=== PATIENT | male | born 1985 | race African-American/Black ===

== ENCOUNTER 2017-12-03 14:16 | Inpatient (IN) | payer SELFPAY ==
[2017-12-03 14:58] LABS: #Eosinphils 0.1 thou/uL (0.0-0.7); #Lymphocytes 1.8 thou/uL (1.20-3.40); #Monocytes 0.7 thou/uL (0.11-0.59); #Neutrophils 14.4 thou/uL (1.40-6.50); %Basophils 0.2 % (0.0-1.0); %Eosinophils 0.3 % (0.0-10.0); %Lymphocytes 10.5 % (21.0-51.0); %Neutrophils 85.1 % (42.0-75.0); Hemoglobin 13.6 g/dL (14.0-18.0); Mean Corpuscular HGB CONC 33.3 g/dL (32.0-36.0); Mean Corpuscular Hemoglobin 28.2 pg (27.0-31.0); Mean Corpuscular Volume 84.7 fl (80.0-94.0); Platelet Count 233 thou/uL (130-400); RBC Distribution Width 14.5 % (11.5-14.5); Red Blood Cell (RBC) Count 4.84 mill/uL (4.70-6.10); White Blood Cell (WBC) Count 16.9 thou/uL (4.8-10.8)
[2017-12-03 15:18] LABS: ALT (SGPT) 24 U/L (8-55); AST (SGOT) 18 U/L (5-34); Albumin 2.7 g/dL (3.5-5.0); Alkaline Phosphatase 86 U/L (40-150); Anion Gap 14 mmol/L (10-20); BUN (Urea Nitrogen) 28 mg/dL (8.9-20.6); Bilirubin, Total 0.6 mg/dL (0.2-1.2); Calc. Creatinine Clearance 0 mL/min (70-130); Carbon Dioxide 27 mmol/L (22-29); Chloride 101 mmol/L (98-107); Estimated GFR-MDRD 33; Globulin 3.6 g/dL (2.4-3.5); Glucose 263 mg/dL (70-105); Potassium 3.3 mmol/L (3.5-5.1); Protein, Total 6.3 g/dL (6.0-8.3); Sodium 139 mmol/L (136-145)
[2017-12-03 18:12] LABS: INR-International Normal Ratio 1.1; PTT 31.2 SEC (22.9-36.1)
--- NOTE | 2017-12-03 18:15 | RAD ---
CHEST ONE VIEW 12/03/17 HISTORY: Chest pain. COMPARISON: Chest one view, 07/18/17. FINDINGS: Lungs without focal air space consolidation, pneumothorax or effusion. The cardiac silhouette and med iastinal contours appear within normal limits. No acute osseous abnormality. IMPRESSION: No acute intrathoracic abnormality. POS: [facility]
[2017-12-03 18:20] LABS: Magnesium 1.7 mg/dL (1.6-2.6)
[2017-12-03] MEDS ORDERED: Nitroglycerin 2% Ointment 1 INCH/1 GM Packet ONE (18:21)
[2017-12-03] MEDS ORDERED: Fentanyl 100 MCG/2 ML VIAL ONE (18:21)
[2017-12-03] MEDS ORDERED: Acetaminophen 500 MG TAB ONE (18:21)
[2017-12-03 18:24] LABS: CKMB 2.8 ng/mL (0-6.6); Troponin I 0.149 ng/mL (< 0.028)
[2017-12-03] MEDS ORDERED: Heparin 25,000 units/D5W 0 ML ONE ×2 (19:24→19:25)
[2017-12-03] MEDS ORDERED: Furosemide 40 MG/4 ML VIAL ONE (19:24)
[2017-12-03] MEDS ORDERED: Heparin 5,000 UNITS/ML VIAL ONE (19:24)
[2017-12-03] MEDS ORDERED: niCARdipine 20MG In NaCl 20 MG/200 ML BAG ONE (19:24)
[2017-12-03 20:11] LABS: CKMB 2.7 ng/mL (0-6.6); Troponin I 0.168 ng/mL (< 0.028)
[2017-12-03] MEDS ORDERED: Amlodipine 5 MG TAB ONE (20:13)
[2017-12-03 20:46] LABS: Bilirubin Negative (Negative); Blood, Urine Moderate (Negative); Clarity CLEAR (Clear); Glucose, Urine (Dipstick) 250 mg/dL (Negative); Leukocyte Negative (Negative); Nitrite Negative (Negative); Protein, Urine (Dipstick) > or equal to 300 mg/dL (Neg-Trace); Specific Gravity, Urine 1.021 (1.002-1.036)
[2017-12-03 20:48] LABS: Bacteria/HPF None Seen HPF (None Seen); Hyaline Casts/LPF 7-10 HYALINE CAST LPF (0-3 Hyaline); Pathc Cast-AUWi Flag 1.49 (0-2.49); Squamous Epithelial 0-3 HPF (0-3); WBC/HPF 0-3 HPF (0-3)
[2017-12-03 21:03] LABS: Amphetamine Not Detected (NotDetected); Barbiturates Screen Not Detected (NotDetected); Benzodiazepine Screen Not Detected (NotDetected); Cocaine Metabolite Screen Not Detected (NotDetected); Medtox Control Line Valid? VALID (VALID); Medtox Reader # READER 1; Methadone Not Detected (NotDetected); Methamphetamine Not Detected (NotDetected); Opiate Screen Not Detected (NotDetected); Oxycodone Screen Not Detected (NotDetected); Phencyclidine (PCP) Not Detected (NotDetected); THC/Cannabinoid Screen Detected (NotDetected); Tricyclic Screen Not Detected (NotDetected)
[2017-12-03 21:39] LABS: Troponin I 0.161 ng/mL (< 0.028)
[2017-12-03 22:38] VITALS: BMI 42.0
[2017-12-03] MEDS: niCARdipine 20MG In NaCl 20 MG/200 ML BAG IVPB SCH (22:55)
[2017-12-03] MEDS ORDERED: Bisacodyl 5 MG TAB PO PRN (23:23)
[2017-12-03] MEDS ORDERED: Ondansetron HCl/PF 4 MG/2 ML Vial IVP PRN (23:23)
[2017-12-03] MEDS ORDERED: Acetaminophen 650 MG Suppository PR PRN (23:23)
[2017-12-03] MEDS ORDERED: Dextrose 50% Abboject 50 ML SYRINGE SLOW IVP PRN (23:25)
[2017-12-03] MEDS ORDERED: Dextrose 5% in Water 1,000 ML IV PRN (23:25)
[2017-12-04] MEDS ORDERED: Potassium Chloride 20 MEQ TAB PO SCH (00:30)
[2017-12-04] MEDS: Acetaminophen 325 MG TAB PO PRN (00:40)
[2017-12-04] MEDS: Nicotine 21 MG PATCH TD SCH ×2 (00:41→23:57)
[2017-12-04] MEDS: niCARdipine 20MG In NaCl 20 MG/200 ML BAG IVPB SCH ×4 (01:14→07:40)
--- NOTE | 2017-12-04 01:15 | HP ---
PRIMARY CARE PHYSICIAN: Mike Leach MD CHIEF COMPLAINT: Shortness of breath. HISTORY OF PRESENT ILLNESS: Mr. Emery is a pleasant 32-year-old gentleman who was seen at [facility] on 12/03/2017. He was hospitalized at this facility in 06/2017 for hyperte nsive crisis. He reports that he was initially taking his medication, but stopped taking medications about a month ago. Since then, he has been having progressively worsening shortness of breath. He also report generalized weakness. He denies any fevers or chills. He also report his headache was s tarted. He describes the headache as global, 5/10 at its worst, accompanied by shortness of breath, nausea, and generalized weakness. He report that his headache is currently improving. REVIEW OF SYSTEMS: The following complete review of systems was negative, unless otherwise mentioned in the HPI or below: Constitutional: Weight loss or gain, ability to conduct usual activities. Sk in: Rash, itching. Eyes: Double vision, pain. ENT/Mouth: Nose bleeding, neck stiffness, pain, te nderness. Cardiovascular: Palpitations, dyspnea on exertion, orthopnea. Respiratory: Shortness of breath, wheezing, cough, hemoptysis, fever or night sweats. Gastrointestinal: Poor appetite, abdom inal pain, heartburn, nausea, vomiting, constipation, or diarrhea. Genitourinary: Urgency, frequenc y, dysuria, nocturia. Musculoskeletal: Pain, swelling. Neurologic/Psychiatric: Anxiety, depressio n. Allergy/Immunologic: Skin rash, bleeding tendency. PAST MEDICAL HISTORY: Significant for hypertension; diabetes mellitus, type 2; chronic kidney diseas e, stage 3; morbid obesity; marijuana abuse. PAST SURGICAL HISTORY: None. FAMILY HISTORY: Father with hypertension and diabetes mellitus. ALLERGIES: None. CURRENT MEDICATIONS: As mentioned earlier, patient has not been taking any medications for the last month. SOCIAL HISTORY: The patient is a current smoker, he also uses marijuana. He drinks alcohol 2 times a month. PHYSICAL EXAMINATION: GENERAL: Mr. Emery is awake and alert, not in acute distress. VITAL SIGNS: Blood pressure is 213/121, pulse is 109, his breathing is at the rate of 27, and satura ting 93% on 1 liter of oxygen. He is morbidly obese, with a BMI of 42. EYES: No scleral icterus, no conjunctival pallor. ENT: Moist mucosal membranes. No oropharyngeal, erythema, or exudates. NECK: Supple, nontender, normal range of movement. Trachea is midline. RESPIRATORY: Accessory muscles of breathing are not active. Chest wall movements are symmetric bila terally. LUNGS: Clear to auscultation without wheeze, rhonchi, or crepitations. ABDOMEN: Soft, nontender, bowel sounds heard. No hepatomegaly, no splenomegaly. CARDIOVASCULAR: S 1 and S2 are heard, tachycardic regular. Peripheral pulses palpable. No carotid bruit, no pericardi al rub. NEUROLOGIC: Cranial nerves II through XII intact. Power is 5/5 in all four extremities. No Deep te ndon reflexes 2+. MUSCULOSKELETAL: Power is 5/5 in all 4 extremities. No focal motor or sensory deficits. Deep tendo n reflexes are 2+. Plantar downgoing bilaterally. LYMPHATIC: No cervical lymphadenopathy. SKIN: No rashes or subcutaneous nodules. PSYCHIATRIC: Normal mood, normal affect, patient is oriented to person, place, and time. LABORATORY AND DIAGNOSTIC DATA: Mr. Emery's labs and investigations were reviewed. I have reviewe d his electrocardiogram, which shows sinus tachycardia, no ST changes to suggest an acute coronary sy ndrome. He has left ventricular hypertrophy and repolarization abnormality. I have also reviewed hi s chest x-ray, which does not show any pulmonary infiltrates. Laboratory [place] [address], of which 85% on neutrophils, normocytic anemia with hemoglobin 13.6, normal platelet count, INR 1.1, normal sodium, decreased potassium of 3 .3, elevated blood urea nitrogen of 28, elevated creatinine of 2.73, last known creatinine 2.05 on , elevated BNP of 3118, indeterminate troponin I of 0.161, normal lipase. Urinalysis positiv e for protein, glucose, blood, and hyaline cast, and urine toxicology screen, positive for cannabinoi ds. ASSESSMENT AND PLAN: Mr. Emery is a pleasant 32-year-old gentleman who was seen at [facility] on 12/03/2017. His problem list includes: 1. Hypertensive urgency: Mr. Emery is presenting with hypertensive urgency secondary to medicatio n noncompliance. He has already been started on Cardene drip, which will be continued, his target bl ood pressure is less than 162 over less than 110 for the next 23 hours. Once the target blood pressu re is reached, it can be transitioned to oral antihypertensive. He will also likely need an outpatie nt sleep study to rule out obstructive sleep apnea syndrome as a cause of hypertension. 2. Hypokalemia: Replace potassium. 3. Diabetes mellitus: Start Accu Cheks, insulin sliding sclae. 4. Tobacco abuse: The patient has been consult regarding tobacco cessation. Start nicotine replace ment therapy. 5. Recreational drug use. The patient has been counseled against recreational drug use. 6. Elevated troponin: The patient denies any chest pain. Troponin elevation is likely secondary to chronic kidney disease. 7. Congestive heart failure: Suspected, given history of shortness of breath as well as elevated BN P. We will him on diuretics. We will check 2D echocardiogram. He had normal diastolic function in 01/2017. Many thanks for allowing me to participate in your patient's care. Please feel free to contact me wi th any questions or concerns. LEVEL OF RISK: High. LEVEL OF COMPLEXITY: High.
[2017-12-04 01:16] LABS: Troponin I 0.153 ng/mL (< 0.028)
[2017-12-04 05:14] LABS: #Eosinphils 0.1 thou/uL (0.0-0.7); #Lymphocytes 2.5 thou/uL (1.20-3.40); #Monocytes 0.8 thou/uL (0.11-0.59); #Neutrophils 11.4 thou/uL (1.40-6.50); %Basophils 0.1 % (0.0-1.0); %Eosinophils 0.9 % (0.0-10.0); %Lymphocytes 16.5 % (21.0-51.0); %Monocytes 5.5 % (0.0-10.0); %Neutrophils 76.9 % (42.0-75.0); Hemoglobin 13.6 g/dL (14.0-18.0); Mean Corpuscular HGB CONC 32.9 g/dL (32.0-36.0); Mean Corpuscular Hemoglobin 27.8 pg (27.0-31.0); Mean Corpuscular Volume 84.6 fl (80.0-94.0); Mean Platelet Volume 8.6 fL (7.4-10.4); Platelet Count 239 thou/uL (130-400); RBC Distribution Width 14.6 % (11.5-14.5); White Blood Cell (WBC) Count 14.8 thou/uL (4.8-10.8)
[2017-12-04 05:26] LABS: Anion Gap 15 mmol/L (10-20); BUN (Urea Nitrogen) 25 mg/dL (8.9-20.6); Calc. Creatinine Clearance 81 mL/min (70-130); Carbon Dioxide 24 mmol/L (22-29); Chloride 102 mmol/L (98-107); Estimated GFR-MDRD 38; Glucose 138 mg/dL (70-105); Sodium 138 mmol/L (136-145)
[2017-12-04 05:33] LABS: Troponin I 0.195 ng/mL (< 0.028)
[2017-12-04] MEDS: Furosemide 20 MG/2 ML VIAL SLOW IVP SCH ×2 (06:24→14:42)
--- NOTE | 2017-12-04 08:44 | PDOC.PN ---
- Subjective Encounter Start Date: 12/04/17 Encounter Start Time: 08:42 Mr. Emery was seen in follow-up of hypertensive Urgency. He says he has a mild headache, but otherwise feels OK. He wants to eat something. He denies chest pain or shortness of breath. - Objective MAR Reviewed: Yes Vital Signs & Weight: Vital Signs (12 hours) Temp Pulse Resp Pulse Ox 12/04/17 00:00 98.6 F 12/03/17 22:00 98.5 F 111 H 22 H 96 Weight Weight 292 lb 5.327 oz Most Recent Monitor Data Heart Rate from ECG 111 NIBP 171/110 NIBP BP-Mean 129 Respiration from ECG 20 SpO2 97 I&O: 12/03/17 12/04/17 12/05/17 06:59 06:59 06:59 Output Total 2049 Balance -2049 Result Diagrams: 12/04/17 03:36 12/04/17 03:36 Additional Labs: Accuchecks 12/04/17 00:40 POC Glucose 138 H Phys Exam - Physical Examination HEENT: PERRLA Respiratory: no wheezing, no rales, no rhonchi, clear to auscultation bilateral Cardiovascular: RRR, no significant murmur, no rub Gastrointestinal: soft, non-tender, positive bowel sounds Musculoskeletal: no edema Neurological: non-focal, moves all 4 limbs No Neurological deficits Dx/Plan (1) [id number] kidney injury Code(s): N17.9 - ACUTE KIDNEY FAILURE, UNSPECIFIED; N18.9 - CHRONIC KIDNEY DISEASE, UNSPECIFIED Status: Acute (2) Hypertensive emergency Code(s): I16.1 - HYPERTENSIVE EMERGENCY Status: Acute Comment: off Cardene drip (3) Hypokalemia Code(s): E87.6 - HYPOKALEMIA Status: Acute (4) Medical non-compliance Code(s): Z91.19 - PATIENT'S NONCOMPLIANCE W OTH MEDICAL TREATMENT AND REGIMEN Status: Chronic (5) DM2 (diabetes mellitus, type 2) Status: Chronic Qualifiers: Diabetes mellitus complication status: with kidney complications Diabetes mellitus complication detail: with chronic kidney disease Diabetes mellitus custodial insulin use: without custodial use Chronic kidney disease stage: stage 3 (moderate) Qualified Code(s): E11.22 - Type 2 diabetes mellitus with diabetic chronic kidney disease; N18.3 - Chronic kidney disease, stage 3 ( moderate) - Plan * HTN- patient's blood pressure is still elevated despite the Cardene drip. He appears to have been on Clonidine at one time- will re-start Clonidine, as well as some of his other oral medications, and hopsefully titrate him off the Cardene drip. * CT- scan finding discussed with Radiologist- possible basal Ganglia CVA, No Hemorrhage- Patient has no Neurological findings- will check an MRI to clarify * DM- patient says he is not on medication for this- will continue SSI * Non-compliance- discussed with patient in detail * Acute on chronic kidney failure- will monitor renal function-this is likely due to the Hypertensive insult. * Hypokalemia- replace Potassium
[2017-12-04] MEDS ORDERED: FLU VACC QS2017-18 36 mo. & older 0.5 ML SYRINGE IM ONE (09:00)
--- NOTE | 2017-12-04 09:01 | CT ---
PRELIMINARY REPORT/[facility]/EMERGENCY AFTER HOURS PROCEDURE: Addendum created by Lai Hurtado MD on 12/04/2017 8:28 AM Central Time ([place] & [place]) THIS REPORT CONTAINS FINDINGS THAT MAY BE CRITICAL TO PATIENT CARE. The findings were verbally commun icated via telephone conference with Dr. Keller at 8:27 AM [facility] on 12/04/2017. The findings were acknowl edged and understood. Initial Report created on 12/04/2017 7:37 AM Central Time ([place] & [place]) EXAM: CT Head Without Intravenous Contrast CLINICAL HISTORY: 32 years male; Signs and symptoms; Other: R/O bleed TECHNIQUE: Axial computed tomography images of the head/brain without intravenous contrast. COMPARISON: No relevant prior studies available. FINDINGS: Brain: Ill-defined low density change in the right basal ganglia lentiform nucleus. Additional faint ovoid low density change noted in the left gabriel radiata. No acute intracranial hemorrhage. No significant white matter disease. Brainstem: Prominent beam hardening artifact anteriorly at the brainstem. Ventricles: Unremarkable. No ventriculomegaly. Bones/joints: Unremarkable. No acute fracture. Soft tissues: Unremarkable. Sinuses: Unremarkable as visualized. No acute sinusitis. Mastoid air cells: Unremarkable as visualized. No mastoid effusion. IMPRESSION: Ill-defined low density change in the right basal ganglia lentiform nucleus. Additional faint ovoid l ow density change noted in the left gabriel radiata. These could represent subacute nonhemorrhagic inf arctions. Confirmatory followup imaging with MRI is recommended. The referring physician critical finding notification system was activated at the time of completion of this report. Thank you for allowing us to participate in the care of your patient. Dictated and Authenticated by: Lai Hurtado MD 12/04/2017 7:37 AM Central Time ([place] & [place]) FINAL REPORT CT HEAD NONCONTRAST: FINDINGS/IMPRESSION: I agree with the preliminary interpretation provided above. Age-indeterminate right basal ganglia infarction extending into the right thalamus and additionally a t the junction of the left centrum semiovale and left coronal radiata. Findings suggest age-indeterm inate ischemia. Recommend clinical correlation. POS: [facility]
[2017-12-04] MEDS: cloNIDine 0.1 MG TAB PO SCH ×3 (09:52→19:56)
[2017-12-04] MEDS: Carvedilol 25 MG TAB PO SCH ×2 (09:53→19:56)
[2017-12-04] MEDS: Heparin 5,000 UNITS/ML VIAL SC SCH ×3 (10:32→19:56)
[2017-12-04] MEDS: niCARdipine HCl 50 MG in Sodium Chloride 0.9% 250 ML 230 ML IVPB SCH ×2 (10:48→14:39)
[2017-12-04] MEDS ORDERED: NIFEdipine XL 60 MG TAB PO SCH (12:00)
--- NOTE | 2017-12-04 14:09 | ULT ---
CAROTID ULTRASOUND WITH LEE SCALE AND DOPPLER DUPLEX COLOR FLOW IMAGING SPECTRAL ANALYSIS PERFORMED: CLINICAL INDICATION: Possible CVA. FINDINGS: There is no significant atherosclerotic calcification of the carotid arteries. PEAK SYSTOLIC VELOCITY (CM/S): Right CCA 134 Left CCA 120 Right ICA 62 Left ICA 63 There is antegrade flow within the visualized bilateral vertebral arteries. IMPRESSION: 1. No hemodynamically significant stenosis of the right internal carotid artery. 2. No hemodynamically significant stenosis of the left internal carotid artery. POS: [facility]
--- NOTE | 2017-12-04 15:53 | EKG ---
Test Reason : EMERGENCY EXAM Blood Pressure : / mmHG Vent. Rate : 107 BPM Atrial Rate : 107 BPM P-R Int : 162 ms QRS Dur : 116 ms QT Int : 378 ms P-R-T Axes : 071 000 156 degrees QTc Int : 504 ms Sinus tachycardia with Premature atrial complexes Possible Left atrial enlargement Left ventricular hypertrophy with QRS widening and repolarization abnormality Abnormal ECG No change from 06/2017 Confirmed by MARIEL VARNER ([id number]), non linear editor VALENCIA DAY ([id number]) on 12/04/2017 3:52:33 PM Referred By: Confirmed By:MARIEL VARNER
--- NOTE | 2017-12-04 15:54 | EKG ---
Test Reason : Blood Pressure : / mmHG Vent. Rate : 107 BPM Atrial Rate : 107 BPM P-R Int : 156 ms QRS Dur : 116 ms QT Int : 376 ms P-R-T Axes : 058 001 158 degrees QTc Int : 501 ms Sinus tachycardia Possible Left atrial enlargement Left ventricular hypertrophy with QRS widening and repolarization abnormality Abnormal ECG #2 No change Confirmed by MARIEL VARNER ([id number]), online content editor VALENCIA DAY ([id number]) on 12/04/2017 3:53:46 PM Referred By: Confirmed By:MARIEL VARNER
[2017-12-04] MEDS: HumaLOG 300 UNITS/3 ML VIAL SC PRN ×2 (17:25→21:11)
[2017-12-04] MEDS ORDERED: Labetalol HCl 100 MG/20 ML VIAL SLOW IVP PRN (17:36)
[2017-12-04] MEDS ORDERED: hydrALAZINE 25 MG TAB PO PRN (17:37)
[2017-12-04] MEDS: NIFEdipine XL 60 MG TAB PO SCH (19:56)
[2017-12-04] MEDS: Simvastatin 5 MG TAB PO SCH (19:56)
[2017-12-05 04:26] LABS: #Eosinphils 0.2 thou/uL (0.0-0.7); #Lymphocytes 2.7 thou/uL (1.20-3.40); #Monocytes 0.9 thou/uL (0.11-0.59); #Neutrophils 8.9 thou/uL (1.40-6.50); %Basophils 0.2 % (0.0-1.0); %Eosinophils 1.5 % (0.0-10.0); %Lymphocytes 21.4 % (21.0-51.0); %Monocytes 6.7 % (0.0-10.0); %Neutrophils 70.2 % (42.0-75.0); Hemoglobin 11.5 g/dL (14.0-18.0); Mean Corpuscular HGB CONC 32.4 g/dL (32.0-36.0); Mean Corpuscular Hemoglobin 27.8 pg (27.0-31.0); Mean Corpuscular Volume 85.7 fl (80.0-94.0); Mean Platelet Volume 7.9 fL (7.4-10.4); Platelet Count 238 thou/uL (130-400); RBC Distribution Width 14.5 % (11.5-14.5); Red Blood Cell (RBC) Count 4.14 mill/uL (4.70-6.10); White Blood Cell (WBC) Count 12.7 thou/uL (4.8-10.8)
[2017-12-05 04:43] LABS: Anion Gap 12 mmol/L (10-20); BUN (Urea Nitrogen) 22 mg/dL (8.9-20.6); Calc. Creatinine Clearance 92 mL/min (70-130); Calcium 8.5 mg/dL (7.8-10.44); Carbon Dioxide 23 mmol/L (22-29); Chloride 102 mmol/L (98-107); Estimated GFR-MDRD 43; Glucose 127 mg/dL (70-105); Potassium 3.3 mmol/L (3.5-5.1); Sodium 134 mmol/L (136-145)
[2017-12-05] MEDS: Furosemide 20 MG/2 ML VIAL SLOW IVP SCH ×2 (06:12→14:37)
[2017-12-05] MEDS: NIFEdipine XL 60 MG TAB PO SCH ×2 (08:05→21:37)
[2017-12-05] MEDS: Carvedilol 25 MG TAB PO SCH ×2 (08:05→21:37)
[2017-12-05] MEDS: Minoxidil 10 MG TAB PO SCH (08:05)
[2017-12-05] MEDS: cloNIDine 0.1 MG TAB PO SCH ×3 (08:05→21:36)
[2017-12-05] MEDS: Heparin 5,000 UNITS/ML VIAL SC SCH ×3 (08:05→21:37)
--- NOTE | 2017-12-05 08:35 | PDOC.PN ---
- Subjective Encounter Start Date: 12/05/17 Encounter Start Time: 08:31 Mr. Emery does not have complaints, other than his vision is a bit blurry. He says that started today. His headache has improved. - Objective MAR Reviewed: Yes Vital Signs & Weight: Vital Signs (12 hours) Temp Pulse Resp Pulse Ox 12/05/17 07:33 98.0 F 88 16 97 12/05/17 07:00 98.0 F 12/05/17 03:00 98.3 F 12/04/17 23:00 98.0 F Weight Weight 289 lb 7.471 oz Most Recent Monitor Data Heart Rate from ECG 78 NIBP 157/104 NIBP BP-Mean 123 Respiration from ECG 23 SpO2 96 I&O: 12/04/17 12/05/17 12/06/17 06:59 06:59 06:59 Intake Total 2903 360 Output Total 2049 1850 700 Balance -2049 1053 -340 Result Diagrams: 12/05/17 04:06 12/05/17 04:06 Additional Labs: Accuchecks 12/05/17 12/04/17 12/04/17 06:12 21:09 17:24 POC Glucose 119 H 166 H 200 H Phys Exam - Physical Examination HEENT: PERRLA Respiratory: no wheezing, no rales, no rhonchi, clear to auscultation bilateral Cardiovascular: RRR, no significant murmur Gastrointestinal: soft, non-tender, positive bowel sounds Musculoskeletal: no edema Neurological: non-focal Dx/Plan (1) [id number] kidney injury Code(s): N17.9 - ACUTE KIDNEY FAILURE, UNSPECIFIED; N18.9 - CHRONIC KIDNEY DISEASE, UNSPECIFIED Status: Acute (2) Hypertensive emergency Code(s): I16.1 - HYPERTENSIVE EMERGENCY Status: Acute Comment: off Cardene drip (3) Hypokalemia Code(s): E87.6 - HYPOKALEMIA Status: Acute (4) Medical non-compliance Code(s): Z91.19 - PATIENT'S NONCOMPLIANCE W OTH MEDICAL TREATMENT AND REGIMEN Status: Chronic (5) DM2 (diabetes mellitus, type 2) Status: Chronic Qualifiers: Diabetes mellitus complication status: with kidney complications Diabetes mellitus complication detail: with chronic kidney disease Diabetes mellitus assisted insulin use: without superintendent marine oil terminal use Chronic kidney disease stage: stage 3 (moderate) Qualified Code(s): E11.22 - Type 2 diabetes mellitus with diabetic chronic kidney disease; N18.3 - Chronic kidney disease, stage 3 ( moderate) - Plan * Hypertensive Urgency- Blood pressure is much better. He is off the Cardene drip. He has been re-started on Clonidine, and Carvediolol, Procardia, and Minoxidil. * DM- blood glucose is stable on diabetic diet- continue SSI * Acute CVA? - Await MRI to clarify * Echo is pending * Acute on chronic kidney disease- renal function has improved * He can move out of the ICU.
[2017-12-05] MEDS: Acetaminophen 325 MG TAB PO PRN (10:55)
--- NOTE | 2017-12-05 12:37 | MRI ---
MRI BRAIN WITHOUT CONTRAST: CLINICAL HISTORY: Abnormal head CT exam with history of possible CVA. FINDINGS: There is a focus of abnormal hyperintense FLAIR and T2 signal of the right thalamus, extending into t he right gabriel radiata, in addition to scattered parenchymal signal abnormalities of each cerebral h emisphere. No evidence of acute territorial infarction or midline shift. The ventricular system is normal in size. No intracranial hemorrhagic susceptibility. Skull base flow voids are patent. Mini mal mucosal thickening is seen within the paranasal sinuses. IMPRESSION: Foci of signal alteration of the bilateral cerebral hemispheres, favoring areas of gliosis, although are nonspecific and are atypical for a patient of this age. Additional etiologies, such as infectiou s/inflammatory foci or demyelinating processes, cannot be excluded on the basis of this exam. Recomm end a neurology consultation for further clinical management. Imaging followup with pre and post con trast brain MRI would also prove useful on a short-term basis. POS: [facility]
[2017-12-05] MEDS: HumaLOG 300 UNITS/3 ML VIAL SC PRN (17:38)
[2017-12-05] MEDS: Simvastatin 5 MG TAB PO SCH (21:37)
[2017-12-06] MEDS: Nicotine 21 MG PATCH TD SCH (00:37)
[2017-12-06] MEDS: Acetaminophen 325 MG TAB PO PRN (02:44)
[2017-12-06] MEDS: Furosemide 20 MG/2 ML VIAL SLOW IVP SCH ×2 (05:29→15:05)
[2017-12-06 05:50] LABS: #Eosinphils 0.1 thou/uL (0.0-0.7); #Monocytes 0.9 thou/uL (0.11-0.59); #Neutrophils 7.7 thou/uL (1.40-6.50); %Basophils 0.1 % (0.0-1.0); %Eosinophils 1.4 % (0.0-10.0); %Lymphocytes 10.4 % (21.0-51.0); %Monocytes 8.8 % (0.0-10.0); %Neutrophils 79.4 % (42.0-75.0); Hemoglobin 11.4 g/dL (14.0-18.0); Mean Corpuscular HGB CONC 32.4 g/dL (32.0-36.0); Mean Corpuscular Hemoglobin 27.9 pg (27.0-31.0); Platelet Count 206 thou/uL (130-400); RBC Distribution Width 14.5 % (11.5-14.5); Red Blood Cell (RBC) Count 4.09 mill/uL (4.70-6.10); White Blood Cell (WBC) Count 9.7 thou/uL (4.8-10.8)
[2017-12-06 06:17] LABS: Anion Gap 12 mmol/L (10-20); BUN (Urea Nitrogen) 23 mg/dL (8.9-20.6); Calc. Creatinine Clearance 92 mL/min (70-130); Calcium 8.6 mg/dL (7.8-10.44); Carbon Dioxide 25 mmol/L (22-29); Chloride 102 mmol/L (98-107); Estimated GFR-MDRD 43; Glucose 130 mg/dL (70-105); Potassium 3.6 mmol/L (3.5-5.1); Sodium 135 mmol/L (136-145)
[2017-12-06] MEDS: Heparin 5,000 UNITS/ML VIAL SC SCH (09:32)
[2017-12-06] MEDS: cloNIDine 0.1 MG TAB PO SCH (09:32)
[2017-12-06] MEDS: Carvedilol 25 MG TAB PO SCH (09:32)
[2017-12-06] MEDS: NIFEdipine XL 60 MG TAB PO SCH (09:32)
[2017-12-06] MEDS: Minoxidil 10 MG TAB PO SCH (09:32)
[2017-12-06] MEDS: HumaLOG 300 UNITS/3 ML VIAL SC PRN (11:25)
[2017-12-06 11:44] VITALS: BP 140/93; TEMP 98.2
--- NOTE | 2017-12-06 11:59 | PDOC.PN ---
- Subjective Encounter Start Date: 12/06/17 Encounter Start Time: 11:56 Mr. Emery says he still notes some blurred vision. He admits this happened before when he was admitted with Hypertensive Urgency, it lasted a few days then got better. His headache is better. - Objective MAR Reviewed: Yes Vital Signs & Weight: Vital Signs (12 hours) Temp Pulse Pulse Pulse Resp BP BP 12/06/17 11:43 98.2 F 84 18 12/06/17 09:19 88 85 172/95 H 133/79 12/06/17 09:15 98.4 F 87 16 12/06/17 04:00 97.9 F 83 20 BP Pulse Ox Pulse Ox Pulse Ox 12/06/17 11:43 140/93 H 97 12/06/17 09:19 96 97 12/06/17 09:15 172/95 H 97 12/06/17 04:00 158/91 H 96 Weight Weight 292 lb Most Recent Monitor Data Heart Rate from ECG 75 NIBP 148/95 NIBP BP-Mean 117 Respiration from ECG 20 SpO2 97 I&O: 12/05/17 12/06/17 12/07/17 06:59 06:59 06:59 Intake Total 2903 1440 Output Total 1850 1400 Balance 1053 40 Result Diagrams: 12/06/17 05:15 12/06/17 05:15 Additional Labs: Accuchecks 12/06/17 12/06/17 12/05/17 11:08 06:17 17:32 POC Glucose 162 H 129 H 196 H 12/05/17 11:56 POC Glucose 152 H Phys Exam - Physical Examination HEENT: PERRLA Respiratory: no wheezing, no rales, no rhonchi, clear to auscultation bilateral Cardiovascular: RRR, no significant murmur Gastrointestinal: soft, non-tender, positive bowel sounds Musculoskeletal: no edema Dx/Plan (1) [id number] kidney injury Code(s): N17.9 - ACUTE KIDNEY FAILURE, UNSPECIFIED; N18.9 - CHRONIC KIDNEY DISEASE, UNSPECIFIED Status: Acute (2) Hypertensive emergency Code(s): I16.1 - HYPERTENSIVE EMERGENCY Status: Acute Comment: off Cardene drip (3) Hypokalemia Code(s): E87.6 - HYPOKALEMIA Status: Acute (4) Medical non-compliance Code(s): Z91.19 - PATIENT'S NONCOMPLIANCE W OTH MEDICAL TREATMENT AND REGIMEN Status: Chronic (5) DM2 (diabetes mellitus, type 2) Status: Chronic Qualifiers: Diabetes mellitus complication status: with kidney complications Diabetes mellitus complication detail: with chronic kidney disease Diabetes mellitus lobsterman insulin use: without lobsterman use Chronic kidney disease stage: stage 3 (moderate) Qualified Code(s): E11.22 - Type 2 diabetes mellitus with diabetic chronic kidney disease; N18.3 - Chronic kidney disease, stage 3 ( moderate) - Plan * Hypertensive Urgency- improved * MRI findings- discussed with the patient- will need Outpatient Neurology evaluation * Echo results noted- discussed with patient as well- lower EF likely from Uncontrolled HTN, and will hopefully improve with proper therapy, and control of his blood pressure- Echo will need to be repeated in 3-4 months * Stable for discharge home..
--- NOTE | 2017-12-06 12:23 | DIS ---
DATE OF ADMISSION: 12/03/2017 DATE OF DISCHARGE: 12/06/2017 PRIMARY CARE PHYSICIAN: Marylou Chand. DISCHARGE DISPOSITION: Home. PRIMARY DISCHARGE DIAGNOSES: 1. Hypertensive urgency. 2. Diabetes mellitus, type 2. 3. Chronic kidney disease stage 3. 4. Morbid obesity, the patient's body mass index is 43.1. 5. Hypertensive Heart Disease with Acute Systolic Heart Failure DISCHARGE MEDICATIONS: Include nifedipine XL 60 mg twice daily, minoxidil 10 mg daily, Zaroxolyn 5 mg daily, lovastatin 20 mg daily, hydralazine 50 mg t.i.d. , clonidine 0.1 mg t.i.d., carvedilol 25 mg twice daily, and aspirin 81 mg daily. PROCEDURES DONE DURING THE ADMISSION: The patient had an echocardiogram and this demonstrated an ejection fraction of 35%-40%. There was severe concentric left ventricular hypertrophy and mild dilatation of the left atrium. The patient also had a CT scan of the brain showing some age indeterminate right basal ganglia and infarct extending into the right thalamus and additionally at the junction of the left centrum semiovale and left gabriel radiata, there could be findings suggestive of an age indeterminate ischemia. The patient had a followup MRI and this showed some focal signal alteration in bilateral cerebral hemispheres that was favoring gliosis, this was nonspecific, but atypical for his age. There was no evidence of any bleed or infarction. He had bilateral carotid Dopplers which were negative. CODE STATUS: FULL CODE. ALLERGIES: No known drug allergies. HOSPITAL COURSE: Mr. Emery is a pleasant 32-year-old gentleman who was admitted with shortness of breath. He was found to have an extremely elevated blood pressure of 213/121. He was admitted to the ICU for hypertensive urgency and started on a Cardene drip. The patient's blood pressure was controlled after he was on a Cardene drip for about 24 hours and we restarted his usual antihypertensive. The patient admits to not taking his medications at least for the last week or longer period and therefore this episode was likely due to medical noncompliance. He is currently working at [employer] and anticipates having health insurance, which will become effective soon. He was instructed on the dangers of noncompliance and the need to follow up on a regular basis at the time of discharge. I also discussed the risk of end-stage renal disease requiring dialysis, stroke with paralysis or even and explained that his vision changes are likely related to the uncontrolled hypertension. He expressed understanding of this. However, I suspect he may still have some difficulty with compliance as he told me he plans to get the medications on Wednesday, today is Wednesday. I again stressed him the need for him to crab picker the medication today. I explained to him the clonidine and carvedilol, very inexpensive and he likely can scrape up enough money to get these and he can likely even borrow some money to get the rest of the medications. 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 Also, he will need to follow up with Neurology in the outpatient setting regarding the changes seen on the MRI and also his ejection fraction was slightly over than on previous admission. Again, this was explained to the patient. I discussed this with Dr. Alanis, who was quality control lab tech with Cardiology and it is likely that this is a result of hypertensive insult on his heart and once he is back on his medications to repeat the echo in 3-4 months, likely to improve his creatinine is also 2.16, which is actually an improvement from admission and for this reason, we did not do any invasive cardiac chest as well. The patient expressed understanding that he will need a repeat echo upon discharge. I wrote out his prescriptions instead of sending him directly to the pharmacy as he has been undecided as to which pharmacy he plans to take them too. Therefore , he should have them on his person and can get these filled. The patient is subsequently being discharged home today on 12/06/2017. MAURY
--- NOTE | 2017-12-12 18:01 | PQF ---
Zion Emery [id number] CLINICAL DOCUMENTATION CLARIFICATION FORM: POST DISCHARGE Addendum to original discharge summary date: ____ Late entry note date: __ DATE: 12/12/17 ATTN: Dr. Keller Please exercise your independent, professional judgment in responding to the clarification form. Clinical indicators are provided on the bottom of this form for your review Please check appropriate box(s): [ X ] Associated Diagnosis: __Hypertensive Heart Disease with systolic heart failure [ ] Other diagnosis [ ] Unable to determine In addition, please specify: Present on Admission (POA): [ X ] Yes [ ] No [ ] Unable to determine CLINICAL INDICATORS - SIGNS / SYMPTOMS/ LABS are present in the medical record: Lab Results: BNP 3118 on admission H&P documents "suspectec CHF" RISK FACTORS: HTN urgency CKD DM Morbid obesity TREATMENT Diuretic 2D echo (This form is maintained as a part of the permanent medical record) 2014 [employer], [employer]. All Rights Reserved BROOK Casey, CCS [email or web address] [phone] MAURY
== END 2017-12-06 15:15 | disposition home or self-care (01) | DRG 304 ==
LOC: ERS 14:16 → CCU 20:19 → 2NO 12-05 12:33
PROVIDERS: ADMIT Internal Medicine; ATTEND Internal Medicine
DX: I16.1 Hypertensive emergency (principal); I50.21 Acute systolic (congestive) heart failure; N17.9 Acute kidney failure, unspecified; E11.22 Type 2 diabetes mellitus with diabetic chronic kidney disease; N18.3 Chronic kidney disease, stage 3 (moderate); Z68.41 Body mass index [BMI] 40.0-44.9, adult; E66.01 Morbid (severe) obesity due to excess calories; I13.0 Hypertensive heart and chronic kidney disease with heart failure and stage 1 through stage 4 chronic kidney disease, or unspecified chronic kidney disease; Z91.14 Patient's other noncompliance with medication regimen; E87.6 Hypokalemia; Z91.19 Patient's noncompliance with other medical treatment and regimen; F17.210 Nicotine dependence, cigarettes, uncomplicated; H53.8 Other visual disturbances
CPT/HCPCS: 36415; 36416; 70450; 70551; 71045; 80048; 80053; 80061; 80306; 81003; 81015; 82553; 83690; 83735; 83880; 84484; 85025; 85610; 85730; 93005; 93306; 93798; 93880; 96365; 96366; 96375; 99406; J1644; J1940; J3010; J7050

== ENCOUNTER 2018-09-28 16:05 | Inpatient (IN) | payer OTHER, SELFPAY ==
[2018-09-28] MEDS ORDERED: Ketorolac Tromethamine 30 MG/ML VIAL ONE (16:39)
[2018-09-28] MEDS ORDERED: Pantoprazole 40 MG VIAL ONE (16:39)
[2018-09-28 16:46] LABS: Hemoglobin 15.7 g/dL (14.0-18.0); Mean Corpuscular HGB CONC 33.1 g/dL (32.0-36.0); Mean Corpuscular Hemoglobin 26.7 pg (27.0-31.0); Mean Corpuscular Volume 80.8 fL (78.0-98.0); Mean Platelet Volume 8.1 fL (7.4-10.4); Platelet Count 401 thou/uL (130-400); RBC Distribution Width 13.8 % (11.5-14.5); Red Blood Cell (RBC) Count 5.87 mill/uL (4.70-6.10); White Blood Cell (WBC) Count 23.2 thou/uL (4.8-10.8)
[2018-09-28 17:08] LABS: Band 1 % (5-11); Lymphocytes 12 % (21-51); MDiff Complete? YES; Monocytes 1 % (0-10); Neutrophil 85 % (42-75); PLT Morphology Comment Appears Increased; RBC Morphology Normal; Reactive Lymphocytes 1 % (0-10)
[2018-09-28 17:09] LABS: ALT (SGPT) 13 U/L (8-55); AST (SGOT) 15 U/L (5-34); Alkaline Phosphatase 101 U/L (40-150); Anion Gap 14 mmol/L (10-20); BUN (Urea Nitrogen) 39 mg/dL (8.9-20.6); Bilirubin, Total 0.3 mg/dL (0.2-1.2); CK (CPK) 118 U/L (30-200); Calc. Creatinine Clearance 0 mL/min (70-130); Calcium 8.7 mg/dL (7.8-10.44); Carbon Dioxide 23 mmol/L (22-29); Chloride 101 mmol/L (98-107); Estimated GFR-MDRD 18; Globulin 3.9 g/dL (2.4-3.5); Glucose 185 mg/dL (70-105); Lipase 43 U/L (8-78); Potassium 3.5 mmol/L (3.5-5.1); Protein, Total 6.9 g/dL (6.0-8.3); Sodium 134 mmol/L (136-145)
[2018-09-28 17:14] LABS: CKMB 3.8 ng/mL (0-6.6); Troponin I 0.084 ng/mL (< 0.028)
--- NOTE | 2018-09-28 17:23 | CT ---
CT ABDOMEN AND PELVIS WITHOUT CONTRAST: Date: 09/28/18 HISTORY: Right upper quadrant abdominal pain, vomiting. FINDINGS: Absence of oral and IV contrast reduces the sensitivity of exam, particularly for solid organs and anthony wel. The lung bases are clear. There is free fluid in the abdomen and pelvis consistent with ascites. No c alcified gallstones are seen. No free air is identified. No calculi seen in the kidneys, ureters, or the urinary bladder. No hydroureteronephrosis noted on either side. No acute osseous abnormalities ar e seen. The appendix appears normal. IMPRESSION: 1. Ascites. 2. No CT evidence of urinary tract calculi or obstruction. POS: [facility]
[2018-09-28 17:57] LABS: Acetaminophen Less than 6.0 mcg/mL (10.0-30.0); Alcohol Less than 10 mg/dL (Less than 10); Salicylate Less than 8.0 mg/dL (15.0-30.0)
[2018-09-28] MEDS ORDERED: Morphine 4 MG/ML VIAL ONE (18:28)
[2018-09-28] MEDS ORDERED: niCARdipine 20MG In NaCl 20 MG/200 ML BAG ONE (18:28)
[2018-09-28] MEDS ORDERED: Aspirin 81 mg Enteric Coated Tablet ONE (18:28)
--- NOTE | 2018-09-28 18:35 | RAD ---
CHEST ONE VIEW: 09/28/18 COMPARISON: 12/03/17 HISTORY: Pain. FINDINGS: Normal cardiac silhouette. Pulmonary vessels and hilum are normal. No masses or consolidation. No pne umothorax or osseous abnormalities. IMPRESSION: No acute cardiopulmonary process. POS: [facility]
[2018-09-28 18:40] LABS: Bilirubin Small (Negative); Blood, Urine Negative (Negative); Clarity CLOUDY (Clear); Glucose, Urine (Dipstick) 500 mg/dL (Negative); Leukocyte Negative (Negative); Nitrite Negative (Negative); Protein, Urine (Dipstick) > or equal to 300 mg/dL (Neg-Trace); Specific Gravity, Urine 1.033 (1.002-1.036); Urobilinogen 0.2 mg/dL (0.2-1.0)
[2018-09-28 18:42] LABS: Bacteria/HPF None Seen HPF (None Seen)
[2018-09-28 18:51] LABS: Pathc Cast-AUWi Flag 8.43 (0-2.49)
[2018-09-28 19:03] LABS: Amphetamine Not Detected (NotDetected); Barbiturates Screen Not Detected (NotDetected); Benzodiazepine Screen Not Detected (NotDetected); Cocaine Metabolite Screen Not Detected (NotDetected); Medtox Control Line Valid? VALID (VALID); Medtox Reader # READER 4; Methadone Not Detected (NotDetected); Methamphetamine Not Detected (NotDetected); Opiate Screen Not Detected (NotDetected); Oxycodone Screen Not Detected (NotDetected); Phencyclidine (PCP) Not Detected (NotDetected); THC/Cannabinoid Screen Detected (NotDetected); Tricyclic Screen Not Detected (NotDetected)
[2018-09-28 19:05] LABS: Crystals/HPF 1+ AMORPH URATES HPF (Negative); RBC/HPF 0-3 HPF (0-3)
[2018-09-28 19:06] LABS: Hyaline Casts/LPF 4-6 HYALINE CAST LPF (0-3 Hyaline); Other Casts/LPF 0-3 COARSE GRAN LPF (0-3 Hyaline); Transitional Epithelial 0-3 HPF (0-3)
[2018-09-28 20:14] LABS: Troponin I 0.104 ng/mL (< 0.028)
[2018-09-28 20:17] LABS: HIV (1/2) Antibody/Antigen Non-Reactive (NonReactive)
[2018-09-28] MEDS ORDERED: niCARdipine HCl 25 MG in Sodium Chloride 0.9% 250 ML 240 ML IVPB SCH (21:45)
[2018-09-28] MEDS ORDERED: Ondansetron ODT 4 MG TAB SL PRN (21:47)
[2018-09-28] MEDS ORDERED: Ondansetron PF 4 MG/2 ML Vial IVP PRN (21:47)
[2018-09-28] MEDS ORDERED: Morphine 4 MG/ML VIAL IV PRN (21:48)
[2018-09-28] MEDS ORDERED: HumaLOG 300 UNITS/3 ML VIAL SC PRN (21:58)
[2018-09-28] MEDS ORDERED: Dextrose 50% Abboject 50 ML SYRINGE SLOW IVP PRN (21:58)
[2018-09-28] MEDS ORDERED: Dextrose 5% in Water 1,000 ML IV PRN (21:58)
[2018-09-28] MEDS ORDERED: Acetaminophen 325 MG TAB PO PRN (21:58)
[2018-09-28] MEDS: cefTRIAXone\\ROCEPHIN 2 GM in Sodium Chloride 0.9% 100 ML IVPB SCH (23:07)
--- NOTE | 2018-09-28 23:17 | ULT ---
GALLBLADDER ULTRASOUND: 09/28/18 COMPARISON: 04/10/14. HISTORY: Right upper quadrant pain. TECHNIQUE: Utilizing a multihertz transducer, sonographic imaging of the right upper quadrant is performed in th e longitudinal and transverse plane. FINDINGS: The pancreas is obscured by bowel gas. There is free fluid adjacent to the liver. Main portal vein is patent. Appropriate directional flow. Right hepatic lobe measures 17.1 cm. Visualized hepatic parenchyma has an increased echogenicity whic h may be due to hepatic steatosis or hepatocellular disease. Subsequent evaluation for hepatic masses and intrahepatic biliary dilatation is limited. No sonographic evidence of cholelithiasis, gallbladd er wall thickening or pericholecystic fluid. Negative Leary's sign. Limited evaluation of the common bile duct. Right kidney has a normal cortical echotexture. No hydronephrosis. Right kidney measures 10.3 x 4.1 x 4.1 cm. IMPRESSION: 1. Perihepatic fluid. 2. No sonographic evidence of cholelithiasis or cholecystitis. 3. Increased echogenicity of the liver which may be due to hepatic steatosis or hepatocellular d isease. Correlate clinically. Additional imaging if warranted. 4. Nonvisualization of the common bile duct. POS: [facility]
[2018-09-28 23:36] LABS: Troponin I 0.097 ng/mL (< 0.028)
[2018-09-28] MEDS: Sodium Chloride 0.9% 1,000 ML IV SCH (23:39)
[2018-09-28] MEDS ORDERED: Nitroglycerin 50 MG/250 ML BOT 250 ML IVPB SCH (23:45)
[2018-09-28] MEDS ORDERED: hydrALAZINE 25 MG TAB PO SCH (23:45)
[2018-09-28] MEDS ORDERED: Carvedilol 25 MG TAB PO SCH (23:45)
[2018-09-28] MEDS ORDERED: cloNIDine 0.1 MG TAB PO SCH (23:45)
[2018-09-29] MEDS: Labetalol HCl 200 MG, Admixture Fee 1 EACH in Sodium Chloride 0.9% 250 ML 160 ML IVPB SCH ×4 (02:21→07:30)
[2018-09-29 04:47] LABS: #Eosinphils 0.1 thou/uL (0.0-0.7); #Monocytes 0.8 thou/uL (0.11-0.59); #Neutrophils 14.4 thou/uL (1.40-6.50); %Basophils 0.2 % (0.0-1.0); %Eosinophils 0.4 % (0.0-10.0); %Lymphocytes 11.7 % (21.0-51.0); %Monocytes 4.5 % (0.0-10.0); %Neutrophils 83.2 % (42.0-75.0); Hemoglobin 12.5 g/dL (14.0-18.0); Mean Corpuscular HGB CONC 30.7 g/dL (32.0-36.0); Mean Corpuscular Volume 81.6 fL (78.0-98.0); Mean Platelet Volume 8.9 fL (7.4-10.4); Platelet Count 300 thou/uL (130-400); RBC Distribution Width 13.9 % (11.5-14.5); Red Blood Cell (RBC) Count 5.01 mill/uL (4.70-6.10); White Blood Cell (WBC) Count 17.3 thou/uL (4.8-10.8)
[2018-09-29 05:22] LABS: Anion Gap 15 mmol/L (10-20); BUN (Urea Nitrogen) 40 mg/dL (8.9-20.6); Calc. Creatinine Clearance 48 mL/min (70-130); Calcium 7.9 mg/dL (7.8-10.44); Carbon Dioxide 20 mmol/L (22-29); Chloride 104 mmol/L (98-107); Estimated GFR-MDRD 18; Glucose 207 mg/dL (70-105); Potassium 3.2 mmol/L (3.5-5.1); Sodium 136 mmol/L (136-145)
--- NOTE | 2018-09-29 05:36 | HP ---
CHIEF COMPLAINT: Abdominal pain. HISTORY OF PRESENT ILLNESS: This is a 33-year-old -[place] male with past medical history of resistant hypertension, type 2 diabetes mellitus being admitted in the hospital with chief complaint of right upper quadrant abdominal pain, which started on 09/25/2018. Per patient, he has been having right upper quadrant abdominal pain, which is crampy in nature, does not radiate to the back. Patient states that he had associated symptoms of vomiting prior to the day of admission. Patient's right upper quadrant abdominal pain is severe, localized and nothing relieves the pain and coughing exacerbates the pain. Patient denies any headaches, fever, chills, weakness, night sweats, vision changes, chest pain, palpitations, orthopnea, shortness of breath, dizziness, headaches, weakness. REVIEW OF SYSTEMS: Positive for vomiting, nausea, abdominal pain, otherwise as documented in the HPI. All other systems were reviewed and are negative. PAST MEDICAL HISTORY: Significant for resistant hypertension, diabetes mellitus type 2. PAST SURGICAL HISTORY: No surgical history. PSYCHIATRIC HISTORY: No previous psychiatric history. SOCIAL HISTORY: Patient uses marijuana, smokes cigarettes occasionally. Patient drinks occasionally. FAMILY HISTORY: Noncontributory to this visit. ALLERGIES: No known drug allergies. CURRENT MEDICATIONS: Patient is on nifedipine 10 mg, carvedilol 25 mg, hydralazine 50 mg, Catapres 0.1 mg t.i.d., metolazone 2.5 mg daily. PHYSICAL EXAMINATION: VITAL SIGNS: Blood pressure is 214/149, pulse of 111, respiratory rate of 18, temperature of 98.5, O2 saturation of 98 on room air. GENERAL: Patient is morbidly obese, lying in bed comfortably, alert, oriented x3, able to speak in full sentences. HEENT: Normocephalic, atraumatic. Pupils are equal, round, and reactive to light. Extraocular movements are intact. No scleral icterus. No conjunctival pallor. Mucous membranes are moist. NECK: No JVD. Full range of motion. Neck is supple. No tracheal deviation. LUNGS: Clear to auscultation bilaterally. No wheezing, no rales, no rhonchi appreciated. CARDIOVASCULAR: Positive S1, S2, regular rate and rhythm. No murmurs, no gallops or rubs appreciated. ABDOMEN: Obese abdomen, soft, nontender, nondistended, positive bowel sounds in all quadrants. EXTREMITIES: Patient has 5/5 upper extremity strength, good pulses bilaterally at the upper extremities. Lower extremity, patient has no edema, 5/5 lower extremity strength. Good pulses bilaterally. NEUROLOGIC: Cranial nerves II through XII grossly intact. No neurologic deficit noted. SKIN: Warm, dry, and intact. PSYCHIATRIC: Alert, oriented x3, normal affect. IMAGIN. EKG shows sinus tachycardia with left ventricular hypertrophy. 2. CT of the abdomen and pelvis showed no acute findings. 3. Ultrasound of the abdomen showed right hepatic lobe measuring 17.1 cm. Visualized hepatic parenchyma has an increased echogenicity, which may be due to hepatic steatosis or hepatocellular disease. Subsequent evaluation of hepatic masses and intrahepatic biliary dilatation is limited. LABORATORY DATA: WBC is 23.2, hemoglobin is 15.7, hematocrit is 47.4, RDW 13.8 , platelet count of 401. Sodium is 134, potassium is 3.5, chloride is 101, carbon dioxide of 23, anion gap of 14, BUN is 39, creatinine is 4.71, glucose 185. Troponin is 0.084, repeat is 0.104. BNP 1733.5. TSH is 4.2981. Lipase is 43. ASSESSMENT AND PLAN: This is a 33-year-old male with past medical history significant for resistant hypertension being admitted for: 1. Right upper quadrant pain with etiology unclear at this time. Ultrasound of the right upper quadrant was ordered, which did not show any acute cholecystitis. At this point, we will continue patient on current management. We will monitor the patient clinically. 2. Hypertensive emergency. Patient was initially started on Cardene in the ED , now we will change the patient to nitro and we will start the patient on his home medications. We will transition the patient to labetalol if patient's blood pressure does not respond to nitro drip. We will continue to monitor the patient very closely since patient's blood pressure has been elevated in the 200 systolic. We will admit the patient to the ICU. 3. Acute on chronic kidney disease, stage 4. Patient's GFR is currently 18. We have consulted Nephrology. We believe the patient's acute kidney injury is likely due to hypertensive nephrosclerosis. At this point, we will follow up with Nephrology's recommendations. We will monitor the patient very closely. 4. Resistant hypertension. Patient has been very uncontrolled on his blood pressure medications, there might be an underlying noncompliance; however, it will be important for patient to be treated for other secondary causes of hypertension. We will follow up on morning labs and we will continue to investigate on patient's chronic resistant hypertension. 5. Hyperlipidemia. We will continue patient on home medications. We will encourage the patient to continue to exercise and we will continue to monitor the patient's progress. 6. Deep venous thrombosis and gastrointestinal prophylaxis. LAURELD
[2018-09-29] MEDS: HumaLOG 300 UNITS/3 ML VIAL SC PRN ×2 (06:30→17:22)
[2018-09-29] MEDS: NIFEdipine XL 60 MG TAB PO SCH ×2 (08:55→20:42)
[2018-09-29] MEDS: hydrALAZINE 25 MG TAB PO SCH ×3 (08:56→20:41)
[2018-09-29] MEDS: cloNIDine 0.1 MG TAB PO SCH ×3 (08:56→20:41)
[2018-09-29] MEDS: Carvedilol 25 MG TAB PO SCH ×2 (08:56→20:42)
[2018-09-29] MEDS: Minoxidil 10 MG TAB PO SCH (08:56)
[2018-09-29] MEDS ORDERED: Aspirin 325 mg Enteric Coated Tablet PO SCH (09:00)
--- NOTE | 2018-09-29 10:54 | CON ---
DATE OF CONSULTATION: 09/29/2018 CONSULTING PHYSICIAN: Rivas Patton DO REASON FOR CONSULTATION: ICU admission for hypertensive emergency. HISTORY OF PRESENT ILLNESS: This is a 33-year-old -[place] male, who came [facility] the [facility] with a vague right upper quadrant abdominal pain, radiating to his back. He was found to mazariegos ve profoundly elevated blood pressure. It did not respond to nicardipine, but eventually got better on labetalol. He was also treated with some nitroglycerin. He takes several blood pressure medications at home. He took some yesterday, but the preceding 2 day s, he had not been able do it, because he fell ill. PAST MEDICAL HISTORY: 1. Obesity. 2. Diabetes mellitus, type 2. 3. Hypertension, on multiple medications. PAST SURGICAL HISTORY: None. SOCIAL HISTORY: Smokes marijuana. Drinks alcohol occasionally. 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 ALLERGIES: None. FAMILY MEDICAL HISTORY: Unremarkable. MEDICATIONS PRIOR TO ADMISSION: Glipizide 5 mg daily, hydralazine 50 mg t.i.d., clonidine 0.1 mg t.i .d., furosemide 40 mg b.i.d., carvedilol 25 mg b.i.d. REVIEW OF SYSTEMS: Otherwise, negative. PHYSICAL EXAMINATION: VITAL SIGNS: Temperature 98.5, pulse 84, blood pressure 158/106, O2 sat 95%. The patient is 5 feet 9, weighs 326 pounds. HEENT EXAM: He has a class 4 Mallampati airway with a piercing. NECK: Increased girth. No JVD, no bruits. LUNGS: Clear without wheeze or rhonchi. CARDIAC: S1 and S2 regular without audible murmur. ABDOMEN: Obese, soft, nontender. EXTREMITIES: No edema. LABORATORY DATA: White blood cell count 17.3, hematocrit 40.9, platelet count 300. Sodium 136, pota ssium 3.2, chloride 104, CO2 of 20, BUN 40, creatinine 4.6, glucose 192. Tox screen positive for mar ijuana. Urinalysis shows glucosuria and proteinuria. HIV is nonreactive. His chest x-ray shows car diomegaly, is a very under penetrated film. No obvious effusions, no obvious pulmonary edema. Abdom inal ultrasound shows hepatic steatosis. Abdominal CT shows ascites. ASSESSMENT: 1. Hypertensive emergency. 2. Acute on chronic renal insufficiency. 3. Probable diastolic cardiac dysfunction. 4. I suspect he probably has severe obstructive sleep apnea. 5. Substance abuse. RECOMMENDATIONS: 1. recovery specialist to oral antihypertensives as tolerated and then hopefully wean off labetalol. 2. He needs an outpatient sleep study. Nephrology consultation. 3. I would also obtain echocardiogram and a Cardiology consultation as the vague abdominal pain may have been an anginal equivalent. I will discuss with the hospitalist.
[2018-09-29] MEDS ORDERED: Labetalol HCl 100 MG/20 ML VIAL SLOW IVP PRN (11:07)
[2018-09-29] MEDS: Sodium Chloride 0.9% 1,000 ML IV SCH (15:03)
[2018-09-29] MEDS ORDERED: Lovastatin 20 MG TAB PO SCH (17:00)
[2018-09-29] MEDS: cefTRIAXone\\ROCEPHIN 2 GM in Sodium Chloride 0.9% 100 ML IVPB SCH (23:59)
[2018-09-30 05:40] LABS: #Eosinphils 0.4 thou/uL (0.0-0.7); #Lymphocytes 2.3 thou/uL (1.20-3.40); #Monocytes 0.8 thou/uL (0.11-0.59); #Neutrophils 8.8 thou/uL (1.40-6.50); %Basophils 0.1 % (0.0-1.0); %Eosinophils 3.4 % (0.0-10.0); %Monocytes 6.4 % (0.0-10.0); %Neutrophils 71.1 % (42.0-75.0); Hemoglobin 10.9 g/dL (14.0-18.0); Mean Corpuscular HGB CONC 31.8 g/dL (32.0-36.0); Mean Corpuscular Hemoglobin 26.1 pg (27.0-31.0); Mean Corpuscular Volume 81.9 fL (78.0-98.0); Platelet Count 268 thou/uL (130-400); RBC Distribution Width 13.8 % (11.5-14.5); White Blood Cell (WBC) Count 12.3 thou/uL (4.8-10.8)
[2018-09-30 05:50] LABS: ALT (SGPT) Less than 7 U/L (8-55); AST (SGOT) 8 U/L (5-34); Albumin 2.7 g/dL (3.5-5.0); Alkaline Phosphatase 78 U/L (40-150); Anion Gap 13 mmol/L (10-20); BUN (Urea Nitrogen) 51 mg/dL (8.9-20.6); Bilirubin, Total Less than 0.2 mg/dL (0.2-1.2); CRP (Inflammatory) 1.43 mg/dL (= or < 0.5); Calc. Creatinine Clearance 45 mL/min (70-130); Carbon Dioxide 21 mmol/L (22-29); Chloride 105 mmol/L (98-107); Estimated GFR-MDRD 17; Globulin 2.7 g/dL (2.4-3.5); Glucose 165 mg/dL (70-105); Magnesium 1.6 mg/dL (1.6-2.6); Potassium 3.2 mmol/L (3.5-5.1); Protein, Total 5.4 g/dL (6.0-8.3); Sodium 136 mmol/L (136-145)
--- NOTE | 2018-09-30 07:40 | CON ---
DATE OF CONSULTATION: 09/29/2018 CONSULTING PHYSICIAN: Dr. Patton. REASON FOR CONSULTATION: Acute kidney injury. REASON FOR ADMISSION: Abdominal pain. HISTORY OF PRESENT ILLNESS: This is a 33-year-old -[place] male with history of hypertension , type 2 diabetes, came to the hospital with abdominal pain and was found to have elevated creatinine . The patient has seen us in the past. No fever or chills. No nausea, vomiting. PAST MEDICAL HISTORY: Possible hypertension, type 2 diabetes. PAST SURGICAL HISTORY: No surgeries. HOME MEDICATIONS: Nifedipine, carvedilol, hydralazine, Catapres, metolazone. ALLERGIES: None. FAMILY HISTORY: Noncontributory. SOCIAL HISTORY: He smokes marijuana. No tobacco use, no alcohol use. REVIEW OF SYSTEMS: The following complete review of systems was negative, unless otherwise mentioned in the HPI or below: Constitutional: Weight loss or gain, ability to conduct usual activities. Sk in: Rash, itching. Eyes: Double vision, pain. ENT/Mouth: Nose bleeding, neck stiffness, pain, te nderness. Cardiovascular: Palpitations, dyspnea on exertion, orthopnea. Respiratory: Shortness of breath, wheezing, cough, hemoptysis, fever or night sweats. Gastrointestinal: Poor appetite, abdom inal pain, heartburn, nausea, vomiting, constipation, or diarrhea. Genitourinary: Urgency, frequenc y, dysuria, nocturia. Musculoskeletal: Pain, swelling. Neurologic/Psychiatric: Anxiety, depressio n. Allergy/Immunologic: Skin rash, bleeding tendency. PHYSICAL EXAMINATION: GENERAL: This is a morbidly obese male in no apparent distress. VITAL SIGNS: Temperature 97.8, pulse 75, respirations 18, blood pressure . HEENT: Atraumatic, normocephalic. Oral mucosa is moist. NECK: Supple, no masses. CARDIOVASCULAR: S1, S2. Rate and rhythm regular. RESPIRATORY: Clear. GASTROINTESTINAL: Abdomen is soft. MUSCULOSKELETAL: 1+ edema. DERMATOLOGIC: No rash. NEUROLOGIC: Alert, awake. PSYCHIATRIC: Normal mood and affect. LABORATORY DATA: Creatinine is 4.62. BUN is 40, potassium is 3.2, hemoglobin is 12.5. ASSESSMENT AND PLAN: 1. Acute kidney injury most likely secondary to volume depletion and hypertensive urgency, rule out obstruction. 2. Edema, controlled. 3. Hypertension, stable. 4. Anemia, mild. 5. Proteinuria, history of diabetic nephropathy. I will follow. Thank you for the consult. Avoid nephrotoxins.
[2018-09-30] MEDS: NIFEdipine XL 60 MG TAB PO SCH (08:49)
[2018-09-30] MEDS: Minoxidil 10 MG TAB PO SCH (08:49)
[2018-09-30] MEDS: Carvedilol 25 MG TAB PO SCH (08:49)
[2018-09-30] MEDS: cloNIDine 0.1 MG TAB PO SCH (08:49)
[2018-09-30] MEDS: hydrALAZINE 25 MG TAB PO SCH (08:50)
[2018-09-30] MEDS ORDERED: Potassium Chloride 20 MEQ TAB PO SCH (09:30)
[2018-09-30] MEDS: HumaLOG 300 UNITS/3 ML VIAL SC PRN (11:15)
[2018-09-30] MEDS ORDERED: glipiZIDE 5 MG TAB PO SCH (11:30)
[2018-09-30 11:56] VITALS: TEMP 97.8
[2018-09-30 13:46] VITALS: BMI 48.5
[2018-09-30 15:22] VITALS: BP 177/77
--- NOTE | 2018-09-30 15:49 | DIS ---
DATE OF ADMISSION: 09/28/2018 DATE OF DISCHARGE: 09/30/2018 DISCHARGE DISPOSITION: Home. FOLLOWUP: 1. Follow up with primary care physician, Dr. Leach next week. 2. Follow up with Pulmonary, Dr. Shelton for sleep study. 3. Follow up with Cardiology, Dr. Alanis in 2 weeks. 4. Follow up with Dr. Tang in 1 week for renal failure. BRIEF HOSPITAL COURSE: Patient is a 33-year-old male with chronic kidney disease, hypertension, and diabetes mellitus type 2, presented to the emergency room with abdominal discomfort. Please refer to the history and physical for further details. The patient was admitted to the Intensive Care Unit with a diagnosis of hypertensive crisis. He was placed on Cardene drip in the emergency room. CT scan of the abdomen and pelvis without contrast ashu wed ascites without any acute findings. Chest x-ray was negative for acute findings. Gallbladder ul trasound was negative for cholelithiasis or cholecystitis. There was perihepatic fluid. Echocardiog xavi showed ejection fraction of 40%-45% with grade 2/3 diastolic dysfunction. He was seen by [facility] [place] as well as Nephrology. His blood pressures have remained stable over the last 24 hours on his home medications. Patient stated that he had nausea over the last 3 days. This is why he was unabl e to tolerate his medications. Patient has been cleared by consultants for discharge. FINAL DIAGNOSES: 1. Hypertensive emergency, requiring Cardene drip. 2. Cannabis abuse. Urine drug screen was positive for cannabinoid. 3. Leukocytosis, unlikely to be infectious. His WBC on admission was 23.2, at discharge is 12.3. B lood and urine cultures have been negative. Primary care physician advised to follow up on the final blood cultures. 4. Hypokalemia, replaced. 5. Elevated troponin secondary to demand ischemia. 6. Morbid obesity with a BMI of 48.5. 7. Acute kidney injury on chronic kidney disease stage 3. 8. Diabetes mellitus type 2. 9. Hyperlipidemia. Plan of care was discussed with the patient in detail. He stated understanding. The patient was extensively counseled on hypertension with the importance of medication compliance. A repeat base met next week is recommended. Primary care physician is advised to follow.
--- NOTE | 2018-09-30 17:52 | PRG ---
DATE OF SERVICE: 09/30/2018 SUBJECTIVE: Patient was seen and examined at bedside and overnight events noted. Patient denies any shortness of breath or chest pain or palpitation. No history of nausea or vomitin g or diarrhea or fever or chills or cramps. OBJECTIVE: GENERAL: This is an obese male, in no apparent distress. VITAL SIGNS: Temperature 97.8, pulse 84, respiratory rate , blood pressure 124/73. HEENT: Atraumatic, normocephalic. Oral mucosa is moist. NECK: Supple. CARDIOVASCULAR: S1 and S2 heard. Rate and rhythm regular. RESPIRATORY: Clear to auscultation. GASTROINTESTINAL: Abdomen is soft. MUSCULOSKELETAL: No tenderness. No edema. DERMATOLOGIC: No skin rash. NEUROLOGIC: Alert and awake and oriented x3. No focal neurologic deficits. Moving all the extremit ies. PSYCHIATRIC: Mood and affect normal. LABORATORY DATA: Potassium 3.2, BUN 51, creatinine is 4.9. ASSESSMENT AND PLAN: 1. Acute kidney injury on chronic kidney stage 4, stable creatinine. Need close follow up as outpat ient. 2. Edema. 3. Hypertension, better. 4. Anemia. 5. Proteinuria. 6. Morbid obesity. The patient was advised to follow up at the clinic in 1-2 weeks.
[2018-10-01] MEDS ORDERED: glipiZIDE 5 MG TAB PO SCH (09:00)
--- NOTE | 2018-10-10 16:58 | EKG ---
Test Reason : HYPERTENSION Blood Pressure : / mmHG Vent. Rate : 109 BPM Atrial Rate : 109 BPM P-R Int : 158 ms QRS Dur : 114 ms QT Int : 380 ms P-R-T Axes : 069 012 147 degrees QTc Int : 511 ms Sinus tachycardia Possible Left atrial enlargement Left ventricular hypertrophy with repolarization abnormality Abnormal ECG Confirmed by CORBY WRAY, KETURAH ([id number]), assistant production editor AYO FULLER ([id number]) on 10/10/2018 4:58:06 PM Referred By: Confirmed By:KETURAH TAVAREZ MD
== END 2018-09-30 14:29 | disposition home or self-care (01) | DRG 305 ==
LOC: ERS 16:05 → CCU 20:00 → 2SE 09-29 16:23
PROVIDERS: ADMIT Internal Medicine; ATTEND Internal Medicine
DX: I16.1 Hypertensive emergency (principal); N17.9 Acute kidney failure, unspecified; Z68.42 Body mass index [BMI] 45.0-49.9, adult; I12.9 Hypertensive chronic kidney disease with stage 1 through stage 4 chronic kidney disease, or unspecified chronic kidney disease; F17.210 Nicotine dependence, cigarettes, uncomplicated; E78.5 Hyperlipidemia, unspecified; E11.22 Type 2 diabetes mellitus with diabetic chronic kidney disease; E66.01 Morbid (severe) obesity due to excess calories; D63.1 Anemia in chronic kidney disease; E87.6 Hypokalemia; N18.3 Chronic kidney disease, stage 3 (moderate)
CPT/HCPCS: 36415; 36416; 71045; 74176; 76705; 80048; 80053; 80306; 80307; 81003; 81015; 82553; 83605; 83690; 83735; 83880; 84443; 84484; 85025; 86140; 87040; 87086; 87389; 93005; 93306; 93798; 94760; 96361; 96365; 96366; 96375; C9113; J0696; J1885; J2270; J7050

== ENCOUNTER 2018-11-21 12:58 | Inpatient (IN) | payer OTHER ==
[2018-11-21] MEDS ORDERED: Aspirin 325 MG TAB ONE (13:17)
[2018-11-21] MEDS ORDERED: Nitroglycerin 2% Ointment 1 INCH/1 GM Packet ONE (13:17)
[2018-11-21] MEDS ORDERED: Nitroglycerin 0.4 MG TAB (25 Tab Bottle) ONE (13:19)
[2018-11-21 13:27] LABS: #Eosinphils 0.2 thou/uL (0.0-0.7); #Lymphocytes 1.3 thou/uL (1.20-3.40); #Monocytes 0.6 thou/uL (0.11-0.59); #Neutrophils 10.7 thou/uL (1.40-6.50); %Basophils 0.1 % (0.0-1.0); %Eosinophils 1.6 % (0.0-10.0); %Lymphocytes 10.5 % (21.0-51.0); %Monocytes 4.4 % (0.0-10.0); %Neutrophils 83.4 % (42.0-75.0); Hemoglobin 9.4 g/dL (14.0-18.0); Mean Corpuscular HGB CONC 32.7 g/dL (32.0-36.0); Mean Corpuscular Hemoglobin 26.9 pg (27.0-31.0); Mean Corpuscular Volume 82.1 fL (78.0-98.0); Mean Platelet Volume 7.9 fL (7.4-10.4); Platelet Count 292 thou/uL (130-400); RBC Distribution Width 14.5 % (11.5-14.5); Red Blood Cell (RBC) Count 3.49 mill/uL (4.70-6.10); White Blood Cell (WBC) Count 12.8 thou/uL (4.8-10.8)
[2018-11-21] MEDS ORDERED: niCARdipine 20MG In NaCl 20 MG/200 ML BAG ONE ×3 (13:49→18:32)
[2018-11-21 13:51] LABS: ALT (SGPT) 10 U/L (8-55); AST (SGOT) 16 U/L (5-34); Albumin 2.9 g/dL (3.5-5.0); Alkaline Phosphatase 99 U/L (40-150); Anion Gap 14 mmol/L (10-20); BUN (Urea Nitrogen) 36 mg/dL (8.9-20.6); Bilirubin, Total 0.3 mg/dL (0.2-1.2); Calc. Creatinine Clearance 0 mL/min (70-130); Carbon Dioxide 21 mmol/L (22-29); Chloride 107 mmol/L (98-107); Estimated GFR-MDRD 21; Globulin 3.7 g/dL (2.4-3.5); Glucose 188 mg/dL (70-105); Potassium 4.4 mmol/L (3.5-5.1); Protein, Total 6.6 g/dL (6.0-8.3); Sodium 138 mmol/L (136-145)
[2018-11-21] MEDS ORDERED: Furosemide 40 MG/4 ML VIAL ONE (13:59)
[2018-11-21 14:09] LABS: CKMB 3.1 ng/mL (0-6.6)
--- NOTE | 2018-11-21 14:34 | RAD ---
PORTABLE CHEST 1 VIEW: Date: 11/21/18 Time: 1332 hours HISTORY: Chest pain. Shortness of breath. FINDINGS/IMPRESSION: Comparison made with exam of 09/28/18. The heart size is borderline. The lungs are expanded with pulmonary vascular congestion. No lobar con solidation, pneumothoraces, or large effusions are seen. POS: [facility]
[2018-11-21] MEDS ORDERED: Acetaminophen 325 MG TAB PO PRN (14:37)
[2018-11-21] MEDS ORDERED: Senokot S 8.6-50 MG TAB PO PRN (14:37)
[2018-11-21] MEDS ORDERED: Zolpidem Tartrate 5 MG TAB PO PRN (14:37)
[2018-11-21] MEDS ORDERED: Ondansetron ODT 4 MG TAB PO PRN (14:37)
[2018-11-21] MEDS ORDERED: Dextrose 5% in Water 1,000 ML IV PRN (14:40)
[2018-11-21] MEDS ORDERED: Dextrose 50% Abboject 50 ML SYRINGE SLOW IVP PRN (14:40)
[2018-11-21] MEDS ORDERED: Insulin Regular 300 UNITS/3 ML VIAL SC PRN (14:40)
[2018-11-21] MEDS ORDERED: niCARdipine HCl 25 MG in Sodium Chloride 0.9% 250 ML 240 ML IVPB SCH (14:45)
[2018-11-21] MEDS ORDERED: niCARdipine 40MG In NaCl 40 MG/200 ML BAG IVPB SCH (14:45)
--- NOTE | 2018-11-21 16:52 | HP ---
CHIEF COMPLAINT: Chest tightness. HISTORY OF PRESENTING ILLNESS: This is an obese, noncompliant 33-year-old with a history of congestive heart failure, hypertension, marijuana abuse, obesity, CKD, and diabetes, comes in with a few days history of chest tightness. The patient is noncompliant and is out of all his antihypertensive medications. The patient on arrival here in the ER, had systolics of 250s. The patient was immediately started treatment with IV Cardene drip. In spite of the IV Cardene drip and nitroglycerin paste, the patient's blood pressure remained above 200. The patient's previous echo showed an ejection fraction of 40% to 45% with mild LVH and grade 2 diastolic dysfunction. PAST MEDICAL HISTORY: Significant for; 1. Congestive heart failure. 2. CKD. 3. Hypertension. 4. Obesity. 5. Noncompliance. 6. Marijuana abuse. 7. Hypertension. PAST SURGICAL HISTORY: Not significant. ALLERGIES: NKDA. REVIEW OF SYSTEMS: CONSTITUTIONAL: The patient denies any fever or chills. HEENT: The patient denies any headache or sore throat, eye pain or vision changes. No complaints of any ear pain or discharge. No swelling of any note. RESPIRATORY/CHEST: No complaints of any shortness of breath. Positive for chest tightness. CARDIOVASCULAR: No complaints of any palpitations. GI: No complaints of any nausea, vomiting, constipation or diarrhea or masses. MUSCULOSKELETAL: No complaints of any pain or swelling of the extremities or joint. NEURO: No complaints of any focal deficits. No motor or sensory deficits. PSYCHIATRIC: Denies any history of complaints of depression or anxiety. PHYSICAL EXAMINATION: VITAL SIGNS: On arrival, the patient's blood pressure systolics were over 250 with normal respiratory rate of 17, O2 saturation 100%, and heart rate 74. CONSTITUTIONAL: Obese patient, in no apparent distress. HEENT: Normocephalic and atraumatic head. Normal external canal and tympanic membrane. Normal eyelids and conjunctiva, round and reactive pupils bilaterally, centrally placed trachea with no nodes, moist oral mucosa and tonsils within normal limits. RESPIRATORY: No acute respiratory distresses noted, good air entry into both lung. No wheezes or rales. CARDIOVASCULAR: Regular rate and rhythm. No gallops and no murmurs. MUSCULOSKELETAL: 1+ pedal edema bilateral lower extremities. GI: Soft, nontender, and nondistended. No masses. No splenomegaly. No guarding. No rebound. NEUROVASCULAR: No motor or sensory deficits noted. The patient is alert and oriented x3. Cranial nerves intact. PSYCH: Normal affect. No signs of depression or anxiety noted. LABORATORY DATA: The patient's creatinine has slowly increased from being normal in December of 2015 at 1.13 to November of 2017 at 2.16 and September 2018, increased to 4.62 and now at the present admission, the patient's creatinine is 4.06. Also admission BNP is 2137. Hemoglobin A1c in January of 2017 showed 7.5. During this admission, troponin is mildly elevated at 0.031. ASSESSMENT AND PLAN: 1. Chest tightness, admit the patient for the serial troponin and control the blood pressures. 2. Hypertensive emergency with systolics in 250s. The patient was started on a Cardene drip. The patient has been off his BP medications and one of the medications I see is clonidine and I suspect the patient has a rebound hypertension as he erratically stops his medications. I do not really see a compelling reason why the patient cannot take medications. Pretty much all his prescriptions are [address] [facility] and he is aware of it, but refuses to acknowledge that he can pay 20 dollars per month for few of his medications. I will restart his home medication, but will stop the clonidine completely and change it to hydralazine. 3. Congestive heart failure, acute on chronic mixed systolic and diastolic. We will continue to diurese the patient and put him on the salt restriction and fluid restriction. 4. Acute kidney injury over chronic kidney disease, it will be difficult to take care of the renal functions if the blood pressures are not well controlled. However, repeatedly counseled the patient with respect to the need to control or take his medications to control his blood pressure to keep his heart and kidney in a better shape. 5. We will also consult the Cardiology and Nephrology. 6. Diabetes. We will start the patient on sliding scale insulin a.c. and bedtime with Accu-Cheks. 7. Repeatedly counseled the patient with respect to medications, diet and exercise and the need for him to lose a significant amount of weight. Job ID: [id number]
[2018-11-21 16:54] LABS: Troponin I 0.029 ng/mL (< 0.028)
[2018-11-21 20:18] LABS: Troponin I 0.036 ng/mL (< 0.028)
[2018-11-21] MEDS: niCARdipine HCl 50 MG in Sodium Chloride 0.9% 250 ML 230 ML IVPB SCH (20:21)
[2018-11-21] MEDS ORDERED: Carvedilol 25 MG TAB PO SCH (23:30)
[2018-11-21] MEDS ORDERED: cloNIDine 0.1 MG TAB PO SCH (23:30)
[2018-11-21] MEDS ORDERED: hydrALAZINE 25 MG TAB PO SCH (23:30)
[2018-11-22 02:01] LABS: #Eosinphils 0.3 thou/uL (0.0-0.7); #Lymphocytes 1.9 thou/uL (1.20-3.40); #Monocytes 0.8 thou/uL (0.11-0.59); #Neutrophils 9.2 thou/uL (1.40-6.50); %Basophils 0.1 % (0.0-1.0); %Eosinophils 2.1 % (0.0-10.0); %Lymphocytes 15.7 % (21.0-51.0); %Monocytes 6.5 % (0.0-10.0); %Neutrophils 75.7 % (42.0-75.0); Hemoglobin 9.3 g/dL (14.0-18.0); Mean Corpuscular HGB CONC 32.5 g/dL (32.0-36.0); Mean Corpuscular Hemoglobin 26.9 pg (27.0-31.0); Mean Corpuscular Volume 82.7 fL (78.0-98.0); Mean Platelet Volume 7.6 fL (7.4-10.4); Platelet Count 284 thou/uL (130-400); RBC Distribution Width 14.5 % (11.5-14.5); Red Blood Cell (RBC) Count 3.47 mill/uL (4.70-6.10); White Blood Cell (WBC) Count 12.1 thou/uL (4.8-10.8)
[2018-11-22 02:25] LABS: Troponin I 0.036 ng/mL (< 0.028)
[2018-11-22 02:36] LABS: Anion Gap 15 mmol/L (10-20); BUN (Urea Nitrogen) 37 mg/dL (8.9-20.6); Calc. Creatinine Clearance 61 mL/min (70-130); Calcium 7.9 mg/dL (7.8-10.44); Carbon Dioxide 19 mmol/L (22-29); Chloride 109 mmol/L (98-107); Estimated GFR-MDRD 22; Glucose 128 mg/dL (70-105); Potassium 3.8 mmol/L (3.5-5.1); Sodium 139 mmol/L (136-145)
[2018-11-22] MEDS ORDERED: Carvedilol 25 MG TAB PO SCH ×6 (08:00→21:00)
[2018-11-22] MEDS: niCARdipine HCl 50 MG in Sodium Chloride 0.9% 250 ML 230 ML IVPB SCH ×2 (08:21→12:30)
[2018-11-22] MEDS: glipiZIDE 5 MG TAB PO SCH (08:26)
[2018-11-22] MEDS: Furosemide 40 MG TAB PO SCH ×2 (08:26→14:22)
[2018-11-22] MEDS: Enoxaparin Sodium 30 MG/0.3 ML SYRINGE SC SCH (08:26)
[2018-11-22] MEDS ORDERED: cloNIDine 0.1 MG TAB PO SCH (09:00)
[2018-11-22] MEDS ORDERED: hydrALAZINE 25 MG TAB PO SCH ×5 (09:00→15:00)
[2018-11-22] MEDS ORDERED: Non-Formulary Item 1 EACH (Hydralazine Hcl [Hydralazine Hcl] 50 MG) PO SCH (09:16)
--- NOTE | 2018-11-22 12:05 | PDOC.PN ---
- Subjective Encounter Start Date: 11/22/18 Encounter Start Time: 12:03 Subjective: on cardene, comfortable, no complaints - Objective Resuscitation Status - Order Detail: 11/21/18 14:37 Resuscitation Status Routine Resuscitation Status: FULL: Full Resuscitation Discussed with: patient BRI Reviewed: Yes Vital Signs & Weight: Vital Signs (12 hours) Temp Pulse BP Pulse Ox 11/22/18 11:00 98.1 F 11/22/18 08:25 84 166/89 H 11/22/18 07:47 97 11/22/18 07:39 98.2 F 11/22/18 04:09 98 11/22/18 04:00 98.0 F Weight Weight 342 lb 6.046 oz Most Recent Monitor Data Heart Rate from ECG 82 NIBP 143/72 NIBP BP-Mean 95 Respiration from ECG 18 SpO2 97 I&O: 11/21/18 11/22/18 11/23/18 06:59 06:59 06:59 Intake Total 1196 420 Output Total 1350 600 Balance -154 -180 Result Diagrams: 11/22/18 01:51 11/22/18 01:51 Additional Labs: Accuchecks 11/22/18 11/21/18 11:41 21:11 POC Glucose 184 H 155 H Phys Exam - Physical Examination HEENT: PERRLA, moist MMs, sclera anicteric, TM's clear, oral pharynx no lesions , 2+ tonsils Respiratory: no wheezing, no rales Cardiovascular: RRR, no significant murmur, no rub, gallop, irregular Gastrointestinal: soft, non-tender, no distention, positive bowel sounds Musculoskeletal: no edema, pulses present Neurological: non-focal, normal sensation, moves all 4 limbs Dx/Plan (1) Hypertensive emergency Code(s): I16.1 - HYPERTENSIVE EMERGENCY Status: Acute Comment: on Cardene drip, non complaint patient, possible rebound too as he stopped Clonidine and other meds. All his meds are $4 prescription, patient knows it, but continues not to take it. (2) Medical non-compliance Code(s): Z91.19 - PATIENT'S NONCOMPLIANCE W OTH MEDICAL TREATMENT AND REGIMEN Status: Chronic Comment: repeatedly counseled to be complaint. $4 prescriptions that can be purchesed at [facility] (3) CKD (chronic kidney disease) stage 3, GFR 30-59 ml/min Status: Chronic Comment: renal on board, possible cardio renal with uncontrolled HTN (4) Acute on chronic diastolic (congestive) heart failure Code(s): I50.33 - ACUTE ON CHRONIC DIASTOLIC (CONGESTIVE) HEART FAILURE Status : Acute Comment: Not on ACEI/ARB/Aldactone due to renal failure (5) Morbid obesity with BMI of 40.0-44.9, adult Code(s): E66.01 - MORBID (SEVERE) OBESITY DUE TO EXCESS CALORIES; Z68.41 - BODY MASS INDEX (BMI) 40.0-44.9, ADULT Status: Chronic Comment: Diet and exercise counseled, patient non compliant - Plan cont current plan of care, DVT proph w/lovenox, DVT proph w/SCDs * .
[2018-11-22] MEDS ORDERED: NIFEdipine XL 30 MG TAB PO SCH (13:00)
--- NOTE | 2018-11-22 13:30 | CON ---
DATE OF CONSULTATION: NEPHROLOGY CONSULT REASON FOR CONSULTATION: Elevated creatinine. HISTORY OF PRESENT ILLNESS: This is a very pleasant 33-year-old gentleman, being seen in the CKD Clinic for the last 4 to 5 years and history of noncompliance, presented to the hospital with chest tightness. The patient was noted to have a creatinine more than 4, prior baseline was in the 2's. He had also significant hypertension. The patient can give no further history. Denies any nausea, vomiting, or chest pain. PAST MEDICAL HISTORY: Significant for congestive heart failure, CKD, noncompliance, obesity, marijuana use, and hypertension. PAST SURGICAL HISTORY: Not significant. ALLERGIES: REVIEWED. MEDICATIONS: Home medication list reviewed. Not taking any blood pressure medicine. REVIEW OF SYSTEMS: A 15-point review of system was performed and negative except for positive noted above. NECK: No swelling or lumps. NOSE: No epistaxis or discharge. EYES: No diplopia or pain. MUSCULOSKELETAL: No joint pain. NEUROPSYCHIATRIC SYSTEMS: No suicidal ideation. No ideation. SKIN: Denies any rash or ulcer. CONSTITUTIONAL: No fever or chills. PHYSICAL EXAMINATION: CONSTITUTIONAL: The patient is awake and alert. VITAL SIGNS: Afebrile, pulse 84, breathing 16, blood pressure 166/89. GENERAL APPEARANCE AND MENTAL STATUS: Fair. HEAD/NECK: Normocephalic. Atraumatic. EYES: EOMI. No deformity. EARS: Clear. No ulcers. NOSE: Intact. No lesions. MOUTH: Clear. No discharge. THROAT: Clear. No exudate. LUNGS: Clear. No crackles. CARDIAC: S1, S2. No rub. ABDOMEN: Benign. Bowel sounds positive. GENITALIA/RECTUM: Collins absent. BACK/EXTREMITIES: Edema 0+. NEUROLOGICAL: Alert and motor intact. LABORATORY DATA: Labs show hemoglobin 9.3. Creatinine 3.8. ASSESSMENT AND PLAN: 1. Stage 4 chronic kidney disease. No indication for dialysis. 2. Hypertension. Add Procardia 30 mg to current regimen and update doses. 3. Anemia, stable. 4. Medication based on GFR, appropriate. 5. No indication for dialysis at this time. Job ID: [id number]
[2018-11-22] MEDS: hydrALAZINE 25 MG TAB PO SCH ×2 (14:22→21:00)
[2018-11-22] MEDS: Carvedilol 25 MG TAB PO SCH ×2 (14:22→21:00)
[2018-11-22] MEDS: Isosorbide Dinitrate 20 MG TAB PO SCH ×2 (14:22→21:03)
--- NOTE | 2018-11-22 22:47 | CON ---
DATE OF CONSULTATION: HISTORY OF PRESENT ILLNESS: Mr. Emery is a 33-year-old male with a history of noncompliance with blood pressure medications. He presented yesterday afternoon with chest tightness and was noted to be markedly hypertensive. Started on a Cardene drip, transferred to critical care unit. He has a known systolic cardiomyopathy. PAST MEDICAL HISTORY: Remarkable for hypertension, chronic kidney disease, obesity, and medical noncompliance. PAST SURGICAL HISTORY: He has had no surgeries. ALLERGIES: HE HAS NO DRUG ALLERGIES. REVIEW OF SYSTEMS: Review of systems otherwise negative. He says he is feeling better. SOCIAL HISTORY: Tobacco user, he uses marijuana. Drinks occasionally. PHYSICAL EXAMINATION: GENERAL: He is on a Cardene drip. Very obese gentleman, in no distress. VITAL SIGNS: Blood pressure is 148/97, heart rate 75, respiratory rate is in the teens, oximetry is in the high 90s. HEAD AND NECK: Exam is unremarkable. LUNGS: Clear. HEART: Regular rhythm. S1 and S2 are normal. ABDOMEN: Soft and nontender. EXTREMITIES: Without clubbing, cyanosis, or edema. LABORATORY DATA: White count 12.1, hemoglobin 9.3, and platelets 284. Sodium 139, potassium 3.8, chloride 109, bicarb 19, BUN 37, creatinine 3.8. Creatinine was 4.06 when he came in, past creatinine in 2018 was 2.16, on December 06. IMPRESSION: 1. Poorly controlled hypertension. 2. Chest tightness secondary to accelerated hypertension secondary to noncompliance. 3. Marijuana use. 4. Mowbf-hm-ajefsvh kidney dysfunction. 5. Diabetes. 6. Obesity. 7. Sleep apnea, suspect. PLAN: Continue supportive care. Once he is off Cardene, he can move out of critical care unit. Job ID: [id number]
[2018-11-23] MEDS ORDERED: Clopidogrel Bisulfate 75 MG TAB ONE (07:55)
[2018-11-23] MEDS: Enoxaparin Sodium 30 MG/0.3 ML SYRINGE SC SCH (08:24)
[2018-11-23] MEDS: Carvedilol 25 MG TAB PO SCH ×3 (08:24→20:27)
[2018-11-23] MEDS: Furosemide 40 MG TAB PO SCH (08:25)
[2018-11-23] MEDS: glipiZIDE 5 MG TAB PO SCH (08:25)
[2018-11-23] MEDS: hydrALAZINE 25 MG TAB PO SCH ×3 (08:25→20:27)
[2018-11-23] MEDS: Isosorbide Dinitrate 20 MG TAB PO SCH ×3 (08:37→20:26)
[2018-11-23] MEDS ORDERED: NIFEdipine XL 30 MG TAB PO SCH (09:00)
[2018-11-23] MEDS: cloNIDine 0.2 MG TAB PO SCH ×3 (09:00→20:26)
[2018-11-23] MEDS ORDERED: hydrALAZINE 20 MG/ML VIAL SLOW IVP PRN (10:21)
[2018-11-23] MEDS ORDERED: Furosemide 100 MG/10 ML VIAL SLOW IVP SCH (10:30)
[2018-11-23 10:47] LABS: Anion Gap 12 mmol/L (10-20); BUN (Urea Nitrogen) 33 mg/dL (8.9-20.6); Calc. Creatinine Clearance 63 mL/min (70-130); Calcium 8.4 mg/dL (7.8-10.44); Carbon Dioxide 23 mmol/L (22-29); Chloride 106 mmol/L (98-107); Estimated GFR-MDRD 23; Glucose 159 mg/dL (70-105); Potassium 3.8 mmol/L (3.5-5.1); Sodium 137 mmol/L (136-145)
--- NOTE | 2018-11-23 11:16 | PRG ---
DATE OF SERVICE: SERVICE: Pulmonary Medicine. INTERVAL HISTORY: The patient is doing really well from respiratory standpoint. He denies having any chest pain or shortness of breath currently. He denies any fevers, chills, nausea, or vomiting. Otherwise, there were no significant overnight events. PHYSICAL EXAMINATION: VITALS: Afebrile. Pulse 78, blood pressure 186/95, respirations 21, saturation 92% on room air. GENERAL: The patient is awake, alert, in no apparent distress. LUNGS: Decent air entry. Dependent crackles are noted. HEART: Normal rate and regular. ABDOMEN: Soft, nontender, and nondistended. Bowel sounds are positive. MUSCULOSKELETAL: No cyanosis or clubbing. There is no pitting in the bilateral arms. There is 2+ pitting in the bilateral lower extremities. NEUROLOGIC: Grossly nonfocal. DIAGNOSTIC DATA: Creatinine 3.80 and downtrending. Basic metabolic profile is otherwise unremarkable. Troponin 0.036. Glucose ranges from 94-188. ASSESSMENT: 1. Hypertensive emergency. 2. Chest pain, resolved. 3. Acute kidney injury on chronic kidney disease, possibly progressing to end-stage renal disease. DISCUSSION AND PLAN: The patient remains volume overloaded. We will diurese him until he returns to euvolemia. We will see if we can get him off the Cardene drip. Once he is off that thing, we can transition him out of the ICU. Pulmonary Critical Care will continue to follow along in this location, but when he arrives on the floor, he will have no further requirement for Pulmonary opinion, and we will sign off. Job ID: [id number]
--- NOTE | 2018-11-23 11:50 | PDOC.PN ---
- Subjective Encounter Start Date: 11/23/18 Encounter Start Time: 12:00 Subjective: No Chest pain. No SOB. Just stopped Cardene drip per nurse. - Objective Resuscitation Status - Order Detail: 11/21/18 14:37 Resuscitation Status Routine Resuscitation Status: FULL: Full Resuscitation Discussed with: patient BRI Reviewed: Yes Vital Signs & Weight: Vital Signs (12 hours) Temp Pulse BP Pulse Ox 11/23/18 08:25 85 185/109 H 11/23/18 08:00 98.3 F 98 11/23/18 04:00 98.6 F 11/23/18 00:00 98.9 F Weight Weight 342 lb 6.046 oz Most Recent Monitor Data Heart Rate from ECG 78 NIBP 186/95 NIBP BP-Mean 125 Respiration from ECG 21 SpO2 92 I&O: 11/22/18 11/23/18 11/24/18 06:59 06:59 06:59 Intake Total 1196 1644 360 Output Total 1350 1810 Balance -154 -166 360 Result Diagrams: 11/22/18 01:51 11/23/18 10:11 Additional Labs: Accuchecks 11/23/18 11/22/18 11/22/18 06:37 21:07 17:25 POC Glucose 94 188 H 126 H 11/22/18 11:41 POC Glucose 184 H Phys Exam - Physical Examination Constitutional: NAD HEENT: moist MMs Respiratory: no wheezing, no rales, no rhonchi Cardiovascular: RRR, no significant murmur Gastrointestinal: soft, positive bowel sounds Musculoskeletal: no edema Neurological: non-focal, moves all 4 limbs Psychiatric: normal affect, A&O x 3 Dx/Plan (1) Hypertensive emergency Code(s): I16.1 - HYPERTENSIVE EMERGENCY Status: Acute Comment: on Cardene drip, non complaint patient, possible rebound too as he stopped Clonidine and other meds. All his meds are $4 prescription, patient knows it, but continues not to take it. (2) Medical non-compliance Code(s): Z91.19 - PATIENT'S NONCOMPLIANCE W OTH MEDICAL TREATMENT AND REGIMEN Status: Chronic Comment: repeatedly counseled to be complaint. $4 prescriptions that can be purchesed at [facility] (3) Acute on chronic diastolic (congestive) heart failure Code(s): I50.33 - ACUTE ON CHRONIC DIASTOLIC (CONGESTIVE) HEART FAILURE Status : Acute Comment: Not on ACEI/ARB/Aldactone due to renal failure (4) Morbid obesity with BMI of 40.0-44.9, adult Code(s): E66.01 - MORBID (SEVERE) OBESITY DUE TO EXCESS CALORIES; Z68.41 - BODY MASS INDEX (BMI) 40.0-44.9, ADULT Status: Chronic Comment: Diet and exercise counseled, patient non compliant (5) Rmyfg-jk-xlhdfjy kidney injury Code(s): N17.9 - ACUTE KIDNEY FAILURE, UNSPECIFIED; N18.9 - CHRONIC KIDNEY DISEASE, UNSPECIFIED Status: Acute Qualifiers: Chronic kidney disease stage: stage 4 (severe) Comment: Creatinine trending down, Dr. Savage following - Plan cont current plan of care, DVT proph w/lovenox If can stay off Cardene drip can go to the floor. * . - Discharge Day Encounter end time: 12:15
[2018-11-23 14:48] VITALS: BMI 49.1
[2018-11-24] MEDS: Furosemide 100 MG/10 ML VIAL SLOW IVP SCH ×2 (05:27→14:07)
[2018-11-24 06:20] LABS: Anion Gap 13 mmol/L (10-20); BUN (Urea Nitrogen) 35 mg/dL (8.9-20.6); Calc. Creatinine Clearance 63 mL/min (70-130); Calcium 8.2 mg/dL (7.8-10.44); Carbon Dioxide 20 mmol/L (22-29); Chloride 107 mmol/L (98-107); Estimated GFR-MDRD 23; Glucose 61 mg/dL (70-105); Potassium 4.2 mmol/L (3.5-5.1); Sodium 136 mmol/L (136-145)
--- NOTE | 2018-11-24 07:11 | PDOC.PN ---
- Subjective Encounter Start Date: 11/24/18 Encounter Start Time: 11:45 Subjective: Patient without CP/SOB. No complaints. - Objective Resuscitation Status - Order Detail: 11/21/18 14:37 Resuscitation Status Routine Resuscitation Status: FULL: Full Resuscitation Discussed with: patient BRI Reviewed: Yes Vital Signs & Weight: Vital Signs (12 hours) Temp Pulse Resp BP Pulse Ox 11/24/18 04:00 98.7 F 78 18 151/94 H 99 11/24/18 00:00 97.9 F 82 19 152/96 H 100 11/23/18 20:00 98.5 F 80 19 190/95 H 100 Weight Weight 352 lb 6.4 oz Most Recent Monitor Data Heart Rate from ECG 80 NIBP 165/107 NIBP BP-Mean 126 Respiration from ECG 19 SpO2 91 I&O: 11/23/18 11/24/18 11/25/18 06:59 06:59 06:59 Intake Total 1644 2373.5 Output Total 1810 2400 Balance -166 -26.5 Result Diagrams: 11/22/18 01:51 11/24/18 05:19 Additional Labs: Accuchecks 11/24/18 11/23/18 11/23/18 05:27 19:50 16:16 POC Glucose 73 85 108 11/23/18 11:39 POC Glucose 136 H Phys Exam - Physical Examination Constitutional: NAD HEENT: moist MMs Respiratory: no wheezing, no rales, no rhonchi Cardiovascular: RRR, no significant murmur Gastrointestinal: soft, non-tender, positive bowel sounds obese Musculoskeletal: no edema Neurological: non-focal, moves all 4 limbs Psychiatric: normal affect, A&O x 3 Dx/Plan (1) Hypertensive emergency Code(s): I16.1 - HYPERTENSIVE EMERGENCY Status: Acute Comment: on Cardene drip, non complaint patient, possible rebound too as he stopped Clonidine and other meds. All his meds are $4 prescription, patient knows it, but continues not to take it. (2) Medical non-compliance Code(s): Z91.19 - PATIENT'S NONCOMPLIANCE W OTH MEDICAL TREATMENT AND REGIMEN Status: Chronic Comment: repeatedly counseled to be complaint. $4 prescriptions that can be purchesed at [facility] (3) Acute on chronic diastolic (congestive) heart failure Code(s): I50.33 - ACUTE ON CHRONIC DIASTOLIC (CONGESTIVE) HEART FAILURE Status : Acute Comment: Not on ACEI/ARB/Aldactone due to renal failure (4) Morbid obesity with BMI of 40.0-44.9, adult Code(s): E66.01 - MORBID (SEVERE) OBESITY DUE TO EXCESS CALORIES; Z68.41 - BODY MASS INDEX (BMI) 40.0-44.9, ADULT Status: Chronic Comment: Diet and exercise counseled, patient non compliant (5) Ojkek-uu-acpmuhx kidney injury Code(s): N17.9 - ACUTE KIDNEY FAILURE, UNSPECIFIED; N18.9 - CHRONIC KIDNEY DISEASE, UNSPECIFIED Status: Acute Qualifiers: Chronic kidney disease stage: stage 4 (severe) Comment: Creatinine trending down, Dr. Savage following - Plan cont current plan of care BP improved. Creatinine stabilized. Still spiking quite high, will -: increase meds today, likely discharge tomorrow. * . - Discharge Day Encounter end time: 12:00
[2018-11-24] MEDS: glipiZIDE 5 MG TAB PO SCH (08:16)
[2018-11-24] MEDS: Enoxaparin Sodium 30 MG/0.3 ML SYRINGE SC SCH (08:16)
[2018-11-24] MEDS: Carvedilol 25 MG TAB PO SCH ×3 (08:17→21:46)
[2018-11-24] MEDS: cloNIDine 0.2 MG TAB PO SCH ×3 (08:17→21:46)
[2018-11-24] MEDS: Isosorbide Dinitrate 20 MG TAB PO SCH ×3 (08:17→21:46)
[2018-11-24] MEDS: hydrALAZINE 25 MG TAB PO SCH ×3 (08:18→21:47)
--- NOTE | 2018-11-25 03:21 | HP ---
HISTORY OF PRESENT ILLNESS: Rupert is a 33-year-old male with a history of noncompliance with blood pressure medications. He is morbidly obese, 5 foot 10 inches, 352 pounds, BMI 50. His comorbidity is hypertension and diabetes. I have been asked to see him for his chronic kidney disease. Dr. Savage states he will need dialysis in the future. GFR 23, creatinine 3.79, BUN 35. Unfortunately, he has antecubital IV route which I removed immediately upon walking in the room. Plan is to obtain ultrasound vein mapping of both arms and ask him to see me as an outpatient to arrange outpatient dialysis access, anticipating need for dialysis in the future. ALLERGIES: NONE. SOCIAL HISTORY: Tobacco, none. Alcohol, none. MEDICATIONS: 1. Hydralazine 50 mg t.i.d. 2. Clonidine 0.1 mg t.i.d. 3. Furosemide 40 mg b.i.d. 4. Carvedilol 25 mg b.i.d. 5. Isordil 20 mg t.i.d. 6. Glipizide 5 mg a.c. daily. PAST MEDICAL HISTORY: Chronic kidney disease, obesity, noncompliance, marijuana abuse, hypertension. PAST SURGICAL HISTORY: Noncontributory. PHYSICAL EXAMINATION: VITAL SIGNS: Height 5 foot 10 inches, weight 352 pounds, 50 BMI. Temperature 99.5 degrees, heart rate 79, blood pressure 188/113. HEAD, EARS, EYES, NOSE, AND THROAT: Unremarkable. LUNGS: Clear to auscultation. CARDIAC: Regular rate and rhythm without murmur or gallop. ABDOMEN: Soft, obese, and nontender. ASSESSMENT AND PLAN: Chronic kidney disease. He will need dialysis in the future. Have recommended avoid blood draws and IVs in his antecubital area and above his wrist. I tried to educate on this, he is not talking, and he spends most of time looking at his phone, ignore me, then looks up and says "mazariegos" and I repeated the question again and repeated instructions again. I recommend he follow up with me as an outpatient to arrange outpatient dialysis access. We will obtain ultrasound vein mapping of both arms in preparation for that. With his obesity is likely, he will need a staged procedure, possible transposition. I would recommend we start dialysis access soon. Job ID: [id number]
[2018-11-25 05:12] LABS: Anion Gap 13 mmol/L (10-20); BUN (Urea Nitrogen) 37 mg/dL (8.9-20.6); Calc. Creatinine Clearance 64 mL/min (70-130); Calcium 8.4 mg/dL (7.8-10.44); Carbon Dioxide 24 mmol/L (22-29); Chloride 106 mmol/L (98-107); Estimated GFR-MDRD 24; Glucose 84 mg/dL (70-105); Potassium 4.1 mmol/L (3.5-5.1); Sodium 139 mmol/L (136-145)
[2018-11-25] MEDS ORDERED: Furosemide 80 MG TAB PO SCH (06:00)
--- NOTE | 2018-11-25 06:14 | PDOC.CTH ---
Cardiology Progress Note - Subjective No current complaints. BP continues to be labile - Objective Vital Signs Temp Pulse Resp BP BP Pulse Ox 11/25/18 03:33 98.9 F 77 18 142/81 H 95 11/24/18 23:24 98.0 F 85 20 165/103 H 95 11/24/18 21:47 79 188/113 H 11/24/18 21:46 188/113 H 11/24/18 20:00 95 11/24/18 19:24 99.5 F 79 16 188/113 H 97 Weight 342 lb 1.6 oz 11/23/18 11/24/18 11/25/18 06:59 06:59 06:59 Intake Total 1644 2373.5 1990 Output Total 1810 2400 3925 Balance -166 -26.5 -1935 - Physical Examination General/Neuro: alert & oriented x3, NAD Neck: carotid US brisk, no JVD present Lungs: CTA, unlabored respirations Heart: PMI normal, RRR Abdomen: NT/ND, soft Extremities: + femoral B - Labs Result Diagrams: 11/22/18 01:51 11/25/18 04:14 Troponin/CKMB CK-MB (CK-2) 3.1 ng/mL (0-6.6) 11/21/18 13:15 Troponin I 0.036 ng/mL (< 0.028) H 11/22/18 01:51 - Assessment/Plan 1. Uncontrolled HTN 2. Non-compliance 3. Anemia 4. CKD Increase in BP likely related to #1 and #2. Planning on dialysis in the near future Recommend HTN be followed by Dr. Savage given RI. Spoke with and he agrees. No further recommendations
[2018-11-25] MEDS: glipiZIDE 5 MG TAB PO SCH (06:30)
--- NOTE | 2018-11-25 07:32 | PDOC.PN ---
- Subjective Encounter Start Date: 11/25/18 Encounter Start Time: 11:00 Subjective: Patient without complaint. No chest pain. No SOB. Had vein mapping done -: this AM. - Objective Resuscitation Status - Order Detail: 11/21/18 14:37 Resuscitation Status Routine Resuscitation Status: FULL: Full Resuscitation Discussed with: bushra GREGORY Reviewed: Yes Vital Signs & Weight: Vital Signs (12 hours) Temp Pulse Resp BP BP Pulse Ox 11/25/18 03:33 98.9 F 77 18 142/81 H 95 11/24/18 23:24 98.0 F 85 20 165/103 H 95 11/24/18 21:47 79 188/113 H 11/24/18 21:46 188/113 H 11/24/18 20:00 95 Weight Weight 342 lb 1.6 oz Most Recent Monitor Data Heart Rate from ECG 80 NIBP 165/107 NIBP BP-Mean 126 Respiration from ECG 19 SpO2 91 I&O: 11/24/18 11/25/18 11/26/18 06:59 06:59 06:59 Intake Total 2373.5 1989 Output Total 2400 3925 Balance -26.5 -1935 Result Diagrams: 11/22/18 01:51 11/25/18 04:14 Additional Labs: Accuchecks 11/25/18 11/24/18 11/24/18 05:49 20:43 16:51 POC Glucose 84 135 H 128 H 11/24/18 10:49 POC Glucose 112 H Phys Exam - Physical Examination Constitutional: NAD HEENT: moist MMs Respiratory: no wheezing, no rales, no rhonchi Cardiovascular: RRR, no significant murmur Gastrointestinal: soft, positive bowel sounds Neurological: non-focal, moves all 4 limbs Psychiatric: normal affect, A&O x 3 Dx/Plan (1) Hypertensive emergency Code(s): I16.1 - HYPERTENSIVE EMERGENCY Status: Acute Comment: on Cardene drip, non complaint patient, possible rebound too as he stopped Clonidine and other meds. All his meds are $4 prescription, patient knows it, but continues not to take it. (2) Medical non-compliance Code(s): Z91.19 - PATIENT'S NONCOMPLIANCE W OTH MEDICAL TREATMENT AND REGIMEN Status: Chronic Comment: repeatedly counseled to be complaint. $4 prescriptions that can be purchesed at [facility] (3) Acute on chronic diastolic (congestive) heart failure Code(s): I50.33 - ACUTE ON CHRONIC DIASTOLIC (CONGESTIVE) HEART FAILURE Status : Acute Comment: Not on ACEI/ARB/Aldactone due to renal failure (4) Morbid obesity with BMI of 40.0-44.9, adult Code(s): E66.01 - MORBID (SEVERE) OBESITY DUE TO EXCESS CALORIES; Z68.41 - BODY MASS INDEX (BMI) 40.0-44.9, ADULT Status: Chronic Comment: Diet and exercise counseled, patient non compliant (5) Fuqbr-ow-qziygne kidney injury Code(s): N17.9 - ACUTE KIDNEY FAILURE, UNSPECIFIED; N18.9 - CHRONIC KIDNEY DISEASE, UNSPECIFIED Status: Acute Qualifiers: Chronic kidney disease stage: stage 4 (severe) Comment: Creatinine trending down, Dr. Savage following, will likely need dialysis access in the near future. Vein mapping today then f/u with Dr. Lakhani and Dr. Savage as outpatient. - Plan cont current plan of care BP still labile, but less than 200s systolic. Creatinine stabilized. -: Will d/c home. Has f/u with Dr. Savage and Dr. Lakhani. Will likely need -: dialysis access in the near future. Stressed to patient the importance -: of taking meds as prescribed and close followup. * . - Discharge Day Encounter end time: 11:30
[2018-11-25] MEDS: hydrALAZINE 25 MG TAB PO SCH ×2 (08:39→14:33)
[2018-11-25] MEDS: cloNIDine 0.2 MG TAB PO SCH ×2 (08:39→14:32)
[2018-11-25] MEDS: Carvedilol 25 MG TAB PO SCH ×2 (08:39→14:33)
[2018-11-25] MEDS: Enoxaparin Sodium 30 MG/0.3 ML SYRINGE SC SCH (08:40)
[2018-11-25] MEDS: Isosorbide Dinitrate 20 MG TAB PO SCH ×2 (08:40→14:33)
[2018-11-25 12:10] VITALS: TEMP 97.9
--- NOTE | 2018-11-25 12:22 | ULT ---
ULTRASOUND VESSEL MAPPING DIALYSIS ACCESS: HISTORY: End stage renal disease. COMPARISON: None. TECHNIQUE: Real-time, perez scale, color, and spectral analysis of the bilateral upper extremity venous system wa s performed. RIGHT SIDE: Brachial artery 0.38 cm Radial artery 0.22 cm Ulnar artery 0.19 cm CEPHALIC: Proximal humerus 0.96 cm Mid humerus 0.54 cm Distal 0.56 cm Elbow 0.42 cm Proximal forearm 0.38 cm Mid 0.33 cm Distal 0.27 cm BASILIC: Proximal humerus 0.46 cm Mid humerus 0.49 cm Distal 0.52 cm Elbow 0.52 cm Proximal forearm 0.12 cm Mid 0.12 cm Distal 0.11 cm LEFT SIDE: Brachial artery 0.38 cm Radial artery 0.20 cm Ulnar artery 0.19 cm CEPHALIC: Proximal humerus thrombosed Mid humerus 0.54 cm Distal 0.58 cm Elbow 0.51 cm Proximal forearm 0.08 cm Mid 0.13 cm Distal 0.10 cm IMPRESSION: Arterial and venous sizes as above with thrombosis of the left cephalic vein. POS: RE
[2018-11-25] MEDS ORDERED: Furosemide 40 MG TAB PO SCH (14:00)
--- NOTE | 2018-11-25 14:23 | PRG ---
DATE OF SERVICE: 11/25/2018 SUBJECTIVE: A 33-year-old gentleman, being seen for kidney disease. The patient denies any nausea, vomiting, or chest pain. OBJECTIVE: CONSTITUTIONAL: The patient is awake and alert. VITAL SIGNS: Afebrile. Pulse 80, breathing 16, blood pressure 195/117. GENERAL APPEARANCE AND MENTAL STATUS: Fair. HEAD/NECK: Normocephalic. Atraumatic. EYES: EOMI. No deformity. EARS: Clear. No ulcers. NOSE: Intact. No lesions. MOUTH: Clear. No discharge. THROAT: Clear. No exudate. LUNGS: Clear. No crackles. CARDIAC: S1, S2. No rub. ABDOMEN: Benign. Bowel sounds positive. GENITALIA/RECTUM: Collins absent. BACK/EXTREMITIES: Edema 0+. NEUROLOGICAL: Alert and motor intact. SKIN: LYMPHATICS: LABORATORY DATA: Show creatinine 3.6. ASSESSMENT AND PLAN: 1. Chronic kidney disease, stage 4, stable. 2. Hypertension. Recommending adding Procardia 30 mg daily. 3. Anemia, stable. 4. Medications based on GFR as appropriate. Job ID: [id number]
[2018-11-25 14:35] VITALS: BP 184/97
--- NOTE | 2018-11-27 01:27 | DIS ---
DATE OF ADMISSION: 11/21/2018 DATE OF DISCHARGE: 11/25/2018 PRIMARY CARE PHYSICIAN: Dr. Leach. REASON FOR ADMISSION: Hypertensive emergency. DIAGNOSES AT DISCHARGE: 1. Hypertensive emergency, improved. 2. Acute on chronic diastolic congestive heart failure. 3. Acute on chronic renal failure stage 4. 4. Morbid obesity. 5. Medical noncompliance. PROCEDURES: Ultrasound vein mapping of the upper extremities. CONSULTATIONS: 1. Nephrology, Dr. Savage. 2. Pulmonology, Dr. Bernal. 3. Cardiology, Dr. Diaz. 4. General Surgery, Dr. Lakhani. PERTINENT LABORATORY DATA: Creatinine 4.06 on admission down to 3.63 at discharge. SUMMARY OF HOSPITAL COURSE: This is a 33-year-old obese man with history of congestive heart failure, hypertension, and chronic kidney disease as well as diabetes mellitus type 2. He has been noncompliant with any hypertensive medications as an outpatient, came in with a few days of chest tightness started on IV Cardene drip, given nitro paste which brought his blood pressure down to around 200 systolic. He was also noted to have a creatinine elevated at more than 4 and BNP of 2000 as well as indeterminant troponin. The patient was admitted to ICU, Cardene drip was continued and oral medications were started, eventually, the Cardene drip was able to be weaned off. The patient was transferred to the floor. Dr. Savage evaluated the patient and is going to follow up with him closely in his clinic for maintenance of blood pressure and prevention of further kidney damage. The patient also saw Dr. Diaz and recommended close followup of his blood pressure with Dr. Savage. Dr. Lakhani was consulted for likely need for dialysis access in the near future. He did vein mapping here follow up in his clinic to place a fistula some time in the near future. On day of discharge, the patient was asymptomatic, no chest pain, no chest tightness. His blood pressures were labile during his hospitalization ranging from 140 systolic up to 190 systolic, but was asymptomatic and he has been discharged home. DISCHARGE MANAGEMENT: Discharged to home. MEDICATIONS: 1. Carvedilol 37.5 mg three times a day, 90 tablets dispensed. 2. Clonidine 0,2 mg three times a day, 90 tablets dispensed. 3. Furosemide 40 mg twice a day, 60 tablets dispensed. 4. Glipizide 5 mg daily, 30 tablets dispensed. 5. Hydralazine 75 mg three times a day, 90 tablets dispensed. 6. Isosorbide dinitrate 20 mg three times a day, 90 tablets dispensed. ACTIVITY: As tolerated. DIET: Fluid restricted, healthy heart, low-sodium diet. FOLLOWUP: Follow up with Dr. Savage as scheduled, also to follow up with Dr. Lakhani in his clinic for planning of fistula placement as well as follow up with cardiac rehab and heart failure clinic. Job ID: [id number]
--- NOTE | 2018-11-29 12:42 | PRG ---
DATE OF SERVICE: 11/24/2018 SUBJECTIVE: A 33-year-old gentleman, being seen for acute kidney injury. The patient denies any nausea or chest pain. OBJECTIVE: CONSTITUTIONAL: The patient is awake and alert. VITAL SIGNS: pulse 90, breathing 16, and blood pressure 188/130. GENERAL APPEARANCE AND MENTAL STATUS: Fair. HEAD/NECK: Normocephalic. Atraumatic. EYES: EOMI. No deformity. EARS: Clear. No ulcers. NOSE: Intact. No lesions. MOUTH: Clear. No discharge. THROAT: Clear. No exudate. LUNGS: Clear. No crackles. CARDIAC: S1, S2. No rub. ABDOMEN: Benign. Bowel sounds positive. GENITALIA/RECTUM: Collins absent. BACK/EXTREMITIES: Edema 0+. NEUROLOGICAL: Alert and motor intact. LABORATORY DATA: Labs reviewed. ASSESSMENT AND PLAN: 1. Stage 4 chronic kidney disease, stable. 2. Hypertension. Titrate home blood pressure medication. 3. Anemia, stable. 4. Medication based on GFR appropriate. Job ID: [id number]
--- NOTE | 2018-11-29 12:43 | PRG ---
DATE OF SERVICE: 11/23/2018 SUBJECTIVE: A 33-year-old gentleman being seen for acute kidney injury. The patient denies nausea, vomiting, or chest pain. OBJECTIVE: CONSTITUTIONAL: The patient is awake and alert. VITAL SIGNS: Afebrile, pulse 75, breathing 16, blood pressure was 158/109. GENERAL APPEARANCE AND MENTAL STATUS: Fair. HEAD/NECK: Normocephalic. Atraumatic. EYES: EOMI. No deformity. EARS: Clear. No ulcers. NOSE: Intact. No lesions. MOUTH: Clear. No discharge. THROAT: Clear. No exudate. LUNGS: Clear. No crackles. CARDIAC: S1, S2. No rub. ABDOMEN: Benign. Bowel sounds positive. GENITALIA/RECTUM: Collins absent. BACK/EXTREMITIES: Edema 0+. NEUROLOGICAL: Alert and motor intact. SKIN: LYMPHATICS: LABORATORY DATA: Reviewed. ASSESSMENT AND RECOMMENDATION: 1. Stage 4 chronic kidney disease, stable. 2. Hypertension, stable. 3. Anemia, stable. The patient will follow up with Dr. Tang. Job ID: [id number]
== END 2018-11-25 14:54 | disposition home or self-care (01) | DRG 304 ==
LOC: ERS 12:58 → CCU 14:20 → 2SE 11-23 17:47
PROVIDERS: ADMIT Family Medicine; ATTEND Family Medicine
DX: I16.1 Hypertensive emergency (principal); I50.43 Acute on chronic combined systolic (congestive) and diastolic (congestive) heart failure; N18.4 Chronic kidney disease, stage 4 (severe); N17.9 Acute kidney failure, unspecified; Z68.41 Body mass index [BMI] 40.0-44.9, adult; E11.22 Type 2 diabetes mellitus with diabetic chronic kidney disease; I13.0 Hypertensive heart and chronic kidney disease with heart failure and stage 1 through stage 4 chronic kidney disease, or unspecified chronic kidney disease; E66.01 Morbid (severe) obesity due to excess calories; F12.10 Cannabis abuse, uncomplicated; Z91.19 Patient's noncompliance with other medical treatment and regimen; D63.1 Anemia in chronic kidney disease
CPT/HCPCS: 36415; 36416; 71045; 80048; 80053; 82553; 83880; 84484; 85025; 93005; 93798; 93970; 96365; 96366; 96375; G0365; J1650; J1815; J1940; J7050; Q0162

== ENCOUNTER 2018-12-26 20:04 | Inpatient (IN) | payer OTHER, SELFPAY ==
[2018-12-26 20:56] LABS: Hemoglobin 13.3 g/dL (14.0-18.0); Mean Corpuscular HGB CONC 32.2 g/dL (32.0-36.0); Mean Corpuscular Hemoglobin 25.5 pg (27.0-31.0); Mean Corpuscular Volume 79.2 fL (78.0-98.0); Mean Platelet Volume 7.9 fL (7.4-10.4); Platelet Count 433 thou/uL (130-400); RBC Distribution Width 14.7 % (11.5-14.5); White Blood Cell (WBC) Count 23.1 thou/uL (4.8-10.8)
[2018-12-26 21:19] LABS: Lymphocytes 4 % (21-51); MDiff Complete? YES; Monocytes 4 % (0-10); Neutrophil 92 % (42-75); Platelet Morphology Comment Appears Increased; RBC Morphology Normal
[2018-12-26 21:22] LABS: ALT (SGPT) 12 U/L (8-55); AST (SGOT) 9 U/L (5-34); Albumin 3.6 g/dL (3.5-5.0); Alkaline Phosphatase 141 U/L (40-150); Anion Gap 20 mmol/L (10-20); BUN (Urea Nitrogen) 56 mg/dL (8.9-20.6); Bilirubin, Total 0.4 mg/dL (0.2-1.2); Calc. Creatinine Clearance 0 mL/min (70-130); Calcium 9.7 mg/dL (7.8-10.44); Carbon Dioxide 19 mmol/L (22-29); Chloride 104 mmol/L (98-107); Estimated GFR-MDRD 12; Globulin 4.3 g/dL (2.4-3.5); Glucose 256 mg/dL (70-105); Lipase 161 U/L (8-78); Potassium 4.2 mmol/L (3.5-5.1); Protein, Total 7.9 g/dL (6.0-8.3); Sodium 139 mmol/L (136-145)
--- NOTE | 2018-12-26 21:52 | RAD ---
FRONTAL VIEW CHEST: INDICATIONS: Cough. Nausea. Vomiting. COMPARISON: 11/21/2018 FINDINGS: There is enlargement of the cardiac silhouette with patchy density at the left lung base. No signifi cant vascular congestion. No pneumothorax. IMPRESSION: 1. Left basilar density. This could relate to edema or pneumonia. 2. Enlarged cardiac silhouette. Correlate clinically. POS: [facility]
[2018-12-26] MEDS ORDERED: Ondansetron PF 4 MG/2 ML Vial ONE (22:12)
[2018-12-26 22:32] LABS: Phosphorus 3.5 mg/dL (2.3-4.7)
[2018-12-26 22:39] LABS: Bilirubin Negative (Negative); Blood, Urine Small (Negative); Clarity CLOUDY (Clear); Glucose, Urine (Dipstick) 500 mg/dL (Negative); Leukocyte Negative (Negative); Nitrite Negative (Negative); Protein, Urine (Dipstick) > or equal to 300 mg/dL (Neg-Trace); Specific Gravity, Urine 1.031 (1.002-1.036); Urobilinogen 0.2 mg/dL (0.2-1.0)
[2018-12-26 22:41] LABS: Bacteria/HPF None Seen HPF (None Seen); Pathc Cast-AUWi Flag 7.55 (0-2.49); Squamous Epithelial 21-50 HPF (0-3); WBC/HPF 21-50 HPF (0-3)
[2018-12-26 22:44] LABS: Base Excess-Venous -1.8 mmol/L (0 (+/- 2.5)); Bicarbonate (HCO3v) 19.2 mmol/L (22.0-29.0); CO2 Tension (PvCO2) 23.5 mmHg (41.0-51.0); Calcium, Ionized 1.17 mmol/L (1.12-1.32); Hemoglobin - Calc 13.7 g/dL (12.0-18.0); O2 Tension (PvO2) 38.9 mmHg (35.0-45.0); Potassium 4.1 mmol/L (3.4-4.7); pH (Venous) 7.521 (7.35-7.45)
[2018-12-26 22:49] LABS: Renal Epithelial 0-3 HPF (0-3)
[2018-12-26] MEDS ORDERED: hydrALAZINE 20 MG/ML VIAL ONE (22:50)
[2018-12-26] MEDS ORDERED: Bisacodyl 5 MG TAB PO PRN (23:03)
[2018-12-26] MEDS ORDERED: niCARdipine HCl 25 MG in Sodium Chloride 0.9% 250 ML 240 ML IVPB PRN (23:03)
[2018-12-26] MEDS ORDERED: CCU Electrolyte Replacement 1 EACH IVPB ONE (23:03)
[2018-12-26] MEDS ORDERED: Acetaminophen 650 MG/20.3 ML UDCUP PO PRN (23:03)
[2018-12-26] MEDS ORDERED: Milk Of Magnesia 30 ML UDCUP PO PRN (23:03)
[2018-12-26] MEDS ORDERED: niCARdipine 20MG In NaCl 20 MG/200 ML BAG ONE (23:13)
[2018-12-26] MEDS ORDERED: Vancomycin HCl 1.5 GM in Premix Bag 1 BAG IVPB SCH (23:15)
[2018-12-26] MEDS ORDERED: cloNIDine 0.1 MG TAB PO SCH (23:15)
[2018-12-26] MEDS ORDERED: CCU ELECTROLYTE REPLACEMENT PROTOCOL FS PRN (23:33)
[2018-12-26] MEDS ORDERED: Potassium Chloride 20 MEQ TAB PO PRN (23:33)
[2018-12-26] MEDS ORDERED: Magnesium 2 GM/NS 0.9% 100 ML 2 GM in Premix Bag 1 BAG IVPB PRN (23:33)
[2018-12-26] MEDS ORDERED: Magnesium Oxide 400 MG TAB PO PRN ×2 (23:33)
[2018-12-26] MEDS ORDERED: Potassium Phosphate 12 MMOL in Sodium Chloride 0.9% 250 ML 250 ML IV PRN (23:33)
[2018-12-26] MEDS ORDERED: Potassium Chloride 40 MEQ in Premix Bag 1 BAG IVPB PRN (23:33)
[2018-12-26] MEDS ORDERED: Potassium Phosphate 15 MMOL in Sodium Chloride 0.9% 250 ML 250 ML IV PRN (23:33)
[2018-12-26] MEDS ORDERED: Potassium Chloride 40 MEQ in Sodium Chloride 0.9% 250 ML 250 ML IVPB PRN (23:33)
[2018-12-26] MEDS ORDERED: Potassium Phosphate 9 MMOL in Sodium Chloride 0.9% 100 ML IVPB PRN (23:33)
[2018-12-26] MEDS ORDERED: Vancomycin HCl 1.5 GM in Sodium Chloride 0.9% 250 ML 300 ML IVPB ONE (23:45)
[2018-12-27] MEDS: Lactated Ringer's 1,000 ML IV SCH ×3 (00:57→15:11)
[2018-12-27] MEDS: niCARdipine HCl 50 MG in Sodium Chloride 0.9% 250 ML 230 ML IVPB PRN ×6 (01:39→18:22)
[2018-12-27 02:10] LABS: Lactic Acid 0.8 mmol/L (0.5-2.2)
[2018-12-27] MEDS ORDERED: cloNIDine 0.1 MG TAB PO SCH (03:00)
[2018-12-27] MEDS ORDERED: Nitroglycerin 0.4 MG TAB (25 Tab Bottle) SL SCH (03:00)
[2018-12-27] MEDS ORDERED: cefTRIAXone\\ROCEPHIN 1 GM in Sodium Chloride 0.9% 100 ML IVPB SCH (04:15)
[2018-12-27] MEDS: HumaLOG 300 UNITS/3 ML VIAL SC PRN ×4 (04:44→20:50)
[2018-12-27 05:02] LABS: Hemoglobin 11.3 g/dL (14.0-18.0); Hypochromia SLIGHT = 6-15 cells (100X) (0-5/hpf); Lymphocytes 6 % (21-51); MDiff Complete? YES; Mean Corpuscular HGB CONC 32.8 g/dL (32.0-36.0); Mean Corpuscular Hemoglobin 26.2 pg (27.0-31.0); Mean Platelet Volume 8.2 fL (7.4-10.4); Monocytes 2 % (0-10); Neutrophil 92 % (42-75); Platelet Count 372 thou/uL (130-400); Platelet Morphology Comment Appears Adequate; RBC Distribution Width 14.9 % (11.5-14.5); Red Blood Cell (RBC) Count 4.31 mill/uL (4.70-6.10); White Blood Cell (WBC) Count 23.3 thou/uL (4.8-10.8)
--- NOTE | 2018-12-27 05:09 | HP ---
CHIEF COMPLAINT: Nausea and vomiting. HISTORY OF PRESENT ILLNESS: The patient is a 33-year-old male with a history of diabetes and hypertension, who comes into the hospital with complaints of nausea and vomiting, unable to keep anything down for the past 3 days. The patient stated that his last meal was his home cooked meal. He lives alone, started to have significant amount of nausea and vomiting, and was unable to keep anything down for the past 3 days. He has not been able to take any of his medications either. The patient stated that he did have a little bit of diarrhea, however, not significant enough. The patient stated that he feels that he has been urinating his normal amount. The patient stated that he has been at times having some shivering spells, however, no fever. He stated that he was getting over a cold that had been going on for about a week. PAST MEDICAL HISTORY: History of diabetes, type 2; hypertension; and obesity. FAMILY HISTORY: Father has hypertension and diabetes. Mother had hypertension and diabetes. SOCIAL HISTORY: He is a former smoker. Does not smoke anymore. Denied any alcohol use. Sometimes uses recreational marijuana for anxiety. The patient is currently a full code and lives alone. ALLERGIES: NO KNOWN DRUG ALLERGIES. MEDICATIONS: As of the following. He takes, 1. Clonidine 0.1 daily. 2. Hydralazine 100 mg t.i.d. 3. Carvedilol 25 mg b.i.d. 4. Lasix 40 mg t.i.d. 5. Glipizide 5 mg daily. REVIEW OF SYSTEMS: All negative except for the ones mentioned above in the HPI. PHYSICAL EXAMINATION: VITAL SIGNS: Temperature of 98.8, heart rate of 116 to 120, and blood pressure was 202/110. He is 98% on room air and respirations are 18. GENERAL: He is awake, alert, and oriented x3. Does not appear in any distress. HEENT: Significant dry mucous membranes. Pupil are equal and reactive to light. CV: S1 and S2 present. He has sinus tachycardia. LUNGS: Clear to auscultation. No rhonchi or wheezes noted. ABDOMEN: Soft and nontender. Bowel sounds are present x2. EXTREMITIES: No edema. Pedal pulses are present x2. NEUROVASCULAR: No focal deficits noted. SKIN: No cuts or lesions noted. LABORATORY RESULTS: As of the following; WBCs of 23.1, hemoglobin of 13.3, hematocrit of 41.2, and platelets of 433. Chemistry; sodium of 139, potassium of 4.2, BUN of 56, and creatinine of 6.41. The patient's sugar was 256. Lactic acid was mildly elevated at 2.3. The patient had a chest x-ray, which indicated left basilar density that could be related to edema or pneumonia. The patient also had a renal ultrasound, results are pending. ASSESSMENT AND PLAN: The patient is a very pleasant 33-year-old male, who presented to the hospital with nausea and vomiting, and was found to be hypertensive. 1. Hypertensive emergency. The patient's blood pressure is still in the systolic 200s and diastolic over 100. The patient stated that normally his blood pressure lives around 170/100 diastolic. The patient feels that the medications do not really help with his blood pressure. The patient had been started on a Cardene drip. Also, his home medications will be restarted. I kind of held off on the hydralazine given his tachycardia. We will continue to monitor this patient in the ICU. 2. Acute kidney injury. The patient's baseline creatinine is around 3 to 4, today it was 6.41. This could be most likely secondary to prerenal. Renal ultrasounds were done to rule out any obstruction. I have also ordered a CT abdomen and pelvis. The patient has been urinating, however, small amounts. We will bladder scan this patient. Nephrology has been consulted. 3. Leukocytosis. The patient does not have any bandemia. The patient denied any fevers, however, was just recently getting over an upper respiratory infection. Chest x-ray, there is a possible infiltrate on the left basilar density, on Levaquin and the patient has received one dose of vancomycin. 4. Diabetes. We will check a.c. and bedtime blood sugars, put him on sliding scale insulin. 5. Dehydration. The patient received 2 L of normal saline. Also started his Ringer Lactate at 125 mL/hour. 6. Deep venous thrombosis prophylaxis. We will put the patient on subcu heparin. Job ID: [id number]
[2018-12-27 05:13] LABS: Anion Gap 20 mmol/L (10-20); BUN (Urea Nitrogen) 55 mg/dL (8.9-20.6); Calc. Creatinine Clearance 35 mL/min (70-130); Calcium 8.5 mg/dL (7.8-10.44); Carbon Dioxide 15 mmol/L (22-29); Chloride 109 mmol/L (98-107); Estimated GFR-MDRD 13; Glucose 269 mg/dL (70-105); Potassium 4.2 mmol/L (3.5-5.1); Sodium 140 mmol/L (136-145)
--- NOTE | 2018-12-27 07:58 | ULT ---
RENAL ULTRASOUND: CLINICALLY INDICATIONS: Nausea, vomiting, and acute renal failure. COMPARISON: Reference made to prior renal ultrasound from 07/20/2017. FINDINGS: The right kidney measures between 10 and 11 cm, as demonstrated, and the left kidney between 9 and 10 cm. There is increased parenchymal echogenicity of each kidney. No overt hydronephrosis or discret e renal lesion. There is mild distention of the urinary bladder. Right ureteral jet is not elicited . Left ureteral jet is visualized. IMPRESSION: 1. Small echogenic kidneys, which can be seen in the setting of medical renal disease. Recommend cl inical correlation in this regard. 2. No overt hydronephrosis or discrete renal lesion. POS: [facility]
[2018-12-27] MEDS: Carvedilol 25 MG TAB PO SCH ×2 (08:07→20:54)
[2018-12-27] MEDS: Famotidine/PF 20 mg/2ml Vial SLOW IVP SCH (08:13)
[2018-12-27] MEDS ORDERED: Ondansetron PF 4 MG/2 ML Vial IVP PRN (08:17)
[2018-12-27] MEDS: Heparin 5,000 UNITS/ML VIAL SC SCH ×3 (08:51→20:54)
--- NOTE | 2018-12-27 09:40 | CT ---
CT ABDOMEN AND PELVIS WITHOUT IV CONTRAST: Date: 12/27/18 INDICATION: 33-year-old male with abdominal pain. COMPARISON: Prior exam dated 09/28/18. FINDINGS: ABDOMEN: The lung bases are clear. Unopacified liver, spleen, pancreas, and adrenal glands appear within normal limits. There is some mazariegos zy opacity within the anterior pararenal fat surrounding the pancreas. No drainable fluid collection is evident. Unopacified kidneys are unremarkable. No hydronephrosis is noted. PELVIS: Unopacified large and small bowel are within normal limits. There is a normal appendix in the right l ower quadrant. Bladder, rectum, and perirectal soft tissues are unremarkable. No acute osseous abnormality is evident. IMPRESSION: 1. Subtle hazy density seen within the anterior pararenal space may reflect underlying pancreatitis. Recommend correlation with clinical exam. No renal or ureteral calculus is demonstrated. 2. Other chronic findings as above. POS: [facility]
[2018-12-27] MEDS: Labetalol HCl 100 MG/20 ML VIAL SLOW IVP PRN (12:55)
--- NOTE | 2018-12-27 14:13 | PDOC.PN ---
- Subjective Encounter Start Date: 12/27/18 Encounter Start Time: 08:40 Pt seen for followup re: hypertensive urgency. Says he feels better. Nausea+. - Objective MAR Reviewed: Yes Vital Signs & Weight: Vital Signs (12 hours) Temp Pulse BP 12/27/18 12:55 121 H 195/108 H 12/27/18 04:00 98.6 F 12/27/18 03:17 201/120 H Weight Admit Weight 318 lb 5.44 oz Weight 318 lb 5.56 oz Most Recent Monitor Data Heart Rate from ECG 104 NIBP 177/94 NIBP BP-Mean 121 Respiration from ECG 13 SpO2 99 I&O: 12/26/18 12/27/18 12/28/18 06:59 06:59 06:59 Intake Total 1240 Output Total 650 Balance 590 Result Diagrams: 12/27/18 04:33 12/27/18 04:33 Additional Labs: Accuchecks 12/27/18 12/27/18 12/26/18 10:58 04:33 22:22 POC Glucose 201 H 240 H 242 H 12/26/18 20:37 POC Glucose 265 H EKG Reviewed by me: Yes (Tele: sinus tachycardia) Phys Exam - Physical Examination Morbid obesity HEENT: moist MMs, sclera anicteric, oral pharynx no lesions, 2+ tonsils Neck: no nodes, no JVD, supple, full ROM Respiratory: clear to auscultation bilateral S1, S2, tachy, reg Gastrointestinal: soft, non-tender, positive bowel sounds distended Neurological: moves all 4 limbs Psychiatric: normal affect, A&O x 3 Dx/Plan (1) Hypertensive urgency Code(s): I16.0 - HYPERTENSIVE URGENCY Status: Acute Comment: Blood pressures improved on Cardene drip (2) Acute worsening of stage 4 chronic kidney disease Code(s): N18.4 - CHRONIC KIDNEY DISEASE, STAGE 4 (SEVERE) Status: Acute Comment: nephrology consulted (3) DM2 (diabetes mellitus, type 2) Status: Chronic 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 Review of Systems - Review of Systems Constitutional: negative: fever, chills, sweats, weakness, malaise Respiratory: negative: Cough, Shortness of Breath, SOB with Excertion, Pleuritic Pain, Wheezing Cardiovascular: negative: chest pain, palpitations, orthopnea, paroxysmal nocturnal dyspnea, edema, light headedness Gastrointestinal: Nausea, Vomiting. negative: Abdominal Pain, Diarrhea, Constipation, Melena, Hematochezia Genitourinary: negative: Dysuria, Frequency, Incontinence, Hematuria, Retention Skin: negative: Rash, Lesions, Jet, Bruising - Medications/Allergies Allergies/Adverse Reactions: Allergies Allergy/AdvReac Type Severity Reaction Status Date / Time No Known Allergies Allergy Verified 12/27/18 01:25 Medications: Current Medications Acetaminophen (Tylenol Elixir) 650 mg PO Q6H PRN PRN Reason: Fever > 101 or Mild Pain Bisacodyl (Dulcolax) 10 mg PO DAILYPRN PRN PRN Reason: Constipation Carvedilol (Coreg) 25 mg PO BID [facility] Last Admin: 12/27/18 08:07 Dose: 25 mg Famotidine (Pepcid) 20 mg SLOW IVP QAM [facility] Last Admin: 12/27/18 08:13 Dose: 20 mg Heparin Sodium (Porcine) (Heparin) 5,000 units SC TID [facility] Last Admin: 12/27/18 08:51 Dose: 5,000 units Lactated Ringer's (Lactated Ringer's) 1,000 mls @ 125 mls/hr IV .Q8H [facility] Last Admin: 12/27/18 08:12 Dose: 1,000 mls Potassium Chloride 40 meq/ (Sodium Chloride) 270 mls @ 135 mls/hr IVPB ASDIR PRN PRN Reason: FOR SERUM K+ 2.5 - 3.5 Potassium Chloride 40 meq/ (Device) 100 mls @ 50 mls/hr IVPB ASDIR PRN PRN Reason: FOR SERUM K+ 2.5 - 3.5 Magnesium Sulfate 1 gm/ Sodium (Chloride) 102 mls @ 102 mls/hr IV PRN PRN PRN Reason: MAG LEVEL 1.4 - 2.0 Magnesium Sulfate 2 gm/ Device 100 mls @ 100 mls/hr IVPB ASDIR PRN PRN Reason: MAGNESIUM < 1.4 Potassium Phosphate 9 mmol/ (Sodium Chloride) 103 mls @ 25.75 mls/hr IVPB ASDIR PRN PRN Reason: Phosphate 1.0-1.8 Potassium Phosphate 12 mmol/ (Sodium Chloride) 254 mls @ 63.5 mls/hr IV ASDIR PRN PRN Reason: Serum phosphate 0.5-0.9 Potassium Phosphate 15 mmol/ (Sodium Chloride) 255 mls @ 63.75 mls/hr IV ASDIR PRN PRN Reason: Serum Phos < 0.5 Nicardipine HCl 50 mg/ Sodium (Chloride) 250 mls @ 0 mls/hr IVPB INF PRN; Protocol PRN Reason: Blood Pressure Last Admin: 12/27/18 12:17 Dose: 250 mls Levofloxacin 250 mg/ Device 50 mls @ 100 mls/hr IVPB Q24HR ISIDRO Insulin Human Lispro (Humalog) 0 units SC .MILD SLIDING SCALE PRN PRN Reason: Mild Correctional Scale Last Admin: 12/27/18 13:08 Dose: 3 units Labetalol HCl (Normodyne) 20 mg SLOW IVP Q6H PRN PRN Reason: SBP Greater Than 170 Last Admin: 12/27/18 12:55 Dose: 20 mg Magnesium Hydroxide (Milk Of Magnesium) 30 ml PO Q8H PRN PRN Reason: Constipation Magnesium Oxide (Magnesium Oxide) 400 mg PO BIDPRN PRN PRN Reason: FOR SERUM MAG 1.4 - 2.0 Magnesium Oxide (Magnesium Oxide) 800 mg PO PRN PRN PRN Reason: FOR SERUM MAG < 1.4 Miscellaneous Medication (Phos-Nak) 1 pkt PO TIDPRN PRN PRN Reason: FOR PHOS LEVEL 1.0 - 1.8 Miscellaneous Medication (Phos-Nak) 2 pkt PO TIDPRN PRN PRN Reason: FOR PHOS LEVEL 0.5 - 1.0 Miscellaneous Medication (Pharmacy To Dose) 1 each IVPB PRN PRN PRN Reason: Pharmacy to dose Ccu Electrolyte (Replacement Protocol) 0 each FS PRN PRN PRN Reason: FOR ELECTROLYTE REPLACEMENT Ondansetron HCl (Zofran) 4 mg IVP Q6H PRN PRN Reason: Nausea/Vomiting Last Admin: 12/27/18 08:57 Dose: 4 mg Potassium Chloride (K-Dur) 40 meq PO ASDIR PRN PRN Reason: FOR SERUM K+ 2.5 - 3.5 Potassium Chloride (Klor-Con) 40 meq PER TUBE ASDIR PRN PRN Reason: FOR SERUM K+ 2.5-3.5
[2018-12-28] MEDS: niCARdipine HCl 50 MG in Sodium Chloride 0.9% 250 ML 230 ML IVPB PRN ×2 (00:15→08:43)
--- NOTE | 2018-12-28 00:51 | CON ---
DATE OF CONSULTATION: CONSULTING PHYSICIAN: Eduardo Way MD REQUESTING PHYSICIAN: ER physician and Dr. Meza. REASON FOR CONSULTATION: Hypertensive urgency and advanced kidney disease. IMPRESSION: 1. Advanced chronic kidney disease, likely in the context of hypertensive nephrosclerosis plus or minus diabetic nephropathy. 2. Hypertensive urgency. PLAN: 1. The patient currently on Cardene drip. We will begin to adjust the patient's antihypertensive medications. From the look of this, the patient seems to be very tachyarrhythmic. We will make sure this patient is on a beta stephy. We will start this patient on IV labetalol until the patient is able to tolerate p.o. The patient will be on carvedilol and adjusted to optimize hemodynamics. 2. Renally dose all medications and avoid potentially nephrotoxic agents. 3. No emergent indication for renal replacement therapy at this point (hemodialysis). This modality of treatment might become imminent. 4. Further management will be dependent on the clinical course. HISTORY OF PRESENT ILLNESS: History is that of a 33-year-old [place] gentlemen who was called to the ER because of severely elevated blood pressure and advanced chronic kidney disease, who presented with nausea and vomiting with possible diagnosis of pancreatitis. In any case, the patient seems to not to be able to tolerate any p.o. medications and noted to be on once-a-day clonidine. As a result of the advanced renal problem, decision has been taken to involve Renal in the management of this case. PAST MEDICAL HISTORY: Significant for hypertension, obesity, and diabetes type 2. MEDICATIONS: Reviewed and as documented in [facility]. FAMILY HISTORY: The patient not sure, but believes there might be family members with kidney disease. SOCIAL HISTORY: Remote tobacco use. Occasional recreational use for anxiety marijuana. ALLERGIES: NO KNOWN DRUG ALLERGIES. MEDICATIONS: Reviewed and as documented in [facility]. REVIEW OF SYSTEMS: As documented in the body of the history. All the other systems were reviewed and found not to be significantly related to present illness. PHYSICAL EXAMINATION: GENERAL: Patient noted not to be in any obvious distress. VITAL SIGNS: Blood pressure in the 180 to 190 to 200 range, heart rate above 100 to 123, respiratory rate of 18, O2 saturation of 98%. HEENT EXAMINATION: Unremarkable. Moist oral mucosa. NECK: Supple. No conjunctival injection or icterus. CARDIOVASCULAR SYSTEM: First and second hearts sounds were heard. RESPIRATORY SYSTEM: Clear to auscultation. DIGESTIVE SYSTEM: Revealed an obese abdomen. EXTREMITIES: No peripheral edema. SKIN EXAMINATION: No new gross rash. LYMPHATICS: No peripheral lymphadenopathy. SUMMARY: A 33-year-old gentleman with advanced chronic kidney disease, who presented here with hypertensive urgency with nausea and vomiting. We will recommend discontinuing the IV fluids, which is currently exacerbating the high blood pressure due to the saline content. Thank you for this consultation. Job ID: [id number]
[2018-12-28 05:01] LABS: Eosinophils 1 % (0-10); Hemoglobin 9.9 g/dL (14.0-18.0); Lymphocytes 17 % (21-51); MDiff Complete? YES; Mean Corpuscular HGB CONC 31.7 g/dL (32.0-36.0); Mean Corpuscular Hemoglobin 25.9 pg (27.0-31.0); Mean Corpuscular Volume 81.4 fL (78.0-98.0); Mean Platelet Volume 8.4 fL (7.4-10.4); Monocytes 7 % (0-10); Neutrophil 75 % (42-75); Platelet Count 290 thou/uL (130-400); Platelet Morphology Comment Appears Adequate; RBC Distribution Width 14.5 % (11.5-14.5); Red Blood Cell (RBC) Count 3.83 mill/uL (4.70-6.10); White Blood Cell (WBC) Count 16.1 thou/uL (4.8-10.8)
[2018-12-28 05:10] LABS: Anion Gap 16 mmol/L (10-20); BUN (Urea Nitrogen) 47 mg/dL (8.9-20.6); Calc. Creatinine Clearance 38 mL/min (70-130); Calcium 8.2 mg/dL (7.8-10.44); Carbon Dioxide 18 mmol/L (22-29); Chloride 107 mmol/L (98-107); Estimated GFR-MDRD 14; Glucose 139 mg/dL (70-105); Potassium 3.7 mmol/L (3.5-5.1); Sodium 137 mmol/L (136-145)
[2018-12-28] MEDS: Carvedilol 25 MG TAB PO SCH ×2 (08:35→20:16)
[2018-12-28] MEDS: Famotidine/PF 20 mg/2ml Vial SLOW IVP SCH (08:45)
[2018-12-28] MEDS: Enoxaparin Sodium 30 MG/0.3 ML SYRINGE SC SCH (08:45)
[2018-12-28] MEDS ORDERED: NIFEdipine XL 60 MG TAB PO SCH (09:00)
--- NOTE | 2018-12-28 09:05 | PRG ---
DATE OF SERVICE: 12/28/2018 SUBJECTIVE: The patient was admitted to the ICU yesterday with a hypertensive emergency. He is currently on a nicardipine drip. He says he has been unable to take his oral medications because he has been nauseated at home. He went at least 3 days without taking anything. OBJECTIVE: VITAL SIGNS: On exam at the current time, his temperature is 98.0, pulse 89, blood pressure 175/93, and O2 sat 100%. HEENT: Unremarkable. NECK: No JVD. CHEST: Clear to auscultation. CARDIAC: S1 and S2, regular. ABDOMEN: Soft. EXTREMITIES: No edema. LABORATORY DATA: White blood cell count 16.1, hematocrit 31.2, and platelet count 290. Sodium 137, potassium 3.7, CO2 of 18, chloride 107, BUN 47, creatinine 5.6, and glucose 139. ASSESSMENT: 1. Hypertensive emergency. 2. Hypertensive nephrosclerosis. 3. Medical noncompliance. RECOMMENDATIONS: Restart his oral antihypertensives and wean off nicardipine drip. He can be transferred from the CCU when he is off the nicardipine drip. Job ID: [id number]
[2018-12-28] MEDS: HumaLOG 300 UNITS/3 ML VIAL SC PRN ×3 (12:02→20:41)
[2018-12-28] MEDS: hydrALAZINE 25 MG TAB PO SCH ×2 (15:21→20:16)
[2018-12-28] MEDS: Labetalol HCl 100 MG/20 ML VIAL SLOW IVP PRN (17:18)
--- NOTE | 2018-12-28 18:42 | PDOC.PN ---
- Subjective Encounter Start Date: 12/28/18 Encounter Start Time: 09:00 Pt seen for followup re: hypertensive urgency. Feels better. Nausea better. No vomiting. No headache. - Objective MAR Reviewed: Yes Vital Signs & Weight: Vital Signs (12 hours) Temp Pulse BP Pulse Ox 12/28/18 17:18 94 197/108 H 12/28/18 16:00 97.8 F 12/28/18 15:21 89 163/85 H 12/28/18 12:00 98.3 F 12/28/18 08:34 98 193/108 H 12/28/18 08:30 100 12/28/18 08:00 98.3 F Weight Admit Weight 318 lb 5.44 oz Weight 330 lb 11.094 oz Most Recent Monitor Data Heart Rate from ECG 90 NIBP 187/102 NIBP BP-Mean 130 Respiration from ECG 24 SpO2 89 I&O: 12/27/18 12/28/18 12/29/18 06:59 06:59 06:59 Intake Total 1240 4374 2043 Output Total 650 1545 1275 Balance 590 2829 768 Result Diagrams: 12/28/18 04:04 12/28/18 04:04 Additional Labs: Accuchecks 12/28/18 12/28/18 12/28/18 17:28 11:50 04:04 POC Glucose 203 H 222 H 136 H 12/27/18 20:43 POC Glucose 231 H EKG Reviewed by me: Yes (Tele: NSR) Phys Exam - Physical Examination Morbid obesity HEENT: moist MMs, sclera anicteric, oral pharynx no lesions, 2+ tonsils Neck: no nodes, no JVD, supple, full ROM Respiratory: clear to auscultation bilateral Cardiovascular: RRR, no rub S1, S2 Gastrointestinal: soft, non-tender, positive bowel sounds distention Neurological: moves all 4 limbs Psychiatric: normal affect, A&O x 3 Dx/Plan (1) Hypertensive urgency Code(s): I16.0 - HYPERTENSIVE URGENCY Status: Acute Comment: Improving, try to wean off of Cardene drip. Add hydralazine, continue Coreg. 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 on levofloxacin for probable LLL pneumonia. Review of Systems - Review of Systems Constitutional: negative: fever, chills, sweats, weakness, malaise Respiratory: negative: Cough, Dry, Shortness of Breath, Hemoptysis, SOB with Excertion, Pleuritic Pain, Sputum, Wheezing Cardiovascular: negative: chest pain, palpitations, orthopnea, paroxysmal nocturnal dyspnea, edema, light headedness Gastrointestinal: Nausea. negative: Vomiting, Abdominal Pain, Diarrhea, Constipation, Melena, Hematochezia Genitourinary: negative: Dysuria, Frequency, Incontinence, Hematuria, Retention Skin: negative: Rash, Lesions, Jet, Bruising - Medications/Allergies Allergies/Adverse Reactions: Allergies Allergy/AdvReac Type Severity Reaction Status Date / Time No Known Allergies Allergy Verified 12/27/18 01:25 Medications: Current Medications Acetaminophen (Tylenol Elixir) 650 mg PO Q6H PRN PRN Reason: Fever > 101 or Mild Pain Bisacodyl (Dulcolax) 10 mg PO DAILYPRN PRN PRN Reason: Constipation Carvedilol (Coreg) 25 mg PO BID [facility] Last Admin: 12/28/18 08:35 Dose: 25 mg Enoxaparin Sodium (Lovenox) 30 mg SC 0900 [facility] Last Admin: 12/28/18 08:45 Dose: 30 mg Famotidine (Pepcid) 20 mg SLOW IVP QAM [facility] Last Admin: 12/28/18 08:45 Dose: 20 mg Hydralazine HCl (Apresoline) 50 mg PO TID [facility] Last Admin: 12/28/18 15:21 Dose: 50 mg Potassium Chloride 40 meq/ (Sodium Chloride) 270 mls @ 135 mls/hr IVPB ASDIR PRN PRN Reason: FOR SERUM K+ 2.5 - 3.5 Potassium Chloride 40 meq/ (Device) 100 mls @ 50 mls/hr IVPB ASDIR PRN PRN Reason: FOR SERUM K+ 2.5 - 3.5 Magnesium Sulfate 1 gm/ Sodium (Chloride) 102 mls @ 102 mls/hr IV PRN PRN PRN Reason: MAG LEVEL 1.4 - 2.0 Magnesium Sulfate 2 gm/ Device 100 mls @ 100 mls/hr IVPB ASDIR PRN PRN Reason: MAGNESIUM < 1.4 Potassium Phosphate 9 mmol/ (Sodium Chloride) 103 mls @ 25.75 mls/hr IVPB ASDIR PRN PRN Reason: Phosphate 1.0-1.8 Potassium Phosphate 12 mmol/ (Sodium Chloride) 254 mls @ 63.5 mls/hr IV ASDIR PRN PRN Reason: Serum phosphate 0.5-0.9 Potassium Phosphate 15 mmol/ (Sodium Chloride) 255 mls @ 63.75 mls/hr IV ASDIR PRN PRN Reason: Serum Phos < 0.5 Nicardipine HCl 50 mg/ Sodium (Chloride) 250 mls @ 0 mls/hr IVPB INF PRN; Protocol PRN Reason: Blood Pressure Last Admin: 12/28/18 08:43 Dose: 250 mls Levofloxacin 250 mg/ Device 50 mls @ 100 mls/hr IVPB Q24HR [facility] Last Admin: 12/28/18 05:38 Dose: 50 mls Insulin Human Lispro (Humalog) 0 units SC .MILD SLIDING SCALE PRN PRN Reason: Mild Correctional Scale Last Admin: 12/28/18 17:33 Dose: 3 units Labetalol HCl (Normodyne) 20 mg SLOW IVP Q6H PRN PRN Reason: SBP Greater Than 170 Last Admin: 12/28/18 17:18 Dose: 20 mg Magnesium Hydroxide (Milk Of Magnesium) 30 ml PO Q8H PRN PRN Reason: Constipation Magnesium Oxide (Magnesium Oxide) 400 mg PO BIDPRN PRN PRN Reason: FOR SERUM MAG 1.4 - 2.0 Magnesium Oxide (Magnesium Oxide) 800 mg PO PRN PRN PRN Reason: FOR SERUM MAG < 1.4 Miscellaneous Medication (Phos-Nak) 1 pkt PO TIDPRN PRN PRN Reason: FOR PHOS LEVEL 1.0 - 1.8 Miscellaneous Medication (Phos-Nak) 2 pkt PO TIDPRN PRN PRN Reason: FOR PHOS LEVEL 0.5 - 1.0 Miscellaneous Medication (Pharmacy To Dose) 1 each IVPB PRN PRN PRN Reason: Pharmacy to dose Nifedipine (Procardia Xl) 60 mg PO DAILY [facility] Last Admin: 12/28/18 08:34 Dose: 60 mg Ccu Electrolyte (Replacement Protocol) 0 each FS PRN PRN PRN Reason: FOR ELECTROLYTE REPLACEMENT Ondansetron HCl (Zofran) 4 mg IVP Q6H PRN PRN Reason: Nausea/Vomiting Last Admin: 12/27/18 08:57 Dose: 4 mg Potassium Chloride (K-Dur) 40 meq PO ASDIR PRN PRN Reason: FOR SERUM K+ 2.5 - 3.5 Potassium Chloride (Klor-Con) 40 meq PER TUBE ASDIR PRN PRN Reason: FOR SERUM K+ 2.5-3.5 Sodium Chloride (Flush - Normal Saline) 10 ml IVF Q12HR [facility] Last Admin: 12/28/18 08:46 Dose: 10 ml Sodium Chloride (Flush - Normal Saline) 10 ml IVF PRN PRN PRN Reason: Saline Flush
[2018-12-28] MEDS ORDERED: Dextrose 50% Abboject 50 ML SYRINGE SLOW IVP PRN (18:46)
[2018-12-28] MEDS ORDERED: Dextrose 5% in Water 1,000 ML IV PRN (18:46)
[2018-12-28] MEDS ORDERED: NIFEdipine XL 90 MG TAB PO SCH (20:30)
--- NOTE | 2018-12-28 20:48 | PRG ---
DATE OF SERVICE: 12/28/2018 SUBJECTIVE: The patient was seen and examined with no new complaint, noted with the following vital signs. OBJECTIVE: VITAL SIGNS: Afebrile, temperature 98.2; pulse 99; blood pressure 177/89; respiratory rate of 15. HEENT: Unremarkable. CARDIOVASCULAR: First and second heart sounds were heard. RESPIRATORY: Clear to auscultation. DIGESTIVE: Revealed a benign abdomen. Positive bowel sounds. EXTREMITIES: No peripheral edema. SKIN: No new gross rash. LYMPHATICS: No peripheral lymphadenopathy. IMPRESSION: 1. Hypertensive urgency. 2. Hypertensive nephrosclerosis. 3. Morbid obesity. 4. Advanced chronic kidney disease, stage 5. PLAN: 1. We will adjust the patient's antihypertensive medications to optimize hemodynamics. We will increase the Procardia to 90 mg. 2. Please avoid clonidine in this patient due to questionable compliance in order to avoid precipitating rebound hypertension. 3. Further management will be dependent on the clinical course, renally dose all medications. 4. Medications that are given once a day, more or less preferred and this patient has issue with compliance as opposed to medications that are given multiple times a day; therefore, by tomorrow, we will possibly adjust hydralazine and I will replace the hydralazine with single daily dosing medications. 5. Further management will be dependent on the clinical course. Job ID: [id number]
[2018-12-29 04:29] LABS: Mean Corpuscular HGB CONC 32.6 g/dL (32.0-36.0); Mean Corpuscular Hemoglobin 26.3 pg (27.0-31.0); Mean Corpuscular Volume 80.5 fL (78.0-98.0); Mean Platelet Volume 7.9 fL (7.4-10.4); Platelet Count 305 thou/uL (130-400); RBC Distribution Width 14.1 % (11.5-14.5); White Blood Cell (WBC) Count 16.9 thou/uL (4.8-10.8)
[2018-12-29 04:40] LABS: Anion Gap 17 mmol/L (10-20); BUN (Urea Nitrogen) 42 mg/dL (8.9-20.6); Calc. Creatinine Clearance 42 mL/min (70-130); Calcium 8.3 mg/dL (7.8-10.44); Carbon Dioxide 16 mmol/L (22-29); Chloride 106 mmol/L (98-107); Estimated GFR-MDRD 15; Glucose 136 mg/dL (70-105); Potassium 3.9 mmol/L (3.5-5.1); Sodium 135 mmol/L (136-145)
[2018-12-29 04:50] LABS: Eosinophils 2 % (0-10); Hypochromia SLIGHT = 6-15 cells (100X) (0-5/hpf); Lymphocytes 4 % (21-51); MDiff Complete? YES; Monocytes 6 % (0-10); Neutrophil 88 % (42-75); Platelet Morphology Comment Appears Adequate
[2018-12-29] MEDS: hydrALAZINE 25 MG TAB PO SCH ×3 (08:13→21:11)
[2018-12-29] MEDS: Enoxaparin Sodium 30 MG/0.3 ML SYRINGE SC SCH (08:13)
[2018-12-29] MEDS: Carvedilol 25 MG TAB PO SCH ×2 (08:13→21:06)
[2018-12-29] MEDS: Famotidine/PF 20 mg/2ml Vial SLOW IVP SCH (08:14)
--- NOTE | 2018-12-29 08:47 | PRG ---
DATE OF SERVICE: 12/29/2018 SUBJECTIVE: The patient is lying in bed comfortably. He is in no distress. Has no headache. No chest pain. OBJECTIVE: VITAL SIGNS: On exam, temperature 98.7, pulse 92, blood pressure 175/107, O2 saturation 97%. 24-hour intake 2803, output 1865. HEENT: Unremarkable. NECK: No adenopathy, JVD, or bruits. LUNGS: Clear. CARDIAC: S1, S2. Regular. ABDOMEN: Soft. EXTREMITIES: No edema. LABORATORY DATA: Sodium 135, potassium 3.9, chloride 106, CO2 of 16, BUN 42, creatinine 5.3, and glucose 136. White blood cell count 16.9, hematocrit 30.6, and platelet count 305. ASSESSMENT: 1. Hypertension out of control-currently not in an emergency situation. 2. Renal dysfunction secondary to malignant hypertension. 3. Medical noncompliance. PLAN: He can be transferred out to telemetry. He will continue his antihypertensive medications. He does not need to be on nicardipine drip anymore at this point. I think he will take several days to achieve adequate control. His renal function will be trended. He probably needs to meet with Case Management concerning his lack of ability to afford his medications. Job ID: [id number]
[2018-12-29] MEDS: Labetalol HCl 100 MG/20 ML VIAL SLOW IVP PRN ×2 (11:02→17:07)
[2018-12-29] MEDS: HumaLOG 300 UNITS/3 ML VIAL SC PRN ×2 (11:06→16:11)
--- NOTE | 2018-12-29 13:06 | PDOC.PN ---
- Subjective Encounter Start Date: 12/29/18 Encounter Start Time: 07:40 Pt seen for followup re: hypertensive urgency. Says he feels fine. - Objective MAR Reviewed: Yes Vital Signs & Weight: Vital Signs (12 hours) Temp Pulse BP Pulse Ox 12/29/18 12:00 98.1 F 12/29/18 11:02 97 193/108 H 12/29/18 11:00 98 F 12/29/18 08:13 94 185/112 H 12/29/18 08:00 97 F L 94 L 12/29/18 07:00 98.7 F 12/29/18 04:00 98.7 F Weight Admit Weight 318 lb 5.56 oz Weight 337 lb 1.6 oz Most Recent Monitor Data Heart Rate from ECG 90 NIBP 179/97 NIBP BP-Mean 124 Respiration from ECG 15 SpO2 96 I&O: 12/28/18 12/29/18 12/30/18 06:59 06:59 06:59 Intake Total 4374 2803 600 Output Total 1545 1865 250 Balance 2829 938 350 Result Diagrams: 12/29/18 04:03 12/29/18 04:03 Additional Labs: Accuchecks 12/29/18 12/28/18 12/28/18 11:07 20:42 17:28 POC Glucose 263 H 211 H 203 H 12/28/18 11:50 POC Glucose 222 H Phys Exam - Physical Examination Morbid obesity Neck: no nodes, no JVD, supple, full ROM Cardiovascular: RRR, no rub S1, S2 Gastrointestinal: soft, non-tender, positive bowel sounds distended Neurological: moves all 4 limbs Psychiatric: normal affect, A&O x 3 Dx/Plan (1) Hypertensive urgency Code(s): I16.0 - HYPERTENSIVE URGENCY Status: Acute Comment: try to wean off of Cardene drip. 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 Review of Systems - Review of Systems Constitutional: negative: fever, chills, sweats, weakness, malaise Respiratory: negative: Cough, Dry, Shortness of Breath, Hemoptysis, SOB with Excertion, Pleuritic Pain, Sputum, Wheezing Cardiovascular: negative: chest pain, palpitations, orthopnea, paroxysmal nocturnal dyspnea, edema, light headedness Gastrointestinal: negative: Nausea, Vomiting, Abdominal Pain, Diarrhea, Constipation, Melena, Hematochezia Genitourinary: negative: Dysuria, Frequency, Incontinence, Hematuria, Retention - Medications/Allergies Allergies/Adverse Reactions: Allergies Allergy/AdvReac Type Severity Reaction Status Date / Time No Known Allergies Allergy Verified 12/27/18 01:25 Medications: Current Medications Acetaminophen (Tylenol Elixir) 650 mg PO Q6H PRN PRN Reason: Fever > 101 or Mild Pain Bisacodyl (Dulcolax) 10 mg PO DAILYPRN PRN PRN Reason: Constipation Carvedilol (Coreg) 25 mg PO BID [facility] Last Admin: 12/29/18 08:13 Dose: 25 mg Dextrose/Water (Dextrose 50%) 25 gm SLOW IVP PRN PRN PRN Reason: Hypoglycemia Enoxaparin Sodium (Lovenox) 30 mg SC 0900 [facility] Last Admin: 12/29/18 08:13 Dose: 30 mg Glucagon (Glucagon) 1 mg IM PRN PRN PRN Reason: Hypoglycemia Hydralazine HCl (Apresoline) 50 mg PO TID [facility] Last Admin: 12/29/18 08:13 Dose: 50 mg Dextrose/Water (D5w) 1,000 mls @ 0 mls/hr IV .Q0M PRN PRN Reason: Hypoglycemia Insulin Human Lispro (Humalog) 0 units SC .MODERATE SLIDING SC PRN PRN Reason: Moderate Correctional Scale Last Admin: 12/29/18 11:06 Dose: 6 unit Labetalol HCl (Normodyne) 20 mg SLOW IVP Q6H PRN PRN Reason: SBP Greater Than 170 Last Admin: 12/29/18 11:02 Dose: 20 mg Miscellaneous Medication (Pharmacy To Dose) 1 each IVPB PRN PRN PRN Reason: Pharmacy to dose Nifedipine (Procardia Xl) 90 mg PO Q24HR [facility] Ccu Electrolyte (Replacement Protocol) 0 each FS PRN PRN PRN Reason: FOR ELECTROLYTE REPLACEMENT Ondansetron HCl (Zofran) 4 mg IVP Q6H PRN PRN Reason: Nausea/Vomiting Last Admin: 12/27/18 08:57 Dose: 4 mg
[2018-12-29] MEDS ORDERED: NIFEdipine XL 90 MG TAB PO SCH (21:00)
--- NOTE | 2018-12-30 01:05 | PRG ---
DATE OF SERVICE: 12/29/2018 SUBJECTIVE: The patient is seen and examined with no new complaint noted. OBJECTIVE: VITAL SIGNS: Afebrile, temperature 98, pulse 83, blood pressure of 170/99. HEENT: Unremarkable. CARDIOVASCULAR: First and second heart sounds are heard. RESPIRATORY: Clear to auscultation. DIGESTIVE: Revealed a benign abdomen. Positive bowel sounds. EXTREMITIES: No peripheral edema. SKIN: No new gross rash. LYMPHATICS: No peripheral lymphadenopathy. LABORATORY INVESTIGATION: Sodium 135, BUN of 42 with a creatinine of 5.3, bicarb of 16, blood sugar IMPRESSION: 1. Hypertension, suboptimally controlled. 2. Advanced chronic kidney disease, stage 4/5. 3. Morbid obesity. PLAN: 1. Adjust the patient's antihypertensive medications to optimize hemodynamics. We will increase the patient's Procardia. I do believe that this patient will require multiple antihypertensive medications, will likely benefit from diuretics in order to augment the antihypertensive effect of these medications. 2. Further management to be dependent on the clinical course. Job ID: [id number]
[2018-12-30] MEDS: Labetalol HCl 100 MG/20 ML VIAL SLOW IVP PRN ×2 (03:33→14:24)
[2018-12-30 06:05] LABS: Eosinophils 4 % (0-10); Hemoglobin 10.2 g/dL (14.0-18.0); Lymphocytes 20 % (21-51); MDiff Complete? YES; Mean Corpuscular HGB CONC 32.6 g/dL (32.0-36.0); Mean Corpuscular Hemoglobin 26.2 pg (27.0-31.0); Mean Corpuscular Volume 80.3 fL (78.0-98.0); Mean Platelet Volume 8.7 fL (7.4-10.4); Monocytes 4 % (0-10); Neutrophil 72 % (42-75); Platelet Count 296 thou/uL (130-400); RBC Distribution Width 14.4 % (11.5-14.5); White Blood Cell (WBC) Count 14.1 thou/uL (4.8-10.8)
[2018-12-30 06:11] LABS: Anion Gap 17 mmol/L (10-20); BUN (Urea Nitrogen) 40 mg/dL (8.9-20.6); Calc. Creatinine Clearance 44 mL/min (70-130); Calcium 8.5 mg/dL (7.8-10.44); Carbon Dioxide 17 mmol/L (22-29); Chloride 105 mmol/L (98-107); Estimated GFR-MDRD 16; Glucose 139 mg/dL (70-105); Potassium 3.6 mmol/L (3.5-5.1); Sodium 135 mmol/L (136-145)
[2018-12-30] MEDS ORDERED: Sodium Chloride 0.9% 10 ML ONE (09:01)
[2018-12-30] MEDS: hydrALAZINE 25 MG TAB PO SCH ×3 (09:09→20:59)
[2018-12-30] MEDS: Enoxaparin Sodium 30 MG/0.3 ML SYRINGE SC SCH (09:09)
[2018-12-30] MEDS: Carvedilol 25 MG TAB PO SCH ×2 (09:09→20:59)
[2018-12-30] MEDS: Minoxidil 10 MG TAB PO SCH (10:37)
[2018-12-30 11:56] VITALS: BMI 48.2
[2018-12-30] MEDS: HumaLOG 300 UNITS/3 ML VIAL SC PRN ×2 (13:05→20:59)
--- NOTE | 2018-12-30 18:50 | PDOC.PN ---
- Subjective Encounter Start Date: 12/30/18 Encounter Start Time: 18:50 Subjective: No new problem. vomiting has subsided. No fever. - Objective MAR Reviewed: Yes Vital Signs & Weight: Vital Signs (12 hours) Temp Pulse Resp BP BP Pulse Ox 12/30/18 16:09 92 169/93 H 12/30/18 16:00 98.1 F 92 18 169/93 H 12/30/18 14:24 89 175/102 H 12/30/18 13:00 98.2 F 89 18 175/102 H 12/30/18 09:09 93 178/105 H 12/30/18 08:00 97.9 F 93 16 189/107 H 98 12/30/18 07:45 98 Weight Admit Weight 318 lb 5.56 oz Weight 336 lb 1.6 oz Most Recent Monitor Data Heart Rate from ECG 84 NIBP 170/111 NIBP BP-Mean 130 Respiration from ECG 20 SpO2 93 I&O: 12/29/18 12/30/18 12/31/18 06:59 06:59 06:59 Intake Total 2803 900 Output Total 1865 900 Balance 938 0 Result Diagrams: 12/30/18 05:10 12/30/18 05:10 Additional Labs: Accuchecks 12/30/18 12/30/18 12/30/18 17:08 10:53 05:22 POC Glucose 137 H 230 H 137 H 12/30/18 00:41 POC Glucose 177 H Phys Exam - Physical Examination HEENT: PERRLA, moist MMs Neck: no nodes, no JVD Respiratory: no wheezing, no rales, no rhonchi Cardiovascular: RRR, no significant murmur Gastrointestinal: soft, non-tender, no distention, positive bowel sounds Morbidly obese Musculoskeletal: no edema Neurological: non-focal, normal sensation, moves all 4 limbs Psychiatric: A&O x 3 Dx/Plan (1) Hypertensive urgency Code(s): I16.0 - HYPERTENSIVE URGENCY Status: Acute Comment: try to wean off of Cardene drip. Add hydralazine, resume home meds (2) [id number]-uccpdoe kidney injury Code(s): N17.9 - ACUTE KIDNEY FAILURE, UNSPECIFIED; N18.9 - CHRONIC KIDNEY DISEASE, UNSPECIFIED Status: Acute Qualifiers: Chronic kidney disease stage: stage 4 (severe) Comment: Creatinine trending down, Dr. Savage following, will likely need dialysis access in the near future. Vein mapping today then f/u with Dr. Lakhani and Dr. Savage as outpatient. 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: without chcf use Diabetes mellitus complication status: with kidney complications Diabetes mellitus complication detail: with chronic kidney disease Chronic kidney disease stage : stage 3 (moderate) Qualified Code(s): E11.22 - Type 2 diabetes mellitus with diabetic chronic kidney disease; N18.3 - Chronic kidney disease, stage 3 ( moderate) Comment: switched to moderate insulin sliding scale yesterday, continue accuchecks (5) Morbid obesity with BMI of 40.0-44.9, adult Code(s): E66.01 - MORBID (SEVERE) OBESITY DUE TO EXCESS CALORIES; Z68.41 - BODY MASS INDEX (BMI) 40.0-44.9, ADULT Status: Chronic Comment: Diet and exercise counseled, patient non compliant - Plan increase nifedipine ER to 60 bid. -: Will monitor renal functio n. -: Will add lasix tomorrow * .
[2018-12-30] MEDS: NIFEdipine XL 60 MG TAB PO SCH (20:59)
[2018-12-31] MEDS: Labetalol HCl 100 MG/20 ML VIAL SLOW IVP PRN ×2 (00:15→05:15)
[2018-12-31] MEDS: NIFEdipine XL 60 MG TAB PO SCH ×2 (08:39→22:45)
[2018-12-31] MEDS: Carvedilol 25 MG TAB PO SCH (08:39)
[2018-12-31] MEDS: hydrALAZINE 25 MG TAB PO SCH ×3 (08:39→22:45)
[2018-12-31] MEDS: Minoxidil 10 MG TAB PO SCH ×2 (08:40→22:45)
[2018-12-31] MEDS: Enoxaparin Sodium 30 MG/0.3 ML SYRINGE SC SCH (08:40)
[2018-12-31] MEDS ORDERED: Labetalol 100 MG TAB PO SCH ×2 (09:00→14:15)
[2018-12-31 10:02] LABS: Anion Gap 13 mmol/L (10-20); BUN (Urea Nitrogen) 35 mg/dL (8.9-20.6); Calc. Creatinine Clearance 49 mL/min (70-130); Calcium 8.5 mg/dL (7.8-10.44); Carbon Dioxide 19 mmol/L (22-29); Chloride 106 mmol/L (98-107); Eosinophils 2 % (0-10); Estimated GFR-MDRD 18; Glucose 212 mg/dL (70-105); Hemoglobin 10.3 g/dL (14.0-18.0); Lymphocytes 17 % (21-51); MDiff Complete? YES; Mean Corpuscular Hemoglobin 26.5 pg (27.0-31.0); Mean Corpuscular Volume 80.3 fL (78.0-98.0); Monocytes 6 % (0-10); Neutrophil 75 % (42-75); Platelet Count 303 thou/uL (130-400); Potassium 3.8 mmol/L (3.5-5.1); RBC Distribution Width 14.6 % (11.5-14.5); Sodium 134 mmol/L (136-145); White Blood Cell (WBC) Count 13.2 thou/uL (4.8-10.8)
[2018-12-31 10:07] LABS: Anion Gap 11 mmol/L (10-20); BUN (Urea Nitrogen) 35 mg/dL (8.9-20.6); BUN/Creatinine Ratio 7.49; Calc. Creatinine Clearance 49 mL/min (70-130); Calcium 8.5 mg/dL (7.8-10.44); Carbon Dioxide 21 mmol/L (22-29); Chloride 106 mmol/L (98-107); Estimated GFR-MDRD 18; Glucose 217 mg/dL (70-105); Phosphorus 3.9 mg/dL (2.3-4.7); Potassium 3.8 mmol/L (3.5-5.1); Sodium 134 mmol/L (136-145)
[2018-12-31] MEDS ORDERED: Furosemide 80 MG TAB PO SCH ×2 (10:42→10:45)
[2018-12-31] MEDS ORDERED: Sodium Bicarbonate Tab 325 MG TAB PO SCH ×2 (10:45→11:30)
[2018-12-31] MEDS ORDERED: hydrALAZINE 20 MG/ML VIAL SLOW IVP SCH (11:30)
[2018-12-31] MEDS: HumaLOG 300 UNITS/3 ML VIAL SC PRN ×2 (12:11→22:47)
--- NOTE | 2018-12-31 17:06 | PDOC.PN ---
- Subjective Encounter Start Date: 12/31/18 Encounter Start Time: 11:05 Subjective: No new proble.BP remained poorly controlled. - Objective MAR Reviewed: Yes Vital Signs & Weight: Vital Signs (12 hours) Temp Pulse Resp BP BP BP Pulse Ox 12/31/18 16:04 92 176/93 H 12/31/18 16:01 97.8 F 92 18 176/93 H 98 12/31/18 14:45 90 12/31/18 12:18 98.5 F 90 18 180/102 H 98 12/31/18 11:40 98 191/106 H 12/31/18 10:49 98 191/106 H 12/31/18 08:39 96 186/107 H 12/31/18 08:32 98.8 F 96 18 186/107 H 99 12/31/18 05:15 92 188/102 H Weight Admit Weight 318 lb 5.56 oz Weight 334 lb 5 oz Most Recent Monitor Data Heart Rate from ECG 84 NIBP 170/111 NIBP BP-Mean 130 Respiration from ECG 20 SpO2 93 I&O: 12/30/18 12/31/18 01/01/19 06:59 06:59 06:59 Intake Total 648 415 9081 Output Total 900 Balance 0 910 1320 Result Diagrams: 12/31/18 09:34 12/31/18 09:34 Additional Labs: Accuchecks 12/31/18 12/31/18 12/30/18 10:59 06:03 20:37 POC Glucose 262 H 113 H 260 H 12/30/18 17:08 POC Glucose 137 H Phys Exam - Physical Examination Morbidly obese HEENT: PERRLA Neck: no JVD Respiratory: no wheezing, no rhonchi Cardiovascular: RRR, no significant murmur Gastrointestinal: soft, non-tender, no distention, positive bowel sounds Musculoskeletal: no edema, pulses present Neurological: non-focal, moves all 4 limbs Psychiatric: normal affect, A&O x 3 Dx/Plan (1) Hypertensive urgency Code(s): I16.0 - HYPERTENSIVE URGENCY Status: Acute Comment: try to wean off of Cardene drip. Add hydralazine, resume home meds (2) [id number] kidney injury Code(s): N17.9 - ACUTE KIDNEY FAILURE, UNSPECIFIED; N18.9 - CHRONIC KIDNEY DISEASE, UNSPECIFIED Status: Acute Qualifiers: Chronic kidney disease stage: stage 4 (severe) Comment: Creatinine trending down, Dr. Savage following, will likely need dialysis access in the near future. Vein mapping today then f/u with Dr. Lakhani and Dr. Savage as outpatient. 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: without termite inspector use Diabetes mellitus complication status: with kidney complications Diabetes mellitus complication detail: with chronic kidney disease Chronic kidney disease stage : stage 3 (moderate) Qualified Code(s): E11.22 - Type 2 diabetes mellitus with diabetic chronic kidney disease; N18.3 - Chronic kidney disease, stage 3 ( moderate) Comment: switched to moderate insulin sliding scale yesterday, continue accuchecks (5) Morbid obesity with BMI of 40.0-44.9, adult Code(s): E66.01 - MORBID (SEVERE) OBESITY DUE TO EXCESS CALORIES; Z68.41 - BODY MASS INDEX (BMI) 40.0-44.9, ADULT Status: Chronic Comment: Diet and exercise counseled, patient non compliant - Plan Add labetalol 100 bid and lasix 80 mg daily and Dc coreg -: monitor BP. if trending down, can be discharged to follow up with PCP. -: Monitor renal function with addition of lasix. -: patient will also benefit from KENNETH blockade. * .
--- NOTE | 2018-12-31 22:38 | PRG ---
DATE OF SERVICE: SUBJECTIVE: The patient was seen and examined with no new complaints. OBJECTIVE: VITAL SIGNS: Noted with the following vital signs; afebrile, temperature 97.8, pulse 92, respiratory rate of 18, O2 saturations are 98%, and blood pressure 176/93. HEENT: Unremarkable. CARDIOVASCULAR SYSTEM: First and second heart sounds were heard. RESPIRATORY SYSTEM: Clear to auscultation. DIGESTIVE SYSTEM: Revealed a benign abdomen. EXTREMITIES: No peripheral edema. SKIN EXAMINATION: No new gross rash. LYMPHATICS: No peripheral lymphadenopathy. IMPRESSION: 1. Advanced chronic kidney disease stage 5. 2. Hypertension, suboptimally controlled. 3. Morbid obesity. PLAN: 1. Continue to adjust antihypertensive medications to optimize hemodynamics. 2. Outpatient Nephrology followup strongly recommended. 3. Low-salt diet. 4. We will adjust the Lasix to b.i.d. with a plan to monitor this patient's renal function. The patient strongly is advised to follow up within two weeks after discharge. Job ID: [id number]
[2018-12-31] MEDS: Labetalol 100 MG TAB PO SCH (22:46)
[2018-12-31] MEDS: Sodium Bicarbonate Tab 325 MG TAB PO SCH (22:47)
[2019-01-01] MEDS: HumaLOG 300 UNITS/3 ML VIAL SC PRN ×2 (06:18→13:12)
[2019-01-01 06:35] LABS: Anion Gap 15 mmol/L (10-20); BUN (Urea Nitrogen) 34 mg/dL (8.9-20.6); Calc. Creatinine Clearance 50 mL/min (70-130); Calcium 8.3 mg/dL (7.8-10.44); Carbon Dioxide 19 mmol/L (22-29); Chloride 107 mmol/L (98-107); Estimated GFR-MDRD 18; Glucose 223 mg/dL (70-105); Potassium 3.7 mmol/L (3.5-5.1)
[2019-01-01 06:47] LABS: Eosinophils 1 % (0-10); Hemoglobin 9.8 g/dL (14.0-18.0); Lymphocytes 14 % (21-51); MDiff Complete? YES; Mean Corpuscular HGB CONC 32.5 g/dL (32.0-36.0); Mean Corpuscular Volume 79.9 fL (78.0-98.0); Mean Platelet Volume 7.9 fL (7.4-10.4); Monocytes 6 % (0-10); Myelocyte 1 % (0-0); Neutrophil 78 % (42-75); Platelet Count 288 thou/uL (130-400); RBC Distribution Width 14.7 % (11.5-14.5); Red Blood Cell (RBC) Count 3.76 mill/uL (4.70-6.10); White Blood Cell (WBC) Count 11.6 thou/uL (4.8-10.8)
[2019-01-01 07:16] LABS: Sodium 138 mmol/L (136-145)
[2019-01-01] MEDS ORDERED: Furosemide 80 MG TAB PO SCH (09:00)
[2019-01-01] MEDS: Sodium Bicarbonate Tab 325 MG TAB PO SCH (09:06)
[2019-01-01] MEDS: NIFEdipine XL 60 MG TAB PO SCH (09:06)
[2019-01-01] MEDS: Furosemide 20 MG TAB PO SCH ×2 (09:06→17:08)
[2019-01-01] MEDS: hydrALAZINE 25 MG TAB PO SCH ×2 (09:06→17:08)
[2019-01-01] MEDS: Labetalol 100 MG TAB PO SCH (09:06)
[2019-01-01] MEDS: Minoxidil 10 MG TAB PO SCH (09:07)
[2019-01-01] MEDS: Enoxaparin Sodium 30 MG/0.3 ML SYRINGE SC SCH (09:07)
[2019-01-01 12:46] VITALS: TEMP 98.5
[2019-01-01 17:11] VITALS: BP 187/104
--- NOTE | 2019-01-01 20:14 | DIS ---
DATE OF ADMISSION: 12/27/2018 DATE OF DISCHARGE: 01/01/2019 DISCHARGE DIAGNOSES: 1. Acute kidney injury on chronic kidney disease stage 5. 2. Hypertensive urgency, resolved. 3. Hypokalemia. 4. Diabetes mellitus type 2, stable. 5. Morbid obesity. 6. Noncompliance. CONSULTATIONS: 1. Eduardo Way MD with Nephrology Service. 2. Baljeet Shelton MD with Pulmonology/Critical Care Service. PERTINENT LAB AND X-RAY FINDINGS: Creatinine ranged between 4.58 to 6.41. Estimated GFR ranged between 12 to 18. Lactic acid level ranged between 0.8 to 2.3, phosphorus 3.5, and magnesium 2.0. LFTs within normal limits. Lipase 161. CBC showed a white blood cell count ranging between 11.6 to 23.3, hemoglobin ranged between 9.8 to 13.3. Beta hydroxybutyrate level 0.31. Blood cultures x2 dated 12/26/2018, showed no growth at 5 days. Influenza A and B antigen dated 12/26/2018, negative. Urine culture dated 12/26/2018, showed no growth at 36 hours. Portable chest x-ray dated 12/26/2018, showed cardiomegaly with without acute infiltrate. Bilateral renal ultrasound dated 12/26/2018, showed findings consistent with chronic kidney disease. CT of the abdomen and pelvis dated 12/27/2018, showed hazy density in the anterior pararenal space with questionable pancreatitis. HOSPITAL COURSE: The patient was initially admitted after presenting with nausea and vomiting with associated hypertensive urgency. The patient was initially treated with a Cardene infusion and monitored for clinical response. The patient was placed in the ICU and continued on Cardene infusion and restarted on home blood pressure regimen with [id number] blood pressure. The patient was also noted with acute kidney injury with worsening creatinine above baseline level of 3 to 4. The patient was evaluated by the Nephrology Service with recommendations for tighter blood pressure control and monitoring for evidence of worsening renal function and need for hemodialysis. The patient received IV Lasix with mild improvement in overall creatinine value. However, the patient did remain in stage 5 chronic kidney disease. The patient was titrated on multiple antihypertensives with additional labetalol, minoxidil, and nifedipine to overall blood pressure regimen. The patient clinically stabilized and transitioned to the telemetry unit, maintaining a sinus mechanism without acute arrhythmia or dysrhythmia. The patient remained clinically stable with stable vital signs at the time of discharge. I have examined the patient the time of discharge and discussed followup instructions. The patient verbalized understanding and in agreement and ready for discharge on 01/01/2019. DISCHARGE MEDICATIONS: 1. Labetalol 200 mg p.o. b.i.d.. 2. Minoxidil 10 mg p.o. b.i.d. 3. Nifedipine 60 mg p.o. b.i.d. 4. Sodium bicarbonate 650 mg p.o. b.i.d. 5. Hydralazine 100 mg p.o. t.i.d. 6. Lasix 80 mg p.o. daily. 7. Glucotrol 5 mg p.o. daily. FOLLOWUP: The patient to follow up with his primary care provider at [place], [place] within 7 days of discharge. The patient will follow up with Dr. Savage with Nephrology Service within 7 days of discharge. CONDITION ON DISCHARGE: Fair. ACTIVITY: Ad-anni. DIET: ADA and heart healthy. CODE STATUS: Full. DISPOSITION: Home on 01/01/2019. Job ID: [id number]
--- NOTE | 2019-01-01 20:38 | PRG ---
DATE OF SERVICE: 01/01/2019 SUBJECTIVE: The patient noted with the following vital signs. OBJECTIVE: VITAL SIGNS: Afebrile, temperature 98.5, pulse 99, respiratory rate 16, O2 saturations are 96%, and blood pressure of 170/84. HEENT: Unremarkable. CARDIOVASCULAR SYSTEM: First and second heart sounds were heard. RESPIRATORY SYSTEM: Clear to auscultation. DIGESTIVE SYSTEM: Revealed a benign abdomen. EXTREMITIES: No peripheral edema. SKIN: No new gross rash. LYMPHATICS: No peripheral lymphadenopathy. LABORATORY DATA: Laboratory investigation showed a creatinine down to 4.58. IMPRESSION: 1. Advanced chronic kidney disease, stage 4/5. 2. Hypertension, suboptimally controlled. 3. Morbid obesity. 4. Metabolic acidosis. PLAN: 1. Outpatient Nephrology followup strongly recommended status post discharge. 2. As an outpatient, we will continue to adjust the antihypertensive medications to optimize hemodynamics. 3. I suspect this patient to have a significant sleep apnea, which on state and exacerbating the hypertension. 4. Further management to be dependent on the clinical course. Job ID: [id number]
--- NOTE | 2019-01-02 09:56 | PRG ---
DATE OF SERVICE: 12/31/2018 IMPRESSION: 1. Advanced chronic kidney disease, stage 5. 2. Morbid obesity. 3. . PLAN 1. . 2. Further management will be dependent on the clinical course. 3. . Job ID: [id number]
== END 2019-01-01 17:30 | disposition home or self-care (01) | DRG 683 ==
LOC: ERS 20:04 → CCU 12-27 00:23 → 2NO 12-29 17:58
PROVIDERS: ADMIT Internal Medicine; ATTEND Internal Medicine
DX: N17.9 Acute kidney failure, unspecified (principal); I16.1 Hypertensive emergency; Z68.42 Body mass index [BMI] 45.0-49.9, adult; E87.2 Acidosis; I12.0 Hypertensive chronic kidney disease with stage 5 chronic kidney disease or end stage renal disease; E86.0 Dehydration; E11.22 Type 2 diabetes mellitus with diabetic chronic kidney disease; N18.5 Chronic kidney disease, stage 5; E66.01 Morbid (severe) obesity due to excess calories; E87.6 Hypokalemia; Z87.891 Personal history of nicotine dependence; Z91.14 Patient's other noncompliance with medication regimen; Z79.84 Long term (current) use of oral hypoglycemic drugs
CPT/HCPCS: 36415; 36416; 71045; 74176; 76770; 80048; 80053; 81003; 81015; 82010; 82330; 82803; 83605; 83690; 83735; 84100; 85007; 85025; 85027; 87040; 87086; 87804; 93005; 96361; 96365; 96374; 96375; J0360; J1644; J1650; J1956; J2405; J3370; J7050; S0028

== ENCOUNTER 2019-03-17 09:49 | Inpatient (IN) | payer SELFPAY ==
[2019-03-17] MEDS ORDERED: Ondansetron PF 4 MG/2 ML Vial ONE (10:17)
[2019-03-17] MEDS ORDERED: Amlodipine 5 MG TAB ONE (10:32)
[2019-03-17] MEDS ORDERED: hydrALAZINE 25 MG TAB ONE (10:32)
[2019-03-17] MEDS ORDERED: cloNIDine 0.1 MG TAB ONE ×2 (11:39→11:41)
[2019-03-17 11:44] LABS: Hemoglobin 12.6 g/dL (14.0-18.0); Mean Corpuscular HGB CONC 32.6 g/dL (32.0-36.0); Mean Corpuscular Volume 79.7 fL (78.0-98.0); Mean Platelet Volume 8.6 fL (7.4-10.4); Platelet Count 405 thou/uL (130-400); RBC Distribution Width 16.1 % (11.5-14.5); Red Blood Cell (RBC) Count 4.85 mill/uL (4.70-6.10)
[2019-03-17 11:57] LABS: Anion Gap 20 mmol/L (10-20); BUN (Urea Nitrogen) 53 mg/dL (8.9-20.6); Calc. Creatinine Clearance 0 mL/min (70-130); Calcium 9.4 mg/dL (7.8-10.44); Carbon Dioxide 19 mmol/L (22-29); Chloride 105 mmol/L (98-107); Estimated GFR-MDRD 11; Glucose 216 mg/dL (70-105); Potassium 4.8 mmol/L (3.5-5.1); Sodium 139 mmol/L (136-145)
[2019-03-17 12:05] LABS: Eosinophils 1 % (0-10); Lymphocytes 10 % (21-51); MDiff Complete? YES; Microcytosis SLIGHT = 6-15 cells (100X) (0-5/hpf); Monocytes 12 % (0-10); Neutrophil 77 % (42-75); Platelet Morphology Comment Appears Increased; White Blood Cell (WBC) Count 21.5 thou/uL (4.8-10.8)
--- NOTE | 2019-03-17 12:40 | RAD ---
EXAM: CHEST ONE VIEW HISTORY: Nausea and vomiting for 2 days COMPARISON: 12/26/2018 FINDINGS: The cardiac silhouette and pulmonary vasculature is within normal limits. The lungs are clear. The os seous structures are intact. Chest is stable from prior exam. IMPRESSION: No focal consolidation.
[2019-03-17] MEDS ORDERED: Aspirin Chewable 81 MG TAB ONE (12:49)
[2019-03-17] MEDS ORDERED: niCARdipine 20MG In NaCl 20 MG/200 ML BAG ONE (12:50)
[2019-03-17 13:27] LABS: Troponin I 0.216 ng/mL (< 0.028)
[2019-03-17] MEDS ORDERED: Labetalol HCl 100 MG/20 ML VIAL SLOW IVP SCH (13:45)
[2019-03-17] MEDS: Sodium Chloride 0.9% 1,000 ML IV SCH (14:32)
[2019-03-17] MEDS ORDERED: Dextrose 5% in Water 1,000 ML IV PRN (16:13)
[2019-03-17] MEDS ORDERED: Dextrose 50% Abboject 50 ML SYRINGE SLOW IVP PRN (16:13)
[2019-03-17] MEDS: Minoxidil 10 MG TAB PO SCH ×2 (16:18→21:35)
[2019-03-17] MEDS: niCARdipine HCl 25 MG in Sodium Chloride 0.9% 250 ML 240 ML IVPB SCH ×4 (16:18→23:35)
[2019-03-17] MEDS: hydrALAZINE 25 MG TAB PO SCH ×2 (16:24→21:35)
--- NOTE | 2019-03-17 16:48 | HP ---
PRIMARY CARE PROVIDER: Dr. Mike Leach. CHIEF COMPLAINT: Vomiting. HISTORY OF PRESENT ILLNESS: Mr. Emery is a pleasant 33-year-old gentleman, admitted to [facility] on March 17, 2019. He has a history of hypertension and he has been hospitalized multiple times in the past for hypertensive emergency. He reports that he is taking furosemide and hydralazine, but not his other medications because he cannot afford the medications. He reports that 2 days ago he developed nausea and vomiting. He reports vomiting 5-6 times daily over the last 2 days. However, his nausea and vomiting resolved after coming to the emergency room. He also reports that he noticed a small amount of blood in the vomitus this morning, but that has not recurred. He has not been able to tolerate oral intake and has not taken any medications today. In the emergency room, he was found to have significantly elevated blood pressure and was referred to hospitalist service for admission. REVIEW OF SYSTEMS: All other systems reviewed and found to be negative. PAST MEDICAL HISTORY: 1. Chronic kidney disease, followed by Dr. Savage. 2. Hypertension. 3. Diabetes mellitus, type 2. SURGICAL HISTORY: None. SOCIAL HISTORY: The patient uses marijuana occasionally. He denies tobacco use. He denies alcohol use. FAMILY HISTORY: He denies any family history of premature coronary artery disease. ALLERGIES: NO KNOWN DRUG ALLERGIES. CURRENT MEDICATIONS: These need to be clarified, but he reports taking only furosemide and hydralazine. PHYSICAL EXAMINATION: GENERAL: On examination, Mr. Emery is awake and alert, not in acute distress. He is morbidly obese, with a BMI of 40.3. VITAL SIGNS: Blood pressure is 161/103, heart rate 117, respiratory rate 18, and oxygen saturation 98% on room air. In the emergency room, he had blood pressures as high as 272/181, febrile. EYES: No scleral icterus. No conjunctival pallor. ENT: Dry mucosal membranes. No oropharyngeal erythema or exudates. NECK: Supple, nontender, trachea is midline. RESPIRATORY: Accessory muscles of breathing are not active. Chest wall movements are symmetric bilaterally. Lungs are clear to auscultation without wheeze, rhonchi, or crepitations. CARDIOVASCULAR: S1 and S2 are heard, tachycardic and regular. Peripheral pulses palpable. No carotid bruit. No pericardial rub. ABDOMEN: Soft, nontender, bowel sounds heard, no hepatomegaly, no splenomegaly. NEUROLOGIC: Cranial nerves 2 through 12 intact, deep tendon reflexes 2+. MUSCULOSKELETAL: Power is 5/5 in all 4 extremities. SKIN: No rashes or subcutaneous nodules. LYMPHATIC: No cervical lymphadenopathy. PSYCHIATRIC: Normal mood, normal affect, the patient is oriented to person, place, and time. LABORATORY DATA: Mr. Emery's labs and investigations were reviewed. I reviewed his electrocardiogram, which shows sinus tachycardia and left ventricular hypertrophy. I also reviewed his chest x-ray, which does not show any pulmonary infiltrates. He has leukocytosis with 21,500 white cells, of which 77% are neutrophils. He has normocytic anemia with hemoglobin 12.6, and elevated platelet count of 405,000. He has normal sodium, normal potassium, elevated blood urea nitrogen of 53, elevated creatinine of 6.93, last known creatinine 4.58 on January 01, 2019, indeterminate troponin-I of 0.216, and elevated lactic acid level of 2.6. ASSESSMENT AND PLAN: Mr. Emery is a pleasant 33-year-old gentleman, who was seen at [facility] on March 17, 2019. His problem list includes: 1. Hypertensive emergency: Mr. Emery is presenting with hypertensive emergency. He has been started on Cardene drip in the emergency room. He will be admitted to Critical Care Unit for further management. We will resume oral antihypertensives and titrate Cardene drip. 2. Acute on chronic kidney disease, stage 4: Mr. Emery is presenting with worsening chronic kidney disease. Certainly, some of this worsening could be secondary to dehydration. He is clinically dry and he also has a recent history of nausea and vomiting. We will provide intravenous hydration and recheck creatinine. 3. Diabetes mellitus, type 2: He was on glipizide in the past, but does not appear to be taking that medication now. We will start him on Accu-Cheks and insulin sliding scale. 4. Sinus tachycardia: Could be secondary to dehydration. We will re-evaluate after providing IV hydration. 5. History of congestive heart failure: The patient needs IV fluid for dehydration. We will check BNP to evaluate heart failure. 6. Medication noncompliance: The patient has been counseled regarding medication compliance. Many thanks for allowing me to participate in your patient's care. Please feel free to contact me with any questions or concerns. LEVEL OF RISK: High. LEVEL OF COMPLEXITY: High. Job ID: [id number]
--- NOTE | 2019-03-17 17:43 | CON ---
DATE OF CONSULTATION: 03/17/2019 CONSULTING PHYSICIAN: Pipo Roe MD REASON FOR CONSULTATION: Acute kidney injury on chronic kidney disease. REASON FOR ADMISSION: Vomiting. HISTORY OF PRESENT ILLNESS: A 33-year-old male with history of chronic kidney disease, hypertension, and type 2 diabetes, who came to the hospital with vomiting and is being evaluated and was found to have elevated creatinine and kidney injury. No chest pain or palpitation. The patient hypertensive and is on Cardene drip. He was seen in ICU. PAST MEDICAL HISTORY: Positive for CKD, hypertension, and type 2 diabetes. PAST SURGICAL HISTORY: None. HOME MEDICATIONS: Include; 1. Bicarb. 2. Hydralazine. 3. Glipizide. 4. Procardia. 5. Minoxidil. 6. Labetalol. 7. Lasix. ALLERGIES: NO KNOWN DRUG ALLERGIES. SOCIAL HISTORY: No smoking, alcohol, or illicit drugs abuse. FAMILY HISTORY: No history of any kidney disease. REVIEW OF SYSTEMS: CONSTITUTIONAL: Negative for weight loss or gain, ability to conduct usual activities. SKIN: Negative for rash, itching. EYES: Negative for double vision, pain. ENT/MOUTH: Negative for nose bleeding, neck stiffness, pain, tenderness. CARDIOVASCULAR: Negative for palpitations, dyspnea on exertion, orthopnea. RESPIRATORY: Negative for shortness of breath, wheezing, cough, hemoptysis, fever or night sweats. GASTROINTESTINAL: Negative for poor appetite, abdominal pain, heartburn, nausea, vomiting, constipation, or diarrhea. GENITOURINARY: Negative for urgency, frequency, dysuria, nocturia. MUSCULOSKELETAL: Negative for pain, swelling. NEUROLOGIC/PSYCHIATRIC: Negative for anxiety, depression. ALLERGY/IMMUNOLOGIC: Negative for skin rash, bleeding tendency. PHYSICAL EXAMINATION: GENERAL: Reveals an obese male, in no apparent distress. VITAL SIGNS: Temperature 99.1, pulse 117, respiratory rate 18, and blood pressure 209/140. HEENT: Atraumatic, normocephalic. Oral mucosa is moist. NECK: Supple. CARDIOVASCULAR: S1 and S2 heard. Rate and rhythm regular. RESPIRATORY: Clear. GASTROINTESTINAL: Soft. MUSCULOSKELETAL: 1+ edema. DERMATOLOGIC: No skin rash. NEUROLOGIC: Alert and awake. PSYCHIATRIC: Mood and affect normal. LABORATORY DATA: Hemoglobin is 12.6. Potassium 4.9, BUN is 53, and creatinine 6.9. ASSESSMENT AND PLAN: 1. Acute kidney injury on chronic kidney disease, stage 4, worsening creatinine. Control blood pressure and monitor labs. No significantly better, might need renal replacement. 2. Edema, controlled. 3. Hypertension. Titrate medications and recommend cautious drop in blood pressure. 4. Anemia, mild. 5. Leukocytosis. 6. Obesity. but if no significant improvement with blood pressure control, might need to start on renal replacement. We will follow. Thank you for the consult. Job ID: [id number]
[2019-03-17 18:09] LABS: Amphetamine Not Detected (NotDetected); Barbiturates Screen Not Detected (NotDetected); Benzodiazepine Screen Not Detected (NotDetected); Cocaine Metabolite Screen Not Detected (NotDetected); Medtox Control Line Valid? VALID (VALID); Medtox Reader # READER 1; Methadone Not Detected (NotDetected); Methamphetamine Not Detected (NotDetected); Opiate Screen Not Detected (NotDetected); Oxycodone Screen Not Detected (NotDetected); Phencyclidine (PCP) Not Detected (NotDetected); THC/Cannabinoid Screen Detected (NotDetected); Tricyclic Screen Not Detected (NotDetected)
--- NOTE | 2019-03-17 18:52 | CON ---
DATE OF CONSULTATION: 03/17/2019 REASON FOR CONSULTATION: CCU placement for hypertension out of control. HISTORY OF PRESENT ILLNESS: This is a 33-year-old male, who has been in the hospital many times for hypertensive crises. Today, he came in with nausea and vomiting, was found to have a profoundly elevated blood pressure and was started on nicardipine drip. He admits that he has not been taking his antihypertensive medication at home because he cannot afford the medication. He has had a similar argument every time he has been in the hospital in the past. PAST MEDICAL HISTORY: 1. Obesity. 2. Diabetes mellitus, type 2. 3. Hypertension. 4. Chronic renal failure. PAST SURGICAL HISTORY: None. SOCIAL HISTORY: Smoked marijuana in the past. Currently not working. He drinks alcohol occasionally. ALLERGIES: NONE. MEDICATIONS: Prior to admission reviewed. See home medication section in the chart. FAMILY MEDICAL HISTORY: Unremarkable. REVIEW OF SYSTEMS: A 12-point review of systems is otherwise negative. PHYSICAL EXAMINATION: VITAL SIGNS: Temperature 99.1, pulse 115, blood pressure 164/99, O2 saturation is 95%. GENERAL: He is awake, alert, and in no distress. HEENT: Class 4 Mallampati airway. NECK: No adenopathy. No JVD. No bruits. LUNGS: Clear. CARDIAC: S1 and S2. Regular. ABDOMEN: Soft. EXTREMITIES: No edema. LABORATORY DATA: Sodium 139, potassium 4.8, chloride 105, CO2 of 19, BUN 53, creatinine 6.9, glucose 216. Troponin 0.216. White blood cell count 21.5, hematocrit 38.7, and platelet count 405 with 77% neutrophils, no bands. Chest x-ray shows no mass, effusion, or infiltrate. ASSESSMENT: 1. Hypertension out of control. 2. Gastroenteritis. PLAN: This is not truly a hypertensive emergency. His chronic renal failure is not far from baseline. I think the nausea and vomiting are probably secondary to gastroenteritis. I will go ahead and restart his antihypertensives. We can wean off nicardipine drip. This patient needs social work intervention as he has had repeated hospitalizations for basically failure to comply with medications. Nephrology has been consulted to deal with the chronic renal failure. This patient is approaching dialysis because of his noncompliance with medications. Job ID: [id number]
[2019-03-17] MEDS: Ondansetron PF 4 MG/2 ML Vial SLOW IVP PRN (19:40)
[2019-03-17] MEDS: HumaLOG 300 UNITS/3 ML VIAL SC PRN (20:57)
[2019-03-17] MEDS: Labetalol 100 MG TAB PO SCH (21:34)
[2019-03-17] MEDS: NIFEdipine XL 60 MG TAB PO SCH (21:35)
[2019-03-18] MEDS: niCARdipine HCl 25 MG in Sodium Chloride 0.9% 250 ML 240 ML IVPB SCH (01:04)
[2019-03-18] MEDS ORDERED: niCARdipine HCl 50 MG in Sodium Chloride 0.9% 250 ML 230 ML IVPB SCH (01:30)
[2019-03-18] MEDS: Sodium Chloride 0.9% 1,000 ML IV SCH (03:19)
[2019-03-18] MEDS: HumaLOG 300 UNITS/3 ML VIAL SC PRN ×4 (06:08→22:11)
[2019-03-18 06:32] LABS: Anion Gap 15 mmol/L (10-20); BUN (Urea Nitrogen) 51 mg/dL (8.9-20.6); Calc. Creatinine Clearance 31 mL/min (70-130); Calcium 7.9 mg/dL (7.8-10.44); Carbon Dioxide 20 mmol/L (22-29); Chloride 106 mmol/L (98-107); Estimated GFR-MDRD 12; Glucose 200 mg/dL (70-105); Potassium 4.5 mmol/L (3.5-5.1); Sodium 136 mmol/L (136-145)
[2019-03-18] MEDS: Labetalol 100 MG TAB PO SCH ×2 (08:19→21:30)
--- NOTE | 2019-03-18 08:53 | PRG ---
DATE OF SERVICE: 03/18/2019 SUBJECTIVE: He is awake, alert, and in no distress. OBJECTIVE: VITAL SIGNS: On exam, temperature is 98.5, pulse 110, blood pressure 140/96. He just turned off the nicardipine drip said not having any chest pain or shortness of breath. Total intake 2808, output 800. HEENT: Unremarkable. NECK: No JVD. LUNGS: Clear. CARDIAC: S1, S2. Regular. ABDOMEN: Obese, soft, nontender. EXTREMITIES: No edema. LABORATORY DATA: Sodium 136, potassium 4.5, chloride 106, CO2 20, BUN 51, creatinine 6.5, glucose 200. ASSESSMENT: 1. Hypertension, out of control due to the patient noncompliance. 2. Acute renal failure secondary to hypertensive nephrosclerosis. 3. Morbid obesity. PLAN: Yesterday, I have restarted his antihypertensives. He is not in a true emergency state. Nicardipine drip can be stopped. He can be transferred out to the telemetry unit. Job ID: [id number]
[2019-03-18] MEDS: hydrALAZINE 25 MG TAB PO SCH ×3 (09:19→21:30)
[2019-03-18] MEDS: NIFEdipine XL 60 MG TAB PO SCH ×2 (09:19→21:30)
[2019-03-18] MEDS: Minoxidil 10 MG TAB PO SCH ×2 (09:20→21:31)
[2019-03-18] MEDS: Ondansetron PF 4 MG/2 ML Vial SLOW IVP PRN ×2 (09:25→16:20)
--- NOTE | 2019-03-18 10:23 | PRG ---
DATE OF SERVICE: 03/18/2019 SUBJECTIVE: Patient was seen and examined at bedside and overnight events noted. Patient denies any shortness of breath or chest pain or palpitation. No history of nausea or vomiting or diarrhea or fever or chills or cramps. OBJECTIVE: GENERAL: Obese male, in no apparent distress. VITAL SIGNS: Temperature 98.2, pulse 110, respiratory 19, blood pressure 158/93. HEENT: Atraumatic, normocephalic. Oral mucosa is moist NECK: Supple. CARDIOVASCULAR: S1, S2 heard. Rate and rhythm regular. RESPIRATORY: Clear to auscultation. GASTROINTESTINAL: Abdomen is soft. MUSCULOSKELETAL: No tenderness. No edema. DERMATOLOGIC: No skin rash. NEUROLOGIC: Alert and awake and oriented X3. No focal neurologic deficits. Moving all the extremities. PSYCHIATRIC: Mood and affect normal. LABORATORY DATA: Potassium 4.5, BUN is 51, creatinine is 6.5. ASSESSMENT AND PLAN: 1. Acute kidney injury on chronic kidney disease stage 4 with worsening creatinine. If significant improvement in next few days, renal replacement. 2. Edema, controlled. 3. Hypertension. Continue to titrate his medications. 4. Anemia. 5. Leukocytosis. 6. Noncompliance. 7. Obesity. 8. We will continue to monitor. Job ID: [id number]
[2019-03-18 10:45] LABS: CKMB 6.5 ng/mL (0-6.6)
[2019-03-18] MEDS ORDERED: chlorproMAZINE HCl 50 MG/2 ML AMP IM PRN (15:24)
[2019-03-18] MEDS ORDERED: Pantoprazole 40 MG VIAL IVP SCH (15:30)
--- NOTE | 2019-03-18 15:30 | PDOC.PN ---
- Subjective Encounter Start Date: 03/18/19 Encounter Start Time: 15:29 Subjective: c/o non stop hiccups associated w nause.no vomiting/abd pain -: no CP/SOB - Objective MAR Reviewed: Yes Vital Signs & Weight: Vital Signs (12 hours) Temp Pulse Resp BP BP Pulse Ox 03/18/19 12:25 98.2 F 100 18 162/93 H 99 03/18/19 10:35 99 03/18/19 10:13 98.7 F 98 18 142/93 H 99 03/18/19 09:19 110 H 159/93 H 03/18/19 08:19 118 H 140/96 H 03/18/19 08:00 98.2 F 98 03/18/19 04:00 98.5 F Weight Admit Weight 297 lb 6.457 oz Weight 300 lb 14.896 oz Most Recent Monitor Data Heart Rate from ECG 105 NIBP 158/93 NIBP BP-Mean 114 Respiration from ECG 19 SpO2 99 I&O: 03/17/19 03/18/19 03/19/19 06:59 06:59 06:59 Intake Total 2808 500 Output Total 800 500 Balance 2007 0 Result Diagrams: 03/17/19 10:25 03/18/19 05:55 Additional Labs: Accuchecks 03/18/19 03/18/19 03/17/19 13:06 05:56 20:55 POC Glucose 263 H 191 H 179 H Microbiology 03/17/19 12:47 Venous blood - Right Hand Blood Culture - Preliminary Specimen has been received and culture in progress. No Growth to date. 03/17/19 12:42 Venous blood - Left Arm Blood Culture - Preliminary Specimen has been received and culture in progress. No Growth to date. Laboratory Tests 11/22/18 12/31/18 01/01/19 01:51 09:34 05:51 Creatinine 4.67 H 4.58 H Troponin I 0.036 H 03/17/19 03/17/19 03/17/19 10:25 10:25 12:42 Creatinine 6.93 H Troponin I 0.222 H 0.216 H 03/18/19 03/18/19 05:55 09:47 Creatinine 6.59 H Troponin I 0.140 H Phys Exam - Physical Examination Constitutional: NAD uncomfortable HEENT: PERRLA, moist MMs, sclera anicteric, oral pharynx no lesions Neck: no nodes, no JVD, supple, full ROM Respiratory: no wheezing, no rales, no rhonchi, clear to auscultation bilateral Cardiovascular: RRR, no significant murmur Gastrointestinal: soft, non-tender, no distention, positive bowel sounds Musculoskeletal: no edema, pulses present Neurological: non-focal, normal sensation, moves all 4 limbs Psychiatric: normal affect, A&O x 3 Skin: no rash Dx/Plan (1) Hypertensive emergency Code(s): I16.1 - HYPERTENSIVE EMERGENCY Status: Acute Comment: off of Cardene drip, non complaint patient, possible rebound too as he stopped Clonidine and other meds. All his meds are $4 prescription, patient knows it, but continues not to take it. (2) Acute worsening of stage 4 chronic kidney disease Code(s): N18.4 - CHRONIC KIDNEY DISEASE, STAGE 4 (SEVERE) Status: Acute Comment: still Cr very high.Most likely will need Hemodialysis soon in near future. nephrology consulted. lasix on hold. monitor. avoid nephrotoxins (3) Abnormal cardiac enzyme level Code(s): R74.8 - ABNORMAL LEVELS OF OTHER SERUM ENZYMES Status: Acute Comment: Type 2 MD due to demand ischemia from uncontrolled HTN. Trending down.Asymptomatic (4) Intractable hiccups Code(s): R06.6 - HICCOUGH Status: Acute Comment: add PPI and prn thorazine for few doses w caution. (5) DM2 (diabetes mellitus, type 2) Status: Chronic Qualifiers: Diabetes mellitus court stenographer insulin use: without court stenographer use Diabetes mellitus complication status: with kidney complications Diabetes mellitus complication detail: with chronic kidney disease Chronic kidney disease stage : stage 3 (moderate) Qualified Code(s): E11.22 - Type 2 diabetes mellitus with diabetic chronic kidney disease; N18.3 - Chronic kidney disease, stage 3 ( moderate) Comment: on ISS, continue accuchecks (6) Medical non-compliance Code(s): Z91.19 - PATIENT'S NONCOMPLIANCE W OTH MEDICAL TREATMENT AND REGIMEN Status: Chronic Comment: repeatedly counseled to be complaint. $4 prescriptions that can be purchesed at [facility] (7) Morbid obesity with BMI of 40.0-44.9, adult Code(s): E66.01 - MORBID (SEVERE) OBESITY DUE TO EXCESS CALORIES; Z68.41 - BODY MASS INDEX (BMI) 40.0-44.9, ADULT Status: Chronic Comment: Diet and exercise counseled, patient non compliant (8) Chronic diastolic CHF (congestive heart failure), NYHA class 3 Code(s): I50.32 - CHRONIC DIASTOLIC (CONGESTIVE) HEART FAILURE Status: Chronic Comment: last ECHO 11/15 showed Gd 2/3 diastolic Fx and EF 40-45%.NO acute decompensation - Plan respiratory therapy, incentive spirometry, out of bed/ambulate, DVT proph w/SCDs add Thorazine prn for intractable hiccups. -: BP better controlled. restarted on PO meds & cardene drip off -: Moved to tele.cont to monitor -: Renal Fx worsening over last few months d/t repeted HTN injury -: am labs. cont to hold lasix.may need HD soon * .very poor prognosis largely due to non compliance Review of Systems - Review of Systems Constitutional: weakness, malaise. negative: fever, chills, sweats, other Cardiovascular: negative: chest pain, palpitations, orthopnea, paroxysmal nocturnal dyspnea, edema, light headedness, other Gastrointestinal: Nausea. negative: Vomiting, Abdominal Pain, Diarrhea, Constipation, Melena, Hematochezia, Other Genitourinary: negative: Dysuria, Frequency, Incontinence, Hematuria, Retention , Other Musculoskeletal: negative: Neck Pain, Shoulder Pain, Arm Pain, Back Pain, Hand Pain, Leg Pain, Foot Pain, Other Skin: negative: Rash, Lesions, Jet, Bruising, Other Neurological: negative: Weakness, Numbness, Incoordination, Change in Speech, Confusion, Seizures, Other - Medications/Allergies Allergies/Adverse Reactions: Allergies Allergy/AdvReac Type Severity Reaction Status Date / Time No Known Allergies Allergy Verified 12/27/18 01:25 Medications: Current Medications Chlorpromazine HCl (Thorazine) 25 mg IM Q12H PRN PRN Reason: intractable hiccups Dextrose/Water (Dextrose 50%) 25 gm SLOW IVP PRN PRN PRN Reason: Hypoglycemia Glucagon (Glucagon) 1 mg IM PRN PRN PRN Reason: Hypoglycemia Hydralazine HCl (Apresoline) 100 mg PO TID [facility] Last Admin: 03/18/19 09:19 Dose: 100 mg Dextrose/Water (D5w) 1,000 mls @ 0 mls/hr IV .Q0M PRN PRN Reason: Hypoglycemia Insulin Human Lispro (Humalog) 0 units SC .MILD SLIDING SCALE PRN PRN Reason: Mild Correctional Scale Last Admin: 03/18/19 13:15 Dose: 4 unit Labetalol HCl (Normodyne) 200 mg PO BID [facility] Last Admin: 03/18/19 08:19 Dose: 200 mg Minoxidil (Minoxidil) 10 mg PO BID [facility] Last Admin: 03/18/19 09:20 Dose: 10 mg Nifedipine (Procardia Xl) 60 mg PO BID [facility] Last Admin: 03/18/19 09:19 Dose: 60 mg Ondansetron HCl (Zofran) 4 mg SLOW IVP Q4H PRN PRN Reason: Nausea/Vomiting Last Admin: 03/18/19 09:25 Dose: 4 mg Pantoprazole Sodium (Protonix) 40 mg IVP DAILY [facility] Pantoprazole Sodium (Protonix) 40 mg IVP ONE [facility] Sodium Chloride (Flush - Normal Saline) 10 ml IVF Q12HR [facility] Last Admin: 03/18/19 10:26 Dose: Not Given Sodium Chloride (Flush - Normal Saline) 10 ml IVF PRN PRN PRN Reason: Saline Flush
[2019-03-19] MEDS: NIFEdipine XL 60 MG TAB PO SCH ×2 (09:28→19:59)
[2019-03-19] MEDS: hydrALAZINE 25 MG TAB PO SCH ×3 (09:28→19:59)
[2019-03-19] MEDS: Furosemide 80 MG TAB PO SCH (09:29)
[2019-03-19] MEDS: Pantoprazole 40 MG VIAL IVP SCH (09:29)
[2019-03-19] MEDS: Minoxidil 10 MG TAB PO SCH ×2 (09:29→21:50)
[2019-03-19] MEDS: Labetalol 100 MG TAB PO SCH ×2 (09:32→19:59)
--- NOTE | 2019-03-19 12:23 | PRG ---
DATE OF SERVICE: 03/19/2019 SUBJECTIVE: Patient was seen and examined at bedside and overnight events noted. Patient denies any shortness of breath or chest pain or palpitation. No history of nausea or vomiting or diarrhea or fever or chills or cramps. OBJECTIVE: GENERAL: This is a morbidly male, in no apparent distress. VITAL SIGNS: Temperature 98.2. Heart rate 110. Respiratory rate 20. Blood pressure 183/90. HEENT: Atraumatic, normocephalic. Oral mucosa is moist NECK: Supple. CARDIOVASCULAR: S1, S2 heard. Rate and rhythm regular. RESPIRATORY: Clear to auscultation. GASTROINTESTINAL: Abdomen is soft. MUSCULOSKELETAL: No tenderness. No edema. DERMATOLOGIC: No skin rash. NEUROLOGIC: Alert and awake and oriented X3. No focal neurologic deficits. Moving all the extremities. PSYCHIATRIC: Mood and affect normal. LABORATORY DATA: Not done today. ASSESSMENT AND PLAN: 1. Chronic kidney disease stage 5 with worsening labs. 2. Edema. 3. Hypertension. Titrate medications. 4. Noncompliance. 5. Obesity. Plan to start on dialysis. We will have Surgery consult. Job ID: [id number]
[2019-03-19] MEDS: HumaLOG 300 UNITS/3 ML VIAL SC PRN ×2 (13:30→21:52)
--- NOTE | 2019-03-19 13:38 | ULT ---
BILATERAL UPPER EXTREMITY VEIN MAPPING WITH DOPPLER COLOR FLOW AND SPECTRAL ANALYSIS. INDICATION: Vascular access fistula placement All measurements in mm Right upper extremity Brachial artery 5.6 mm Radial artery 3.1 mm Ulnar artery 2.3 mm Cephalic 6.8 6.1 5.3 partially occluded by clot 3.6 3.4 3.6 Basilic 5.6 4.8 4.7 6.0. 5 1 1.9 Left upper extremity Brachial artery 5.6 Radial artery 3.1 Ulnar artery 2.2 Cephalic 6.8 5.2 Partial obscuration by clot 6.4 5.5 5.1 Basilic 7.2 7.3 7.2 5.5 5.0 1.0 1.0 Impression: Bilateral upper extremity vein mapping as above. Note is made that there is partial occlusion due to clot of each mid cephalic vein. Transcribed Date/Time: 03/19/2019 2:42 PM
--- NOTE | 2019-03-19 14:23 | PDOC.PN ---
- Subjective Encounter Start Date: 03/19/19 Encounter Start Time: 14:18 Subjective: feels about the same. less nausea and less hiccups -: denies any CP.has SOB w exertion.easy fatigue - Objective MAR Reviewed: Yes Vital Signs & Weight: Vital Signs (12 hours) Temp Pulse Resp BP Pulse Ox 03/19/19 09:32 110 H 03/19/19 09:28 110 H 03/19/19 07:45 98.2 F 110 H 20 183/98 H 97 03/19/19 04:09 98.2 F 101 H 16 141/85 H 99 Weight Admit Weight 297 lb 6.457 oz Weight 325 lb Most Recent Monitor Data Heart Rate from ECG 105 NIBP 158/93 NIBP BP-Mean 114 Respiration from ECG 19 SpO2 99 I&O: 03/18/19 03/19/19 03/20/19 06:59 06:59 06:59 Intake Total 2808 1240 Output Total 800 500 Balance 2007 Result Diagrams: 03/17/19 10:25 03/18/19 05:55 Additional Labs: Accuchecks 03/19/19 03/19/19 03/18/19 11:55 05:34 20:26 POC Glucose 219 H 110 241 H 03/18/19 17:18 POC Glucose 162 H Laboratory Tests 01/01/19 03/17/19 03/17/19 05:51 10:25 10:25 Creatinine 4.58 H 6.93 H Troponin I 0.222 H 03/17/19 03/18/19 03/18/19 12:42 05:55 09:47 Creatinine 6.59 H Troponin I 0.216 H 0.140 H Phys Exam - Physical Examination Constitutional: NAD HEENT: PERRLA, moist MMs, sclera anicteric, oral pharynx no lesions Neck: no nodes, no JVD, supple, full ROM Respiratory: no wheezing, no rales, no rhonchi, clear to auscultation bilateral Cardiovascular: RRR, no significant murmur Gastrointestinal: soft, non-tender, no distention, positive bowel sounds Musculoskeletal: no edema, pulses present Neurological: non-focal, normal sensation, moves all 4 limbs Psychiatric: normal affect, A&O x 3 Skin: no rash Dx/Plan (1) Hypertensive emergency Code(s): I16.1 - HYPERTENSIVE EMERGENCY Status: Acute Comment: off of Cardene drip, non complaint patient, possible rebound too as he stopped Clonidine and other meds. All his meds are $4 prescription, patient knows it, but continues not to take it. Currently on Labetalol,hydralazine,Minoxidil,Procardia and lasix among others (2) Acute worsening of stage 4 chronic kidney disease Code(s): N18.4 - CHRONIC KIDNEY DISEASE, STAGE 4 (SEVERE) Status: Acute Comment: still Cr very high.Most likely will need Hemodialysis soon . nephrology consulted. monitor. avoid nephrotoxins (3) Abnormal cardiac enzyme level Code(s): R74.8 - ABNORMAL LEVELS OF OTHER SERUM ENZYMES Status: Acute Comment: Type 2 ME due to demand ischemia from uncontrolled HTN. Trending down.Asymptomatic (4) Intractable hiccups Code(s): R06.6 - HICCOUGH Status: Acute Comment: add PPI and prn thorazine for few doses w caution. (5) DM2 (diabetes mellitus, type 2) Status: Chronic Qualifiers: Diabetes mellitus chcf insulin use: without chcf use Diabetes mellitus complication status: with kidney complications Diabetes mellitus complication detail: with chronic kidney disease Chronic kidney disease stage : stage 3 (moderate) Qualified Code(s): E11.22 - Type 2 diabetes mellitus with diabetic chronic kidney disease; N18.3 - Chronic kidney disease, stage 3 ( moderate) Comment: on ISS, continue accuchecks (6) Medical non-compliance Code(s): Z91.19 - PATIENT'S NONCOMPLIANCE W OTH MEDICAL TREATMENT AND REGIMEN Status: Chronic Comment: repeatedly counseled to be complaint. $4 prescriptions that can be purchesed at [facility] (7) Morbid obesity with BMI of 40.0-44.9, adult Code(s): E66.01 - MORBID (SEVERE) OBESITY DUE TO EXCESS CALORIES; Z68.41 - BODY MASS INDEX (BMI) 40.0-44.9, ADULT Status: Chronic Comment: Diet and exercise counseled, patient non compliant (8) Chronic diastolic CHF (congestive heart failure), NYHA class 3 Code(s): I50.32 - CHRONIC DIASTOLIC (CONGESTIVE) HEART FAILURE Status: Chronic Comment: last ECHO 11/15 showed Gd 2/3 diastolic Fx and EF 40-45%.NO acute decompensation - Plan PT/OT, respiratory therapy, incentive spirometry, DVT proph w/SCDs BP better but still high.IVF stopped yesterday -: will restart Lasix.Pt has gained 25 lbs! -: Plans to start hemodialysis tomorrow after Temporary cathter by GS -: monitor labs. -: continue supportive care.Pt educated extensively about med compliance * . Review of Systems - Review of Systems Constitutional: weakness, malaise. negative: fever, chills, sweats, other Respiratory: SOB with Excertion. negative: Cough, Dry, Shortness of Breath, Hemoptysis, Pleuritic Pain, Sputum, Wheezing Cardiovascular: negative: chest pain, palpitations, orthopnea, paroxysmal nocturnal dyspnea, edema, light headedness, other Gastrointestinal: Nausea. negative: Vomiting, Abdominal Pain, Diarrhea, Constipation, Melena, Hematochezia, Other Genitourinary: negative: Dysuria, Frequency, Incontinence, Hematuria, Retention , Other Musculoskeletal: negative: Neck Pain, Shoulder Pain, Arm Pain, Back Pain, Hand Pain, Leg Pain, Foot Pain, Other Skin: negative: Rash, Lesions, Jet, Bruising, Other Neurological: negative: Weakness, Numbness, Incoordination, Change in Speech, Confusion, Seizures, Other - Medications/Allergies Allergies/Adverse Reactions: Allergies Allergy/AdvReac Type Severity Reaction Status Date / Time No Known Allergies Allergy Verified 12/27/18 01:25 Medications: Current Medications Chlorpromazine HCl (Thorazine) 25 mg IM Q12H PRN PRN Reason: intractable hiccups Last Admin: 03/18/19 22:10 Dose: 25 mg Dextrose/Water (Dextrose 50%) 25 gm SLOW IVP PRN PRN PRN Reason: Hypoglycemia Furosemide (Lasix) 80 mg PO DAILY [facility] Last Admin: 03/19/19 09:29 Dose: 80 mg Glucagon (Glucagon) 1 mg IM PRN PRN PRN Reason: Hypoglycemia Hydralazine HCl (Apresoline) 100 mg PO TID [facility] Last Admin: 03/19/19 09:28 Dose: 100 mg Dextrose/Water (D5w) 1,000 mls @ 0 mls/hr IV .Q0M PRN PRN Reason: Hypoglycemia Insulin Human Lispro (Humalog) 0 units SC .MILD SLIDING SCALE PRN PRN Reason: Mild Correctional Scale Last Admin: 03/19/19 13:30 Dose: 3 unit Labetalol HCl (Normodyne) 200 mg PO BID [facility] Last Admin: 03/19/19 09:32 Dose: 200 mg Minoxidil (Minoxidil) 10 mg PO BID [facility] Last Admin: 03/19/19 09:29 Dose: 10 mg Nifedipine (Procardia Xl) 60 mg PO BID [facility] Last Admin: 03/19/19 09:28 Dose: 60 mg Ondansetron HCl (Zofran) 4 mg SLOW IVP Q4H PRN PRN Reason: Nausea/Vomiting Last Admin: 03/18/19 16:20 Dose: 4 mg Pantoprazole Sodium (Protonix) 40 mg IVP DAILY [facility] Last Admin: 03/19/19 09:29 Dose: 40 mg Sodium Chloride (Flush - Normal Saline) 10 ml IVF Q12HR [facility] Last Admin: 03/19/19 09:34 Dose: 10 ml Sodium Chloride (Flush - Normal Saline) 10 ml IVF PRN PRN PRN Reason: Saline Flush
[2019-03-20 07:33] LABS: #Eosinphils 0.1 thou/uL (0.0-0.7); #Lymphocytes 1.2 thou/uL (1.20-3.40); #Monocytes 0.9 thou/uL (0.11-0.59); #Neutrophils 12.6 thou/uL (1.40-6.50); %Basophils 0.1 % (0.0-1.0); %Lymphocytes 8.4 % (21.0-51.0); %Monocytes 5.8 % (0.0-10.0); %Neutrophils 84.8 % (42.0-75.0); Hemoglobin 8.9 g/dL (14.0-18.0); Mean Corpuscular HGB CONC 32.7 g/dL (32.0-36.0); Mean Corpuscular Hemoglobin 26.1 pg (27.0-31.0); Mean Corpuscular Volume 79.7 fL (78.0-98.0); Mean Platelet Volume 7.9 fL (7.4-10.4); Platelet Count 263 thou/uL (130-400); RBC Distribution Width 15.5 % (11.5-14.5); Red Blood Cell (RBC) Count 3.43 mill/uL (4.70-6.10); White Blood Cell (WBC) Count 14.8 thou/uL (4.8-10.8)
[2019-03-20 07:45] LABS: Anion Gap 18 mmol/L (10-20); BUN (Urea Nitrogen) 53 mg/dL (8.9-20.6); Calc. Creatinine Clearance 30 mL/min (70-130); Calcium 8.1 mg/dL (7.8-10.44); Carbon Dioxide 18 mmol/L (22-29); Chloride 104 mmol/L (98-107); Estimated GFR-MDRD 10; Glucose 132 mg/dL (70-105); Potassium 4.2 mmol/L (3.5-5.1); Sodium 136 mmol/L (136-145)
[2019-03-20] MEDS: Ondansetron PF 4 MG/2 ML Vial SLOW IVP PRN ×3 (08:05→21:43)
[2019-03-20] MEDS: NIFEdipine XL 60 MG TAB PO SCH ×2 (08:06→21:38)
[2019-03-20] MEDS: Labetalol 100 MG TAB PO SCH ×2 (08:06→21:37)
[2019-03-20] MEDS: Pantoprazole 40 MG VIAL IVP SCH (08:06)
[2019-03-20] MEDS: hydrALAZINE 25 MG TAB PO SCH ×3 (08:06→21:36)
[2019-03-20] MEDS: Minoxidil 10 MG TAB PO SCH ×2 (08:07→21:37)
[2019-03-20] MEDS: Furosemide 80 MG TAB PO SCH ×2 (08:07→09:40)
[2019-03-20 08:16] LABS: HBSAB Concentration 1.26 mIU/mL; HBSAg Index 0.34 S/CO (0-0.99); Hep B Core Total Ab Non-Reactive (NonReactive); Hep B Core Total Index 0.05 S/CO (0-0.79); Hep B Surf AB Non-Reactive (NonReactive); Hep B Surf Ag Non-Reactive S/CO (NonReactive); Hep C IgG Ab Non-Reactive (NonReactive); Hep C Index 0.15 S/CO (0-0.79)
[2019-03-20] MEDS: HumaLOG 300 UNITS/3 ML VIAL SC PRN ×3 (11:33→21:38)
--- NOTE | 2019-03-20 12:09 | PRG ---
DATE OF SERVICE: SUBJECTIVE: This is a 33-year-old gentleman, being seen for end-stage kidney disease. The patient denied any nausea, vomiting or chest pain. OBJECTIVE: pulse 75, breathing 16, blood pressure . GENERAL APPEARANCE AND MENTAL STATUS: Fair. HEAD/NECK: Normocephalic. Atraumatic. EYES: EOMI. No deformity. EARS: Clear. No ulcers. NOSE: Intact. No lesions. MOUTH: Clear. No discharge. THROAT: Clear. No exudate. LUNGS: Clear. No crackles. CARDIAC: S1, S2. No rub. ABDOMEN: Benign. Bowel sounds positive. GENITALIA/RECTUM: Collins absent. BACK/EXTREMITIES: Edema 0+. NEUROLOGICAL: Alert and motor intact. SKIN: LYMPHATICS: LABS: Reviewed. ASSESSMENT AND PLAN: 1. Stage 6 chronic kidney disease. Plan dialysis. 2. Hypertension, stable. 3. Anemia, stable. 4. Medications based on GFR is appropriate. Job ID: [id number]
[2019-03-20] MEDS ORDERED: chlorproMAZINE HCl 50 MG/2 ML AMP IM PRN (13:40)
--- NOTE | 2019-03-20 13:41 | PDOC.PN ---
- Subjective Encounter Start Date: 03/20/19 Encounter Start Time: 13:40 Subjective: feels a little better.denies any swelling,CP/SOB -: nausea better.still have hiccups but less - Objective MAR Reviewed: Yes Vital Signs & Weight: Vital Signs (12 hours) Temp Pulse Resp BP Pulse Ox 03/20/19 11:48 97.6 F 97 16 137/68 95 03/20/19 09:28 98.6 F 107 H 16 135/71 95 03/20/19 08:06 108 H 03/20/19 04:00 98.5 F 113 H 22 H 176/95 H 95 Weight Admit Weight 297 lb 6.457 oz Weight 330 lb Most Recent Monitor Data Heart Rate from ECG 105 NIBP 158/93 NIBP BP-Mean 114 Respiration from ECG 19 SpO2 99 I&O: 03/19/19 03/20/19 03/21/19 06:59 06:59 06:59 Intake Total 1240 240 Output Total 500 Balance 740 240 Result Diagrams: 03/20/19 06:44 03/20/19 06:44 Additional Labs: Accuchecks 03/20/19 03/20/19 03/19/19 10:52 05:40 20:38 POC Glucose 270 H 131 H 358 H 03/19/19 16:52 POC Glucose 195 H Microbiology 03/17/19 12:47 Venous blood - Right Hand Blood Culture - Preliminary NO GROWTH AT 48 HOURS 03/17/19 12:42 Venous blood - Left Arm Blood Culture - Preliminary NO GROWTH AT 48 HOURS Phys Exam - Physical Examination Constitutional: NAD HEENT: PERRLA, moist MMs, sclera anicteric, oral pharynx no lesions Neck: no nodes, no JVD, supple, full ROM Respiratory: no wheezing, no rales, no rhonchi, clear to auscultation bilateral Cardiovascular: RRR, no significant murmur Gastrointestinal: soft, non-tender, no distention, positive bowel sounds Musculoskeletal: no edema, pulses present Neurological: non-focal, normal sensation, moves all 4 limbs Psychiatric: normal affect, A&O x 3 Skin: no rash, normal turgor, cap refill <2 seconds Dx/Plan (1) Hypertensive emergency Code(s): I16.1 - HYPERTENSIVE EMERGENCY Status: Acute Comment: off of Cardene drip, non complaint patient, possible rebound too as he stopped Clonidine and other meds. All his meds are $4 prescription, patient knows it, but continues not to take it. Currently on Labetalol,hydralazine,Minoxidil,Procardia and lasix among others (2) Acute worsening of stage 4 chronic kidney disease Code(s): N18.4 - CHRONIC KIDNEY DISEASE, STAGE 4 (SEVERE) Status: Acute Comment: still Cr very high.Most likely will need Hemodialysis soon . nephrology consulted. monitor. avoid nephrotoxins (3) Abnormal cardiac enzyme level Code(s): R74.8 - ABNORMAL LEVELS OF OTHER SERUM ENZYMES Status: Acute Comment: Type 2 UT due to demand ischemia from uncontrolled HTN. Trending down.Asymptomatic (4) Intractable hiccups Code(s): R06.6 - HICCOUGH Status: Acute Comment: add PPI and prn thorazine for few doses w caution. (5) DM2 (diabetes mellitus, type 2) Status: Chronic Qualifiers: Diabetes mellitus terminal manager insulin use: without terminal manager use Diabetes mellitus complication status: with kidney complications Diabetes mellitus complication detail: with chronic kidney disease Chronic kidney disease stage : stage 3 (moderate) Qualified Code(s): E11.22 - Type 2 diabetes mellitus with diabetic chronic kidney disease; N18.3 - Chronic kidney disease, stage 3 ( moderate) Comment: on ISS, continue accuchecks (6) Medical non-compliance Code(s): Z91.19 - PATIENT'S NONCOMPLIANCE W OTH MEDICAL TREATMENT AND REGIMEN Status: Chronic Comment: repeatedly counseled to be complaint. $4 prescriptions that can be purchesed at [facility] (7) Morbid obesity with BMI of 40.0-44.9, adult Code(s): E66.01 - MORBID (SEVERE) OBESITY DUE TO EXCESS CALORIES; Z68.41 - BODY MASS INDEX (BMI) 40.0-44.9, ADULT Status: Chronic Comment: Diet and exercise counseled, patient non compliant (8) Chronic diastolic CHF (congestive heart failure), NYHA class 3 Code(s): I50.32 - CHRONIC DIASTOLIC (CONGESTIVE) HEART FAILURE Status: Chronic Comment: last ECHO 11/15 showed Gd 2/3 diastolic Fx and EF 40-45%.NO acute decompensation - Plan out of bed/ambulate, DVT proph w/SCDs Pt unlikely to respond to PO Lasix due to bowel wall edema.will give IV -: Hemodialysis to be started soon. Cr significantly worse.Monitor -: BP better controlled. cont meds as above. -: Thorazine prn for hiccups. -: NPO after MN for HD Cathter placement. Did not get done today * . Review of Systems - Review of Systems Constitutional: weakness, malaise. negative: fever, chills, sweats, other ENT: negative: Ear Pain, Ear Discharge, Nose Pain, Nose Discharge, Nose Congestion, Mouth Pain, Mouth Swelling, Throat Pain, Throat Swelling, Other Respiratory: negative: Cough, Dry, Shortness of Breath, Hemoptysis, SOB with Excertion, Pleuritic Pain, Sputum, Wheezing Cardiovascular: negative: chest pain, palpitations, orthopnea, paroxysmal nocturnal dyspnea, edema, light headedness, other Gastrointestinal: Nausea. negative: Vomiting, Abdominal Pain, Diarrhea, Constipation, Melena, Hematochezia, Other Genitourinary: negative: Dysuria, Frequency, Incontinence, Hematuria, Retention , Other Musculoskeletal: negative: Neck Pain, Shoulder Pain, Arm Pain, Back Pain, Hand Pain, Leg Pain, Foot Pain, Other Neurological: negative: Weakness, Numbness, Incoordination, Change in Speech, Confusion, Seizures, Other - Medications/Allergies Allergies/Adverse Reactions: Allergies Allergy/AdvReac Type Severity Reaction Status Date / Time No Known Allergies Allergy Verified 12/27/18 01:25 Medications: Current Medications Chlorpromazine HCl (Thorazine) 25 mg IM Q12H PRN PRN Reason: hiccups Dextrose/Water (Dextrose 50%) 25 gm SLOW IVP PRN PRN PRN Reason: Hypoglycemia Furosemide (Lasix) 80 mg PO DAILY [facility] Last Admin: 03/20/19 09:40 Dose: Not Given Furosemide (Lasix) 40 mg SLOW IVP ONE [facility] Glucagon (Glucagon) 1 mg IM PRN PRN PRN Reason: Hypoglycemia Hydralazine HCl (Apresoline) 100 mg PO TID [facility] Last Admin: 03/20/19 08:06 Dose: 100 mg Dextrose/Water (D5w) 1,000 mls @ 0 mls/hr IV .Q0M PRN PRN Reason: Hypoglycemia Insulin Human Lispro (Humalog) 0 units SC .MILD SLIDING SCALE PRN PRN Reason: Mild Correctional Scale Last Admin: 03/20/19 11:33 Dose: 4 unit Labetalol HCl (Normodyne) 200 mg PO BID [facility] Last Admin: 03/20/19 08:06 Dose: 200 mg Minoxidil (Minoxidil) 10 mg PO BID [facility] Last Admin: 03/20/19 08:07 Dose: 10 mg Nifedipine (Procardia Xl) 60 mg PO BID [facility] Last Admin: 03/20/19 08:06 Dose: 60 mg Ondansetron HCl (Zofran) 4 mg SLOW IVP Q4H PRN PRN Reason: Nausea/Vomiting Last Admin: 03/20/19 13:14 Dose: 4 mg Pantoprazole Sodium (Protonix) 40 mg IVP DAILY [facility] Last Admin: 03/20/19 08:06 Dose: 40 mg Sodium Chloride (Flush - Normal Saline) 10 ml IVF Q12HR [facility] Last Admin: 03/20/19 08:15 Dose: 10 ml Sodium Chloride (Flush - Normal Saline) 10 ml IVF PRN PRN PRN Reason: Saline Flush
[2019-03-20] MEDS ORDERED: Furosemide 40 MG/4 ML VIAL SLOW IVP SCH (14:30)
[2019-03-21 05:04] LABS: #Eosinphils 0.3 thou/uL (0.0-0.7); #Lymphocytes 1.2 thou/uL (1.20-3.40); #Monocytes 0.8 thou/uL (0.11-0.59); #Neutrophils 10.7 thou/uL (1.40-6.50); %Basophils 0.1 % (0.0-1.0); %Eosinophils 1.9 % (0.0-10.0); %Lymphocytes 9.5 % (21.0-51.0); %Monocytes 6.2 % (0.0-10.0); %Neutrophils 82.3 % (42.0-75.0); Hemoglobin 8.1 g/dL (14.0-18.0); Mean Corpuscular HGB CONC 32.6 g/dL (32.0-36.0); Mean Corpuscular Hemoglobin 26.4 pg (27.0-31.0); Mean Platelet Volume 7.9 fL (7.4-10.4); Platelet Count 226 thou/uL (130-400); RBC Distribution Width 15.6 % (11.5-14.5); Red Blood Cell (RBC) Count 3.07 mill/uL (4.70-6.10)
[2019-03-21 05:12] LABS: Anion Gap 16 mmol/L (10-20); BUN (Urea Nitrogen) 56 mg/dL (8.9-20.6); Calc. Creatinine Clearance 31 mL/min (70-130); Carbon Dioxide 20 mmol/L (22-29); Chloride 102 mmol/L (98-107); Estimated GFR-MDRD 11; Glucose 149 mg/dL (70-105); Potassium 4.2 mmol/L (3.5-5.1); Sodium 134 mmol/L (136-145)
[2019-03-21] MEDS: NIFEdipine XL 60 MG TAB PO SCH ×2 (09:06→20:00)
[2019-03-21] MEDS: Minoxidil 10 MG TAB PO SCH ×2 (09:06→20:00)
[2019-03-21] MEDS: Labetalol 100 MG TAB PO SCH ×2 (09:06→20:00)
[2019-03-21] MEDS: hydrALAZINE 25 MG TAB PO SCH ×3 (09:14→19:59)
[2019-03-21] MEDS: Pantoprazole 40 MG VIAL IVP SCH (12:34)
--- NOTE | 2019-03-21 12:45 | PRG ---
DATE OF SERVICE: 03/21/2019 SUBJECTIVE: 33-year-old gentleman being seen for end-stage kidney disease. The patient denies nausea, vomiting or chest pain. OBJECTIVE: VITAL SIGNS: Temperature afebrile, pulse 106, breathing 16, blood pressure 164/88. CONSTITUTIONAL: Awake, alert, in no acute distress. GENERAL APPEARANCE AND MENTAL STATUS: Fair. HEAD/NECK: Normocephalic. Atraumatic. EYES: EOMI. No deformity. EARS: Clear. No ulcers. NOSE: Intact. No lesions. MOUTH: Clear. No discharge. THROAT: Clear. No exudate. LUNGS: Clear. No crackles. CARDIAC: S1, S2. No rub. ABDOMEN: Benign. Bowel sounds positive. GENITALIA/RECTUM: Collins absent. BACK/EXTREMITIES: Edema 0+. NEUROLOGICAL: Alert and motor intact. SKIN: LYMPHATICS: LABS: Reviewed. ASSESSMENT AND PLAN: 1. Stage 6 chronic kidney disease. Plan dialysis. 2. Hyperkalemia, stable. 3. Anemia, stable. 4. Medications based on GFR is appropriate. Job ID: [id number]
--- NOTE | 2019-03-21 13:04 | PDOC.PN ---
- Subjective Encounter Start Date: 03/21/19 Encounter Start Time: 12:45 Subjective: f/u for HTN, ESRD with planned HD catheter placement today. Feels -: ok except for being hungry due to NPO. No new issues. - Objective MAR Reviewed: Yes Vital Signs & Weight: Vital Signs (12 hours) Temp Pulse Resp BP Pulse Ox 03/21/19 12:29 98.3 F 97 18 146/80 H 96 03/21/19 08:50 98.5 F 106 H 18 182/87 H 97 03/21/19 03:59 98.3 F 101 H 18 164/80 H 93 L Weight Admit Weight 297 lb 6.457 oz Weight 328 lb 6.4 oz Most Recent Monitor Data Heart Rate from ECG 105 NIBP 158/93 NIBP BP-Mean 114 Respiration from ECG 19 SpO2 99 I&O: 03/20/19 03/21/19 03/22/19 06:59 06:59 06:59 Intake Total 240 810 Output Total 600 Balance 240 210 Result Diagrams: 03/21/19 04:38 03/21/19 04:38 Additional Labs: Accuchecks 03/21/19 03/21/19 03/20/19 10:39 05:22 20:07 POC Glucose 155 H 166 H 259 H 03/20/19 16:39 POC Glucose 250 H Microbiology 03/17/19 12:47 Venous blood - Right Hand Blood Culture - Preliminary NO GROWTH AT 48 HOURS 03/17/19 12:42 Venous blood - Left Arm Blood Culture - Preliminary NO GROWTH AT 48 HOURS Laboratory Tests 03/17/19 03/17/19 03/17/19 10:25 10:25 15:53 WBC 21.5 H Hgb 12.6 L Creatinine 6.93 H U Cannabinoids Screen Detected H 03/18/19 03/20/19 03/20/19 05:55 06:44 06:44 WBC 14.8 H Hgb 8.9 L Creatinine 6.59 H 7.51 H U Cannabinoids Screen EKG Reviewed by me: Yes (Tele - SR) Phys Exam - Physical Examination Constitutional: NAD HEENT: PERRLA, sclera anicteric, oral pharynx no lesions Neck: no nodes, no JVD, supple, full ROM Respiratory: no wheezing, no rales, no rhonchi, clear to auscultation bilateral S1, S2 Cardiovascular: RRR, no significant murmur, no rub, gallop Gastrointestinal: soft, non-tender, no distention, positive bowel sounds Musculoskeletal: no edema, pulses present Neurological: normal sensation, moves all 4 limbs Psychiatric: A&O x 3 Skin: no rash, normal turgor, cap refill <2 seconds Dx/Plan (1) Acute worsening of stage 4 chronic kidney disease Code(s): N18.4 - CHRONIC KIDNEY DISEASE, STAGE 4 (SEVERE) Status: Acute Comment: HD catheter placement today, avoid nephrotoxic meds and limit contrast exposure, plan for HD in am (2) Intractable hiccups Code(s): R06.6 - HICCOUGH Status: Acute Comment: Thorazine prn, improved (3) Chronic diastolic CHF (congestive heart failure), NYHA class 3 Code(s): I50.32 - CHRONIC DIASTOLIC (CONGESTIVE) HEART FAILURE Status: Chronic Comment: last ECHO 11/15 showed Gd 2/3 diastolic Fx and EF 40-45%.NO acute decompensation (4) Hypertensive urgency Code(s): I16.0 - HYPERTENSIVE URGENCY Status: Acute Comment: Continue current BP regimen, expecting improvement in overall BP trend with initiation of HD (5) DM2 (diabetes mellitus, type 2) Status: Chronic Qualifiers: Diabetes mellitus long-term insulin use: without mailing clerk use Diabetes mellitus complication status: with kidney complications Diabetes mellitus complication detail: with chronic kidney disease Chronic kidney disease stage : stage 3 (moderate) Qualified Code(s): E11.22 - Type 2 diabetes mellitus with diabetic chronic kidney disease; N18.3 - Chronic kidney disease, stage 3 ( moderate) Comment: on ISS, continue accuchecks (6) Medical non-compliance Code(s): Z91.19 - PATIENT'S NONCOMPLIANCE W OTH MEDICAL TREATMENT AND REGIMEN Status: Chronic Comment: repeatedly counseled to be complaint. $4 prescriptions that can be purchesed at [facility] - Plan public health social worker, out of bed/ambulate, DVT proph w/SCDs Stable currently -: Plan for HD catheter placement today -: HD to initiate 03/22/19 -: Titrate BP regimen for optimal control -: AM lab: BMP, CBC * .
[2019-03-21] MEDS: Furosemide 80 MG TAB PO SCH (13:19)
[2019-03-21] MEDS ORDERED: CEFAZOLIN 2 GM in Premix Bag 1 BAG IVPB SCH (13:45)
--- NOTE | 2019-03-21 14:31 | HP ---
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 He has been unemployed. He lives alone in [place], [place]. He has metabolic syndrome with diabetes and hypertension resulting in hypertensive diabetic nephropathy and kidney disease. He has been seen by Dr. Savage. I have been asked to see him regarding placement of hemodialysis access. He has bandage over his right antecubital AC indicative of recent IV access and blood draws. His IV has been moved to his right hand. He is informed to avoid IV access and blood draws above his wrist. He had ultrasound vein mapping performed 2 days ago revealing partial occlusion of the cephalic vein on both sides. Cephalic vein otherwise is of good caliber. The plan is for a left arm primary fistula and a hemodialysis catheter or possible central line. We will plan that tomorrow. He understands risks and benefits, and consents. ALLERGIES: NONE. SOCIAL HISTORY: Tobacco, none. Alcohol, none. MEDICATIONS: 1. Sodium bicarbonate 650 b.i.d. 2. Hydralazine 100 t.i.d. 3. Glipizide 5 mg daily a.c. 4. Nifedipine/Procardia XL 60 mg b.i.d. 5. Minoxidil 10 mg b.i.d. 6. Normodyne 200 mg b.i.d. 7. Furosemide 80 mg daily. PAST SURGICAL HISTORY: Noncontributory. PAST MEDICAL HISTORY: Metabolic syndrome, morbid obesity, hypertension, diabetes mellitus. REVIEW OF SYSTEMS: Noncontributory. PHYSICAL EXAMINATION: VITAL SIGNS: Height 6 feet, weight 328 pounds, 44 BMI, temperature 98.3, heart rate 97, blood pressure 146/80. LUNGS: Clear to auscultation. CARDIAC: Regular rate and rhythm. No murmur or gallop. ABDOMEN: Soft, nontender, obese. EXTREMITIES: Unremarkable. IV right hand. Bandage right AC. LABORATORY DATA: Sodium 134, potassium 4.2, BUN 56, creatinine 7, GFR 11. White count 13 and hemoglobin 8.1. ASSESSMENT/PLAN: 1. Diabetic hypertensive nephropathy in need of dialysis access to initiate long-term dialysis. The patient will need placement of a hemodialysis catheter, placement of left arm fistula. Consideration of a Jose catheter to remove any thrombus accumulated from IV access, iatrogenic in a dialysis patient with partially occlusive thrombus left arm. Risks of infection, bleeding, and reoperation discussed. He consents. 2. Diabetes mellitus. 3. Hypertension. 4. Metabolic syndrome. Job ID: [id number]
[2019-03-21] MEDS: HumaLOG 300 UNITS/3 ML VIAL SC PRN (17:43)
[2019-03-22 05:35] LABS: #Eosinphils 0.3 thou/uL (0.0-0.7); #Lymphocytes 1.2 thou/uL (1.20-3.40); #Monocytes 0.6 thou/uL (0.11-0.59); #Neutrophils 9.6 thou/uL (1.40-6.50); %Basophils 0.1 % (0.0-1.0); %Eosinophils 2.6 % (0.0-10.0); %Lymphocytes 10.4 % (21.0-51.0); %Neutrophils 81.8 % (42.0-75.0); Hemoglobin 8.4 g/dL (14.0-18.0); Mean Corpuscular Hemoglobin 26.3 pg (27.0-31.0); Mean Platelet Volume 8.3 fL (7.4-10.4); Platelet Count 241 thou/uL (130-400); RBC Distribution Width 15.8 % (11.5-14.5); Red Blood Cell (RBC) Count 3.21 mill/uL (4.70-6.10); White Blood Cell (WBC) Count 11.7 thou/uL (4.8-10.8)
[2019-03-22 05:53] LABS: Anion Gap 16 mmol/L (10-20); BUN (Urea Nitrogen) 58 mg/dL (8.9-20.6); Calc. Creatinine Clearance 31 mL/min (70-130); Calcium 8.3 mg/dL (7.8-10.44); Carbon Dioxide 20 mmol/L (22-29); Chloride 102 mmol/L (98-107); Estimated GFR-MDRD 10; Glucose 176 mg/dL (70-105); Potassium 4.2 mmol/L (3.5-5.1); Sodium 134 mmol/L (136-145)
[2019-03-22] MEDS: hydrALAZINE 25 MG TAB PO SCH ×3 (08:43→19:57)
[2019-03-22] MEDS: Furosemide 80 MG TAB PO SCH (08:43)
[2019-03-22] MEDS: Labetalol 100 MG TAB PO SCH ×2 (08:44→19:57)
[2019-03-22] MEDS: Pantoprazole 40 MG VIAL IVP SCH (08:45)
[2019-03-22] MEDS: Ondansetron PF 4 MG/2 ML Vial SLOW IVP PRN (08:45)
[2019-03-22] MEDS: Minoxidil 10 MG TAB PO SCH ×2 (08:45→19:58)
[2019-03-22] MEDS: NIFEdipine XL 60 MG TAB PO SCH ×3 (08:59→19:57)
[2019-03-22] MEDS ORDERED: Heparin 10,000 UNITS/ 10 ML VIAL ONE ×2 (12:00→15:55)
--- NOTE | 2019-03-22 12:58 | PRG ---
DATE OF SERVICE: 03/22/2019 SUBJECTIVE: This is a 33-year-old gentleman being seen for end-stage renal disease. The patient denies any nausea, vomiting, or chest pain. OBJECTIVE: CONSTITUTIONAL: The patient is awake and alert. VITAL SIGNS: Afebrile. Pulse 74, breathing 16, blood pressure 198/87. GENERAL APPEARANCE AND MENTAL STATUS: Fair. HEAD/NECK: Normocephalic. Atraumatic. EYES: EOMI. No deformity. EARS: Clear. No ulcers. NOSE: Intact. No lesions. MOUTH: Clear. No discharge. THROAT: Clear. No exudate. LUNGS: Clear. No crackles. CARDIAC: S1, S2. No rub. ABDOMEN: Benign. Bowel sounds positive. GENITALIA/RECTUM: Collins absent. BACK/EXTREMITIES: Edema 0+. NEUROLOGICAL: Alert and motor intact. SKIN: LYMPHATICS: LABORATORY DATA: Reviewed. ASSESSMENT: 1. Stage 6 chronic kidney disease. Continue hemodialysis. 2. Hypertension, stable. 3. Anemia, stable. 4. Medications based on GFR is appropriate. Job ID: [id number]
[2019-03-22] MEDS ORDERED: Midazolam HCl 2 mg/2 ml Vial ONE (13:34)
[2019-03-22] MEDS ORDERED: Fentanyl 100 MCG/2 ML VIAL ONE ×2 (13:34→15:17)
[2019-03-22] MEDS ORDERED: Bupivacaine HCl 0.5%/Epinephrine 1:200,000/PF 30 ml Vial ONE ×2 (15:04→15:21)
[2019-03-22] MEDS ORDERED: Propofol 1,000 MG/100 ML VIAL IV ONE (15:17)
[2019-03-22] MEDS ORDERED: Lidocaine 2% PF 5 ML VIAL ONE (15:21)
[2019-03-22] MEDS ORDERED: Heparin 5,000 UNITS/ML VIAL ONE (15:21)
[2019-03-22] MEDS ORDERED: Protamine Sulfate 50 MG/5 ML VIAL ONE (15:21)
[2019-03-22] MEDS ORDERED: Sodium Chloride 0.9% 30 ML ONE (15:21)
[2019-03-22] MEDS ORDERED: Heparin 10,000 UNITS/1 ML VIAL ONE (15:21)
[2019-03-22] MEDS ORDERED: PROPOFOL 200 MG/20 ML VIAL ONE (15:55)
--- NOTE | 2019-03-22 17:23 | PDOC.PN ---
- Subjective Encounter Start Date: 03/22/19 Encounter Start Time: 17:10 Subjective: f/u for ESRD initiating HD. No new complaints - Objective MAR Reviewed: Yes Vital Signs & Weight: Vital Signs (12 hours) Temp Pulse Resp BP BP Pulse Ox 03/22/19 08:59 104 H 198/87 H 03/22/19 08:44 104 H 198/87 H 03/22/19 08:43 104 H 198/87 H 03/22/19 08:00 98.3 F 104 H 18 198/87 H 97 Weight Admit Weight 297 lb 6.457 oz Weight 337 lb 14.4 oz Most Recent Monitor Data Heart Rate from ECG 105 NIBP 158/93 NIBP BP-Mean 114 Respiration from ECG 19 SpO2 99 I&O: 03/21/19 03/22/19 03/23/19 06:59 06:59 06:59 Intake Total 810 1200 Output Total 600 1130 Balance 210 70 Result Diagrams: 03/22/19 05:01 03/22/19 05:01 Additional Labs: Accuchecks 03/22/19 03/22/19 03/21/19 11:25 05:52 20:37 POC Glucose 164 H 186 H 197 H Microbiology 03/17/19 12:47 Venous blood - Right Hand Blood Culture - Preliminary NO GROWTH AT 48 HOURS 03/17/19 12:42 Venous blood - Left Arm Blood Culture - Preliminary NO GROWTH AT 48 HOURS Laboratory Tests 03/17/19 03/17/19 03/17/19 10:25 10:25 15:53 WBC 21.5 H Hgb 12.6 L Creatinine 6.93 H U Cannabinoids Screen Detected H 03/18/19 03/20/19 03/20/19 05:55 06:44 06:44 WBC 14.8 H Hgb 8.9 L Creatinine 6.59 H 7.51 H U Cannabinoids Screen EKG Reviewed by me: Yes (Tele - Sinus tachycardia) Phys Exam - Physical Examination Constitutional: NAD HEENT: PERRLA, sclera anicteric, oral pharynx no lesions Neck: no nodes, no JVD, supple, full ROM Respiratory: no wheezing, no rales, no rhonchi, clear to auscultation bilateral tachycardic S1, S2 Cardiovascular: no significant murmur, no rub, gallop Gastrointestinal: soft, non-tender, no distention, positive bowel sounds Musculoskeletal: pulses present, edema present Neurological: normal sensation, moves all 4 limbs Psychiatric: A&O x 3 Skin: normal turgor, cap refill <2 seconds Dx/Plan (1) ESRD (end stage renal disease) on dialysis Code(s): N18.6 - END STAGE RENAL DISEASE; Z99.2 - DEPENDENCE ON RENAL DIALYSIS Status: Acute Comment: HD catheter placement with initiation of HD, Nephrology following (2) Intractable hiccups Code(s): R06.6 - HICCOUGH Status: Acute Comment: Thorazine prn, improved (3) Chronic diastolic CHF (congestive heart failure), NYHA class 3 Code(s): I50.32 - CHRONIC DIASTOLIC (CONGESTIVE) HEART FAILURE Status: Chronic Comment: last ECHO 11/15 showed Gd 2/3 diastolic Fx and EF 40-45%.NO acute decompensation (4) Hypertensive urgency Code(s): I16.0 - HYPERTENSIVE URGENCY Status: Acute Comment: Continue current BP regimen, expecting improvement in overall BP trend with initiation of HD (5) DM2 (diabetes mellitus, type 2) Status: Chronic Qualifiers: Diabetes mellitus electrician chief insulin use: without group home use Diabetes mellitus complication status: with kidney complications Diabetes mellitus complication detail: with chronic kidney disease Chronic kidney disease stage : stage 3 (moderate) Qualified Code(s): E11.22 - Type 2 diabetes mellitus with diabetic chronic kidney disease; N18.3 - Chronic kidney disease, stage 3 ( moderate) Comment: on ISS, continue accuchecks (6) Medical non-compliance Code(s): Z91.19 - PATIENT'S NONCOMPLIANCE W OTH MEDICAL TREATMENT AND REGIMEN Status: Chronic Comment: repeatedly counseled to be complaint. $4 prescriptions that can be purchesed at [facility] secondary social studies teacher, out of bed/ambulate, DVT proph w/SCDs Stable currently -: HD initiating per Nephrology -: Titrate BP regimen for optimal response -: CM for coordination of outpt HD -: AM lab: BMP, CBC * .
[2019-03-22] MEDS ORDERED: Acetaminophen 500 MG TAB PO PRN (17:54)
--- NOTE | 2019-03-22 18:15 | RAD ---
Frontal radiograph chest: 03/22/2019 COMPARISON: 03/17/2019 HISTORY: Vascular catheter placement FINDINGS: New left-sided vascular catheter, distal tip overlying the region of the cavoatrial junctio n. New right-sided dialysis catheter, distal tip overlying region of cavoatrial junction area no pneumothorax. Heart and mediastinal contours are stable. No focal consolidation or alveolar edema. IMPRESSION: New central venous catheters with no evidence for pneumothorax.
--- NOTE | 2019-03-22 21:56 | OP ---
DATE OF PROCEDURE: 03/22/2019 PREOPERATIVE DIAGNOSES: End-stage renal disease, morbid obesity, poor IV access. POSTOPERATIVE DIAGNOSES: End-stage renal disease, morbid obesity, poor IV access. PROCEDURES PERFORMED: Right internal jugular cuffed tunneled hemodialysis catheter, left internal jugular central line, left Yara fistula, 3.5 mm coronary dilator, good Doppler signal outflow. ANESTHESIA: TIVA, regional, local 0.5% Marcaine with epinephrine 30 mL mixed with 2% Xylocaine 10 mL. DESCRIPTION OF PROCEDURE: The patient was taken to the operating room where under IV sedation, left arm, regional anesthesia, neck and chest and left arm, axilla, chest prepared with ChloraPrep and draped in routine fashion. Local anesthetic was infiltrated in the skin and subcutaneous tissue for placement of central lines. Ultrasound used to facilitate cannulation of the right and left internal jugular veins where J wires were threaded, trocar catheter removed, and skin incised and enlarged at the neck. On the left side, Seldinger technique was used to place a triple-lumen catheter securing it with 3-0 nylon, sterile dressing. Each port aspirated of blood, flushed with saline solution. On the right side, a stab incision was made over the right chest. Using a tunneling device, the pre-curved [employer] cuffed-tunneled hemodialysis catheter used to place a dialysis catheter, placed the fabric cuff beneath the catheter exit site of the skin and secured with 3-0 nylon suture. Sterile dressing applied. Small and medium size dilators placed with J-wire and into the internal jugular vein and removed. Dilator and Peel-Away sheath placed with J-wire in superior vena cava, and dilator and J-wire were removed, catheter placed through the Peel-Away sheath which was removed. Platysma was approximated with 4-0 Monocryl, skin with subdermal 4-0 Monocryl and Oto glue applied. Each port aspirated of blood and flushed with saline solution and heparinized saline solution of 1000 units heparin per mL indicating the volume of the port. Fluoroscopic images revealed good line placement. Incision was made in the left wrist between the cephalic vein and radial artery and a good-sized cephalic vein identified, dissected free and stump on the hand side ligated with a 3-0 silk tie and branches were divided between 4-0 silk ties and clips. It was dissected free, spatulated and the patient was given 6000 units of heparin intravenously. It was calibrated to a 3.5-mm coronary dilator and there was outflow without obstruction. It was flushed with heparinized saline solution and atraumatic bulldog clamp applied. Radial artery dissected free proximally and distally and controlled with vascular clamps. Longitudinal arteriotomy was made for a 2.5 cm anastomosis and the vein accordingly spatulated and end vein to side radial artery anastomosis created with continuous suture of 6-0 Prolene. Radial artery was of good quality, adequate lumen, and good flow. Good hemostasis obtained after completing anastomosis with 6-0 Prolene and vascular clamps released. There was good flow in the fistula, evident by Doppler interrogation. Good hemostasis was noted. The patient was given 25 mg of protamine intravenously by Anesthesia. Subcutaneous tissue was approximated with 3-0 Monocryl, skin with subdermal 4-0 Monocryl and Oto glue applied. Job ID: [id number]
[2019-03-22] MEDS: traMADol HCl 50 MG TAB PO PRN (22:38)
[2019-03-22] MEDS ORDERED: hydrALAZINE 20 MG/ML VIAL SLOW IVP PRN (22:48)
[2019-03-23] MEDS: traMADol HCl 50 MG TAB PO PRN ×3 (04:27→20:37)
[2019-03-23 06:30] LABS: #Eosinphils 0.2 thou/uL (0.0-0.7); #Lymphocytes 0.9 thou/uL (1.20-3.40); #Monocytes 0.7 thou/uL (0.11-0.59); #Neutrophils 9.5 thou/uL (1.40-6.50); %Basophils 0.1 % (0.0-1.0); %Lymphocytes 7.8 % (21.0-51.0); %Monocytes 6.5 % (0.0-10.0); %Neutrophils 83.7 % (42.0-75.0); Hemoglobin 7.7 g/dL (14.0-18.0); Mean Corpuscular HGB CONC 31.9 g/dL (32.0-36.0); Mean Corpuscular Hemoglobin 25.7 pg (27.0-31.0); Mean Corpuscular Volume 80.5 fL (78.0-98.0); Mean Platelet Volume 8.1 fL (7.4-10.4); Platelet Count 255 thou/uL (130-400); RBC Distribution Width 15.8 % (11.5-14.5); Red Blood Cell (RBC) Count 3.01 mill/uL (4.70-6.10); White Blood Cell (WBC) Count 11.3 thou/uL (4.8-10.8)
[2019-03-23 06:58] LABS: Anion Gap 13 mmol/L (10-20); BUN (Urea Nitrogen) 45 mg/dL (8.9-20.6); Calc. Creatinine Clearance 36 mL/min (70-130); Calcium 8.5 mg/dL (7.8-10.44); Carbon Dioxide 25 mmol/L (22-29); Chloride 101 mmol/L (98-107); Estimated GFR-MDRD 13; Glucose 162 mg/dL (70-105); Sodium 135 mmol/L (136-145)
[2019-03-23] MEDS ORDERED: NIFEdipine XL 60 MG TAB PO SCH (09:00)
[2019-03-23] MEDS: hydrALAZINE 25 MG TAB PO SCH ×3 (09:02→20:35)
[2019-03-23] MEDS: Furosemide 80 MG TAB PO SCH (09:09)
[2019-03-23] MEDS: Labetalol 100 MG TAB PO SCH ×2 (09:09→20:36)
[2019-03-23] MEDS: Minoxidil 10 MG TAB PO SCH ×2 (09:09→20:37)
[2019-03-23] MEDS ORDERED: Heparin 10,000 UNITS/ 10 ML VIAL ONE (11:11)
--- NOTE | 2019-03-23 11:59 | PRG ---
DATE OF SERVICE: 03/23/2019 SUBJECTIVE: A 33-year-old gentleman, being seen for end-stage renal disease. The patient denied nausea, vomiting, or chest pain. OBJECTIVE: CONSTITUTIONAL: The patient is awake and alert. VITAL SIGNS: Afebrile, pulse 92, breathing 16, and blood pressure 151/70. GENERAL APPEARANCE AND MENTAL STATUS: Fair. HEAD/NECK: Normocephalic. Atraumatic. EYES: EOMI. No deformity. EARS: Clear. No ulcers. NOSE: Intact. No lesions. MOUTH: Clear. No discharge. THROAT: Clear. No exudate. LUNGS: Clear. No crackles. CARDIAC: S1, S2. No rub. ABDOMEN: Benign. Bowel sounds positive. GENITALIA/RECTUM: Collins absent. BACK/EXTREMITIES: Edema 0+. NEUROLOGICAL: Alert and motor intact. SKIN: LYMPHATICS: LABORATORY DATA: Reviewed. ASSESSMENT AND PLAN: 1. Stage 6 chronic kidney disease. Plan dialysis. 2. Anemia. Would recommend transfusion with dialysis. 3. Hypertension, stable. 4. Medications based on GFR is appropriate. Job ID: [id number]
--- NOTE | 2019-03-23 14:36 | PDOC.PN ---
- Subjective Encounter Start Date: 03/23/19 Encounter Start Time: 14:30 Subjective: f/u for ESRD with initiation of HD. No new complaints and tolerating -: first session. BP labile. - Objective MAR Reviewed: Yes Vital Signs & Weight: Vital Signs (12 hours) Temp Pulse Resp BP BP Pulse Ox 03/23/19 09:10 92 202/96 H 03/23/19 09:09 92 202/96 H 03/23/19 09:02 92 202/96 H 03/23/19 04:00 98.5 F 92 16 151/70 H 92 L Weight Admit Weight 297 lb 6.457 oz Weight 332 lb Most Recent Monitor Data Heart Rate from ECG 105 NIBP 158/93 NIBP BP-Mean 114 Respiration from ECG 19 SpO2 99 I&O: 03/22/19 03/23/19 03/24/19 06:59 06:59 06:59 Intake Total 1200 480 Output Total 1130 200 Balance 70 280 Result Diagrams: 03/23/19 06:00 03/23/19 06:00 Additional Labs: Accuchecks 03/23/19 03/23/19 03/22/19 11:17 05:33 20:12 POC Glucose 231 H 173 H 125 H Microbiology 03/17/19 12:47 Venous blood - Right Hand Blood Culture - Preliminary NO GROWTH AT 48 HOURS 03/17/19 12:42 Venous blood - Left Arm Blood Culture - Preliminary NO GROWTH AT 48 HOURS Laboratory Tests 03/17/19 03/17/19 03/17/19 10:25 10:25 15:53 WBC 21.5 H Hgb 12.6 L Creatinine 6.93 H U Cannabinoids Screen Detected H 03/18/19 03/20/19 03/20/19 05:55 06:44 06:44 WBC 14.8 H Hgb 8.9 L Creatinine 6.59 H 7.51 H U Cannabinoids Screen 03/22/19 05:01 WBC 11.7 H Hgb 8.4 L Creatinine U Cannabinoids Screen Radiology Reviewed by me: Yes (PCXR - [address] without pneumothorax) EKG Reviewed by me: Yes (Tele - SR) Phys Exam - Physical Examination Constitutional: NAD HEENT: PERRLA, sclera anicteric, oral pharynx no lesions L IJ CVC in place Neck: no nodes, no JVD, supple, full ROM Respiratory: no wheezing, no rales, no rhonchi, clear to auscultation bilateral S1, S2 Cardiovascular: RRR, no significant murmur, no rub, gallop Gastrointestinal: soft, non-tender, no distention, positive bowel sounds Musculoskeletal: pulses present, edema present Neurological: normal sensation, moves all 4 limbs Psychiatric: A&O x 3 Skin: normal turgor, cap refill <2 seconds Dx/Plan (1) ESRD (end stage renal disease) on dialysis Code(s): N18.6 - END STAGE RENAL DISEASE; Z99.2 - DEPENDENCE ON RENAL DIALYSIS Status: Acute Comment: HD catheter placement with initiation of HD, Nephrology following (2) Chronic diastolic CHF (congestive heart failure), NYHA class 3 Code(s): I50.32 - CHRONIC DIASTOLIC (CONGESTIVE) HEART FAILURE Status: Chronic Comment: last ECHO 11/15 showed Gd 2/3 diastolic Fx and EF 40-45%.NO acute decompensation (3) Intractable hiccups Code(s): R06.6 - HICCOUGH Status: Acute Comment: Thorazine prn, improved (4) Hypertensive urgency Code(s): I16.0 - HYPERTENSIVE URGENCY Status: Acute Comment: Continue current BP regimen, labile BP trend with initiation of HD (5) DM2 (diabetes mellitus, type 2) Status: Chronic Qualifiers: Diabetes mellitus fci insulin use: without fci use Diabetes mellitus complication status: with kidney complications Diabetes mellitus complication detail: with chronic kidney disease Chronic kidney disease stage : stage 3 (moderate) Qualified Code(s): E11.22 - Type 2 diabetes mellitus with diabetic chronic kidney disease; N18.3 - Chronic kidney disease, stage 3 ( moderate) Comment: on ISS, continue accuchecks (6) Medical non-compliance Code(s): Z91.19 - PATIENT'S NONCOMPLIANCE W OTH MEDICAL TREATMENT AND REGIMEN Status: Chronic Comment: repeatedly counseled to be complaint. $4 prescriptions that can be purchesed at [facility] social work therapist, out of bed/ambulate, DVT proph w/SCDs Stable currently -: Continue HD per Nephrology service -: CM for coordination of outpt HD -: Titrate BP regimen for optimal response -: AM lab: BMP, H/H * .
--- NOTE | 2019-03-23 15:32 | PRG ---
DATE OF SERVICE: 03/23/2019 Mr. Emery is doing well today. His left wrist Yara fistula has a good thrill and bruit. Hemodialysis catheter is working well. There were no surgical wound problems. At this point, I have advised him to use his arm unrestricted, exercise it as he is able. He can take Tylenol [id number] for discomfort, Ultram as necessary, can follow up in my office in 4 to 5 weeks. He can shower and bathe, washing the left arm as needed. He should avoid blood draws and IVs in the left arm and avoid blood draws and IVs above his wrist in the right arm. I will see him as needed in this hospitalization. Please call, if necessary. Job ID: [id number]
[2019-03-23] MEDS: NIFEdipine XL 60 MG TAB PO SCH (20:37)
[2019-03-24] MEDS: hydrALAZINE 25 MG TAB PO SCH ×3 (10:09→20:44)
[2019-03-24] MEDS: Labetalol 100 MG TAB PO SCH ×2 (10:10→20:44)
[2019-03-24] MEDS: NIFEdipine XL 60 MG TAB PO SCH ×2 (10:10→20:44)
[2019-03-24] MEDS: Furosemide 80 MG TAB PO SCH (10:10)
[2019-03-24] MEDS: traMADol HCl 50 MG TAB PO PRN ×2 (10:11→20:45)
[2019-03-24] MEDS: Minoxidil 10 MG TAB PO SCH ×2 (10:11→20:44)
[2019-03-24] MEDS ORDERED: Heparin 10,000 UNITS/ 10 ML VIAL ONE (11:11)
[2019-03-24 11:16] LABS: Hemoglobin 8.6 g/dL (14.0-18.0); Platelet Count 263 thou/uL (130-400)
[2019-03-24 11:39] LABS: Anion Gap 13 mmol/L (10-20); BUN (Urea Nitrogen) 33 mg/dL (8.9-20.6); Calc. Creatinine Clearance 44 mL/min (70-130); Calcium 8.6 mg/dL (7.8-10.44); Carbon Dioxide 28 mmol/L (22-29); Chloride 97 mmol/L (98-107); Estimated GFR-MDRD 16; Glucose 195 mg/dL (70-105); Potassium 3.8 mmol/L (3.5-5.1); Sodium 134 mmol/L (136-145)
--- NOTE | 2019-03-24 12:17 | PRG ---
DATE OF SERVICE: 03/24/2019 SUBJECTIVE: A 33-year-old gentleman being seen for end-stage renal disease. The patient denied any nausea, vomiting, or chest pain. OBJECTIVE: CONSTITUTIONAL: On examination, the patient is awake and alert. VITAL SIGNS: Afebrile, pulse 91, breathing 16, and blood pressure 202/91. GENERAL APPEARANCE AND MENTAL STATUS: Fair. HEAD/NECK: Normocephalic. Atraumatic. EYES: EOMI. No deformity. EARS: Clear. No ulcers. NOSE: Intact. No lesions. MOUTH: Clear. No discharge. THROAT: Clear. No exudate. LUNGS: Clear. No crackles. CARDIAC: S1, S2. No rub. ABDOMEN: Benign. Bowel sounds positive. GENITALIA/RECTUM: Collins absent. BACK/EXTREMITIES: Edema 0+. NEUROLOGICAL: Alert and motor intact. LABORATORY DATA: Reviewed. ASSESSMENT AND PLAN: 1. Stage 6 chronic kidney disease. Continue hemodialysis. 2. Hypertension. We will plan ultrafiltration. 3. Anemia, stable. 4. Medication based on glomerular filtration rate are appropriate. Job ID: [id number]
[2019-03-24] MEDS: cloNIDine 0.1 MG TAB PO PRN (13:03)
--- NOTE | 2019-03-24 14:19 | PDOC.PN ---
- Subjective Encounter Start Date: 03/24/19 Encounter Start Time: 14:25 Subjective: f/u for ESRD with initiation of HD. BP remains labile. No new complaints - Objective MAR Reviewed: Yes Vital Signs & Weight: Vital Signs (12 hours) Temp Pulse Resp BP BP Pulse Ox 03/24/19 13:03 202/91 H 03/24/19 10:10 94 202/91 H 03/24/19 10:09 94 202/91 H 03/24/19 08:00 98.1 F 91 16 202/91 H 97 03/24/19 03:53 97.9 F 94 17 181/80 H 18 L Weight Admit Weight 297 lb 6.457 oz Weight 335 lb Most Recent Monitor Data Heart Rate from ECG 105 NIBP 158/93 NIBP BP-Mean 114 Respiration from ECG 19 SpO2 99 I&O: 03/23/19 03/24/19 03/25/19 06:59 06:59 06:59 Intake Total 480 2350 Output Total 200 3400 Balance 280 -1050 Result Diagrams: 03/24/19 11:02 03/24/19 11:02 Additional Labs: Accuchecks 03/24/19 03/24/19 03/23/19 10:51 05:50 20:10 POC Glucose 189 H 149 H 204 H 03/23/19 17:25 POC Glucose 135 H Microbiology 03/17/19 12:47 Venous blood - Right Hand Blood Culture - Preliminary NO GROWTH AT 48 HOURS 03/17/19 12:42 Venous blood - Left Arm Blood Culture - Preliminary NO GROWTH AT 48 HOURS Laboratory Tests 03/17/19 03/17/19 03/17/19 10:25 10:25 15:53 WBC 21.5 H Hgb 12.6 L Creatinine 6.93 H U Cannabinoids Screen Detected H 03/18/19 03/20/19 03/20/19 05:55 06:44 06:44 WBC 14.8 H Hgb 8.9 L Creatinine 6.59 H 7.51 H U Cannabinoids Screen 03/22/19 05:01 WBC 11.7 H Hgb 8.4 L Creatinine U Cannabinoids Screen EKG Reviewed by me: Yes (Tele - SR) Phys Exam - Physical Examination Constitutional: NAD HEENT: PERRLA, sclera anicteric, oral pharynx no lesions Neck: no nodes, no JVD, supple, full ROM Respiratory: no wheezing, no rales, no rhonchi, clear to auscultation bilateral Cardiovascular: RRR, no significant murmur, no rub, gallop Gastrointestinal: soft, non-tender, no distention, positive bowel sounds Musculoskeletal: pulses present, edema present Neurological: normal sensation, moves all 4 limbs Psychiatric: A&O x 3 Skin: normal turgor, cap refill <2 seconds Dx/Plan (1) ESRD (end stage renal disease) on dialysis Code(s): N18.6 - END STAGE RENAL DISEASE; Z99.2 - DEPENDENCE ON RENAL DIALYSIS Status: Acute Comment: HD catheter placement with initiation of HD, Nephrology following, coordinating for outpt HD (2) HTN (hypertension) Code(s): I10 - ESSENTIAL (PRIMARY) HYPERTENSION Status: Chronic Qualifiers: Hypertension type: essential hypertension Qualified Code(s): I10 - Essential (primary) hypertension Comment: Labile, may need additional volume removal with HD, continue Hydralazine, Minoxidil, Labetalol, Procardia (3) Chronic diastolic CHF (congestive heart failure), NYHA class 3 Code(s): I50.32 - CHRONIC DIASTOLIC (CONGESTIVE) HEART FAILURE Status: Chronic Comment: last ECHO 11/15 showed Gd 2/3 diastolic Fx and EF 40-45%.NO acute decompensation (4) Hypertensive urgency Code(s): I16.0 - HYPERTENSIVE URGENCY Status: Acute Comment: Continue current BP regimen, labile BP trend with initiation of HD (5) DM2 (diabetes mellitus, type 2) Status: Chronic Qualifiers: Diabetes mellitus penitentiary insulin use: without penitentiary use Diabetes mellitus complication status: with kidney complications Diabetes mellitus complication detail: with chronic kidney disease Chronic kidney disease stage : stage 3 (moderate) Qualified Code(s): E11.22 - Type 2 diabetes mellitus with diabetic chronic kidney disease; N18.3 - Chronic kidney disease, stage 3 ( moderate) Comment: on ISS, continue accuchecks (6) Medical non-compliance Code(s): Z91.19 - PATIENT'S NONCOMPLIANCE W OTH MEDICAL TREATMENT AND REGIMEN Status: Chronic Comment: repeatedly counseled to be complaint. $4 prescriptions that can be purchesed at [facility] - Plan social worker, out of bed/ambulate, DVT proph w/SCDs Stable currently -: HD per Renal, max volume removal needed -: Titrate BP regimen -: CM coordinating outpt HD -: AM lab: BMP * .
[2019-03-25] MEDS: traMADol HCl 50 MG TAB PO PRN ×2 (04:52→15:39)
[2019-03-25 07:24] LABS: Anion Gap 13 mmol/L (10-20); BUN (Urea Nitrogen) 21 mg/dL (8.9-20.6); Calc. Creatinine Clearance 53 mL/min (70-130); Calcium 8.8 mg/dL (7.8-10.44); Carbon Dioxide 28 mmol/L (22-29); Chloride 100 mmol/L (98-107); Estimated GFR-MDRD 20; Glucose 119 mg/dL (70-105); Potassium 3.7 mmol/L (3.5-5.1); Sodium 137 mmol/L (136-145)
[2019-03-25] MEDS: NIFEdipine XL 60 MG TAB PO SCH ×2 (09:59→19:59)
[2019-03-25] MEDS: Labetalol 100 MG TAB PO SCH ×2 (09:59→20:00)
[2019-03-25] MEDS: hydrALAZINE 25 MG TAB PO SCH ×3 (10:02→19:57)
[2019-03-25] MEDS: Furosemide 80 MG TAB PO SCH (10:03)
[2019-03-25] MEDS: Minoxidil 10 MG TAB PO SCH ×2 (10:03→19:58)
[2019-03-25] MEDS ORDERED: ISOVUE-370 76%-LOCM 1 ML ONE (11:34)
--- NOTE | 2019-03-25 12:18 | PDOC.PN ---
- Subjective Encounter Start Date: 03/25/19 Encounter Start Time: 12:15 Subjective: f/u for ESRD on HD and HTN. States feeling better overall. BP remains -: elevated. No new complaints. - Objective MAR Reviewed: Yes Vital Signs & Weight: Vital Signs (12 hours) Temp Pulse Resp BP BP BP Pulse Ox 03/25/19 10:02 98 195/91 H 03/25/19 09:59 99 195/91 H 03/25/19 08:00 97.9 F 99 16 195/91 H 94 L 03/25/19 04:00 98.1 F 95 18 179/86 H 92 L Weight Admit Weight 297 lb 6.457 oz Weight 328 lb 8 oz Most Recent Monitor Data Heart Rate from ECG 105 NIBP 158/93 NIBP BP-Mean 114 Respiration from ECG 19 SpO2 99 I&O: 03/24/19 03/25/19 03/26/19 06:59 06:59 06:59 Intake Total 2350 1200 Output Total 3400 400 Balance -1050 800 Result Diagrams: 03/24/19 11:02 03/25/19 06:53 Additional Labs: Accuchecks 03/25/19 03/25/19 03/24/19 11:14 05:34 20:53 POC Glucose 199 H 143 H 218 H 03/24/19 17:20 POC Glucose 185 H Microbiology 03/17/19 12:47 Venous blood - Right Hand Blood Culture - Preliminary NO GROWTH AT 48 HOURS 03/17/19 12:42 Venous blood - Left Arm Blood Culture - Preliminary NO GROWTH AT 48 HOURS Laboratory Tests 03/17/19 03/17/19 03/17/19 10:25 10:25 15:53 WBC 21.5 H Hgb 12.6 L Creatinine 6.93 H U Cannabinoids Screen Detected H 03/18/19 03/20/19 03/20/19 05:55 06:44 06:44 WBC 14.8 H Hgb 8.9 L Creatinine 6.59 H 7.51 H U Cannabinoids Screen 03/22/19 05:01 WBC 11.7 H Hgb 8.4 L Creatinine U Cannabinoids Screen EKG Reviewed by me: Yes (Tele - SR) Phys Exam - Physical Examination Constitutional: NAD HEENT: PERRLA, sclera anicteric, oral pharynx no lesions Neck: no nodes, no JVD, supple, full ROM Respiratory: no wheezing, no rales, no rhonchi, clear to auscultation bilateral S1, S2 Cardiovascular: RRR, no significant murmur, no rub, gallop obese Gastrointestinal: soft, non-tender, no distention, positive bowel sounds LUE with AV fistula in place Musculoskeletal: pulses present, edema present Neurological: normal sensation, moves all 4 limbs Psychiatric: A&O x 3 Skin: normal turgor, cap refill <2 seconds Dx/Plan (1) ESRD (end stage renal disease) on dialysis Code(s): N18.6 - END STAGE RENAL DISEASE; Z99.2 - DEPENDENCE ON RENAL DIALYSIS Status: Acute Comment: HD catheter placement with initiation of HD, Nephrology following, coordinating for outpt HD (2) HTN (hypertension) Code(s): I10 - ESSENTIAL (PRIMARY) HYPERTENSION Status: Chronic Qualifiers: Hypertension type: essential hypertension Qualified Code(s): I10 - Essential (primary) hypertension Comment: Labile, may need additional volume removal with HD, continue Hydralazine, Minoxidil, Labetalol, Procardia, Clonidine (3) Chronic diastolic CHF (congestive heart failure), NYHA class 3 Code(s): I50.32 - CHRONIC DIASTOLIC (CONGESTIVE) HEART FAILURE Status: Chronic Comment: last ECHO 11/15 showed Gd 2/3 diastolic Fx and EF 40-45%.NO acute decompensation (4) Hypertensive urgency Code(s): I16.0 - HYPERTENSIVE URGENCY Status: Acute Comment: Continue current BP regimen, labile BP trend with initiation of HD (5) DM2 (diabetes mellitus, type 2) Status: Chronic Qualifiers: Diabetes mellitus skilled nursing insulin use: without assistant terminal manager use Diabetes mellitus complication status: with kidney complications Diabetes mellitus complication detail: with chronic kidney disease Chronic kidney disease stage : stage 3 (moderate) Qualified Code(s): E11.22 - Type 2 diabetes mellitus with diabetic chronic kidney disease; N18.3 - Chronic kidney disease, stage 3 ( moderate) Comment: on ISS, continue accuchecks (6) Medical non-compliance Code(s): Z91.19 - PATIENT'S NONCOMPLIANCE W OTH MEDICAL TREATMENT AND REGIMEN Status: Chronic Comment: repeatedly counseled to be complaint. $4 prescriptions that can be purchesed at [facility] [employer] out of bed/ambulate Stable overall -: Continue HD per Nephrology -: CM for outpt HD coordination -: OOB/ambulate -: AM lab: BMP * .
[2019-03-25] MEDS: HumaLOG 300 UNITS/3 ML VIAL SC PRN ×2 (12:37→18:01)
--- NOTE | 2019-03-25 14:25 | PRG ---
DATE OF SERVICE: 03/25/2019 SUBJECTIVE: A 33-year-old gentleman being seen for end-stage renal disease. The patient denied any nausea, vomiting, or chest pain. OBJECTIVE: CONSTITUTIONAL: On examination, the patient is awake and alert. VITAL SIGNS: Afebrile, pulse 97, breathing 16, and blood pressure 195/91. GENERAL APPEARANCE AND MENTAL STATUS: Fair. HEAD/NECK: Normocephalic. Atraumatic. EYES: EOMI. No deformity. EARS: Clear. No ulcers. NOSE: Intact. No lesions. MOUTH: Clear. No discharge. THROAT: Clear. No exudate. LUNGS: Clear. No crackles. CARDIAC: S1, S2. No rub. ABDOMEN: Benign. Bowel sounds positive. GENITALIA/RECTUM: Collins absent. BACK/EXTREMITIES: Edema 0+. NEUROLOGICAL: Alert and motor intact. SKIN: LYMPHATICS: LABORATORY DATA: Reviewed. ASSESSMENT AND PLAN: 1. Stage 6 chronic kidney disease. Plan dialysis per schedule on Wednesday, Wednesday, and Wednesday. 2. Hypertension. I would recommend starting clonidine 0.1 t.i.d. and also would recommend getting a renal artery stenosis workup as well as an aldosterone level. 3. Anemia, stable. 4. Medication based on GFR appropriate. Job ID: [id number]
[2019-03-25] MEDS: cloNIDine 0.1 MG TAB PO SCH ×2 (15:38→19:58)
--- NOTE | 2019-03-25 15:57 | CT ---
CTA ABDOMEN WITH CONTRAST 03/25/19 Multiple axial tomograms obtained through the abdomen following an angio protocol with Multiplanar re constructions and 3D post processing. (The order states CT angio abdomen with and without. A with only study was performed. No study was pe rformed without contrast.) INDICATIONS: Evaluate for renal artery stenosis. FINDINGS: There is suboptimal opacification of the abdominal aorta. Body habitus also limits exam due to attenu ation artifact. The abdominal aorta is normal caliber. Aortic branches appear unremarkable. The celiac artery and sup erior mesenteric arteries appear unremarkable. Both renal arteries are identified and appear patent. There is no evidence of renal artery stenosis. Aortic bifurcation is unremarkable. Liver, spleen, pancreas, unremarkable. Adrenal glands unremarkable. Bowel loops unremarkable. IMPRESSION: Unremarkable CTA abdomen. POS: OFF
[2019-03-26 05:41] LABS: Anion Gap 15 mmol/L (10-20); BUN (Urea Nitrogen) 27 mg/dL (8.9-20.6); Calc. Creatinine Clearance 44 mL/min (70-130); Calcium 8.9 mg/dL (7.8-10.44); Carbon Dioxide 27 mmol/L (22-29); Chloride 97 mmol/L (98-107); Estimated GFR-MDRD 16; Glucose 124 mg/dL (70-105); Potassium 3.6 mmol/L (3.5-5.1); Sodium 135 mmol/L (136-145)
[2019-03-26] MEDS: Labetalol 100 MG TAB PO SCH ×2 (08:58→20:47)
[2019-03-26] MEDS: cloNIDine 0.1 MG TAB PO SCH ×3 (08:59→20:46)
[2019-03-26] MEDS: traMADol HCl 50 MG TAB PO PRN (09:01)
[2019-03-26] MEDS: NIFEdipine XL 60 MG TAB PO SCH ×2 (09:03→20:46)
[2019-03-26] MEDS: Minoxidil 10 MG TAB PO SCH ×2 (09:03→20:49)
[2019-03-26] MEDS: hydrALAZINE 25 MG TAB PO SCH ×3 (09:03→20:48)
[2019-03-26] MEDS: Furosemide 80 MG TAB PO SCH (09:04)
--- NOTE | 2019-03-26 11:54 | PDOC.PN ---
- Subjective Encounter Start Date: 03/26/19 Encounter Start Time: 11:52 Patient seen and examined, no new issues or complaints, all questions answered. - Objective Vital Signs & Weight: Vital Signs (12 hours) Temp Pulse Resp BP BP Pulse Ox 03/26/19 09:03 95 171/78 H 03/26/19 08:59 171/78 H 03/26/19 08:58 95 171/78 H 03/26/19 08:00 96 03/26/19 07:45 97.8 F 95 16 171/78 H 95 03/26/19 03:50 98.1 F 94 19 174/80 H 95 Weight Admit Weight 297 lb 6.457 oz Weight 328 lb 8 oz Most Recent Monitor Data Heart Rate from ECG 105 NIBP 158/93 NIBP BP-Mean 114 Respiration from ECG 19 SpO2 99 I&O: 03/25/19 03/26/19 03/27/19 06:59 06:59 06:59 Intake Total 1200 1150 Output Total 400 960 Balance 800 190 Result Diagrams: 03/24/19 11:02 03/26/19 04:20 Additional Labs: Accuchecks 03/26/19 03/26/19 03/25/19 10:55 05:36 20:35 POC Glucose 193 H 137 H 187 H 03/25/19 16:33 POC Glucose 162 H Phys Exam - Physical Examination Constitutional: NAD obese HEENT: PERRLA, moist MMs, sclera anicteric Neck: no nodes, no JVD, supple Respiratory: no wheezing, no rales, no rhonchi Cardiovascular: RRR, no significant murmur, no rub Gastrointestinal: soft, non-tender, no distention Musculoskeletal: pulses present, edema present Dx/Plan (1) ESRD (end stage renal disease) on dialysis Code(s): N18.6 - END STAGE RENAL DISEASE; Z99.2 - DEPENDENCE ON RENAL DIALYSIS Status: Acute Comment: HD catheter placement with initiation of HD, Nephrology following, coordinating for outpt HD (2) HTN (hypertension) Code(s): I10 - ESSENTIAL (PRIMARY) HYPERTENSION Status: Chronic Qualifiers: Hypertension type: essential hypertension Qualified Code(s): I10 - Essential (primary) hypertension Comment: Labile, may need additional volume removal with HD, continue Hydralazine, Minoxidil, Labetalol, Procardia, Clonidine (3) Hypertensive emergency Code(s): I16.1 - HYPERTENSIVE EMERGENCY Status: Acute Comment: off of Cardene drip, non complaint patient, possible rebound too as he stopped Clonidine and other meds. All his meds are $4 prescription, patient knows it, but continues not to take it. Currently on Labetalol,hydralazine,Minoxidil,Procardia and lasix among others (4) DM2 (diabetes mellitus, type 2) Status: Chronic Qualifiers: Diabetes mellitus retirement insulin use: without long term care phlebotomist use Diabetes mellitus complication status: with kidney complications Diabetes mellitus complication detail: with chronic kidney disease Chronic kidney disease stage : stage 3 (moderate) Qualified Code(s): E11.22 - Type 2 diabetes mellitus with diabetic chronic kidney disease; N18.3 - Chronic kidney disease, stage 3 ( moderate) Comment: on ISS, continue accuchecks (5) Morbid obesity with BMI of 40.0-44.9, adult Code(s): E66.01 - MORBID (SEVERE) OBESITY DUE TO EXCESS CALORIES; Z68.41 - BODY MASS INDEX (BMI) 40.0-44.9, ADULT Status: Chronic Comment: Diet and exercise counseled, patient non compliant - Plan * pending HD arrangements * still making urine, will add on lasix 80mg IV q12hrs to help remove volume, patient has some edema and this is likely also contributing to his high BP * HD per renal * DC plans once HD arrangements done * case and plan d/w patient at [facility], he undrestood and agreed with this plan.
--- NOTE | 2019-03-26 13:49 | PRG ---
DATE OF SERVICE: 03/26/2019 SUBJECTIVE: This is a 33-year-old gentleman being seen for end-stage renal disease. The patient denies any nausea, vomiting, or chest pain. OBJECTIVE: CONSTITUTIONAL: On exam, the patient is awake and alert. VITAL SIGNS: Afebrile, pulse 90, breathing 16, and blood pressure 170/80. GENERAL APPEARANCE AND MENTAL STATUS: Fair. HEAD/NECK: Normocephalic. Atraumatic. EYES: EOMI. No deformity. EARS: Clear. No ulcers. NOSE: Intact. No lesions. MOUTH: Clear. No discharge. THROAT: Clear. No exudate. LUNGS: Clear. No crackles. CARDIAC: S1, S2. No rub. ABDOMEN: Benign. Bowel sounds positive. GENITALIA/RECTUM: Collins absent. BACK/EXTREMITIES: Edema 0+. NEUROLOGICAL: Alert and motor intact. LABORATORY DATA: Reviewed. ASSESSMENT AND PLAN: 1. Stage 6 chronic kidney disease. Plan dialysis per schedule. 2. Hypertension. Increase labetalol to 400 b.i.d. and increase clonidine as needed. 3. Anemia, stable. 4. Medications based on glomerular filtration rate are appropriate. The patient's workup for hypertension is pending. Job ID: [id number]
[2019-03-26] MEDS: Furosemide 100 MG/10 ML VIAL SLOW IVP SCH (14:36)
[2019-03-26] MEDS: HumaLOG 300 UNITS/3 ML VIAL SC PRN (17:00)
[2019-03-27] MEDS: traMADol HCl 50 MG TAB PO PRN ×2 (04:18→21:32)
[2019-03-27] MEDS: Furosemide 100 MG/10 ML VIAL SLOW IVP SCH ×2 (04:22→16:52)
[2019-03-27 05:45] LABS: Anion Gap 14 mmol/L (10-20); BUN (Urea Nitrogen) 34 mg/dL (8.9-20.6); Calc. Creatinine Clearance 39 mL/min (70-130); Calcium 8.8 mg/dL (7.8-10.44); Carbon Dioxide 26 mmol/L (22-29); Chloride 97 mmol/L (98-107); Estimated GFR-MDRD 14; Glucose 134 mg/dL (70-105); Potassium 3.7 mmol/L (3.5-5.1); Sodium 133 mmol/L (136-145)
[2019-03-27] MEDS: hydrALAZINE 25 MG TAB PO SCH ×3 (09:27→21:06)
[2019-03-27] MEDS: Labetalol 100 MG TAB PO SCH ×2 (09:27→21:13)
[2019-03-27] MEDS: NIFEdipine XL 60 MG TAB PO SCH ×2 (09:28→21:15)
[2019-03-27] MEDS: Minoxidil 10 MG TAB PO SCH ×2 (09:28→21:14)
[2019-03-27] MEDS: cloNIDine 0.1 MG TAB PO SCH ×3 (09:32→21:14)
--- NOTE | 2019-03-27 11:29 | PDOC.PN ---
- Subjective Encounter Start Date: 03/27/19 Encounter Start Time: 11:28 Patient seen and examined, no new issues. - Objective Vital Signs & Weight: Vital Signs (12 hours) Temp Pulse Resp BP BP BP Pulse Ox 03/27/19 09:32 193/89 H 03/27/19 09:28 90 03/27/19 09:27 90 03/27/19 09:21 97.8 F 90 18 140/88 95 03/27/19 08:30 95 03/27/19 03:38 97.7 F 88 20 136/85 99 Weight Admit Weight 297 lb 6.457 oz Weight 332 lb 8 oz Most Recent Monitor Data Heart Rate from ECG 105 NIBP 158/93 NIBP BP-Mean 114 Respiration from ECG 19 SpO2 99 I&O: 03/26/19 03/27/19 03/28/19 06:59 06:59 06:59 Intake Total 1150 1220 Output Total 960 175 Balance 190 1045 Result Diagrams: 03/24/19 11:02 03/27/19 05:00 Additional Labs: Accuchecks 03/27/19 03/27/19 03/26/19 10:55 05:34 20:32 POC Glucose 153 H 137 H 179 H 03/26/19 16:51 POC Glucose 237 H Phys Exam - Physical Examination Constitutional: NAD HEENT: PERRLA, moist MMs, sclera anicteric Neck: no nodes, no JVD, supple Respiratory: no wheezing, no rales, no rhonchi Cardiovascular: RRR, no significant murmur, no rub Gastrointestinal: soft, non-tender, no distention, positive bowel sounds Musculoskeletal: pulses present, edema present Dx/Plan (1) ESRD (end stage renal disease) on dialysis Code(s): N18.6 - END STAGE RENAL DISEASE; Z99.2 - DEPENDENCE ON RENAL DIALYSIS Status: Acute Comment: HD catheter placement with initiation of HD, Nephrology following, coordinating for outpt HD (2) HTN (hypertension) Code(s): I10 - ESSENTIAL (PRIMARY) HYPERTENSION Status: Chronic Qualifiers: Hypertension type: essential hypertension Qualified Code(s): I10 - Essential (primary) hypertension Comment: Labile, may need additional volume removal with HD, continue Hydralazine, Minoxidil, Labetalol, Procardia, Clonidine (3) Hypertensive emergency Code(s): I16.1 - HYPERTENSIVE EMERGENCY Status: Acute Comment: off of Cardene drip, non complaint patient, possible rebound too as he stopped Clonidine and other meds. All his meds are $4 prescription, patient knows it, but continues not to take it. Currently on Labetalol,hydralazine,Minoxidil,Procardia and lasix among others (4) DM2 (diabetes mellitus, type 2) Status: Chronic Qualifiers: Diabetes mellitus medical terminologist insulin use: without medical terminologist use Diabetes mellitus complication status: with kidney complications Diabetes mellitus complication detail: with chronic kidney disease Chronic kidney disease stage : stage 3 (moderate) Qualified Code(s): E11.22 - Type 2 diabetes mellitus with diabetic chronic kidney disease; N18.3 - Chronic kidney disease, stage 3 ( moderate) Comment: on ISS, continue accuchecks (5) Morbid obesity with BMI of 40.0-44.9, adult Code(s): E66.01 - MORBID (SEVERE) OBESITY DUE TO EXCESS CALORIES; Z68.41 - BODY MASS INDEX (BMI) 40.0-44.9, ADULT Status: Chronic Comment: Diet and exercise counseled, patient non compliant - Plan * Pending Hd arrangements * DC plans once arranged * no other changes in plan of care
--- NOTE | 2019-03-27 14:38 | PRG ---
DATE OF SERVICE: 03/27/2019 SUBJECTIVE: Patient was seen and examined at bedside and overnight events noted. Patient denies any shortness of breath or chest pain or palpitation. No history of nausea or vomiting or diarrhea or fever or chills or cramps. OBJECTIVE: GENERAL: This is an obese male, in no apparent distress. VITAL SIGNS: Temperature 97.8. Heart rate 90. Respiratory rate 18. Blood pressure 140/88. HEENT: Atraumatic, normocephalic. Oral mucosa is moist NECK: Supple. CARDIOVASCULAR: S1, S2 heard. Rate and rhythm regular. RESPIRATORY: Clear to auscultation. GASTROINTESTINAL: Abdomen is soft. MUSCULOSKELETAL: No tenderness. No edema. DERMATOLOGIC: No skin rash. NEUROLOGIC: Alert and awake and oriented X3. No focal neurologic deficits. Moving all the extremities. PSYCHIATRIC: Mood and affect normal. LABORATORY DATA: Potassium 3.7, BUN is 34, creatinine is 5.6. ASSESSMENT AND PLAN: 1. End-stage renal disease. Continue dialysis as tolerated on Wednesday, Wednesday, and Wednesday. 2. Hypertension, better. 3. Anemia. 4. Edema. 5. Morbid obesity. Plan to continue dialysis as tolerated. Outpatient dialysis is being arranged. Job ID: [id number]
[2019-03-27] MEDS ORDERED: Heparin 10,000 UNITS/ 10 ML VIAL ONE (19:27)
[2019-03-27] MEDS: HumaLOG 300 UNITS/3 ML VIAL SC PRN (21:11)
[2019-03-28] MEDS: cloNIDine 0.1 MG TAB PO PRN (05:24)
[2019-03-28] MEDS: Furosemide 100 MG/10 ML VIAL SLOW IVP SCH ×2 (05:24→13:24)
[2019-03-28 06:11] LABS: Anion Gap 12 mmol/L (10-20); BUN (Urea Nitrogen) 21 mg/dL (8.9-20.6); Calc. Creatinine Clearance 51 mL/min (70-130); Calcium 8.5 mg/dL (7.8-10.44); Carbon Dioxide 29 mmol/L (22-29); Chloride 98 mmol/L (98-107); Estimated GFR-MDRD 19; Glucose 123 mg/dL (70-105); Sodium 135 mmol/L (136-145)
[2019-03-28] MEDS: Labetalol 100 MG TAB PO SCH ×2 (09:16→20:56)
[2019-03-28] MEDS: Minoxidil 10 MG TAB PO SCH ×2 (09:17→20:57)
[2019-03-28] MEDS: cloNIDine 0.1 MG TAB PO SCH ×3 (09:17→20:57)
[2019-03-28] MEDS: hydrALAZINE 25 MG TAB PO SCH ×3 (09:17→20:56)
[2019-03-28] MEDS: NIFEdipine XL 60 MG TAB PO SCH ×2 (09:17→20:55)
--- NOTE | 2019-03-28 11:31 | PRG ---
DATE OF SERVICE: 03/28/2019 SUBJECTIVE: Patient was seen and examined at bedside and overnight events noted. Patient denies any shortness of breath or chest pain or palpitation. No history of nausea or vomiting or diarrhea or fever or chills or cramps. OBJECTIVE: GENERAL: This is a well-built male in no apparent distress. VITAL SIGNS: Temperature 98.3. Pulse 84. Respiratory rate 20. Blood pressure 166/89. HEENT: Atraumatic, normocephalic. Oral mucosa is moist NECK: Supple. CARDIOVASCULAR: S1, S2 heard. Rate and rhythm regular. RESPIRATORY: Clear to auscultation. GASTROINTESTINAL: Abdomen is soft. MUSCULOSKELETAL: No tenderness. No edema. DERMATOLOGIC: No skin rash. NEUROLOGIC: Alert and awake and oriented X3. No focal neurologic deficits. Moving all the extremities. PSYCHIATRIC: Mood and affect normal. LABORATORY DATA: Potassium 4, BUN 21, creatinine is 4.4. ASSESSMENT AND PLAN: 1. End-stage renal disease. Continue on dialysis as tolerated. Follow with Case Management for outpatient placement. 2. Hypertension. Titrate medications. We will remove fluid with dialysis. 3. Anemia. 4. Edema. We will remove fluid with dialysis. 5. Morbid obesity. Titrate medications, blood pressure medicines and we will remove fluid with dialysis as tolerated. Job ID: [id number]
--- NOTE | 2019-03-28 14:46 | PDOC.PN ---
- Subjective Encounter Start Date: 03/28/19 Encounter Start Time: 14:44 Patient seen and examined, no new issues or complaints, all questions answered. - Objective Vital Signs & Weight: Vital Signs (12 hours) Temp Pulse Resp BP BP Pulse Ox 03/28/19 13:22 98.3 F 81 20 184/85 H 95 03/28/19 09:17 188/92 H 03/28/19 09:16 188/92 H 03/28/19 08:25 95 03/28/19 08:00 98.3 F 84 20 166/89 H 95 03/28/19 05:24 188/92 H 03/28/19 03:45 99.4 F 91 16 188/92 H 98 Weight Admit Weight 297 lb 6.457 oz Weight 332 lb 8 oz Most Recent Monitor Data Heart Rate from ECG 105 NIBP 158/93 NIBP BP-Mean 114 Respiration from ECG 19 SpO2 99 I&O: 03/27/19 03/28/19 03/29/19 06:59 06:59 06:59 Intake Total 1220 1130 Output Total 175 580 Balance 1045 550 Result Diagrams: 03/24/19 11:02 03/28/19 04:55 Additional Labs: Accuchecks 03/28/19 03/28/19 03/27/19 11:43 05:50 20:42 POC Glucose 196 H 145 H 222 H 03/27/19 16:35 POC Glucose 91 Phys Exam - Physical Examination Constitutional: NAD obese HEENT: PERRLA, moist MMs, sclera anicteric Neck: no nodes, no JVD, supple Respiratory: no wheezing, no rales, no rhonchi Cardiovascular: RRR, no significant murmur, no rub Gastrointestinal: soft, non-tender, no distention, positive bowel sounds Musculoskeletal: pulses present, edema present Dx/Plan (1) ESRD (end stage renal disease) on dialysis Code(s): N18.6 - END STAGE RENAL DISEASE; Z99.2 - DEPENDENCE ON RENAL DIALYSIS Status: Acute Comment: HD catheter placement with initiation of HD, Nephrology following, coordinating for outpt HD (2) HTN (hypertension) Code(s): I10 - ESSENTIAL (PRIMARY) HYPERTENSION Status: Chronic Qualifiers: Hypertension type: essential hypertension Qualified Code(s): I10 - Essential (primary) hypertension Comment: Labile, may need additional volume removal with HD, continue Hydralazine, Minoxidil, Labetalol, Procardia, Clonidine (3) Hypertensive emergency Code(s): I16.1 - HYPERTENSIVE EMERGENCY Status: Acute Comment: off of Cardene drip, non complaint patient, possible rebound too as he stopped Clonidine and other meds. All his meds are $4 prescription, patient knows it, but continues not to take it. 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: without auto technician mechanic use Diabetes mellitus complication status: with kidney complications Diabetes mellitus complication detail: with chronic kidney disease Chronic kidney disease stage : stage 3 (moderate) Qualified Code(s): E11.22 - Type 2 diabetes mellitus with diabetic chronic kidney disease; N18.3 - Chronic kidney disease, stage 3 ( moderate) Comment: on ISS, continue accuchecks (5) Morbid obesity with BMI of 40.0-44.9, adult Code(s): E66.01 - MORBID (SEVERE) OBESITY DUE TO EXCESS CALORIES; Z68.41 - BODY MASS INDEX (BMI) 40.0-44.9, ADULT Status: Chronic Comment: Diet and exercise counseled, patient non compliant - Plan * pending dialysis arrangement outpatient * DC plans once HD out patient arranged * cont Hd per renal for now * case and plan d/w patient at length, he understood and agreed with this plan
[2019-03-28] MEDS: traMADol HCl 50 MG TAB PO PRN (20:57)
[2019-03-29] MEDS: Furosemide 100 MG/10 ML VIAL SLOW IVP SCH ×2 (06:04→14:25)
[2019-03-29] MEDS: hydrALAZINE 25 MG TAB PO SCH ×3 (09:12→21:17)
[2019-03-29] MEDS: cloNIDine 0.1 MG TAB PO SCH ×3 (09:12→21:17)
[2019-03-29] MEDS: Labetalol 100 MG TAB PO SCH ×2 (09:13→21:16)
[2019-03-29] MEDS: Minoxidil 10 MG TAB PO SCH ×2 (09:14→21:17)
[2019-03-29] MEDS: NIFEdipine XL 60 MG TAB PO SCH ×2 (09:14→21:17)
--- NOTE | 2019-03-29 10:19 | PDOC.PN ---
- Subjective Encounter Start Date: 03/29/19 Encounter Start Time: 10:18 Patient seen and examined, no new issues or complaints, all questions answered. No family at bedside. - Objective Vital Signs & Weight: Vital Signs (12 hours) Temp Pulse Resp BP BP BP Pulse Ox 03/29/19 09:14 91 175/88 H 03/29/19 09:13 91 175/88 H 03/29/19 09:12 91 175/88 H 03/29/19 08:58 98.2 F 91 14 175/88 H 93 L 03/29/19 04:22 97.8 F 86 18 153/74 H 99 03/29/19 00:05 89 18 155/86 H Weight Admit Weight 297 lb 6.457 oz Weight 329 lb 6.4 oz Most Recent Monitor Data Heart Rate from ECG 105 NIBP 158/93 NIBP BP-Mean 114 Respiration from ECG 19 SpO2 99 I&O: 03/28/19 03/29/19 03/30/19 06:59 06:59 06:59 Intake Total 1130 1530 Output Total 580 1115 Balance 550 415 Result Diagrams: 03/24/19 11:02 03/28/19 04:55 Additional Labs: Accuchecks 03/29/19 03/28/19 03/28/19 05:34 20:25 17:23 POC Glucose 131 H 182 H 204 H 03/28/19 11:43 POC Glucose 196 H Phys Exam - Physical Examination Constitutional: NAD HEENT: PERRLA, moist MMs, sclera anicteric Neck: no nodes, no JVD, supple Respiratory: no wheezing, no rales, no rhonchi Cardiovascular: RRR, no significant murmur, no rub Gastrointestinal: soft, non-tender, no distention, positive bowel sounds Musculoskeletal: pulses present, edema present Dx/Plan (1) ESRD (end stage renal disease) on dialysis Code(s): N18.6 - END STAGE RENAL DISEASE; Z99.2 - DEPENDENCE ON RENAL DIALYSIS Status: Acute Comment: HD catheter placement with initiation of HD, Nephrology following, coordinating for outpt HD (2) HTN (hypertension) Code(s): I10 - ESSENTIAL (PRIMARY) HYPERTENSION Status: Chronic Qualifiers: Hypertension type: essential hypertension Qualified Code(s): I10 - Essential (primary) hypertension Comment: Labile, may need additional volume removal with HD, continue Hydralazine, Minoxidil, Labetalol, Procardia, Clonidine (3) Hypertensive emergency Code(s): I16.1 - HYPERTENSIVE EMERGENCY Status: Acute Comment: off of Cardene drip, non complaint patient, possible rebound too as he stopped Clonidine and other meds. All his meds are $4 prescription, patient knows it, but continues not to take it. Currently on Labetalol,hydralazine,Minoxidil,Procardia and lasix among others (4) DM2 (diabetes mellitus, type 2) Status: Chronic Qualifiers: Diabetes mellitus retirement insulin use: without retirement use Diabetes mellitus complication status: with kidney complications Diabetes mellitus complication detail: with chronic kidney disease Chronic kidney disease stage : stage 3 (moderate) Qualified Code(s): E11.22 - Type 2 diabetes mellitus with diabetic chronic kidney disease; N18.3 - Chronic kidney disease, stage 3 ( moderate) Comment: on ISS, continue accuchecks (5) Morbid obesity with BMI of 40.0-44.9, adult Code(s): E66.01 - MORBID (SEVERE) OBESITY DUE TO EXCESS CALORIES; Z68.41 - BODY MASS INDEX (BMI) 40.0-44.9, ADULT Status: Chronic Comment: Diet and exercise counseled, patient non compliant - Plan * pending HD arrangements * DC plans once arrangements made * no other changes in plan of care * HD per renal
--- NOTE | 2019-03-29 11:36 | PRG ---
DATE OF SERVICE: 03/29/2019 SUBJECTIVE: Patient was seen and examined at bedside and overnight events noted. Patient denies any shortness of breath or chest pain or palpitation. No history of nausea or vomiting or diarrhea or fever or chills or cramps. OBJECTIVE: GENERAL: This is an obese male, in no acute distress. VITAL SIGNS: Temperature 98.2. Heart rate 91. Respiratory rate 18. Blood pressure 175/88. HEENT: Atraumatic, normocephalic. Oral mucosa is moist NECK: Supple. CARDIOVASCULAR: S1, S2 heard. Rate and rhythm regular. RESPIRATORY: Clear to auscultation. GASTROINTESTINAL: Abdomen is soft. MUSCULOSKELETAL: No tenderness. No edema. DERMATOLOGIC: No skin rash. NEUROLOGIC: Alert and awake and oriented X3. No focal neurologic deficits. Moving all the extremities. PSYCHIATRIC: Mood and affect normal. LABORATORY DATA: Not done today. ASSESSMENT AND PLAN: 1. End-stage renal disease. Continue on dialysis as tolerated. 2. Hypertension. We will titrate medications. We will remove fluid with dialysis. 3. Anemia. 4. Edema. 5. Morbid obesity. Plan to continue on dialysis as tolerated. Waiting for insurance approval for outpatient dialysis placement. We will follow. Job ID: [id number]
[2019-03-29 12:46] LABS: Anion Gap 12 mmol/L (10-20); BUN (Urea Nitrogen) 28 mg/dL (8.9-20.6); Calc. Creatinine Clearance 36 mL/min (70-130); Calcium 8.3 mg/dL (7.8-10.44); Carbon Dioxide 28 mmol/L (22-29); Chloride 98 mmol/L (98-107); Estimated GFR-MDRD 13; Glucose 201 mg/dL (70-105); Potassium 4.2 mmol/L (3.5-5.1); Sodium 134 mmol/L (136-145)
[2019-03-29 22:07] LABS: Metanephrine,Plasma <10 pg/mL (0-62); Normetanephrine,Pl 69 pg/mL (0-145)
[2019-03-30] MEDS: Furosemide 100 MG/10 ML VIAL SLOW IVP SCH (05:58)
[2019-03-30] MEDS: Minoxidil 10 MG TAB PO SCH ×2 (10:33→20:12)
[2019-03-30] MEDS: hydrALAZINE 25 MG TAB PO SCH ×3 (10:33→20:12)
[2019-03-30] MEDS: Labetalol 100 MG TAB PO SCH ×2 (10:34→20:11)
[2019-03-30] MEDS: cloNIDine 0.1 MG TAB PO SCH ×3 (10:34→20:12)
[2019-03-30] MEDS: NIFEdipine XL 60 MG TAB PO SCH ×2 (10:34→20:12)
[2019-03-30 11:11] LABS: Anion Gap 14 mmol/L (10-20); BUN (Urea Nitrogen) 20 mg/dL (8.9-20.6); Calc. Creatinine Clearance 46 mL/min (70-130); Calcium 8.8 mg/dL (7.8-10.44); Carbon Dioxide 28 mmol/L (22-29); Chloride 97 mmol/L (98-107); Estimated GFR-MDRD 17; Glucose 175 mg/dL (70-105); Potassium 3.8 mmol/L (3.5-5.1); Sodium 135 mmol/L (136-145)
--- NOTE | 2019-03-30 12:07 | PDOC.PN ---
- Subjective Encounter Start Date: 03/30/19 Encounter Start Time: 12:06 Patient seen and examined, no issues overnight. - Objective Vital Signs & Weight: Vital Signs (12 hours) Temp Pulse Resp BP BP BP Pulse Ox 03/30/19 10:34 92 146/75 H 03/30/19 10:33 92 146/95 H 03/30/19 07:54 98.6 F 92 14 170/83 H 97 03/30/19 04:00 98.3 F 89 20 163/78 H 98 Weight Admit Weight 297 lb 6.457 oz Weight 324 lb 9.6 oz Most Recent Monitor Data Heart Rate from ECG 105 NIBP 158/93 NIBP BP-Mean 114 Respiration from ECG 19 SpO2 99 I&O: 03/29/19 03/30/19 03/31/19 06:59 06:59 06:59 Intake Total 1530 1480 Output Total 1115 450 Balance 415 1030 Result Diagrams: 03/24/19 11:02 03/30/19 10:30 Additional Labs: Accuchecks 03/30/19 03/30/19 03/29/19 10:59 05:36 20:15 POC Glucose 181 H 115 H 214 H 03/29/19 16:55 POC Glucose 111 H Phys Exam - Physical Examination Constitutional: NAD obese HEENT: PERRLA, moist MMs, sclera anicteric Neck: no nodes, no JVD Respiratory: no wheezing, no rales, no rhonchi Cardiovascular: RRR, no significant murmur, no rub Gastrointestinal: soft, non-tender, no distention, positive bowel sounds Musculoskeletal: pulses present, edema present Dx/Plan (1) ESRD (end stage renal disease) on dialysis Code(s): N18.6 - END STAGE RENAL DISEASE; Z99.2 - DEPENDENCE ON RENAL DIALYSIS Status: Acute Comment: HD catheter placement with initiation of HD, Nephrology following, coordinating for outpt HD (2) HTN (hypertension) Code(s): I10 - ESSENTIAL (PRIMARY) HYPERTENSION Status: Chronic Qualifiers: Hypertension type: essential hypertension Qualified Code(s): I10 - Essential (primary) hypertension Comment: Labile, may need additional volume removal with HD, continue Hydralazine, Minoxidil, Labetalol, Procardia, Clonidine (3) Hypertensive emergency Code(s): I16.1 - HYPERTENSIVE EMERGENCY Status: Acute Comment: off of Cardene drip, non complaint patient, possible rebound too as he stopped Clonidine and other meds. All his meds are $4 prescription, patient knows it, but continues not to take it. 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: without long-term use Diabetes mellitus complication status: with kidney complications Diabetes mellitus complication detail: with chronic kidney disease Chronic kidney disease stage : stage 3 (moderate) Qualified Code(s): E11.22 - Type 2 diabetes mellitus with diabetic chronic kidney disease; N18.3 - Chronic kidney disease, stage 3 ( moderate) Comment: on ISS, continue accuchecks (5) Morbid obesity with BMI of 40.0-44.9, adult Code(s): E66.01 - MORBID (SEVERE) OBESITY DUE TO EXCESS CALORIES; Z68.41 - BODY MASS INDEX (BMI) 40.0-44.9, ADULT Status: Chronic Comment: Diet and exercise counseled, patient non compliant - Plan * pending HD arrangements * no other changes in plan of care * HD per renal * DC lasix
[2019-03-30 12:50] VITALS: BMI 44.0
--- NOTE | 2019-03-30 17:28 | PRG ---
DATE OF SERVICE: 03/30/2019 SUBJECTIVE: Patient was seen and examined at bedside and overnight events noted. Patient denies any shortness of breath or chest pain or palpitation. No history of nausea or vomiting or diarrhea or fever or chills or cramps. OBJECTIVE: GENERAL: This is a morbidly obese male, in no apparent distress. VITAL SIGNS: Temperature 98.1. Heart rate 85. Respiratory rate . Blood pressure 140/80. HEENT: Atraumatic, normocephalic. Oral mucosa is moist NECK: Supple. CARDIOVASCULAR: S1, S2 heard. Rate and rhythm regular. RESPIRATORY: Clear to auscultation. GASTROINTESTINAL: Abdomen is soft. MUSCULOSKELETAL: No tenderness. No edema. DERMATOLOGIC: No skin rash. NEUROLOGIC: Alert and awake and oriented X3. No focal neurologic deficits. Moving all the extremities. PSYCHIATRIC: Mood and affect normal. LABORATORY DATA: Potassium is 3.8, BUN is 20, creatinine is 4.7. ASSESSMENT AND PLAN: 1. End-stage renal disease. Continue on dialysis as tolerated. 2. Hypertension. 3. Edema. 4. Morbid obesity. Continue dialysis as tolerated. Job ID: [id number]
[2019-03-30] MEDS: traMADol HCl 50 MG TAB PO PRN (20:12)
[2019-03-30] MEDS ORDERED: Senokot 8.6 MG TAB PO PRN (23:00)
[2019-03-30] MEDS ORDERED: Polyethylene Glycol 3350 17 GM Packet PO PRN (23:00)
[2019-03-31 06:30] LABS: Anion Gap 13 mmol/L (10-20); BUN (Urea Nitrogen) 28 mg/dL (8.9-20.6); Calc. Creatinine Clearance 41 mL/min (70-130); Calcium 8.7 mg/dL (7.8-10.44); Carbon Dioxide 28 mmol/L (22-29); Chloride 97 mmol/L (98-107); Estimated GFR-MDRD 15; Glucose 116 mg/dL (70-105); Potassium 3.7 mmol/L (3.5-5.1); Sodium 134 mmol/L (136-145)
[2019-03-31] MEDS: hydrALAZINE 25 MG TAB PO SCH ×3 (09:00→21:17)
[2019-03-31] MEDS: Minoxidil 10 MG TAB PO SCH ×2 (09:00→21:18)
[2019-03-31] MEDS: cloNIDine 0.1 MG TAB PO SCH ×3 (09:00→21:15)
[2019-03-31] MEDS ORDERED: Heparin 1,000 UNITS/ML VIAL ONE (11:11)
--- NOTE | 2019-03-31 11:33 | PDOC.PN ---
- Subjective Encounter Start Date: 03/31/19 Encounter Start Time: 11:31 Patient seen and examined, no new issues or complaints overnight. - Objective Vital Signs & Weight: Vital Signs (12 hours) Temp Pulse Resp BP Pulse Ox 03/31/19 07:30 98.2 F 87 18 188/88 H 03/31/19 03:13 98.0 F 86 22 H 135/69 99 Weight Admit Weight 297 lb 6.457 oz Weight 329 lb 1.6 oz Most Recent Monitor Data Heart Rate from ECG 105 NIBP 158/93 NIBP BP-Mean 114 Respiration from ECG 19 SpO2 99 I&O: 03/30/19 03/31/19 04/01/19 06:59 06:59 06:59 Intake Total 1480 1160 Output Total 450 575 Balance 1030 585 Result Diagrams: 03/24/19 11:02 03/31/19 05:10 Additional Labs: Accuchecks 03/31/19 03/30/19 03/30/19 05:01 20:46 16:28 POC Glucose 123 H 198 H 186 H Phys Exam - Physical Examination Constitutional: NAD obese HEENT: PERRLA, moist MMs, sclera anicteric Neck: no nodes, no JVD, supple Respiratory: no wheezing, no rales, no rhonchi Cardiovascular: RRR, no significant murmur, no rub Gastrointestinal: soft, non-tender, no distention, positive bowel sounds Musculoskeletal: pulses present, edema present Dx/Plan (1) ESRD (end stage renal disease) on dialysis Code(s): N18.6 - END STAGE RENAL DISEASE; Z99.2 - DEPENDENCE ON RENAL DIALYSIS Status: Acute Comment: HD catheter placement with initiation of HD, Nephrology following, coordinating for outpt HD (2) HTN (hypertension) Code(s): I10 - ESSENTIAL (PRIMARY) HYPERTENSION Status: Chronic Qualifiers: Hypertension type: essential hypertension Qualified Code(s): I10 - Essential (primary) hypertension Comment: Labile, may need additional volume removal with HD, continue Hydralazine, Minoxidil, Labetalol, Procardia, Clonidine (3) Hypertensive emergency Code(s): I16.1 - HYPERTENSIVE EMERGENCY Status: Acute Comment: off of Cardene drip, non complaint patient, possible rebound too as he stopped Clonidine and other meds. All his meds are $4 prescription, patient knows it, but continues not to take it. Currently on Labetalol,hydralazine,Minoxidil,Procardia and lasix among others (4) DM2 (diabetes mellitus, type 2) Status: Chronic Qualifiers: Diabetes mellitus assisted insulin use: without assisted use Diabetes mellitus complication status: with kidney complications Diabetes mellitus complication detail: with chronic kidney disease Chronic kidney disease stage : stage 3 (moderate) Qualified Code(s): E11.22 - Type 2 diabetes mellitus with diabetic chronic kidney disease; N18.3 - Chronic kidney disease, stage 3 ( moderate) Comment: on ISS, continue accuchecks (5) Morbid obesity with BMI of 40.0-44.9, adult Code(s): E66.01 - MORBID (SEVERE) OBESITY DUE TO EXCESS CALORIES; Z68.41 - BODY MASS INDEX (BMI) 40.0-44.9, ADULT Status: Chronic Comment: Diet and exercise counseled, patient non compliant - Plan * pending HD arrangements * DC once HD arrangements made * no changes in plan of care * HD per renal
--- NOTE | 2019-03-31 11:36 | PDOC.EVN ---
Event Note - Event Note Event Note: DC SUMMARY #[id number]
[2019-03-31] MEDS: NIFEdipine XL 60 MG TAB PO SCH ×2 (12:34→21:17)
[2019-03-31] MEDS: Labetalol 100 MG TAB PO SCH ×2 (12:34→21:18)
--- NOTE | 2019-03-31 13:53 | PRG ---
DATE OF SERVICE: 03/31/2019 SUBJECTIVE: A 33-year-old gentleman being seen for end-stage kidney disease. The patient denied any nausea, vomiting, or chest pain. OBJECTIVE: CONSTITUTIONAL: The patient is awake and alert. VITAL SIGNS: Pulse 87, breathing 16, blood pressure 169/87. GENERAL APPEARANCE AND MENTAL STATUS: Fair. HEAD/NECK: Normocephalic. Atraumatic. EYES: EOMI. No deformity. EARS: Clear. No ulcers. NOSE: Intact. No lesions. MOUTH: Clear. No discharge. THROAT: Clear. No exudate. LUNGS: Clear. No crackles. CARDIAC: S1, S2. No rub. ABDOMEN: Benign. Bowel sounds positive. GENITALIA/RECTUM: Collins absent. BACK/EXTREMITIES: Edema 0+. NEUROLOGICAL: Alert and motor intact. SKIN: LYMPHATICS: LABORATORY DATA: Labs reviewed. ASSESSMENT AND PLAN: 1. Stage 6 chronic kidney disease. Plan dialysis. 2. Hypertension, stable. 3. Anemia, stable. 4. Medication based on GFR appropriate. Job ID: [id number]
[2019-03-31] MEDS ORDERED: Tuberculin PPD 0.1 ML VIAL I-DERMAL SCH (17:00)
--- NOTE | 2019-03-31 18:37 | DIS ---
DATE OF ADMISSION: 03/17/2019 DATE OF DISCHARGE: 03/31/2019 ADMITTING DIAGNOSES: Initiation of dialysis, uncontrolled hypertension, chronic kidney disease stage 5, diabetes mellitus type 2, obesity, metabolic bone disease, and anemia. DISCHARGE DIAGNOSES: New declaration of end-stage renal disease, hypertension, hyperlipidemia, diabetes mellitus type 2, and anemia. HOSPITAL COURSE: This is a 33-year-old gentleman, admitted to the hospital due to nausea and vomiting, as well as worsening of renal function. The patient was admitted to Internal Medicine Team, was also seen very closely by Nephrology as well as Pulmonary/Critical Care Team. The patient also was seen by General Surgery for insertion of a dialysis catheter. The patient was initiated on dialysis and was dialyzed in the hospital for several days, lengthy time. Reflective of trying to find funding for the patient for dialysis as well as outpatient dialysis arrangements. Once outpatient dialysis arrangements were made, the patient was discharged home to follow up with the dialysis unit for further management and care. DISPOSITION: Home. FOLLOWUP: Followup with PCP within 1 to 2 weeks. Followup with dialysis unit within 1 to 2 days. MEDICATIONS: See MAR. ACTIVITY: As tolerated with assistance as needed. DIET: Low-fat, low-calorie, high-fiber renal diet. CONDITION: Stable. PROGNOSIS: Good. Once again, case and plan discussed with the patient at length. He understood and agreed with this plan. Job ID: [id number]
[2019-04-01 05:51] LABS: Anion Gap 12 mmol/L (10-20); BUN (Urea Nitrogen) 23 mg/dL (8.9-20.6); Calc. Creatinine Clearance 49 mL/min (70-130); Carbon Dioxide 30 mmol/L (22-29); Chloride 99 mmol/L (98-107); Estimated GFR-MDRD 19; Glucose 115 mg/dL (70-105); Potassium 4.1 mmol/L (3.5-5.1); Sodium 137 mmol/L (136-145)
[2019-04-01] MEDS: NIFEdipine XL 60 MG TAB PO SCH ×2 (09:08→21:20)
[2019-04-01] MEDS: cloNIDine 0.1 MG TAB PO SCH ×3 (09:09→21:19)
[2019-04-01] MEDS: Minoxidil 10 MG TAB PO SCH ×2 (09:09→21:21)
[2019-04-01] MEDS: hydrALAZINE 25 MG TAB PO SCH ×3 (09:09→21:21)
[2019-04-01] MEDS: Labetalol 100 MG TAB PO SCH ×2 (09:11→21:21)
--- NOTE | 2019-04-01 10:48 | PDOC.PN ---
- Subjective Encounter Start Date: 04/01/19 Encounter Start Time: 10:46 Patient seen and examined, no new issues. No family at bedside, all questions answered. - Objective Vital Signs & Weight: Vital Signs (12 hours) Temp Pulse Resp BP BP Pulse Ox 04/01/19 08:00 97.9 F 91 16 147/95 H 95 04/01/19 04:00 98.6 F 88 20 130/70 98 03/31/19 23:40 98.3 F 88 20 136/64 95 Weight Admit Weight 297 lb 6.457 oz Weight 322 lb 15.635 oz Most Recent Monitor Data Heart Rate from ECG 105 NIBP 158/93 NIBP BP-Mean 114 Respiration from ECG 19 SpO2 99 I&O: 03/31/19 04/01/19 04/02/19 06:59 06:59 06:59 Intake Total 1160 2080 Output Total 575 5300 Balance 585 -3220 Result Diagrams: 03/24/19 11:02 04/01/19 05:20 Additional Labs: Accuchecks 04/01/19 03/31/19 03/31/19 06:11 20:26 16:38 POC Glucose 115 H 186 H 186 H Phys Exam - Physical Examination Constitutional: NAD obese HEENT: PERRLA, moist MMs, sclera anicteric Neck: no nodes, no JVD, supple Respiratory: no wheezing, no rales, no rhonchi Cardiovascular: RRR, no significant murmur, no rub Gastrointestinal: soft, non-tender, no distention Musculoskeletal: no edema, pulses present Dx/Plan (1) ESRD (end stage renal disease) on dialysis Code(s): N18.6 - END STAGE RENAL DISEASE; Z99.2 - DEPENDENCE ON RENAL DIALYSIS Status: Acute Comment: HD catheter placement with initiation of HD, Nephrology following, coordinating for outpt HD (2) HTN (hypertension) Code(s): I10 - ESSENTIAL (PRIMARY) HYPERTENSION Status: Chronic Qualifiers: Hypertension type: essential hypertension Qualified Code(s): I10 - Essential (primary) hypertension Comment: Labile, may need additional volume removal with HD, continue Hydralazine, Minoxidil, Labetalol, Procardia, Clonidine (3) Hypertensive emergency Code(s): I16.1 - HYPERTENSIVE EMERGENCY Status: Acute Comment: off of Cardene drip, non complaint patient, possible rebound too as he stopped Clonidine and other meds. All his meds are $4 prescription, patient knows it, but continues not to take it. Currently on Labetalol,hydralazine,Minoxidil,Procardia and lasix among others (4) DM2 (diabetes mellitus, type 2) Status: Chronic Qualifiers: Diabetes mellitus [facility] insulin use: without [facility] use Diabetes mellitus complication status: with kidney complications Diabetes mellitus complication detail: with chronic kidney disease Chronic kidney disease stage : stage 3 (moderate) Qualified Code(s): E11.22 - Type 2 diabetes mellitus with diabetic chronic kidney disease; N18.3 - Chronic kidney disease, stage 3 ( moderate) Comment: on ISS, continue accuchecks (5) Morbid obesity with BMI of 40.0-44.9, adult Code(s): E66.01 - MORBID (SEVERE) OBESITY DUE TO EXCESS CALORIES; Z68.41 - BODY MASS INDEX (BMI) 40.0-44.9, ADULT Status: Chronic Comment: Diet and exercise counseled, patient non compliant - Plan * DC plans in AM if PPD negative, if positive will need to confirm [facility] still accept * HD arranged for wednesday * will plan for DC tmrw if PPD negative * case and plan d/w patient at length, he understood and agreed with this plan.
--- NOTE | 2019-04-01 13:55 | PRG ---
DATE OF SERVICE: 04/01/2019 SUBJECTIVE: A 33-year-old gentleman being seen for end-stage kidney disease. The patient denies any nausea, vomiting, or chest pain. OBJECTIVE: CONSTITUTIONAL: The patient is awake and alert. VITAL SIGNS: Afebrile, pulse 90, breathing 16, and blood pressure 130/70. GENERAL APPEARANCE AND MENTAL STATUS: Fair. HEAD/NECK: Normocephalic. Atraumatic. EYES: EOMI. No deformity. EARS: Clear. No ulcers. NOSE: Intact. No lesions. MOUTH: Clear. No discharge. THROAT: Clear. No exudate. LUNGS: Clear. No crackles. CARDIAC: S1, S2. No rub. ABDOMEN: Benign. Bowel sounds positive. GENITALIA/RECTUM: Collins absent. BACK/EXTREMITIES: Edema 0+. NEUROLOGICAL: Alert and motor intact. SKIN: LYMPHATICS: LABORATORY DATA: Reviewed. ASSESSMENT: 1. Stage 6 chronic kidney disease, plan dialysis on Wednesday. 2. Hypertension, stable. 3. Anemia, stable. 4. Medication based on GFR appropriate. Job ID: [id number]
--- NOTE | 2019-04-01 23:33 | EKG ---
Test Reason : Blood Pressure : / mmHG Vent. Rate : 129 BPM Atrial Rate : 129 BPM P-R Int : 130 ms QRS Dur : 108 ms QT Int : 330 ms P-R-T Axes : 051 011 094 degrees QTc Int : 483 ms Sinus tachycardia Voltage criteria for left ventricular hypertrophy Nonspecific ST and T wave abnormality Abnormal ECG Confirmed by OCTAVIO CAMPBELL ([id number]), supervising editor news reel AYO FULLER ([id number]) on 04/01/2019 11:32:50 PM Referred By: Confirmed By:OCTAVIO CAMPBELL
--- NOTE | 2019-04-01 23:36 | EKG ---
Test Reason : Blood Pressure : / mmHG Vent. Rate : 137 BPM Atrial Rate : 137 BPM P-R Int : 122 ms QRS Dur : 106 ms QT Int : 286 ms P-R-T Axes : 044 018 164 degrees QTc Int : 431 ms Sinus tachycardia Possible Left atrial enlargement Left ventricular hypertrophy with repolarization abnormality ST elevation consider anterolateral injury or acute infarct Abnormal ECG Confirmed by OCTAVIO CAMPBELL ([id number]), news videotape editor AYO FULLER ([id number]) on 04/01/2019 11:35:59 PM Referred By: Confirmed By:OCTAVIO CAMPBELL
--- NOTE | 2019-04-02 02:12 | DIS ---
DATE OF ADMISSION: 03/17/2019 DATE OF DISCHARGE: 04/01/2019 The patient remains the same. Patient held for an extra day due to dialysis arrangements being made with [facility]. The patient's discharge date to be changed to 04/01/2019. Rest of BC summary remains same with no changes. Job ID: [id number]
[2019-04-02 05:30] LABS: Anion Gap 13 mmol/L (10-20); BUN (Urea Nitrogen) 28 mg/dL (8.9-20.6); Calc. Creatinine Clearance 40 mL/min (70-130); Calcium 8.9 mg/dL (7.8-10.44); Carbon Dioxide 28 mmol/L (22-29); Chloride 98 mmol/L (98-107); Estimated GFR-MDRD 15; Glucose 138 mg/dL (70-105); Potassium 4.1 mmol/L (3.5-5.1); Sodium 135 mmol/L (136-145)
[2019-04-02] MEDS: Minoxidil 10 MG TAB PO SCH ×2 (08:31→20:30)
[2019-04-02] MEDS: Labetalol 100 MG TAB PO SCH ×2 (08:31→20:30)
[2019-04-02] MEDS: hydrALAZINE 25 MG TAB PO SCH ×3 (08:31→20:30)
[2019-04-02] MEDS: cloNIDine 0.1 MG TAB PO SCH ×3 (08:32→20:30)
[2019-04-02] MEDS: NIFEdipine XL 60 MG TAB PO SCH ×2 (08:32→20:29)
[2019-04-02] MEDS ORDERED: READ PPD TEST SITE PO SCH (09:00)
[2019-04-02 10:05] LABS: Hemoglobin 7.4 g/dL (14.0-18.0)
--- NOTE | 2019-04-02 10:48 | PDOC.PN ---
- Subjective Encounter Start Date: 04/02/19 Encounter Start Time: 10:46 Patient seen and examined, no new issues. - Objective Vital Signs & Weight: Vital Signs (12 hours) Temp Pulse Resp BP BP BP Pulse Ox 04/02/19 07:40 98.2 F 97 18 147/73 H 99 04/02/19 03:23 98.3 F 91 20 147/70 H 100 04/01/19 23:15 98.2 F 86 20 127/72 97 Weight Admit Weight 297 lb 6.457 oz Weight 325 lb 6.436 oz Most Recent Monitor Data Heart Rate from ECG 105 NIBP 158/93 NIBP BP-Mean 114 Respiration from ECG 19 SpO2 99 I&O: 04/01/19 04/02/19 04/03/19 06:59 06:59 06:59 Intake Total 2080 1560 Output Total 5300 400 Balance -3220 1160 Result Diagrams: 04/02/19 09:56 04/02/19 05:00 Additional Labs: Accuchecks 04/02/19 04/01/19 04/01/19 05:33 20:23 17:00 POC Glucose 154 H 173 H 236 H 04/01/19 11:03 POC Glucose 148 H Phys Exam - Physical Examination Constitutional: NAD obese HEENT: PERRLA, moist MMs, sclera anicteric Neck: no nodes, no JVD, supple Respiratory: no wheezing, no rales, no rhonchi Cardiovascular: RRR, no significant murmur, no rub Gastrointestinal: soft, non-tender, no distention, positive bowel sounds Musculoskeletal: pulses present, edema present (trace) Dx/Plan (1) ESRD (end stage renal disease) on dialysis Code(s): N18.6 - END STAGE RENAL DISEASE; Z99.2 - DEPENDENCE ON RENAL DIALYSIS Status: Acute Comment: HD catheter placement with initiation of HD, Nephrology following, coordinating for outpt HD (2) HTN (hypertension) Code(s): I10 - ESSENTIAL (PRIMARY) HYPERTENSION Status: Chronic Qualifiers: Hypertension type: essential hypertension Qualified Code(s): I10 - Essential (primary) hypertension Comment: Labile, may need additional volume removal with HD, continue Hydralazine, Minoxidil, Labetalol, Procardia, Clonidine (3) Hypertensive emergency Code(s): I16.1 - HYPERTENSIVE EMERGENCY Status: Acute Comment: off of Cardene drip, non complaint patient, possible rebound too as he stopped Clonidine and other meds. All his meds are $4 prescription, patient knows it, but continues not to take it. 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 use: without termite control servicer use Diabetes mellitus complication status: with kidney complications Diabetes mellitus complication detail: with chronic kidney disease Chronic kidney disease stage : stage 3 (moderate) Qualified Code(s): E11.22 - Type 2 diabetes mellitus with diabetic chronic kidney disease; N18.3 - Chronic kidney disease, stage 3 ( moderate) Comment: on ISS, continue accuchecks (5) Morbid obesity with BMI of 40.0-44.9, adult Code(s): E66.01 - MORBID (SEVERE) OBESITY DUE TO EXCESS CALORIES; Z68.41 - BODY MASS INDEX (BMI) 40.0-44.9, ADULT Status: Chronic Comment: Diet and exercise counseled, patient non compliant - Plan * PPD to be read tmrw * Hgb low, will give EPO [id number] x 1 * blood transfusion in AM with Hd * DC plans in AM after HD in AM * plan d/w nephrology
[2019-04-02] MEDS ORDERED: EPOETIN ALFA-EPBX (ESRD) 10,000 UNIT/ML VIAL SC SCH (11:30)
[2019-04-02] MEDS ORDERED: EPOETIN ALFA-EPBX (ESRD) 2,000 UNIT/ML VIAL SC SCH (12:00)
[2019-04-02] MEDS: HumaLOG 300 UNITS/3 ML VIAL SC PRN ×2 (13:26→17:45)
[2019-04-03 06:45] LABS: Anion Gap 14 mmol/L (10-20); BUN (Urea Nitrogen) 34 mg/dL (8.9-20.6); Calc. Creatinine Clearance 34 mL/min (70-130); Calcium 8.9 mg/dL (7.8-10.44); Carbon Dioxide 26 mmol/L (22-29); Chloride 99 mmol/L (98-107); Estimated GFR-MDRD 12; Glucose 116 mg/dL (70-105); Potassium 4.2 mmol/L (3.5-5.1); Sodium 135 mmol/L (136-145)
--- NOTE | 2019-04-03 07:40 | PRG ---
DATE OF SERVICE: 04/02/2019 SUBJECTIVE: This is a 33-year-old gentleman being seen for end-stage renal disease. The patient denies any nausea, vomiting, or chest pain. OBJECTIVE: CONSTITUTIONAL: The patient is awake and alert. VITAL SIGNS: breathing 16, blood pressure GENERAL APPEARANCE AND MENTAL STATUS: Fair. HEAD/NECK: Normocephalic. Atraumatic. EYES: EOMI. No deformity. EARS: Clear. No ulcers. NOSE: Intact. No lesions. MOUTH: Clear. No discharge. THROAT: Clear. No exudate. LUNGS: Clear. No crackles. CARDIAC: S1, S2. No rub. ABDOMEN: Benign. Bowel sounds positive. GENITALIA/RECTUM: Collins absent. BACK/EXTREMITIES: Edema 0+. NEUROLOGICAL: Alert and motor intact. SKIN: LYMPHATICS: LABORATORY DATA: ASSESSMENT: 1. Stage 6 chronic kidney disease, plan dialysis. 2. Hypertension, stable. 3. Anemia, agree with Epogen. 4. We will need transfusion with dialysis tomorrow. Job ID: [id number]
[2019-04-03 09:06] LABS: #Eosinphils 0.2 thou/uL (0.0-0.7); #Lymphocytes 1.6 thou/uL (1.20-3.40); #Monocytes 0.6 thou/uL (0.11-0.59); #Neutrophils 5.7 thou/uL (1.40-6.50); %Basophils 0.2 % (0.0-1.0); %Eosinophils 2.1 % (0.0-10.0); %Lymphocytes 19.7 % (21.0-51.0); %Monocytes 7.7 % (0.0-10.0); %Neutrophils 70.3 % (42.0-75.0); Hemoglobin 7.3 g/dL (14.0-18.0); Mean Corpuscular HGB CONC 32.2 g/dL (32.0-36.0); Mean Corpuscular Hemoglobin 26.8 pg (27.0-31.0); Platelet Count 272 thou/uL (130-400); RBC Distribution Width 14.4 % (11.5-14.5); Red Blood Cell (RBC) Count 2.72 mill/uL (4.70-6.10); White Blood Cell (WBC) Count 8.1 thou/uL (4.8-10.8)
[2019-04-03] MEDS ORDERED: Heparin 10,000 UNITS/ 10 ML VIAL ONE (10:00)
--- NOTE | 2019-04-03 10:52 | PDOC.EVN ---
Event Note - Event Note Event Note: DC SUMMARY #[id number]
[2019-04-03 12:04] VITALS: TEMP 98.5
[2019-04-03] MEDS: hydrALAZINE 25 MG TAB PO SCH ×2 (12:05→15:45)
[2019-04-03] MEDS: Labetalol 100 MG TAB PO SCH (12:06)
[2019-04-03] MEDS: NIFEdipine XL 60 MG TAB PO SCH (12:06)
[2019-04-03] MEDS: Minoxidil 10 MG TAB PO SCH (12:06)
[2019-04-03] MEDS: cloNIDine 0.1 MG TAB PO SCH ×2 (12:07→15:45)
[2019-04-03 12:08] VITALS: BP 172/80
--- NOTE | 2019-04-03 13:04 | PRG ---
DATE OF SERVICE: 04/03/2019 SUBJECTIVE: This is a 33-year-old gentleman being seen for end-stage renal disease. The patient denies any nausea, vomiting, or chest pain. OBJECTIVE: CONSTITUTIONAL: The patient is awake and alert. VITAL SIGNS: Pulse 75, breathing 16, blood pressure 141/74. GENERAL APPEARANCE AND MENTAL STATUS: Fair. HEAD/NECK: Normocephalic. Atraumatic. EYES: EOMI. No deformity. EARS: Clear. No ulcers. NOSE: Intact. No lesions. MOUTH: Clear. No discharge. THROAT: Clear. No exudate. LUNGS: Clear. No crackles. CARDIAC: S1, S2. No rub. ABDOMEN: Benign. Bowel sounds positive. GENITALIA/RECTUM: Collins absent. BACK/EXTREMITIES: Edema 0+. NEUROLOGICAL: Alert and motor intact. SKIN: LYMPHATICS: LABORATORY DATA: Labs showed hemoglobin 7.3. ASSESSMENT: 1. Stage 6 chronic kidney disease, continue hemodialysis. 2. Hypertension, stable. 3. Anemia, plan transfusion. 4. Medication based on GFR appropriate. Job ID: [id number]
--- NOTE | 2019-04-04 10:27 | DIS ---
DATE OF ADMISSION: 03/17/2019 DATE OF DISCHARGE: 04/03/2019 ADDENDUM: Addendum to prior discharge summary which was dictated on 03/31/2019. The patient held for 2 extra days for blood transfusion, repeat dialysis, and PPD to be read. The patient to be discharged post dialysis. Follow up with [facility] a day after tomorrow, Wednesday for his dialysis. Rest of discharge summary remains same. Job ID: [id number]
== END 2019-04-03 15:39 | disposition home or self-care (01) | DRG 673 ==
LOC: ERS 09:49 → CCU 14:18 → 2NO 03-18 10:12
PROVIDERS: ADMIT Internal Medicine; ATTEND Internal Medicine
PROC: 0JH63XZ Insertion of Tunneled Vascular Access Device into Chest Subcutaneous Tissue and Fascia, Percutaneous Approach (ICD-10-PCS; principal; 2019-03-22)
PROC: 031C0ZF Bypass Left Radial Artery to Lower Arm Vein, Open Approach (ICD-10-PCS; 2019-03-22)
PROC: 02HV33Z Insertion of Infusion Device into Superior Vena Cava, Percutaneous Approach (ICD-10-PCS; 2019-03-22)
PROC: 5A1D70Z Performance of Urinary Filtration, Intermittent, Less than 6 Hours Per Day (ICD-10-PCS; 2019-03-22)
PROC: 30233N1 Transfusion of Nonautologous Red Blood Cells into Peripheral Vein, Percutaneous Approach (ICD-10-PCS; 2019-03-23)
PROC: 30233N1 Transfusion of Nonautologous Red Blood Cells into Peripheral Vein, Percutaneous Approach (ICD-10-PCS; 2019-04-03)
DX: N17.9 Acute kidney failure, unspecified (principal); I21.A1 Myocardial infarction type 2; I13.2 Hypertensive heart and chronic kidney disease with heart failure and with stage 5 chronic kidney disease, or end stage renal disease; I16.1 Hypertensive emergency; Z68.41 Body mass index [BMI] 40.0-44.9, adult; I50.32 Chronic diastolic (congestive) heart failure; N18.6 End stage renal disease; E11.22 Type 2 diabetes mellitus with diabetic chronic kidney disease; Z91.14 Patient's other noncompliance with medication regimen; D63.1 Anemia in chronic kidney disease; E87.5 Hyperkalemia; R00.0 Tachycardia, unspecified; E86.0 Dehydration; E66.9 Obesity, unspecified; K52.9 Noninfective gastroenteritis and colitis, unspecified; R06.6 Hiccough
CPT/HCPCS: 36415; 36416; 36430; 71045; 74175; 76000; 80048; 80306; 82088; 82553; 83605; 83835; 84484; 85014; 85018; 85025; 85049; 86580; 86704; 86706; 86803; 86850; 86900; 86901; 87040; 87340; 90935; 93005; 93970; 96361; 96365; 96375; 99292; C1752; C1769; C9113; G0257; G0365; J0360; J0670; J0690; J1644; J1940; J2001; J2250; J2405; J2704; J2720; J3010; J3230; J7050; P9016; Q5105; Q9966

== ENCOUNTER 2019-06-20 19:22 | Observation (INO) | payer OTHER, SELFPAY ==
[2019-06-20] MEDS ORDERED: Dextrose 50% Abboject 50 ML SYRINGE ONE (21:16)
[2019-06-20 21:31] LABS: #Eosinphils 0.1 thou/uL (0.0-0.7); #Lymphocytes 0.9 thou/uL (1.20-3.40); #Monocytes 0.2 thou/uL (0.11-0.59); #Neutrophils 7.9 thou/uL (1.40-6.50); %Basophils 0.1 % (0.0-1.0); %Eosinophils 0.7 % (0.0-10.0); %Lymphocytes 9.9 % (21.0-51.0); %Monocytes 2.5 % (0.0-10.0); %Neutrophils 86.8 % (42.0-75.0); Hemoglobin 11.1 g/dL (14.0-18.0); Mean Corpuscular HGB CONC 31.4 g/dL (32.0-36.0); Mean Corpuscular Hemoglobin 26.5 pg (27.0-31.0); Mean Corpuscular Volume 84.4 fL (78.0-98.0); Mean Platelet Volume 6.7 fL (7.4-10.4); Platelet Count 354 thou/uL (130-400); RBC Distribution Width 14.3 % (11.5-14.5); Red Blood Cell (RBC) Count 4.17 mill/uL (4.70-6.10); White Blood Cell (WBC) Count 9.1 thou/uL (4.8-10.8)
[2019-06-20 21:51] LABS: ALT (SGPT) 9 U/L (8-55); AST (SGOT) 12 U/L (5-34); Albumin 4.9 g/dL (3.5-5.0); Alkaline Phosphatase 95 U/L (40-150); Anion Gap 23 mmol/L (10-20); BUN (Urea Nitrogen) 58 mg/dL (8.9-20.6); Bilirubin, Total 0.5 mg/dL (0.2-1.2); Calc. Creatinine Clearance 0 mL/min (70-130); Carbon Dioxide 21 mmol/L (22-29); Chloride 97 mmol/L (98-107); Estimated GFR-MDRD 8; Globulin 3.6 g/dL (2.4-3.5); Glucose 61 mg/dL (70-105); Protein, Total 8.5 g/dL (6.0-8.3); Sodium 137 mmol/L (136-145)
[2019-06-20 23:03] LABS: Bacteria/HPF None Seen HPF (None Seen); Bilirubin Negative (Negative); Blood, Urine Trace (Negative); Clarity Clear (Clear); Glucose, Urine (Dipstick) Normal (Negative); Leukocyte 75 Leu/uL (Negative); Nitrite Negative (Negative); Protein, Urine (Dipstick) 300 mg/dL (Neg-Trace); RBC/HPF 0-3 HPF (0-3); Squamous Epithelial 0-3 HPF (0-3); Urobilinogen Normal mg/dL (Less than 2)
[2019-06-20 23:09] LABS: Transitional Epithelial 0-3 HPF (None Seen); Yeast-Budding None Seen HPF (None Seen)
[2019-06-20] MEDS ORDERED: Dextrose 5 % And 0.9 % NaCl 1,000 ML IV SCH (23:59)
[2019-06-21 00:50] VITALS: BMI 48.4
[2019-06-21] MEDS ORDERED: Dextrose 50% Abboject 50 ML SYRINGE SLOW IVP PRN (02:47)
[2019-06-21] MEDS ORDERED: Acetaminophen 650 MG Suppository PR PRN (02:47)
[2019-06-21] MEDS ORDERED: Ondansetron ODT 4 MG TAB PO PRN (02:47)
[2019-06-21] MEDS ORDERED: Acetaminophen 325 MG TAB PO PRN (02:47)
[2019-06-21] MEDS ORDERED: Dextrose 5% in Water 1,000 ML IV PRN (02:47)
[2019-06-21] MEDS ORDERED: HumaLOG 300 UNITS/3 ML VIAL SC PRN (02:47)
[2019-06-21] MEDS ORDERED: Ondansetron PF 4 MG/2 ML Vial IVP PRN (02:47)
[2019-06-21 06:43] LABS: #Eosinphils 0.1 thou/uL (0.0-0.7); #Lymphocytes 1.4 thou/uL (1.20-3.40); #Monocytes 0.7 thou/uL (0.11-0.59); #Neutrophils 5.9 thou/uL (1.40-6.50); %Basophils 0.4 % (0.0-1.0); %Eosinophils 1.1 % (0.0-10.0); %Lymphocytes 17.2 % (21.0-51.0); %Monocytes 9.1 % (0.0-10.0); %Neutrophils 72.2 % (42.0-75.0); Hemoglobin 9.4 g/dL (14.0-18.0); Mean Corpuscular HGB CONC 31.3 g/dL (32.0-36.0); Mean Corpuscular Hemoglobin 26.6 pg (27.0-31.0); Mean Corpuscular Volume 85.2 fL (78.0-98.0); Mean Platelet Volume 6.6 fL (7.4-10.4); Platelet Count 308 thou/uL (130-400); RBC Distribution Width 14.2 % (11.5-14.5); Red Blood Cell (RBC) Count 3.52 mill/uL (4.70-6.10); White Blood Cell (WBC) Count 8.1 thou/uL (4.8-10.8)
[2019-06-21 06:55] LABS: Anion Gap 20 mmol/L (10-20); BUN (Urea Nitrogen) 61 mg/dL (8.9-20.6); Calc. Creatinine Clearance 23 mL/min (70-130); Calcium 8.6 mg/dL (7.8-10.44); Carbon Dioxide 22 mmol/L (22-29); Chloride 98 mmol/L (98-107); Estimated GFR-MDRD 7; Glucose 97 mg/dL (70-105); Sodium 136 mmol/L (136-145)
[2019-06-21] MEDS: hydrALAZINE 25 MG TAB PO SCH ×3 (08:28→20:21)
[2019-06-21] MEDS: Heparin 5,000 UNITS/ML VIAL SC SCH ×3 (08:29→20:21)
[2019-06-21] MEDS: Labetalol 100 MG TAB PO SCH ×2 (08:37→20:28)
[2019-06-21] MEDS ORDERED: Minoxidil 10 MG TAB PO SCH (09:00)
[2019-06-21] MEDS ORDERED: EPOETIN ALFA-EPBX (ESRD) 10,000 UNIT/ML VIAL IVP SCH (10:00)
--- NOTE | 2019-06-21 12:38 | CON ---
DATE OF CONSULTATION: 06/21/2019 CONSULTING PHYSICIAN: ER physician. REASON FOR CONSULTATION: End-stage renal disease evaluation. REASON FOR ADMISSION: Hypoglycemia. HISTORY OF PRESENT ILLNESS: A 33-year-old male with history of hypertension, end-stage renal disease, came to the hospital with hypoglycemia, and with altered mentation. He gets dialysis on Wednesday, Wednesday, Wednesday, and due dialysis for today. Nephrology is consulted. He is feeling better. No chest pain. Slightly confused. PAST MEDICAL HISTORY: Positive for end-stage renal disease, hypertension, and type 2 diabetes. PAST SURGICAL HISTORY: Dialysis access placement. HOME MEDICATIONS: Reviewed. ALLERGIES: NO KNOWN DRUG ALLERGIES. SOCIAL HISTORY: History of substance abuse and tobacco use in the past. FAMILY HISTORY: No history of kidney disease. REVIEW OF SYSTEMS: CONSTITUTIONAL: Negative for weight loss or gain, ability to conduct usual activities. SKIN: Negative for rash, itching. EYES: Negative for double vision, pain. ENT/MOUTH: Negative for nose bleeding, neck stiffness, pain, tenderness. CARDIOVASCULAR: Negative for palpitations, dyspnea on exertion, orthopnea. RESPIRATORY: Negative for shortness of breath, wheezing, cough, hemoptysis, fever or night sweats. GASTROINTESTINAL: Negative for poor appetite, abdominal pain, heartburn, nausea, vomiting, constipation, or diarrhea. GENITOURINARY: Negative for urgency, frequency, dysuria, nocturia. MUSCULOSKELETAL: Negative for pain, swelling. NEUROLOGIC/PSYCHIATRIC: Negative for anxiety, depression. ALLERGY/IMMUNOLOGIC: Negative for skin rash, bleeding tendency. PHYSICAL EXAMINATION: GENERAL: Reveals a morbidly obese male, in no apparent distress. VITAL SIGNS: Temperature 98.1, pulse 94, respiratory rate 16, and blood pressure 134/78. HEENT: Atraumatic, normocephalic. Oral mucosa is moist. NECK: Supple. CARDIOVASCULAR: S1, S2 heard. Rate and rhythm regular. RESPIRATORY: Clear. GASTROINTESTINAL: Abdomen is soft. MUSCULOSKELETAL: 1+ edema. DERMATOLOGIC: LABORATORY DATA: Hemoglobin is 9.5. Potassium 4.0, BUN is 61, and creatinine is . ASSESSMENT AND PLAN: 1. End-stage renal disease. Continue on dialysis, Wednesday, Wednesday, and Wednesday. 2. Edema. 3. Hypertension. 4. Anemia. Plan to continue on dialysis as tolerated. We will stop minoxidil and monitor blood pressure. I would have to wean off minoxidil during this admission. His blood pressure has been staying good. Hopefully, with dialysis, he does not need much blood pressure medications. We will follow. Job ID: [id number]
[2019-06-21 20:23] VITALS: BP 160/81
--- NOTE | 2019-06-21 20:38 | HP ---
PRIMARY CARE DOCTOR: The patient goes to [facility]. CODE STATUS: Full code. TIME OF EVALUATION: 11:00 pm on 06/20/2019. CHIEF COMPLAINT: Found unresponsive. HISTORY OF PRESENT ILLNESS: This is a 33-year-old male patient with past medical history of end-stage renal disease, follows with Dr. Savage as outpatient. The patient was brought into the hospital after being found unresponsive and blood sugar was checked. The patient has blood sugar in the 30s. The patient reported has not been eating well in the past few days and has continued to take his medication. He was taking glipizide now. The patient was treated with some dextrose by the time the patient got to the ER, blood sugar was in the 60s. At the time of my examination, the patient is alert and talking, fully oriented. No evidence of any other etiology causing hypoglycemia at this point, but poor oral intake and the patient continued to have his medications. REVIEW OF SYSTEMS: CONSTITUTIONAL: No fever. The patient has some chills and generalized weakness. RESPIRATORY: No cough, sputum production, or shortness of breath. CARDIOVASCULAR: No chest pain or palpitations. GASTROINTESTINAL: No nausea, vomiting, diarrhea, or abdominal pain. 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 GENITOURINARY: No burning on urination. EXTREMITIES: Bilateral leg swelling. All other systems were reviewed and negative except for the findings mentioned above. PAST MEDICAL HISTORY: End-stage renal disease, cardiomyopathy, hypertension, diabetes. PAST SURGICAL HISTORY: AV fistula placement. SOCIAL HISTORY: No alcohol. No drugs. Positive use of marijuana. Everyday smoker. Lives at home alone. FAMILY HISTORY: Not significant to current presentation. KNOWN ALLERGIES: No known drug allergies. REPORTED MEDICATIONS: 1. Hydralazine. 2. Catapres. 3. Nifedipine. 4. Amlodipine. 5. Glipizide. PHYSICAL EXAMINATION: VITAL SIGNS: On presentation, blood pressure 143/78 with heart rate 74, respiratory rate was 19. Pain was 0/10, oxygen saturation 100 on room air. GENERAL APPEARANCE: The patient is obese, alert, oriented, not in acute distress. HEENT: Eyes, normal conjunctivae. Moist oral mucosa. Anicteric. No JVD. RESPIRATORY: Bilateral air entry. No rales. No wheezes. Symmetric expansion. CARDIOVASCULAR: Normal rate, regular rhythm. No murmurs. No gallop. Bilateral leg edema. ABDOMEN: Soft. Normal bowel sounds. MUSCULOSKELETAL: Baseline range of motion and strength. SKIN: Warm, intact. No pallor. No rash. No redness. Capillary refill seems to be intact. NEUROLOGICAL: No evidence of any new focal weakness. Cranial nerves seem to be intact. DIAGNOSTIC STUDIES: EKG was reviewed. The patient has normal sinus rhythm with a rate of 84, T-wave abnormality, consider lateral ischemia. MEDICATION ADMINISTRATION: The patient got D50 upon arrival and D5 NS at 75 mL an hour. LABORATORY DATA: Labs were reviewed. The patient has white count 9.1, hemoglobin 9.4, MCV 85.2, platelet count 308. Sodium 136, potassium 4.0, chloride 98, carbon dioxide 22, anion gap 20, BUN 61, creatinine 9.8, glucose 97, calcium 8.6. ASSESSMENT AND PLAN: The patient will be placed in the hospital with following medical problems: 1. Hypoglycemia, likely secondary to the patient not eating well and continue to take his diabetes medications. The patient will be placed in the hospital. We will monitor the blood sugar. We will adjust accordingly. 2. Normocytic anemia. This can be followed, and treat accordingly. MCV is normal. This is likely secondary to underlying end-stage renal disease. No evidence of bleeding at this point. 3. Uncontrolled diabetes. The patient presented with hypoglycemia and has been hyperglycemic at some point. The patient's medication will be adjusted and placed on a sliding scale. 4. End-stage renal disease, on hemodialysis. The patient will need to follow up as outpatient with Dr. Savage. 5. Deep vein thrombosis prophylaxis. Job ID: [id number]
[2019-06-21 21:00] VITALS: TEMP 98.7
--- NOTE | 2019-06-22 15:26 | DIS ---
DATE OF ADMISSION: 06/20/2019 DATE OF DISCHARGE: 06/21/2019 DISCHARGE DIAGNOSES: 1. Hypoglycemia. 2. End-stage renal disease, on dialysis. 3. Diabetes. 4. Hypertension. 5. Obesity. HOSPITAL COURSE: The patient is a 33-year-old male who initially admitted to the hospital when he was found unresponsive. At this time, his blood sugars were in the 30s. EMS was called. The patient was brought into the hospital. The patient was given dextrose and also was started on a D5 drip. The patient states that he has not been eating very much and also has been taking his medications as prescribed. The patient has been on glipizide 10 mg daily. The patient states that he has not been again eating very much and has been taking his prescription medications. At this time, I had discontinued his glipizide. I have asked him to follow up with the [facility] on Wednesday and keep a log of his blood sugars. I have not prescribed him anything for his sugars. His sugars have been in the low 100s. He did get dialyzed here and he will be discharged home. He will follow up with his primary care on Wednesday. HOME MEDICATIONS: His home medications will be as of the followin. Hydralazine 100 mg t.i.d. 2. Lasix 20 mg daily. 3. Labetalol 200 mg b.i.d. 4. Minoxidil 10 mg b.i.d. 5. Sodium bicarb 650 b.i.d. 6. Nifedipine 60 mg daily. PHYSICAL EXAMINATION: GENERAL: He is awake, alert, and oriented x3. Does not appear in distress. VITALS SIGNS: 98.7, 93, 160/81, 18, 97% on room air. CV: S1, S2 present. No murmurs, rubs or gallops. ABDOMEN: Soft, nontender. Bowel sounds are present x2. Job ID: [id number]
== END 2019-06-21 21:20 | disposition home or self-care (01) ==
LOC: ERS 19:22 → T4-A 22:30
PROVIDERS: ADMIT Hospitalist; ATTEND Hospitalist
DX: I12.0 Hypertensive chronic kidney disease with stage 5 chronic kidney disease or end stage renal disease (principal); E11.22 Type 2 diabetes mellitus with diabetic chronic kidney disease; E11.649 Type 2 diabetes mellitus with hypoglycemia without coma; N18.6 End stage renal disease; D63.1 Anemia in chronic kidney disease; F17.290 Nicotine dependence, other tobacco product, uncomplicated; E66.9 Obesity, unspecified; Z68.42 Body mass index [BMI] 45.0-49.9, adult; Z99.2 Dependence on renal dialysis; Z79.899 Other long term (current) drug therapy
CPT/HCPCS: 36415; 36416; 80048; 80053; 81003; 81015; 84484; 85025; 90935; 93005; 96361; 96374; 96375; G0257; G0378; J1644; Q5105

== ENCOUNTER 2019-10-20 13:23 | Observation (INO) | payer MEDICARE, MEDICAID ==
--- NOTE | 2019-10-20 13:53 | RAD ---
EXAM: Chest one view: HISTORY: Chest pain COMPARISON: 03/22/2019 FINDINGS: Stable exam. Heart size: Cardiomegaly. Lungs: Clear of acute process. No evidence for confluent pneumonia, pleural effusion, acute edema, or pneumothorax, or other signifi cant acute process. IMPRESSION: No significant acute intrathoracic disease.
[2019-10-20 14:26] LABS: #Eosinphils 0.3 thou/uL (0.0-0.7); #Lymphocytes 1.5 thou/uL (1.20-3.40); #Monocytes 0.6 thou/uL (0.11-0.59); #Neutrophils 13.1 thou/uL (1.40-6.50); %Basophils 0.2 % (0.0-1.0); %Eosinophils 1.7 % (0.0-10.0); %Lymphocytes 9.9 % (21.0-51.0); %Monocytes 4.1 % (0.0-10.0); %Neutrophils 84.1 % (42.0-75.0); Hemoglobin 11.6 g/dL (14.0-18.0); Mean Corpuscular HGB CONC 32.6 g/dL (32.0-36.0); Mean Corpuscular Hemoglobin 27.7 pg (27.0-31.0); Mean Corpuscular Volume 85.2 fL (78.0-98.0); Mean Platelet Volume 7.9 fL (7.4-10.4); Platelet Count 290 thou/uL (130-400); RBC Distribution Width 13.4 % (11.5-14.5); White Blood Cell (WBC) Count 15.5 thou/uL (4.8-10.8)
[2019-10-20 14:51] LABS: ALT (SGPT) 11 U/L (8-55); AST (SGOT) 11 U/L (5-34); Albumin 3.9 g/dL (3.5-5.0); Alkaline Phosphatase 92 U/L (40-110); Anion Gap 17 mmol/L (10-20); BUN (Urea Nitrogen) 48 mg/dL (8.9-20.6); Bilirubin, Total 0.4 mg/dL (0.2-1.2); CK (CPK) 86 U/L (30-200); Calc. Creatinine Clearance 0 mL/min (70-130); Carbon Dioxide 30 mmol/L (22-29); Chloride 94 mmol/L (98-107); Estimated GFR-MDRD 7; Globulin 3.2 g/dL (2.4-3.5); Glucose 255 mg/dL (70-105); Lipase 174 U/L (8-78); Potassium 3.9 mmol/L (3.5-5.1); Protein, Total 7.1 g/dL (6.0-8.3); Sodium 137 mmol/L (136-145)
[2019-10-20 15:09] LABS: CKMB 3.3 ng/mL (0-6.6)
[2019-10-20] MEDS ORDERED: Acetaminophen 325 MG TAB PO PRN (16:25)
[2019-10-20] MEDS ORDERED: Senokot S 8.6-50 MG TAB PO PRN (16:25)
[2019-10-20] MEDS ORDERED: Ondansetron PF 4 MG/2 ML Vial IVP PRN (16:25)
[2019-10-20 17:36] LABS: Troponin I 0.064 ng/mL (< 0.028)
[2019-10-20 17:38] LABS: Troponin I 0.023 ng/mL (< 0.028)
--- NOTE | 2019-10-20 18:23 | CON ---
DATE OF CONSULTATION: REASON FOR CONSULTATION: End-stage renal disease, on maintenance hemodialysis. HISTORY OF PRESENT ILLNESS: This is a very pleasant 34-year-old gentleman sent from dialysis center for further evaluation and workup for hypertension during 30 minutes of dialysis. The patient denies no headache, numbness, tingling, or weakness. Denies any nausea, vomiting, or chest pain. PAST MEDICAL HISTORY: end-stage cardiomyopathy, hypertension, AV fistula, and tunneled dialysis catheter. SOCIAL HISTORY: No alcohol or drug use. FAMILY HISTORY: Negative for ESRD. ALLERGIES: REVIEWED. HOME MEDICATIONS: List reviewed. REVIEW OF SYSTEMS: A 15-point review of system was performed, negative except for positives noted above. GENERAL: HEAD: NECK: No swelling or lumps. NOSE: No epistaxis or discharge. EYES: No diplopia or pain. RESPIRATORY: CARDIOVASCULAR: GASTROINTESTINAL: /[employer]ALL [employer]EM[employer]: MUSCULOSKELETAL: No joint pain. NEUROPSYCHIATRIC SYSTEMS: No suicidal ideation. No ideation. SKIN: Denies any rash or ulcer. CONSTITUTIONAL: No fever or chills. PHYSICAL EXAMINATION: GENERAL: The patient is awake and alert. VITAL SIGNS: Pulse 75, breathing 16, and blood pressure was 100/70. GENERAL APPEARANCE AND MENTAL STATUS: Fair. HEAD/NECK: Normocephalic. Atraumatic. EYES: EOMI. No deformity. EARS: Clear. No ulcers. NOSE: Intact. No lesions. MOUTH: Clear. No discharge. THROAT: Clear. No exudate. LUNGS: Clear. No crackles. CARDIAC: S1, S2. No rub. ABDOMEN: Benign. Bowel sounds positive. GENITALIA/RECTUM: Collins absent. BACK/EXTREMITIES: Edema 0+. NEUROLOGICAL: Alert and motor intact. SKIN: LYMPHATICS: LABORATORY DATA: Labs show potassium 3.9. ASSESSMENT AND PLAN: 1. Stage chronic kidney disease. No indication for dialysis. 2. Hypertension, stable. 3. Anemia, stable. We will follow along. Job ID: [id number]
[2019-10-20 19:07] VITALS: BMI 49.6
[2019-10-20] MEDS ORDERED: HumaLOG 300 UNITS/3 ML VIAL SC PRN ×2 (20:10)
[2019-10-20] MEDS ORDERED: Dextrose 5% in Water 1,000 ML IV PRN (20:10)
[2019-10-20] MEDS ORDERED: Dextrose 50% Abboject 50 ML SYRINGE SLOW IVP PRN (20:10)
[2019-10-20 20:20] LABS: Troponin I 0.047 ng/mL (< 0.028)
[2019-10-20] MEDS: Sodium Bicarbonate Tab 325 MG TAB PO SCH (21:48)
[2019-10-20] MEDS: Minoxidil 10 MG TAB PO SCH (21:49)
[2019-10-20] MEDS: Labetalol 100 MG TAB PO SCH (21:49)
[2019-10-20] MEDS: hydrALAZINE 25 MG TAB PO SCH (21:49)
[2019-10-20] MEDS: Heparin 5,000 UNITS/ML VIAL SC SCH (21:50)
--- NOTE | 2019-10-20 23:10 | HP ---
PRESENTING COMPLAINT: Chest tightness. HISTORY OF PRESENT ILLNESS: The patient with a past medical history of end-stage renal disease, on hemodialysis, chronic systolic congestive heart failure, hypertension, diabetes mellitus, morbid obesity, presented with chest tightness. As per patient, he was getting dialysis, he just got 20 minutes of dialysis and started feeling chest tightness and associated with shortness of breath. He was just into 20 minutes of hemodialysis and the EMS was called. The patient was given nitroglycerin and chest pain and shortness of breath improved, and the patient was brought to the emergency room, where he had EKG. Mildly positive troponins. EKG changes were similar as compared to previous EKG. No STEMI was activated. The patient currently seen at bedside. Denies any chest tightness, or shortness of breath. Feels fine. Denies any nausea, vomiting, diarrhea, constipation, fever, runny nose, stuffy nose, sore throat, headache, dizziness, cough, or wheezing. SYSTEMIC REVIEW: As mentioned above. PAST MEDICAL HISTORY: As mentioned above. PAST SURGICAL HISTORY: History of AV fistula placement. SOCIAL HISTORY: The patient smokes cigarettes occasionally. Smokes marijuana. Denies alcohol abuse. ALLERGIES: NKDA. HOME MEDICATIONS: 1. Hydralazine. 2. Catapres. 3. Nifedipine. 4. Amlodipine. 5. Glipizide. PHYSICAL EXAMINATION: VITAL SIGNS: Blood pressure 141/89, oxygen saturation 100%. Temperature 98, pulse 92, temperature 98.6. GENERAL: Morbidly obese man, lying in bed comfortably, not in any distress. HEENT: Conjunctiva normal. Oral mucosa moist. NECK: Supple. No JVD. No lymphadenopathy. CHEST: Decreased air entry in bilateral lower lung magana. No rhonchi. No wheezing. HEART: Sounds normal. No murmur, gallop, or rub. ABDOMEN: Soft, benign, nontender. No visceromegaly. EXTREMITIES: Negative edema of feet. No rash. No cyanosis. LABORATORY DATA: CBC unremarkable except for white blood cell count of 15.5, hemoglobin 11.6, platelet 290. CMP unremarkable. Chloride 94, carbon dioxide 30, creatinine 10.90. Troponin 0.038. Lipase is 174. Chest x-ray, no significant acute intrathoracic disease. IMPRESSION: 1. Chest pain and shortness of breath, improved with nitroglycerin. The patient with a history of cardiomyopathy with a borderline positive troponin. We will admit to rule out acute coronary syndrome. EKG, chronic changes most likely. No significant ST elevation noted in the leads, but we will get Cardiology for further evaluation. Currently, the patient denies any chest pain. We will continue to monitor serial troponins. Continue aspirin and nitroglycerin as needed. 2. End-stage renal disease, on hemodialysis. The patient unable to finish his dialysis today, got 20 minutes of dialysis. However, chest x-ray without any acute findings. The patient clinically looks compensated. We will get Nephrology evaluation for dialysis. 3. Diabetes mellitus. Continue monitoring blood sugar. 4. Hypertension. Continue monitoring blood pressure. 5. Systolic congestive heart failure, chronic, compensated. Continue home medication. 6. Deep venous thrombosis and gastrointestinal prophylaxis. 7. Plan discussed with the patient and father, who is present at bedside along with the nursing staff. Job ID: [id number]
[2019-10-20 23:51] LABS: Troponin I 0.029 ng/mL (< 0.028)
[2019-10-21 06:02] LABS: #Eosinphils 0.3 thou/uL (0.0-0.7); #Lymphocytes 2.5 thou/uL (1.20-3.40); #Monocytes 0.7 thou/uL (0.11-0.59); %Basophils 0.2 % (0.0-1.0); %Eosinophils 2.6 % (0.0-10.0); %Lymphocytes 21.6 % (21.0-51.0); %Monocytes 5.7 % (0.0-10.0); %Neutrophils 69.9 % (42.0-75.0); Mean Corpuscular HGB CONC 33.6 g/dL (32.0-36.0); Mean Corpuscular Hemoglobin 28.2 pg (27.0-31.0); Mean Corpuscular Volume 83.8 fL (78.0-98.0); Mean Platelet Volume 7.6 fL (7.4-10.4); Platelet Count 288 thou/uL (130-400); RBC Distribution Width 13.5 % (11.5-14.5); Red Blood Cell (RBC) Count 3.91 mill/uL (4.70-6.10); White Blood Cell (WBC) Count 11.4 thou/uL (4.8-10.8)
[2019-10-21 06:20] LABS: Anion Gap 19 mmol/L (10-20); BUN (Urea Nitrogen) 54 mg/dL (8.9-20.6); Calc. Creatinine Clearance 19 mL/min (70-130); Carbon Dioxide 25 mmol/L (22-29); Chloride 96 mmol/L (98-107); Estimated GFR-MDRD 6; Glucose 108 mg/dL (70-105); Lipase 212 U/L (8-78); Potassium 4.2 mmol/L (3.5-5.1); Sodium 136 mmol/L (136-145)
[2019-10-21 06:21] LABS: ALT (SGPT) 10 U/L (8-55); AST (SGOT) 10 U/L (5-34); Albumin 3.7 g/dL (3.5-5.0); Alkaline Phosphatase 84 U/L (40-110); Bilirubin, Direct 0.1 mg/dL (0.1-0.3); Bilirubin, Total 0.3 mg/dL (0.2-1.2); Protein, Total 7.2 g/dL (6.0-8.3)
[2019-10-21] MEDS: Calcium Acetate 667 MG CAP PO SCH ×3 (09:27→18:16)
[2019-10-21] MEDS: Heparin 5,000 UNITS/ML VIAL SC SCH ×3 (09:27→20:44)
[2019-10-21] MEDS: Furosemide 80 MG TAB PO SCH (09:27)
[2019-10-21] MEDS: hydrALAZINE 25 MG TAB PO SCH ×3 (09:28→20:44)
[2019-10-21] MEDS: Minoxidil 10 MG TAB PO SCH ×2 (09:29→20:44)
[2019-10-21] MEDS: Labetalol 100 MG TAB PO SCH ×2 (09:29→20:44)
[2019-10-21] MEDS: NIFEdipine XL 60 MG TAB PO SCH (09:29)
[2019-10-21] MEDS: Sodium Bicarbonate Tab 325 MG TAB PO SCH ×2 (09:29→20:44)
[2019-10-21 12:19] LABS: HBSAg Index 0.14 S/CO (0-0.99); Hep B Surf Ag Non-Reactive S/CO (NonReactive)
--- NOTE | 2019-10-21 13:22 | PRG ---
DATE OF SERVICE: 10/21/2019 SUBJECTIVE: This is a 34-year-old gentleman being seen for end-stage renal disease. The patient denied nausea, vomiting, or chest pain. OBJECTIVE: See above. The patient is awake and alert, in no acute distress. VITAL SIGNS: Afebrile, pulse , breathing 16, blood pressure 145/85. GENERAL APPEARANCE AND MENTAL STATUS: Fair. HEAD/NECK: Normocephalic. Atraumatic. EYES: EOMI. No deformity. EARS: Clear. No ulcers. NOSE: Intact. No lesions. MOUTH: Clear. No discharge. THROAT: Clear. No exudate. LUNGS: Clear. No crackles. CARDIAC: S1, S2. No rub. ABDOMEN: Benign. Bowel sounds positive. GENITALIA/RECTUM: Collins absent. BACK/EXTREMITIES: Edema 0+. NEUROLOGICAL: Alert and motor intact. SKIN: LYMPHATICS: LABORATORY DATA: Labs reviewed. ASSESSMENT AND PLAN: 1. Stage 6 chronic kidney disease. Plan dialysis. 2. Hypertension, stable. 3. Anemia, stable. 4. Hyperkalemia. Plan dialysis. Stable. Job ID: [id number]
[2019-10-21] MEDS ORDERED: Heparin 10,000 UNITS/ 10 ML VIAL ONE (13:26)
--- NOTE | 2019-10-21 13:26 | PDOC.HOSPP ---
- Subjective Encounter Date: 10/21/19 Encounter Time: 10:45 Subjective: no current chest pain or sob feels better has cough no fever or myalgias now no prior cardiac w/u - Objective Vital Signs & Weight: Vital Signs (12 hours) Temp Pulse Resp BP BP Pulse Ox 10/21/19 11:26 98.2 F 97 16 145/85 H 98 10/21/19 09:29 103 H 158/74 H 10/21/19 09:28 103 H 158/74 H 10/21/19 09:00 98.2 F 103 H 18 158/74 H 98 10/21/19 04:31 98 18 135/69 98 Weight Weight 336 lb 3.2 oz Result Diagrams: 10/21/19 05:30 10/21/19 05:30 Additional Labs: Accuchecks 10/20/19 20:51 POC Glucose 232 H Hospitalist ROS - Medication Medications: Active Medications Generic Name Dose Route Start Last Admin Trade Name Freq PRN Reason Stop Dose Admin Calcium Acetate 1,334 mg 10/21/19 08:00 10/21/19 13:02 Phoslo PO Not Given TID-WM ISIDRO Furosemide 80 mg 10/21/19 09:00 10/21/19 09:27 Lasix PO 80 mg DAILY ISIDRO Administration Heparin Sodium (Porcine) 5,000 units 10/20/19 21:00 10/21/19 09:27 Heparin SC 5,000 units TID ISIDRO Administration Hydralazine HCl 100 mg 10/20/19 21:00 10/21/19 09:28 Apresoline PO 100 mg TID ISIDRO Administration Insulin Human Lispro 0 units 10/20/19 20:10 10/20/19 21:50 Humalog SC 2 unit .BEDTIME SLIDING SC PRN Administration Bedtime Correctional Scale Labetalol HCl 200 mg 10/20/19 21:00 10/21/19 09:29 Normodyne PO 200 mg BID ISIDRO Administration Minoxidil 10 mg 10/20/19 21:00 10/21/19 09:29 Minoxidil PO 10 mg BID ISIDRO Administration Nifedipine 60 mg 10/21/19 09:00 10/21/19 09:29 Procardia Xl PO 60 mg DAILY ISIDRO Administration Sodium Bicarbonate 650 mg 10/20/19 21:00 10/21/19 09:29 Bicarbonate, Sodium PO 650 mg BID ISIDRO Administration - Exam General Appearance: NAD, awake alert Eye: PERRL, anicteric sclera ENT: no oropharyngeal lesions, moist mucosa Neck: supple, no JVD Heart: RRR, no murmur Respiratory: no wheezes, no rales Gastrointestinal: soft, non-tender, non-distended, normal bowel sounds Extremities: no cyanosis, no edema Neurological: cranial nerve grossly intact, no focal deficits Psychiatric: normal affect, A&O x 3 Hosp A/P (1) Chest pain Code(s): R07.9 - CHEST PAIN, UNSPECIFIED Status: Acute Qualifiers: Chest pain type: unspecified Qualified Code(s): R07.9 - Chest pain, unspecified (2) Obesity Code(s): E66.9 - OBESITY, UNSPECIFIED Status: Chronic Qualifiers: Obesity classification: adult class 3 (BMI >= 40) Body mass index: BMI 45.0 -49.9 (3) H/O CHF Code(s): Z86.79 - PERSONAL HISTORY OF OTHER DISEASES OF THE CIRCULATORY SYSTEM Status: Chronic Plan: prior ef of 40%, has diastolic dysfunction (4) ESRD (end stage renal disease) on dialysis Code(s): N18.6 - END STAGE RENAL DISEASE; Z99.2 - DEPENDENCE ON RENAL DIALYSIS Status: Chronic (5) Hypertensive urgency Code(s): I16.0 - HYPERTENSIVE URGENCY Status: Acute (6) DM2 (diabetes mellitus, type 2) Status: Chronic Qualifiers: Diabetes mellitus intermission coordinator insulin use: without intermission coordinator use Diabetes mellitus complication status: with kidney complications Diabetes mellitus complication detail: with chronic kidney disease Chronic kidney disease stage : on chronic dialysis Qualified Code(s): E11.22 - Type 2 diabetes mellitus with diabetic chronic kidney disease; N18.6 - End stage renal disease; Z99.2 - Dependence on renal dialysis (7) HTN (hypertension) Code(s): I10 - ESSENTIAL (PRIMARY) HYPERTENSION Status: Chronic Qualifiers: Hypertension type: essential hypertension (8) Medical non-compliance Code(s): Z91.19 - PATIENT'S NONCOMPLIANCE W OTH MEDICAL TREATMENT AND REGIMEN Status: Chronic - Plan for nuclear stress test, likely 2 day given his weight home meds for htn d/w will have HD after he returns from stress test htn is a bit uncontrolled now, will likely get better once his home meds are initiated to ambulate as tolerated nebs prn, influenza check
[2019-10-22] MEDS ORDERED: Diabetic Tussin 200 MG/10 ML UDCUP PO PRN (05:28)
[2019-10-22 07:57] VITALS: TEMP 98.1
[2019-10-22 10:04] VITALS: BP 142/65
[2019-10-22] MEDS: Heparin 5,000 UNITS/ML VIAL SC SCH (10:05)
[2019-10-22] MEDS: Furosemide 80 MG TAB PO SCH (10:05)
[2019-10-22] MEDS: Calcium Acetate 667 MG CAP PO SCH (10:05)
[2019-10-22] MEDS: hydrALAZINE 25 MG TAB PO SCH (10:05)
[2019-10-22] MEDS: Labetalol 100 MG TAB PO SCH (10:06)
[2019-10-22] MEDS: Sodium Bicarbonate Tab 325 MG TAB PO SCH (10:06)
[2019-10-22] MEDS: NIFEdipine XL 60 MG TAB PO SCH (10:06)
[2019-10-22] MEDS: Minoxidil 10 MG TAB PO SCH (10:06)
--- NOTE | 2019-10-22 10:27 | NM ---
EXAM: NM Cardiac Stress W EF WF PROVIDED CLINICAL HISTORY: Chest pain COMPARISON: None RADIOPHARMACEUTICAL: 29.4 millicuries technetium 99m labeled sestamibi IV stress 28.3 millicuries technetium 99m labeled sestamibi IV rest FINDINGS: There is normal, homogeneous distribution of radiotracer throughout the left ventricular myocardium. Gated data demonstrate global dyskinesis with calculated LVEF 45%. Calculated TID is 0.95. IMPRESSION: 1. No scintigraphic evidence for ischemia. 2. Calculated LVEF 45%.
[2019-10-22] MEDS ORDERED: Regadenoson 0.4 MG/5 ML SYRINGE ONE (11:31)
--- NOTE | 2019-10-22 14:27 | DIS ---
DATE OF ADMISSION: 10/20/2019 DATE OF DISCHARGE: 10/22/2019 DISCHARGE DISPOSITION: Home. PRIMARY DISCHARGE DIAGNOSIS: Chest pain, which is noncardiac. SECONDARY DISCHARGE DIAGNOSES: Hypertensive urgency; end-stage renal disease, on hemodialysis; obesity; history of congestive heart failure with prior ejection fraction of 40% and diastolic dysfunction; diabetes mellitus type 2; prior history of noncompliance with medication. PROCEDURES DONE DURING HOSPITALIZATION: Chest x-ray done showed no acute intrathoracic disease. Nuclear stress test done showed a TID of 0.9, global dyskinesis with EF of 45%. No scintigraphic evidence for ischemia. Influenza A and B antigens were negative. H and H 11 and 32, platelet count 288, white count of 11, with 69% neutrophils. BUN 54, creatinine 11.8 on the . HBS antigen nonreactive. DISCHARGE MEDICATIONS: 1. Calcium acetate 1334 mg p.o. three times daily. 2. Glipizide 5 mg p.o. daily. 3. Hydralazine 100 mg p.o. three times daily. 4. Procardia XL 60 mg p.o. daily. 5. Lasix 80 mg p.o. daily. 6. Labetalol 200 mg p.o. twice daily. 7. Minoxidil 10 mg p.o. twice daily. ALLERGIES: NO KNOWN DRUG ALLERGIES. DISCHARGE PLAN: The patient to follow up with his primary care physician in 1 week, and Dr. Verde, his training development director, in 2 weeks. BRIEF COURSE DURING HOSPITALIZATION: The patient initially came to ER with complaints of chest pain and shortness of breath. This happened while he was 20 minutes into his dialysis. In view of this, the patient was brought to emergency room. He was placed under observation on telemetry. He has had indeterminate troponin, which was less than 0.06. He has had a nuclear stress test done, which showed no reversible ischemia. The patient had an ejection fraction of around 45% on the stress test with global dyskinesis. His TID was 0.9. The patient remained asymptomatic all through his stay. He has had one session of hemodialysis done. He is hemodynamically stable and eating well prior to discharge. I have counseled him with regard to medication compliance. Please note I have seen and examined the patient on the day of discharge. Job ID: [id number] [facility]
--- NOTE | 2019-10-22 14:31 | PRG ---
DATE OF SERVICE: 10/22/2019 SUBJECTIVE: A 34-year-old gentleman being seen for end-stage renal disease. The patient denied any nausea, vomiting, or chest pain. OBJECTIVE: See above. CONSTITUTIONAL: The patient is awake and alert, in no acute distress. VITAL SIGNS: Afebrile. Pulse , breathing 16, blood pressure 142/65. GENERAL APPEARANCE AND MENTAL STATUS: Fair. HEAD/NECK: Normocephalic. Atraumatic. EYES: EOMI. No deformity. EARS: Clear. No ulcers. NOSE: Intact. No lesions. MOUTH: Clear. No discharge. THROAT: Clear. No exudate. LUNGS: Clear. No crackles. CARDIAC: S1, S2. No rub. ABDOMEN: Benign. Bowel sounds positive. GENITALIA/RECTUM: Collins absent. BACK/EXTREMITIES: Edema 0+. NEUROLOGICAL: Alert and motor intact. SKIN: LYMPHATICS: LABORATORY DATA: Labs reviewed. ASSESSMENT AND PLAN: 1. Stage 6 chronic kidney disease. Plan dialysis per schedule. 2. Hypertension, stable. 3. Anemia, stable. 4. Medication based on GFR, appropriate. Job ID: [id number]
== END 2019-10-22 12:30 | disposition home or self-care (01) ==
LOC: ERS 13:23 → 2SW 19:04
PROVIDERS: ADMIT Specialist; ATTEND Internal Medicine
DX: R07.89 Other chest pain (principal); I16.0 Hypertensive urgency; I13.2 Hypertensive heart and chronic kidney disease with heart failure and with stage 5 chronic kidney disease, or end stage renal disease; E11.22 Type 2 diabetes mellitus with diabetic chronic kidney disease; N18.6 End stage renal disease; I50.22 Chronic systolic (congestive) heart failure; F17.210 Nicotine dependence, cigarettes, uncomplicated; I42.9 Cardiomyopathy, unspecified; D64.9 Anemia, unspecified; E87.5 Hyperkalemia; E66.01 Morbid (severe) obesity due to excess calories; Z68.42 Body mass index [BMI] 45.0-49.9, adult; Z91.19 Patient's noncompliance with other medical treatment and regimen; Z79.84 Long term (current) use of oral hypoglycemic drugs; Z79.899 Other long term (current) drug therapy; Z99.2 Dependence on renal dialysis
CPT/HCPCS: 71045; 78452; 80048; 80053; 80076; 82550; 82553; 82962 ×3; 83690 ×2; 84484 ×2; 85025 ×2; 87340; 87804 ×2; 93005; 93017; 96372 ×3; 99285; A9500; G0378 ×4; 36415; 36416; 90935; G0257; J1644; J2785

== ENCOUNTER 2020-06-03 16:08 | Observation (INO) | payer MEDICAID, MEDICARE ==
[2020-06-03 16:58] LABS: #Eosinphils 0.1 thou/uL (0.0-0.7); #Monocytes 0.8 thou/uL (0.11-0.59); #Neutrophils 10.6 thou/uL (1.40-6.50); %Basophils 0.1 % (0.0-1.0); %Lymphocytes 7.6 % (21.0-51.0); %Monocytes 6.5 % (0.0-10.0); %Neutrophils 84.8 % (42.0-75.0); Hemoglobin 11.7 g/dL (14.0-18.0); Mean Corpuscular HGB CONC 32.3 g/dL (32.0-36.0); Mean Corpuscular Hemoglobin 27.7 pg (27.0-31.0); Mean Corpuscular Volume 85.7 fL (78.0-98.0); Mean Platelet Volume 6.9 fL (7.4-10.4); Platelet Count 341 thou/uL (130-400); RBC Distribution Width 13.9 % (11.5-14.5); Red Blood Cell (RBC) Count 4.22 mill/uL (4.70-6.10); White Blood Cell (WBC) Count 12.5 thou/uL (4.8-10.8)
[2020-06-03 17:19] LABS: ALT (SGPT) 15 U/L (8-55); AST (SGOT) 10 U/L (5-34); Albumin 4.4 g/dL (3.5-5.0); Alkaline Phosphatase 104 U/L (40-110); Anion Gap 18 mmol/L (10-20); BUN (Urea Nitrogen) 29 mg/dL (8.9-20.6); Bilirubin, Total 0.4 mg/dL (0.2-1.2); Calc. Creatinine Clearance 0 mL/min (70-130); Calcium 9.8 mg/dL (7.8-10.44); Carbon Dioxide 27 mmol/L (22-29); Chloride 95 mmol/L (98-107); Estimated GFR-MDRD 12; Globulin 4.2 g/dL (2.4-3.5); Glucose 212 mg/dL (70-105); Potassium 3.9 mmol/L (3.5-5.1); Protein, Total 8.6 g/dL (6.0-8.3); Sodium 136 mmol/L (136-145)
--- NOTE | 2020-06-03 17:23 | RAD ---
CHEST ONE VIEW: History: Chest pain FINDINGS: Minimal cardiomegaly. Large body habitus. No confluent pneumonia, overt edema, or pleural effusion. IMPRESSION: No significant acute intrathoracic disease. Minimal cardiomegaly. Stable from prior study. POS: [facility]
[2020-06-03 17:41] LABS: CKMB 4.2 ng/mL (0-6.6)
[2020-06-03 20:23] LABS: Troponin I 0.044 ng/mL (< 0.028)
[2020-06-03] MEDS ORDERED: HumaLOG 300 UNITS/3 ML VIAL SC PRN ×2 (20:33)
[2020-06-03] MEDS ORDERED: Dextrose 50% Abboject 50 ML SYRINGE SLOW IVP PRN (20:33)
[2020-06-03] MEDS ORDERED: Dextrose 5% in Water 1,000 ML IV PRN (20:33)
[2020-06-03] MEDS ORDERED: Aspirin 325 MG TAB PO SCH (21:00)
[2020-06-03] MEDS: Heparin 5,000 UNITS/ML VIAL SC SCH (21:20)
--- NOTE | 2020-06-03 21:50 | HP ---
PRIMARY CARE PHYSICIAN: Kaylin Reyes MD. CHIEF COMPLAINT: Chest pain. HISTORY OF PRESENT ILLNESS: The patient is a 34-year-old male with a past medical history of end-stage renal disease, on hemodialysis; chronic systolic congestive heart failure; hypertension; diabetes mellitus and morbid obesity. He presented today for an incident of chest pain during his dialysis treatment. He stated that while he was receiving dialysis; at one point, they had to wake him up because he had either fallen asleep or passed out and they were checking on him because of a low blood pressure. He is unable to recall how low his blood pressure was during treatment. He states that the chest pain was in the very center of his chest and it felt like a tightness. He states he was diaphoretic at that time. He denies nausea or shortness of breath. The dialysis center gave him about 1200 mL of fluid prior to EMS arrival and EMS gave him an additional 250 mL bolus. He was not hypotensive for EMS. The patient states that his chest pain resolved on its own approximately 10 to 15 minutes after he fully woke up. It took him approximately 10 minutes to fully wake up. He said he kept going in and out of wakefulness and that required them to stimulate him to get him fully awake. He has been on dialysis for a year now. He is a patient of Dr. Tang. The patient stated that this has never happened before. He has had bouts of hypotension during dialysis, but he has never experienced this chest pain. However, when looking back through his records, it appears that in September of 2019, he had a very similar episode. It was charted as hypotension during dialysis with accompanying chest pain. They performed a stress test while here in the hospital. His troponins remained indeterminate during his course of stay and his stress test was unremarkable. The patient states that he has a water rights specialist that he has seen in the past, although he is unaware of his name. Today in the ER, they completed lab work, an EKG, a chest x-ray. They administered no medication in the ER. PAST MEDICAL HISTORY: 1. End-stage renal disease, on hemodialysis. 2. Chronic systolic congestive heart failure. 3. Hypertension. 4. Diabetes mellitus. 5. Morbid obesity. PAST SURGICAL HISTORY: Fistula for dialysis. ALLERGIES: NO KNOWN DRUG ALLERGIES. MEDICATIONS: The patient is unable to remember his medications other than he "takes a lot." We will reconcile with nursing. SOCIAL HISTORY: The patient lives at home alone. He does not work. He does not drink alcohol. He states that he does smoke cigarettes occasionally and he does smoke marijuana daily for anxiety. FAMILY HISTORY: Grandparents and father each have history of heart issues, although he is unable to recall what they are. REVIEW OF SYSTEMS: All other review of systems are negative unless noted in the HPI. PHYSICAL EXAMINATION: VITAL SIGNS: Blood pressure 164/93, pulse 88, respiratory rate 20, temperature 98.1 orally, no pain, O2 saturation 98% on room air. GENERAL: The patient appears in no acute distress. Denies pain at this time. HEENT: Head, atraumatic and normocephalic. Eyes, PERRLA. Extraocular muscles intact. NECK: Supple. Trachea midline. RESPIRATORY: Clear to auscultation bilaterally. No rhonchi. No wheezes. No rales. CARDIOVASCULAR: Regular rate and rhythm. No murmurs. No gallops. No rubs. ABDOMEN: Nontender. No distention. Bowel sounds normal. EXTREMITIES: Upper extremity fistula in the left upper extremity with palpable thrill. Lower extremity, 1+ edema. Pedal pulses are intact. No cyanosis. No clubbing. NEUROLOGIC: Awake and alert. Moving all extremities. PSYCH: Normal affect. Normal behavior. LABORATORY DATA: EKG; sinus rhythm, 86 beats per minute, appears similar to his previous one in September. Chest x-ray, no significant acute intrathoracic disease, minimal cardiomegaly, stable from prior study. White blood cells 12.5, hemoglobin 11.7, hematocrit 36.1. Sodium 136, potassium 3.9, chloride 95, BUN 29, creatinine 6.47, GFR 12, glucose 212, CK-MB 4.2, initial troponin 0.032, BNP 140.6. IMPRESSION AND PLAN: 1. Chest pain, probably related to demand ischemia during hypotensive state in dialysis. Fairly recently, had a negative stress test. We will consult Cardiology in the morning for their input on how they would like to proceed with this recurrent chest pain. The patient will be n.p.o. after midnight. We will continue to trend troponins. The initial one was indeterminate, but it actually is lower than his baseline as previously recorded. The patient will be monitored on telemetry overnight. 2. Hypertension. The patient was initially admitted for hypotension; however, he has had no hypotensive episodes for EMS or since being admitted into the emergency room. We will continue to monitor blood pressures throughout the evening. Can restart home medications and may need to cover with p.r.n. antihypertensives as the patient did not finish dialysis today and his blood pressure has steadily increased over the past hours. 3. End-stage renal disease with hemodialysis. We will consult the patient's tool checker. Once again, will monitor his lab levels in the morning, watch for any fluid overload. 4. Diabetes mellitus type 2. Monitor Accu-Cheks a.c. and at bedtime and cover sliding scale insulin. We will hold oral glycemic agents as the patient will be n.p.o. after midnight for the Cardiology consult in the morning. 5. Gastrointestinal prophylaxis will be covered with Protonix. 6. Deep venous thrombosis prophylaxis will be covered with heparin. 7. The patient wishes to be a full code. His surrogate decision maker is his dad, Zion Emery, phone #[phone]. Job ID: [id number] [id number]
[2020-06-04 04:48] LABS: Cardiac Risk 3.6 (Less than 4.5)
[2020-06-04] MEDS ORDERED: Sodium Chloride 0.9% 10 ML ONE (08:04)
[2020-06-04 08:23] LABS: Hemoglobin 11.5 g/dL (14.0-18.0); Mean Corpuscular HGB CONC 31.9 g/dL (32.0-36.0); Mean Corpuscular Hemoglobin 27.7 pg (27.0-31.0); Mean Corpuscular Volume 86.8 fL (78.0-98.0); Mean Platelet Volume 6.9 fL (7.4-10.4); Platelet Count 344 thou/uL (130-400); RBC Distribution Width 13.8 % (11.5-14.5); Red Blood Cell (RBC) Count 4.15 mill/uL (4.70-6.10); White Blood Cell (WBC) Count 11.1 thou/uL (4.8-10.8)
[2020-06-04 08:42] LABS: Anion Gap 19 mmol/L (10-20); BUN (Urea Nitrogen) 40 mg/dL (8.9-20.6); Calc. Creatinine Clearance 28 mL/min (70-130); Calcium 9.8 mg/dL (7.8-10.44); Carbon Dioxide 30 mmol/L (22-29); Chloride 95 mmol/L (98-107); Estimated GFR-MDRD 9; Glucose 120 mg/dL (70-105); Potassium 4.6 mmol/L (3.5-5.1); Sodium 139 mmol/L (136-145)
[2020-06-04] MEDS: Aspirin 325 mg Enteric Coated Tablet PO SCH (09:23)
[2020-06-04] MEDS: Heparin 5,000 UNITS/ML VIAL SC SCH ×3 (09:24→21:11)
[2020-06-04] MEDS ORDERED: NIFEdipine XL 60 MG TAB PO SCH (12:00)
[2020-06-04] MEDS ORDERED: Sevelamer Carbonate 800 MG TAB PO SCH (12:00)
[2020-06-04] MEDS ORDERED: Sodium Bicarbonate Tab 325 MG TAB PO SCH ×2 (12:00→21:00)
[2020-06-04] MEDS ORDERED: Labetalol 100 MG TAB PO SCH ×2 (12:00→21:00)
[2020-06-04] MEDS: Minoxidil 10 MG TAB PO SCH ×2 (12:58→21:13)
[2020-06-04] MEDS ORDERED: Communication Order-Pharmacy FS SCH (13:45)
--- NOTE | 2020-06-04 14:17 | CON ---
DATE OF CONSULTATION: 06/04/2020 CONSULTING PHYSICIAN: CHAVA Cordova REASON FOR CONSULTATION: End-stage renal disease evaluation. REASON FOR ADMISSION: Chest pain. HISTORY OF PRESENT ILLNESS: This is a 34-year-old male with history of end-stage renal disease, CHF, hypertension, diabetes, who came to the hospital with chest pain. The patient had almost 9 L of fluid dialysis yesterday and attempting to remove that much fluid. The patient started having chest pain and presented to the ER. He is feeling better today. No shortness of breath. No chest pain or palpitation reported to me. No fever or chills. No nausea or vomiting. PAST MEDICAL HISTORY: Positive for end-stage renal disease, CHF, hypertension, diabetes, and morbid obesity. PAST SURGICAL HISTORY: Dialysis access placement. HOME MEDICATIONS: Reviewed. ALLERGIES: NO KNOWN DRUG ALLERGIES. SOCIAL HISTORY: No smoking, alcohol, or illicit drug abuse. FAMILY HISTORY: No history of kidney disease. REVIEW OF SYSTEMS: CONSTITUTIONAL: Negative for weight loss or gain, ability to conduct usual activities. SKIN: Negative for rash, itching. EYES: Negative for double vision, pain. ENT/MOUTH: Negative for nose bleeding, neck stiffness, pain, tenderness. CARDIOVASCULAR: Negative for palpitations, dyspnea on exertion, orthopnea. RESPIRATORY: Negative for shortness of breath, wheezing, cough, hemoptysis, fever or night sweats. GASTROINTESTINAL: Negative for poor appetite, abdominal pain, heartburn, nausea, vomiting, constipation, or diarrhea. GENITOURINARY: Negative for urgency, frequency, dysuria, nocturia. MUSCULOSKELETAL: Negative for pain, swelling. NEUROLOGIC/PSYCHIATRIC: Negative for anxiety, depression. ALLERGY/IMMUNOLOGIC: Negative for skin rash, bleeding tendency. PHYSICAL EXAMINATION: GENERAL: This is a morbidly obese male, in no apparent distress. VITAL SIGNS: Temperature 97.1, pulse 93, respiratory rate 18, and blood pressure 166/91. HEENT: Atraumatic, normocephalic. Oral mucosa moist. NECK: Supple. CVS: S1 and S2 heard. Rate and rhythm regular. RESPIRATORY: Clear. GASTROINTESTINAL: Abdomen is soft. MUSCULOSKELETAL: 1+ edema. DERMATOLOGIC: No skin rash. NEUROLOGIC: Alert and awake. Psychiatric: Normal mood and affect. LABORATORY DATA: Hemoglobin is 7.5. Potassium 4.6, BUN is 40, and creatinine is 8.6. ASSESSMENT AND PLAN: 1. End-stage renal disease. Plan to continue dialysis on Wednesday, Wednesday, and Wednesday. 2. Edema, controlled. 3. Fluid overload, better. 4. History of hypertension. 5. Anemia of chronic disease. 6. Morbid obesity. We will continue dialysis on Wednesday, Wednesday, and Wednesday. Job ID: [id number]
--- NOTE | 2020-06-04 14:53 | CON ---
DATE OF CONSULTATION: HISTORY OF PRESENT ILLNESS: Zion Emery is a 34-year-old black male, who has been seen and evaluated by Dr. Diaz in October 2018, that was for hypertension crisis. Also in September 2019, he was hospitalized for chest pain, shortness of breath during dialysis. Nuclear stress test was performed, which revealed no evidence of ischemia. He is also of note that in November 2017, an echocardiogram revealed ejection fraction of 35% to 40% and in September 2018, 40% to 45%. Yesterday at dialysis, he apparently became hypotensive and began to develop chest pressure when they woke him up. He stated that he was diaphoretic, but denied any nausea, vomiting, or shortness of breath. He was given 1200 mL of fluid at dialysis and then given another [address] to the hospital. Chest pain lasted approximately 10 minutes. PAST MEDICAL HISTORY: End-stage renal disease, hypertension, cardiomyopathy with ejection fraction of 40% to 45% on last echo, diabetes, obesity, and hypercholesterolemia. PAST SURGICAL HISTORY: Fistula placement for dialysis. MEDICATIONS: 1. Furosemide 80 mg daily. 2. Glipizide 5 mg daily. 3. Hydralazine 100 mg t.i.d. 4. Labetalol 200 b.i.d. 5. Minoxidil 10 mg b.i.d. 6. Mirtazapine 15 at bedtime. 7. Nifedipine XL 60 daily. 8. Protonix 40 daily. 9. Sertraline 100 daily. 10. Sodium bicarbonate 325 mg b.i.d. 11. Renvela 1600 mg b.i.d. ALLERGIES: NONE. SOCIAL HISTORY: Occasionally smokes cigarettes and marijuana. He does not drink alcohol. FAMILY HISTORY: Father has a known type of heart disease. REVIEW OF SYSTEMS: A 10-point review of systems is otherwise unremarkable. PHYSICAL EXAMINATION: VITAL SIGNS: Blood pressure 166/91 and pulse of 93. HEENT: PERRL. NECK: Supple. CHEST: Clear. CARDIAC: S1 and S2 normal without any S3, S4, or murmurs. ABDOMEN: Obese. Normal bowel sounds. No tenderness. EXTREMITIES: Revealed no clubbing, cyanosis, or edema. NEUROLOGIC: Grossly intact. SKIN: Warm and dry. LABORATORY DATA: EKG reveals normal sinus rhythm with left ventricular hypertrophy. Sodium 139, potassium 4.6, chloride 95, carbon dioxide 30, BUN 40, and creatinine 8.64. Troponin I is up to 0.50, however, he has chronically elevated troponins. Cholesterol 138, triglycerides 111, HDL 38, and LDL 78. BNP 140.6, hemoglobin 11.5, hematocrit 36.0, white count 11,100, and platelets 344,000. IMPRESSION: 1. Hypotension and chest discomfort during dialysis. 2. Cardiomyopathy of uncertain etiology with last ejection fraction of 40% to 45 %. 3. Chronically elevated troponin I. 4. Hypertension. 5. Diabetes. 6. Hypercholesterolemia with LDL of 78 in a diabetic. 7. End-stage renal disease, on dialysis. 8. Obesity. 9. Intermittent smoker. PLAN: With left ventricular dysfunction, echocardiogram will be repeated. With second hospitalization now in 8 months for chest pain during dialysis and ejection fraction of 40% to 45% on last echo, it was recommended he undergo cardiac catheterization. Risks of this were discussed with the patient including , myocardial infarction, dye reaction, vascular injury, CVA, transfusion, limb loss, etc. Risks of stent placement discussed including , myocardial infarction, emergent CABG, restenosis, stent thrombosis, vessel perforation, etc. He understands and is agreeable to proceed. Job ID: [id number] MAURY
[2020-06-04] MEDS: hydrALAZINE 25 MG TAB PO SCH ×2 (15:24→21:11)
--- NOTE | 2020-06-04 15:57 | PDOC.HOSPP ---
- Subjective Encounter Date: 06/04/20 Encounter Time: 15:56 Subjective: T he patient states his chest pain has resolved. He had chest pain briefly while hypotensive during dialysis. He has never had chest pain or dyspnea on exertion , reports normal nuclear stress test two years ago His grandfather of heart problems. Father also had heart problems but he is not sure what age - Objective Vital Signs & Weight: Vital Signs (12 hours) Temp Pulse Resp BP BP BP Pulse Ox 06/04/20 15:24 91 178/100 H 06/04/20 13:00 166/91 H 06/04/20 12:46 93 166/91 H 06/04/20 12:45 93 166/91 H 06/04/20 11:22 97.1 F L 93 17 189/107 H 97 06/04/20 07:48 98.8 F 94 18 170/89 H 97 06/04/20 04:01 88 136/80 Weight Admit Weight 365 lb 4.8 oz Weight 363 lb 11.2 oz I&O: 06/03/20 06/04/20 06/05/20 06:59 06:59 06:59 Intake Total 240 Balance 240 Result Diagrams: 06/04/20 07:56 06/04/20 07:56 Additional Labs: Accuchecks 06/04/20 06/04/20 06/03/20 10:33 05:54 22:24 POC Glucose 138 H 127 H 200 H Hospitalist ROS - Review of Systems Constitutional: denies: fever, chills - Medication Medications: Active Medications Generic Name Dose Route Start Last Admin Trade Name Malu PRN Reason Stop Dose Admin Aspirin 325 mg 06/04/20 09:00 06/04/20 09:23 Ecotrin PO 325 mg DAILY ISIDRO Administration Heparin Sodium (Porcine) 5,000 units 06/03/20 21:00 06/04/20 15:24 Heparin SC 5,000 units TID ISIDRO Administration Hydralazine HCl 100 mg 06/04/20 15:00 06/04/20 15:24 Apresoline PO 100 mg TID ISIDRO Administration Minoxidil 10 mg 06/04/20 12:00 06/04/20 12:58 Minoxidil PO 10 mg BID ISIDRO Administration Pantoprazole Sodium 40 mg 06/04/20 09:00 06/04/20 09:23 Protonix PO 40 mg DAILY ISIDRO Administration - Exam General Appearance: NAD General - other findings: mrobidly obese Eye: PERRL, anicteric sclera ENT: normocephalic atraumatic, no oropharyngeal lesions Neck: supple, no JVD Heart: RRR, no murmur, no gallops, no rubs Respiratory: CTAB, no wheezes, no rales, no ronchi Gastrointestinal: soft, non-tender, non-distended, normal bowel sounds Extremities: no cyanosis, no clubbing, no edema Skin: normal turgor, no lesions, no rashes Neurological: cranial nerve grossly intact, normal sensation to touch, no focal deficits, no new deficit Hosp A/P - Plan This is a 34 year old male who presented with chest pain, has history of ESRD, indeterminate troponin Chest pain - patient has no new changes on EKG, has indeterminate troponin - cardiology was consulted, plan for cardiac cath tomorrow - continue aspirin 325 mg daily - continue atorvastatin ESRD - continue dialysis as scheduled GERD - continue protonix Hypertension - continue hydralazine, nifedipine, minoxidine Type II Diabetes - hold glipizide - insulin sliding scale COde status: full code\
[2020-06-04] MEDS ORDERED: Atorvastatin Calcium 40 MG TAB PO SCH (21:00)
[2020-06-04] MEDS: Sevelamer Carbonate 800 MG TAB PO SCH (21:12)
[2020-06-05] MEDS: hydrALAZINE 25 MG TAB PO SCH ×2 (05:07→18:11)
[2020-06-05] MEDS: Sevelamer Carbonate 800 MG TAB PO SCH (05:08)
[2020-06-05] MEDS: Aspirin 325 mg Enteric Coated Tablet PO SCH (05:08)
[2020-06-05] MEDS: Minoxidil 10 MG TAB PO SCH (05:09)
[2020-06-05 07:35] VITALS: BMI 54.0
[2020-06-05 07:37] LABS: Hemoglobin 11.4 g/dL (14.0-18.0); Mean Corpuscular HGB CONC 32.3 g/dL (32.0-36.0); Mean Corpuscular Volume 86.6 fL (78.0-98.0); Mean Platelet Volume 6.9 fL (7.4-10.4); Platelet Count 332 thou/uL (130-400); RBC Distribution Width 13.6 % (11.5-14.5); Red Blood Cell (RBC) Count 4.08 mill/uL (4.70-6.10); White Blood Cell (WBC) Count 11.6 thou/uL (4.8-10.8)
[2020-06-05] MEDS ORDERED: hydrALAZINE 20 MG/ML VIAL SLOW IVP PRN (07:38)
[2020-06-05 07:51] LABS: Anion Gap 19 mmol/L (10-20); BUN (Urea Nitrogen) 64 mg/dL (8.9-20.6); Calc. Creatinine Clearance 22 mL/min (70-130); Calcium 10.2 mg/dL (7.8-10.44); Carbon Dioxide 30 mmol/L (22-29); Chloride 95 mmol/L (98-107); Estimated GFR-MDRD 6; Glucose 153 mg/dL (70-105); Potassium 4.7 mmol/L (3.5-5.1); Sodium 139 mmol/L (136-145)
[2020-06-05] MEDS ORDERED: Mirtazapine 15 MG TAB PO SCH (09:00)
[2020-06-05] MEDS ORDERED: NIFEdipine XL 60 MG TAB PO SCH (09:00)
[2020-06-05] MEDS: Heparin 5,000 UNITS/ML VIAL SC SCH ×2 (10:07→18:11)
--- NOTE | 2020-06-05 12:07 | PRG ---
DATE OF SERVICE: 06/05/2020 SUBJECTIVE: Patient was seen and examined at bedside and overnight events noted. Patient denies any shortness of breath or chest pain or palpitation. No history of nausea or vomiting or diarrhea or fever or chills or cramps. OBJECTIVE: GENERAL: This is a morbidly obese male, in no apparent distress. VITAL SIGNS: Temperature 97.4. Heart rate 100. Respiratory rate 18. Blood pressure 139/82. HEENT: Atraumatic, normocephalic. Oral mucosa is moist. NECK: Supple. CARDIOVASCULAR: S1, S2 heard. Rate and rhythm regular. RESPIRATORY: Clear to auscultation. GASTROINTESTINAL: Abdomen is soft. MUSCULOSKELETAL: No tenderness. No edema. DERMATOLOGIC: No skin rash. NEUROLOGIC: Alert and awake and oriented x3. No focal neurologic deficits. Moving all the extremities. PSYCHIATRIC: Mood and affect normal. LABORATORY DATA: Potassium 4.7, BUN is 64, and creatinine is 7.1. ASSESSMENT AND PLAN: 1. End-stage renal disease. Continue dialysis on Wednesday, Wednesday, and Wednesday. 2. Edema. We will remove fluid. 3. Hypertension. 4. Anemia of chronic disease. 5. Morbid obesity. Plan to have dialysis on Wednesday, Wednesday, and Wednesday as tolerated. Job ID: [id number]
[2020-06-05 16:36] VITALS: BP 145/70; TEMP 97.9
--- NOTE | 2020-06-05 18:14 | DIS ---
DATE OF ADMISSION: 06/03/2020 DATE OF DISCHARGE: 06/05/2020 DISCHARGE DIAGNOSES: 1. Chest pain, likely secondary to hypotension during dialysis versus mild [id number] myocardial infarction. 2. Leukocytosis. BRIEF HISTORY OF PRESENT ILLNESS: This is a 34-year-old male, with past medical history of ESRD, who presented to the emergency room with chest pain. Patient states that during dialysis, he was noted to be hypotensive and experienced some chest pain. They stopped dialysis and his chest pain resolved and then he had another episode of hypotension which occurred and he described a sensation of chest tightness. It persisted for a little bit longer, but eventually resolved and therefore he was sent to the emergency room. Patient reports he had never had any chest pain or dyspnea on exertion. He reported a normal nuclear stress test in the past. Patient was admitted for chest pain rule out. HOSPITAL COURSE: Chest pain: Patient had an EKG, which was unchanged from his previous. His troponins increased to 0.050. His CK-MB was normal at 4.2, however. Cardiology was consulted and recommended a cardiac cath. However, the patient refused the cardiac cath. Patient ambulated, had no recurrence of his chest pain. He was started on aspirin and atorvastatin. He received his dialysis at the time of discharge. He will be discharged on aspirin and statin and should follow up with his PCP in a week. DISCHARGE PHYSICAL EXAMINATION: VITAL SIGNS: Temperature 97.4, heart rate 100, respiratory rate 18, O2 saturation 98% on room air, and blood pressure 139/82. GENERAL: Patient is alert, awake, and oriented x3. CVS: Regular rate and rhythm with no murmurs, rubs, or gallops. LUNGS: Clear to auscultation bilaterally. ABDOMEN: Slightly distended, normal bowel sounds. Nontender. EXTREMITIES: No edema. PERTINENT LABORATORY DATA: CBC, 06/05: White count 11.6, hemoglobin 11.4, hematocrit 35.3, and platelet count 332. BMP, 06/05: Shows creatinine of 11.13, chloride is 95, carbon dioxide 30, and BUN 64. LFTs: AST 15, ALT 15, and alk phos 104. Troponin I: 0.032, 0.044, 0.050. Lipid panel: Triglyceride 111, cholesterol 138, LDL 78, and HDL 38. IMAGING: Chest x-ray, 06/03: No acute disease. Minimal cardiomegaly. Echo, 06/04: EF is 55% to 60%. Mild MR. Mild TR. There is a small trivial pericardial effusion. DISCHARGE CONDITION: Stable. DIET: Dialysis diet. DISCHARGE MEDICATIONS: New prescriptions: 1. Aspirin 81 mg p.o. daily. 2. Atorvastatin 40 mg p.o. daily. All other home medications were resumed. DISCHARGE INSTRUCTIONS: The patient to follow up with his PCP in a week. Continue dialysis as scheduled. Consider returning to the emergency room if recurrence of chest pain occurs. Patient also has mild pericardial effusion on his echo, possibly secondary to fluid overload. Consider follow up as an outpatient. Job ID: [id number] MTDD
--- NOTE | 2020-06-06 09:09 | PRG ---
DATE OF SERVICE: 06/05/2020 Mr. Emery recently presented with chest pain while on dialysis. This occurred after became hypotensive. He was scheduled for coronary angiography after being seen by Dr. Jamir Alanis. After talking about the risks and benefits of proceeding with coronary angiography and recommending coronary angiography Mr. Donovan has opted to proceed with a more conservative approach. He is not interested in proceeding with coronary angiography. He states he has had one episode in the last several months and feels it was due to being overly aggressive with his dialysis. At this point, I recommend adding Imdur to his current regime. Plan is to follow up Mr. Donovan in the next 1 or 2 weeks in the office. Job ID: [id number]
== END 2020-06-05 18:15 | disposition home or self-care (01) ==
LOC: ERS 16:08 → 2NO 18:30
PROVIDERS: ADMIT Internal Medicine; ATTEND Internal Medicine
DX: R07.89 Other chest pain (principal); I95.9 Hypotension, unspecified; D72.829 Elevated white blood cell count, unspecified; I13.2 Hypertensive heart and chronic kidney disease with heart failure and with stage 5 chronic kidney disease, or end stage renal disease; E11.22 Type 2 diabetes mellitus with diabetic chronic kidney disease; N18.6 End stage renal disease; I50.22 Chronic systolic (congestive) heart failure; D63.1 Anemia in chronic kidney disease; F41.9 Anxiety disorder, unspecified; F17.210 Nicotine dependence, cigarettes, uncomplicated; F12.11 Cannabis abuse, in remission; I42.9 Cardiomyopathy, unspecified; E78.00 Pure hypercholesterolemia, unspecified; E87.70 Fluid overload, unspecified; K21.9 Gastro-esophageal reflux disease without esophagitis; E66.01 Morbid (severe) obesity due to excess calories; Z68.43 Body mass index [BMI] 50.0-59.9, adult; Z79.84 Long term (current) use of oral hypoglycemic drugs; Z79.899 Other long term (current) drug therapy; Z99.2 Dependence on renal dialysis
CPT/HCPCS: 71045; 80048 ×2; 80053; 80061; 82553; 82962 ×3; 83880; 84484 ×2; 85025; 85027 ×2; 93005; 93306; 94760 ×2; 96372 ×2; 99285; G0378 ×4; 36415; 36416; 90935; G0257; J1644

== ENCOUNTER 2020-07-24 19:00 | Outpatient (CLI) | payer MEDICARE | END 2020-07-24 19:01 | disposition home or self-care (01) | LOC: SLEEPLAB 19:00 | PROVIDERS: ATTEND Nurse Practitioner Family | DX: G47.33 Obstructive sleep apnea (adult) (pediatric) (principal); E66.9 Obesity, unspecified; I10 Essential (primary) hypertension; Z68.43 Body mass index [BMI] 50.0-59.9, adult | CPT/HCPCS: 95811 ==

== ENCOUNTER 2021-01-18 23:25 | Emergency (ER) | payer MEDICARE ==
--- NOTE | 2021-01-19 00:08 | RAD ---
Right knee 4 views: 01/18/2021 HISTORY: Injury, trauma, pain FINDINGS: There is a knee joint effusion seen on the lateral exam. There is patellofemoral joint spac e narrowing. There is atherosclerotic calcification posterior to the right knee. There is no displaced fracture or evidence of dislocation seen. IMPRESSION: Knee joint effusion. No displaced fracture or dislocation. If there is clinical concern f or a radio occult fracture, CT is advised. Otherwise, a follow-up MRI may be beneficial given knee joint effusion.
[2021-01-19] MEDS ORDERED: hydrALAZINE 25 MG TAB ONE (03:21)
[2021-01-19] MEDS ORDERED: Labetalol 100 MG TAB PO SCH (03:30)
== END 2021-01-19 03:45 | disposition home or self-care (01) ==
LOC: ERS 23:25
DX: M25.561 Pain in right knee (principal); M54.5 Low back pain; I10 Essential (primary) hypertension; E11.9 Type 2 diabetes mellitus without complications; W00.0XXA Fall on same level due to ice and snow, initial encounter

== ENCOUNTER 2022-01-22 19:30 | Outpatient (CLI) | payer MEDICARE, MEDICAID | END 2022-01-22 19:31 | disposition home or self-care (01) | LOC: SLEEPLAB 19:30 | PROVIDERS: ATTEND Internal Medicine Nephrology | DX: G47.10 Hypersomnia, unspecified (principal); F51.9 Sleep disorder not due to a substance or known physiological condition, unspecified; G47.33 Obstructive sleep apnea (adult) (pediatric); R53.83 Other fatigue; R06.83 Snoring; I12.0 Hypertensive chronic kidney disease with stage 5 chronic kidney disease or end stage renal disease; E11.22 Type 2 diabetes mellitus with diabetic chronic kidney disease; N18.6 End stage renal disease; G47.00 Insomnia, unspecified; E66.9 Obesity, unspecified; Z68.43 Body mass index [BMI] 50.0-59.9, adult | CPT/HCPCS: 95811 ==

== ENCOUNTER 2023-10-06 17:08 | Emergency (ER) | payer MEDICARE, MEDICAID ==
[2023-10-06] MEDS ORDERED: Calcium Chloride 1 GM/10 ML Abboject SYRINGE ONE (17:12)
[2023-10-06] MEDS ORDERED: EPINEPHrine 1 MG/10 ML Abboject SYRINGE ONE ×2 (17:12→17:27)
[2023-10-06] MEDS ORDERED: Sodium Bicarb 50 MEQ/50 ML Abboject 8.4% SYRINGE ONE (17:12)
== END 2023-10-06 17:28 | disposition expired ==
LOC: ERS 17:08
DX: I46.9 Cardiac arrest, cause unspecified (principal); N18.6 End stage renal disease; Z79.899 Other long term (current) drug therapy
CPT/HCPCS: 36416; 92950; 96374; 96375; J0171